=== PATIENT | female | born 1930 | race Caucasian/White ===

== ENCOUNTER 2017-09-01 08:37 | Inpatient (IN) | payer MEDICARE, MEDICAID ==
[2017-09-01] MEDS ORDERED: Ondansetron 4 MG/2 ML SDV IVPUSH ONE (09:18)
[2017-09-01] MEDS ORDERED: levETIRAcetam 1,000 MG in Sodium Chloride 0.9% 100 ML IV STA (09:23)
[2017-09-01] MEDS ORDERED: Sodium Chloride 0.9% 1,000 ML IV SCH ×2 (09:30→17:15)
--- NOTE | 2017-09-01 10:50 | CR ---
Chest: Portable view of the chest was obtained. Comparison: Prior chest x-ray of 06/03/16. Heart is enlarged. Tortuous thoracic aorta is seen. Lungs are clear. Scoliosis is noted within the spine. Bony structures are osteopenic. Impression: 1. Cardiomegaly and other incidental findings. 2. Nothing acute is appreciated on portable chest x-ray. Diagnostic code #2
--- NOTE | 2017-09-01 11:31 | EDM.PDOC ---
ED HPI GENERAL MEDICAL PROBLEM - General Chief Complaint: Gastrointestinal Problem Stated Complaint: [facility] Time Seen by Provider: 09/01/17 09:03 Source of Information: Reports: EMS Notes Reviewed, RN Notes Reviewed History Limitations: Reports: Altered Mental Status - History of Present Illness INITIAL COMMENTS - FREE TEXT/NARRATIVE: The patient was brought to the ED from her assisted living by EMS. Unfortunately , the only paperwork that accompanied the patient is a medication list, but not a list of her chronic medical problems, or what issues prompted her transfer to the ED. The EMS report indicates that they were told that the patient has "flu" , by which I believe a mean gastroenteritis, not influenza. The patient agrees that she has had nausea, vomiting, and diarrhea, but is unable to provide any additional information. Here in the ED, the patient's vital signs are noted to be stable, however, she has a temperature of 101.5. - Related Data Allergies Allergy/AdvReac Type Severity Reaction Status Date / Time Cephalosporins Allergy Cannot Verified 02/15/16 05:54 Remember codeine Allergy Cannot Verified 02/15/16 05:54 Remember diazepam [From Valium] Allergy Other Verified 02/15/16 06:41 morphine Allergy Cannot Verified 02/15/16 05:54 Remember Penicillins Allergy Cannot Verified 02/15/16 05:54 Remember phenobarbital Allergy Other Verified 02/15/16 06:42 sulfanilamide [Sulfanilamide] Allergy Cannot Verified 02/15/16 05:54 Remember clindamycin AdvReac Stomach Verified 02/15/16 05:54 Ache Home Meds: Home Meds Acetaminophen [Tylenol Arthritis Pain] 650 mg PO Q4HR PRN 02/01/15 [History] Aspirin [Halfprin] 81 mg PO DAILY 02/01/15 [History] Azelastine [Astelin Nasal Soln] 1 inhalation CHAVA BID 02/01/15 [History] ClonazePAM [KlonoPIN] 0.5 mg PO BEDTIME 02/01/15 [History] Denosumab [Prolia] 60 mg INJECT ASDIRECTED 02/01/15 [History] Desmopressin (NonRefrigerated) [Ddavp 0.01% Nasal [place]] 1 spray NS TID [History] Dexlansoprazole [Dexilant] 60 mg PO DAILY 02/01/15 [History] Diazepam [Diastat] 5 mg TOP DAILY PRN 02/01/15 [History] Escitalopram [Lexapro] 20 mg PO DAILY 02/01/15 [History] Folic Acid 1 mg PO DAILY 02/01/15 [History] Furosemide [Lasix] 20 mg PO DAILY 02/01/15 [History] Gabapentin [Neurontin] 600 mg PO QID 02/01/15 [History] LORazepam 1 mg PO Q12H PRN 02/01/15 [History] Levothyroxine 175 mcg PO ACBRK 02/01/15 [History] Losartan Potassium [Cozaar] 100 mg PO QAM 02/01/15 [History] Multivit-Min/FA/Lutein/Zeaxant [Macular Vitamin Tablet] 1 each PO DAILY [History] Multivitamin [Daily Vitamin] 1 each PO QAM 02/01/15 [History] Addison-3 Fatty Acids [Addison-3] 1,000 mg PO QAM 02/01/15 [History] Propranolol HCl [Inderal Xl] 80 mg PO 0900 02/01/15 [History] Propranolol [Inderal] 20 mg PO TID 02/01/15 [History] Simvastatin [Zocor] 20 mg PO QPM 02/01/15 [History] levETIRAcetam [Keppra] 1,000 mg PO ACBREAKFAST 02/01/15 [History] levETIRAcetam [Keppra] 1,500 mg PO BEDTIME 02/01/15 [History] predniSONE [Prednisone] 5 mg PO DAILY 02/01/15 [History] Meloxicam 15 mg PO DAILY 02/14/16 [History] Docusate Sodium 100 mg PO BID PRN 09/01/17 [History] traMADol [Ultram] 50 mg PO Q4HR PRN 09/01/17 [History] Past Medical History Other HEENT History: Glasses and upper partials. Cardiovascular History: Reports: High Cholesterol, Hypertension Gastrointestinal History: Reports: Hepatitis, Pancreatitis, Other (See Below) Other Gastrointestinal History: Kidney stones and stomach ulcers. Genitourinary History: Reports: Other (See Below) Other Genitourinary History: kidney stones [employer] WORK[employer] History: Reports: Musculoskeletal History: Reports: Back Pain, Chronic Neurological History: Reports: Seizure Endocrine/Metabolic History: Reports: Hypothyroidism Oncologic (Cancer) History: Reports: Uterine Other Oncologic History: Hysterectomy. - Infectious Disease History Infectious Disease History: Reports: Chicken Pox, Measles, Mumps, Rubella Other Infectious Disease History: Pt states she had hepatitis a long time ago and does not remember what kind. - Past Surgical History HEENT Surgical History: Reports: Cataract Surgery, Tonsillectomy Neurological Surgical History: Reports: Other (See Below) Oncologic Surgical History: Reports: None Social & Family History - Family History HEENT: Reports: Hearing Impairment Other HEENT Family History: Brother Ed has hearing aids. Cardiac: Reports: High Cholesterol, Hypertension Respiratory: Reports: Asthma, COPD, Other (See Below) Other Respiratory Family Hisory: Sister has asthma. Brother has COPD. Mother had lung problems. Musculoskeletal: Reports: Fibromyalgia Other Musculoskeletal Family History: Sister has fibromyalgia. Neurological: Reports: CVA Other Neurological Family History: Father had strokes. Endocrine/Metabolic: Reports: Diabetes, type II Other Endocrine/Metabolic Family History: Brother has DM II. Hematologic: Reports: Other (See Below) Other Hematologic Family History: Brother has some type of bleeding complication. Oncologic: Reports: Lung Other Oncologic Family History: Daughter has lung CA from smoking. - Tobacco Use Smoking Status *Q: Never Smoker Second Hand Smoke Exposure: No - Caffeine Use Caffeine Use: Reports: Coffee - Alcohol Use Days Per Week of Alcohol Use: 0 - Recreational Drug Use Recreational Drug Use: No - Living Situation & Occupation Living situation: Reports: Assisted Living Occupation: Retired ED ROS GENERAL - Review of Systems Review Of Systems: ROS reveals no pertinent complaints other than HPI. GI/Abdominal: Reports: Diarrhea, Nausea, Vomiting ED EXAM, GENERAL - Physical Exam Exam: See Below Exam Limited By: No Limitations General Appearance: Alert, WD/WN, No Apparent Distress, Lethargic Eye Exam: Bilateral Eye: Normal Inspection Ears: Normal External Exam, Hearing Grossly Normal Nose: Normal Inspection, No Blood Throat/Mouth: Normal Inspection, Normal Lips, Normal Voice, No Airway Compromise Head: Atraumatic, Normocephalic Neck: Normal Inspection, Full Range of Motion Respiratory/Chest: No Respiratory Distress, Lungs Clear, Normal Breath Sounds, No Accessory Muscle Use Cardiovascular: Normal Peripheral Pulses, Regular Rate, Rhythm, No Gallop, No JVD, No Murmur, No Rub Peripheral Pulses: 4+: Radial (L), Radial (R) GI/Abdominal: Normal Bowel Sounds, Soft, Non-Tender, No Organomegaly, No Distention, No Abnormal Bruit, No Mass, Other (Obese) (Female) Exam: Deferred Rectal (Female) Exam: Deferred Back Exam: Other (Buttocks erythematous, but no skin breakdown) Extremities: Normal Inspection, Normal Range of Motion, No Pedal Edema, Normal Capillary Refill Neurological: Other (Somnolent but arousable) Psychiatric: Other (Unable to assess) Skin Exam: Warm, Dry, Intact, Normal Color, No Rash EKG INTERPRETATION EKG Date: 09/01/17 Time: : Rhythm: NSR Rate (Beats/Min): 78 [place]: LAD-Left [place] Deviation P-Wave: Present (1st degree AVB) QRS: LBBB ST-T: Normal QT: Normal Comparison: No Change (02/01/2015) Course - Vital Signs Last Recorded V/S: Last Vital Signs Temp 38.6 C H 09/01/17 08:48 Pulse 74 09/01/17 08:48 Resp 18 09/01/17 08:48 BP 140/69 09/01/17 08:48 Pulse Ox 86 L 09/01/17 08:48 - Orders/Labs/Meds Orders: Active Orders 24 hr Category Date Time Status EKG Documentation Completion [RC] STAT Care 09/01/17 09:10 Active CKMB [CHEM] Routine Lab 09/01/17 14:20 Ordered CRP [C-REACTIVE PROTEIN] [CHEM] Routine Lab 09/01/17 14:20 Ordered CULTURE BLOOD [BC] Stat Lab 09/01/17 10:34 Received CULTURE BLOOD [BC] Stat Lab 09/01/17 10:34 Received CULTURE STOOL + SHIGATOX [RM] Stat Lab 09/01/17 10:30 Received NOROVIRUS GROUP 1 & 2 RT-PCR Stat Lab 09/01/17 10:30 Received TROPONIN I [CHEM] Routine Lab 09/01/17 14:20 Ordered Sodium Chloride 0.9% [Normal Saline] 1,000 ml Med 09/01/17 09:30 Active IV ASDIRECTED Blood Culture x2 Reflex Set [OM.PC] Stat Oth 09/01/17 09:12 Ordered Medication Orders Sodium Chloride (Normal Saline) 1,000 mls @ 100 mls/hr IV ASDIRECTED LINDEN Last Admin: 09/01/17 10:10 Dose: 100 mls/hr Labs: Laboratory Tests 09/01/17 09/01/17 09/01/17 Range/Units 09:35 10:05 10:05 WBC 6.91 (3.98-10.04) K/mm3 RBC 4.95 (3.98-5.22) M/mm3 Hgb 15.2 (11.2-15.7) gm/L Hct 47.8 H (34.1-44.9) % MCV 96.6 H (79.4-94.8) fl MCH 30.7 (25.6-32.2) pg MCHC 31.8 L (32.2-35.5) g/dl RDW Std Deviation 51.9 H (36.4-46.3) fL Plt Count 166 L (182-369) K/mm3 MPV 10.4 (9.4-12.3) fl Neutrophils % (Manual) 64 H (40-60) % Band Neutrophils % 0 (0-10) % Lymphocytes % (Manual) 26 (20-40) % Atypical Lymphs % 0 % Monocytes % (Manual) 9 (2-10) % Eosinophils % (Manual) 1 (0.7-5.8) % Basophils % (Manual) 0 L (0.1-1.2) Platelet Estimate Adequate RBC Morph Comment Normal PT (8.0-13.0) SECONDS INR APTT (22-36) SECONDS Puncture Site ABG pH (7.35-7.45) ABG pCO2 (35.0-45.0) mmHg ABG pO2 (80.0-100.0) mmHg ABG HCO3 (22.0-26.0) meq/L ABG O2 Saturation (96.0-97.0) % ABG Base Excess (-2-2.0) Bishop Test A-a Gradient mmHg O2 Delivery Device Oxygen Flow Rate FiO2 (21.00-100.00) % Sodium 146 H (136-145) mEq/L Potassium 3.7 (3.5-5.1) mEq/L Chloride 111 H (98-107) mEq/L Carbon Dioxide 28 (21-32) mEq/L Anion Gap 10.7 (5-15) BUN 26 H (7-18) mg/dL Creatinine 1.1 H (0.55-1.02) mg/dL Est Cr Clr Drug Dosing 26.86 mL/min Estimated GFR (MDRD) 47 (>60) mL/min BUN/Creatinine Ratio 23.6 H (14-18) Glucose 98 (83-115) mg/dL Lactic Acid (0.4-2.0) mmol/L Calcium 8.4 L (8.5-10.1) mg/dL Magnesium 2.1 (1.8-2.4) mg/dl Total Bilirubin 0.6 (0.2-1.0) mg/dL AST 20 (15-37) U/L ALT 20 (14-59) U/L Alkaline Phosphatase 46 (46-116) U/L Troponin I 0.166 H* (0.00-0.056) ng/mL Total Protein 6.6 (6.4-8.2) g/dl Albumin 3.3 L (3.4-5.0) g/dl Globulin 3.3 gm/dL Albumin/Globulin Ratio 1.0 (1-2) Lipase 234 (73-393) U/L Urine Color Yellow (Yellow) Urine Appearance Clear (Clear) Urine pH 5.5 (5.0-8.0) Ur Specific [place] 1.015 (1.005-1.030) Urine Protein Negative (Negative) Urine Glucose (UA) Negative (Negative) Urine Ketones Negative (Negative) Urine Occult Blood 2+ H (Negative) Urine Nitrite Negative (Negative) Urine Bilirubin Negative (Negative) Urine Urobilinogen 0.2 (0.2-1.0) Ur Leukocyte Esterase Negative (Negative) Urine RBC 10-20 H (0-5) /hpf Urine WBC 0-5 (0-5) /hpf Ur Epithelial Cells Not seen (0-5) /hpf Urine Bacteria Few (FEW) /hpf Urine Mucus Few (FEW) /hpf C.difficile [id number]-[id number] C. difficile Tox (PCR) 09/01/17 09/01/17 09/01/17 Range/Units 10:05 10:05 10:30 WBC (3.98-10.04) K/mm3 RBC (3.98-5.22) M/mm3 Hgb (11.2-15.7) gm/L Hct (34.1-44.9) % MCV (79.4-94.8) fl MCH (25.6-32.2) pg MCHC (32.2-35.5) g/dl RDW Std Deviation (36.4-46.3) fL Plt Count (182-369) K/mm3 MPV (9.4-12.3) fl Neutrophils % (Manual) (40-60) % Band Neutrophils % (0-10) % Lymphocytes % (Manual) (20-40) % Atypical Lymphs % % Monocytes % (Manual) (2-10) % Eosinophils % (Manual) (0.7-5.8) % Basophils % (Manual) (0.1-1.2) Platelet Estimate RBC Morph Comment PT 11.4 (8.0-13.0) SECONDS INR 1.04 APTT 27 (22-36) SECONDS Puncture Site Rt radial ABG pH 7.34 L (7.35-7.45) ABG pCO2 44.3 (35.0-45.0) mmHg ABG pO2 88.0 (80.0-100.0) mmHg ABG HCO3 23.2 (22.0-26.0) meq/L ABG O2 Saturation 96.7 (96.0-97.0) % ABG Base Excess -2.2 L (-2-2.0) Bishop Test Positive A-a Gradient 35 mmHg O2 Delivery Device Nasal cannula Oxygen Flow Rate 2.0 FiO2 28.00 (21.00-100.00) % Sodium (136-145) mEq/L Potassium (3.5-5.1) mEq/L Chloride (98-107) mEq/L Carbon Dioxide (21-32) mEq/L Anion Gap (5-15) BUN (7-18) mg/dL Creatinine (0.55-1.02) mg/dL Est Cr Clr Drug Dosing mL/min Estimated GFR (MDRD) (>60) mL/min BUN/Creatinine Ratio (14-18) Glucose (83-115) mg/dL Lactic Acid 1.1 (0.4-2.0) mmol/L Calcium (8.5-10.1) mg/dL Magnesium (1.8-2.4) mg/dl Total Bilirubin (0.2-1.0) mg/dL AST (15-37) U/L ALT (14-59) U/L Alkaline Phosphatase (46-116) U/L Troponin I (0.00-0.056) ng/mL Total Protein (6.4-8.2) g/dl Albumin (3.4-5.0) g/dl Globulin gm/dL Albumin/Globulin Ratio (1-2) Lipase (73-393) U/L Urine Color (Yellow) Urine Appearance (Clear) Urine pH (5.0-8.0) Ur Specific [place] (1.005-1.030) Urine Protein (Negative) Urine Glucose (UA) (Negative) Urine Ketones (Negative) Urine Occult Blood (Negative) Urine Nitrite (Negative) Urine Bilirubin (Negative) Urine Urobilinogen (0.2-1.0) Ur Leukocyte Esterase (Negative) Urine RBC (0-5) /hpf Urine WBC (0-5) /hpf Ur Epithelial Cells (0-5) /hpf Urine Bacteria (FEW) /hpf Urine Mucus (FEW) /hpf C.difficile [id number]-NAP1-B1 C. difficile Tox (PCR) 09/01/17 Range/Units 10:30 WBC (3.98-10.04) K/mm3 RBC (3.98-5.22) M/mm3 Hgb (11.2-15.7) gm/L Hct (34.1-44.9) % MCV (79.4-94.8) fl MCH (25.6-32.2) pg MCHC (32.2-35.5) g/dl RDW Std Deviation (36.4-46.3) fL Plt Count (182-369) K/mm3 MPV (9.4-12.3) fl Neutrophils % (Manual) (40-60) % Band Neutrophils % (0-10) % Lymphocytes % (Manual) (20-40) % Atypical Lymphs % % Monocytes % (Manual) (2-10) % Eosinophils % (Manual) (0.7-5.8) % Basophils % (Manual) (0.1-1.2) Platelet Estimate RBC Morph Comment PT (8.0-13.0) SECONDS INR APTT (22-36) SECONDS Puncture Site ABG pH (7.35-7.45) ABG pCO2 (35.0-45.0) mmHg ABG pO2 (80.0-100.0) mmHg ABG HCO3 (22.0-26.0) meq/L ABG O2 Saturation (96.0-97.0) % ABG Base Excess (-2-2.0) Bishop Test A-a Gradient mmHg O2 Delivery Device Oxygen Flow Rate FiO2 (21.00-100.00) % Sodium (136-145) mEq/L Potassium (3.5-5.1) mEq/L Chloride (98-107) mEq/L Carbon Dioxide (21-32) mEq/L Anion Gap (5-15) BUN (7-18) mg/dL Creatinine (0.55-1.02) mg/dL Est Cr Clr Drug Dosing mL/min Estimated GFR (MDRD) (>60) mL/min BUN/Creatinine Ratio (14-18) Glucose (83-115) mg/dL Lactic Acid (0.4-2.0) mmol/L Calcium (8.5-10.1) mg/dL Magnesium (1.8-2.4) mg/dl Total Bilirubin (0.2-1.0) mg/dL AST (15-37) U/L ALT (14-59) U/L Alkaline Phosphatase (46-116) U/L Troponin I (0.00-0.056) ng/mL Total Protein (6.4-8.2) g/dl Albumin (3.4-5.0) g/dl Globulin gm/dL Albumin/Globulin Ratio (1-2) Lipase (73-393) U/L Urine Color (Yellow) Urine Appearance (Clear) Urine pH (5.0-8.0) Ur Specific [place] (1.005-1.030) Urine Protein (Negative) Urine Glucose (UA) (Negative) Urine Ketones (Negative) Urine Occult Blood (Negative) Urine Nitrite (Negative) Urine Bilirubin (Negative) Urine Urobilinogen (0.2-1.0) Ur Leukocyte Esterase (Negative) Urine RBC (0-5) /hpf Urine WBC (0-5) /hpf Ur Epithelial Cells (0-5) /hpf Urine Bacteria (FEW) /hpf Urine Mucus (FEW) /hpf C.difficile [id number]-NAP1-B1 Presumptive negative C. difficile Tox (PCR) Negative Meds: Medications Generic Name Dose Route Start Last Admin Trade Name Freq PRN Reason Stop Dose Admin Sodium Chloride 1,000 mls @ 100 mls/hr 09/01/17 09:30 09/01/17 10:10 Normal Saline IV 100 mls/hr ASDIRECTED LINDEN Administration Discontinued Medications Generic Name Dose Route Start Last Admin Trade Name Freq PRN Reason Stop Dose Admin Levetiracetam 1,000 mg/ Sodium 110 mls @ 400 mls/hr 09/01/17 09:23 09/01/17 10:07 Chloride IV 09/01/17 09:39 400 mls/hr ONETIME STA Administration Ondansetron HCl 4 mg 09/01/17 09:18 09/01/17 10:43 Zofran IVPUSH 09/01/17 09:19 4 mg ONETIME ONE Administration - Re-Assessments/Exams Free Text/Narrative Re-Assessment/Exam: 09/01/17 09:32 Portable chest radiograph reviewed. There is likely cardiomegaly, but no pulmonary vascular congestion to suggest decompensated CHF. No pleural effusions seen on this AP view. No focal infiltrate. No pneumothorax. Formal read per the Radiologist pending. 09/01/17 13:[address] Connolly at 13:30. He accepts the patient for admission to medical floor. Departure - Departure Time of Disposition: 13:33 Disposition: Admitted As Inpatient 68 Condition: Fair Clinical Impression: Gastroenteritis, Acute kidney injury, Elevated troponin - Discharge Information - My Orders Last 24 Hours: My Active Orders 09/01/17 09:10 EKG Documentation Completion [RC] STAT 09/01/17 09:12 Blood Culture x2 Reflex Set [OM.PC] Stat 09/01/17 09:30 Sodium Chloride 0.9% [Normal Saline] 1,000 ml IV ASDIRECTED 09/01/17 10:30 CULTURE STOOL + SHIGATOX [RM] Stat NOROVIRUS GROUP 1 & 2 RT-PCR Stat 09/01/17 10:34 CULTURE BLOOD [BC] Stat CULTURE BLOOD [BC] Stat - Assessment/Plan Last 24 Hours: My Active Orders 09/01/17 09:10 EKG Documentation Completion [RC] STAT 09/01/17 09:12 Blood Culture x2 Reflex Set [OM.PC] Stat 09/01/17 09:30 Sodium Chloride 0.9% [Normal Saline] 1,000 ml IV ASDIRECTED 09/01/17 10:30 CULTURE STOOL + SHIGATOX [RM] Stat NOROVIRUS GROUP 1 & 2 RT-PCR Stat 09/01/17 10:34 CULTURE BLOOD [BC] Stat CULTURE BLOOD [BC] Stat
[2017-09-01] MEDS ORDERED: Ondansetron 4 MG/2 ML SDV IV PRN (15:35)
[2017-09-01] MEDS ORDERED: Albuterol/Ipratropium 3.0-0.5 MG/3 ML Neb Soln NEB PRN (15:35)
[2017-09-01] MEDS ORDERED: Ondansetron 4 MG Tab.DIS PO PRN (15:35)
[2017-09-01] MEDS ORDERED: Acetaminophen 325 MG Tab PO PRN (15:35)
[2017-09-01] MEDS ORDERED: Docusate Sodium 100 MG Cap PO PRN (15:35)
[2017-09-01] MEDS ORDERED: Temazepam 15 MG Cap PO PRN (15:35)
[2017-09-01] MEDS ORDERED: Polyethylene Glycol 3350 Powder 17 GM Packet PO PRN (15:35)
[2017-09-01] MEDS ORDERED: Bisacodyl 5 MG Tab PO PRN (15:35)
--- NOTE | 2017-09-01 15:54 | PCM.HP ---
H&P History of Present Illness - General Date of Service: 09/01/17 Admit Problem/Dx: Admission Diagnosis/Problem Admission Diagnosis/Problem Gastroenteritis Source of Information: Patient, Old Records, Provider, RN History Limitations: Reports: No Limitations - History of Present Illness Initial Comments - Free Text/Narative: Alie Blevins is an 87 yo pt. who presented to our ED via EMS from [place]. She lives there at the assisted-living manner. On arrival she had a medication list but did not have a list of her chronic medical problems or why she was being transferred to the ED. EMS reports the patient has had the flu. The ED provider interpreted this to mean gastroenteritis and not influenza. She reports nausea, vomiting, diarrhea. Vital signs in the ED had been stable however she had a temperature of 101.5. In the ED labs were obtained: WBC normal at 6.91. Hemoglobin normal at 15.2 hematocrit 47.8. She is macrocytic. Fluids are low at 166,000. Neutrophils elevated at 64%. There is no bandemia. PT is 11.4. INR 1.04. APTT 27. ABG was obtained in the right radial. PH is just slightly acidotic at 7.34. PCO2 44.3. PO2 88.0. Bicarbonate 23.2. O2 saturation 96.7. Base excess -2.2.A-a gradient is 35. He is on 2 L by nasal cannula. FiO2 is 28%. Lactic acid is 1.1. Sodium was 146. Potassium 3.7. Chloride 111. Carbon dioxide 28. Anion gap 10.7. BUN is high at 26. Creatinine elevated at 1.1. EGFR is 47. Glucose is 98. Calcium slightly low at 8.4. Magnesium 2.1. Bilirubin 0.6. AST good at 20, ALT good at 20, alkaline phosphatase 46. UA had 2+ occult blood, however was otherwise negative. C. difficile toxin by PCR as well as C. difficile 027-NAP1- B1 were both negative. As noted she was placed on 2 L of oxygen. She was given a Keppra drip although reasoning for this is not documented. Patient is on Keppra twice daily. She was also given Zofran and normal saline. Chest x- ray was obtained showing cardiomegaly with other incidental findings. Nothing acute is appreciated. This is read by Dr. Patel, radiologist. Twelve-lead was obtained. This shows a first-degree AV block as well as a left bundle branch block. Sinus rhythm is noted at a rate of 78. This was compared to a 12 -lead from showing no change. She carries a history of HLD, HTN, hepatitis, pancreatitis, seizures, chronic back pain, hypothyroidism. She was never a smoker. She reports "small heart attack" after her prior back surgery several years ago. She is a full code. Her PCP is Dr. Ortiz at [facility] in [place]. - Related Data Allergies/Adverse Reactions: Allergies Allergy/AdvReac Type Severity Reaction Status Date / Time Cephalosporins Allergy Cannot Verified 02/15/16 05:54 Remember codeine Allergy Cannot Verified 02/15/16 05:54 Remember diazepam [From Valium] Allergy Other Verified 02/15/16 06:41 morphine Allergy Cannot Verified 02/15/16 05:54 Remember Penicillins Allergy Cannot Verified 02/15/16 05:54 Remember phenobarbital Allergy Other Verified 02/15/16 06:42 sulfanilamide [Sulfanilamide] Allergy Cannot Verified 02/15/16 05:54 Remember clindamycin AdvReac Stomach Verified 02/15/16 05:54 Ache Home Medications: Home Meds Acetaminophen [Tylenol Arthritis Pain] 1,300 mg PO Q8HR PRN 02/01/15 [History] Aspirin [Halfprin] 81 mg PO DAILY 02/01/15 [History] Azelastine [Astelin Nasal Soln] 2 sprays CHAVA BID 02/01/15 [History] ClonazePAM [KlonoPIN] 0.5 mg PO BEDTIME 02/01/15 [History] Denosumab [Prolia] 60 mg INJECT ASDIRECTED 02/01/15 [History] Desmopressin (NonRefrigerated) [Ddavp 0.01% Nasal [place]] 1 spray NS TID [History] Dexlansoprazole [Dexilant] 60 mg PO 0745 02/01/15 [History] Diazepam [Diastat] 5 mg TOP DAILY PRN 02/01/15 [History] Escitalopram [Lexapro] 20 mg PO DAILY 02/01/15 [History] Folic Acid 1 mg PO DAILY 02/01/15 [History] Furosemide [Lasix] 20 mg PO DAILY 02/01/15 [History] Gabapentin [Neurontin] 600 mg PO QID 02/01/15 [History] LORazepam 1 mg PO Q12H PRN MDD 3mg in 12 hrs 02/01/15 [History] Levothyroxine 137 mcg PO ACBRK 02/01/15 [History] Losartan Potassium [Cozaar] 100 mg PO QAM 02/01/15 [History] Multivit-Min/FA/Lutein/Zeaxant [Macular Vitamin Tablet] 1 each PO 1200 02/01/15 [History] Multivitamin [Daily Vitamin] 1 each PO QAM 02/01/15 [History] [place]-3 Fatty Acids [[place]-3] 1,000 mg PO QAM 02/01/15 [History] Propranolol HCl [Inderal Xl] 80 mg PO 0900 02/01/15 [History] Propranolol [Inderal] 20 mg PO 0745,1130,1630 02/01/15 [History] Simvastatin [Zocor] 20 mg PO QPM 02/01/15 [History] levETIRAcetam [Keppra] 1,000 mg PO DAILY 02/01/15 [History] levETIRAcetam [Keppra] 1,500 mg PO BEDTIME 02/01/15 [History] predniSONE [Prednisone] 5 mg PO DAILY 02/01/15 [History] Meloxicam 15 mg PO 1200 02/14/16 [History] Docusate Sodium 100 mg PO BID PRN 09/01/17 [History] traMADol [Ultram] 50 mg PO Q4HR PRN 09/01/17 [History] Past Medical History Other HEENT History: Glasses and upper partials. Cardiovascular History: Reports: High Cholesterol, Hypertension Gastrointestinal History: Reports: Hepatitis, Pancreatitis, Other (See Below) Other Gastrointestinal History: Kidney stones and stomach ulcers. Genitourinary History: Reports: Other (See Below) Other Genitourinary History: kidney stones SLOT HOST History: Reports: Other OB/BYN History: Had 3 children. Musculoskeletal History: Reports: Back Pain, Chronic Neurological History: Reports: Seizure Other Neuro History: Patient stated, "Seizures all my life." Endocrine/Metabolic History: Reports: Hypothyroidism Oncologic (Cancer) History: Reports: Uterine Other Oncologic History: Hysterectomy. Dermatologic History: Reports: Benign Melanoma, Other (See Below) Other Dermatologic History: Moles - Infectious Disease History Infectious Disease History: Reports: Chicken Pox, Measles, Mumps, Rubella Other Infectious Disease History: Pt states she had hepatitis a long time ago and does not remember what kind. - Past Surgical History HEENT Surgical History: Reports: Cataract Surgery, Tonsillectomy Neurological Surgical History: Reports: Other (See Below) Oncologic Surgical History: Reports: None Social & Family History - Family History Family Medical History: Noncontributory HEENT: Reports: Hearing Impairment Other HEENT Family History: Brother Ed has hearing aids. Cardiac: Reports: High Cholesterol, Hypertension Respiratory: Reports: Asthma, COPD, Other (See Below) Other Respiratory Family Hisory: Sister has asthma. Brother has COPD. Mother had lung problems. Musculoskeletal: Reports: Fibromyalgia Other Musculoskeletal Family History: Sister has fibromyalgia. Neurological: Reports: CVA Other Neurological Family History: Father had strokes. Endocrine/Metabolic: Reports: Diabetes, type II Other Endocrine/Metabolic Family History: Brother has DM II. Hematologic: Reports: Other (See Below) Other Hematologic Family History: Brother has some type of bleeding complication. Oncologic: Reports: Lung Other Oncologic Family History: Daughter has lung CA from smoking. - Tobacco Use Smoking Status *Q: Never Smoker Used Tobacco, but Quit: No Tobacco Use Comment: never used. Second Hand Smoke Exposure: No - Caffeine Use Caffeine Use: Reports: Coffee - Alcohol Use Days Per Week of Alcohol Use: 0 - Recreational Drug Use Recreational Drug Use: No - Living Situation & Occupation Living situation: Reports: Assisted Living Occupation: Retired H&P Review of Systems - Review of Systems: Review Of Systems: See Below General: Reports: Fever, Chills, Malaise, Weakness HEENT: Reports: No Symptoms. Denies: Ear Pain, Eye Pain, Hearing Changes, Sore Throat, Vertigo, Visual Changes Pulmonary: Reports: No Symptoms. Denies: Shortness of Breath, Wheezing, Pleuritic Chest Pain, Cough, Sputum Cardiovascular: Reports: No Symptoms. Denies: Chest Pain, Palpitations, Edema, Lightheadedness Gastrointestinal: Reports: Diarrhea, Nausea, Stool Incontinence, Vomiting. Denies: Abdominal Pain, Constipation, Decreased Appetite, Distension Genitourinary: Reports: No Symptoms. Denies: Dysuria, Frequency, Burning, Pain , Urgency Musculoskeletal: Reports: Back Pain (chronic ). Denies: Neck Pain, Hand Pain, Leg Pain, Foot Pain, Joint Pain Skin: Reports: No Symptoms Psychiatric: Reports: No Symptoms Neurological: Reports: Seizure (Hx/o ). Denies: Confusion, Dizziness, Headache , Numbness, Syncope, Tingling, Tremors, Difficulty Walking (walks with a walker ) Hematologic/Lymphatic: Reports: No Symptoms Immunologic: Reports: No Symptoms Exam - Exam Exam: See Below - Vital Signs Vital Signs: Last Vital Signs Temp 100.8 F H 09/01/17 14:54 Pulse 84 09/01/17 14:54 Resp 20 09/01/17 14:54 BP 139/94 H 09/01/17 14:54 Pulse Ox 89 L 09/01/17 14:54 Weight: 174 lb 3.2 oz - Exam Quality Assessment: Supplemental Oxygen (2L ), DVT Prophylaxis. No: Skin Breakdown General: Alert, Oriented, Cooperative HEENT: Conjunctiva Clear, EACs Clear, EOMI, Hearing Intact, Mucosa Moist & Blue , Nares Patent, Normal Nasal Septum, Posterior Pharynx Clear, TMs Clear, PERRLA Neck: Supple, Trachea Midline. No: Lymphadenopathy, JVD, Thyromegaly Lungs: Clear to Auscultation, Normal Respiratory Effort Cardiovascular: Regular Rate, Regular Rhythm GI/Abdominal Exam: Normal Bowel Sounds, Soft, Non-Tender, No Organomegaly, No Distention, No Abnormal Bruit, No Mass, Pelvis Stable (Female) Exam: Deferred Rectal (Female) Exam: Deferred Back Exam: Normal Inspection, Decreased Range of Motion Extremities: Normal Inspection, Normal Range of Motion, Non-Tender, No Pedal Edema, Normal Capillary Refill Peripheral Pulses: 2+: Radial (L), Radial (R), Posterior Tibial (L), Posterior Tibial (R), Dorsalis Pedis (L), Dorsalis Pedis (R) Skin: Warm, Dry, Intact, Other (Botox erythematous but no skin breakdown) Neurological: Cranial Nerves Intact Neuro Extensive - Mental Status: Alert, Oriented x3, Normal Mood/Affect, Normal Cognition Neuro Extensive - Motor, Sensory, Reflexes: CN II-XII Intact (Grossly), Normal Gait (Walks with a walker) Psychiatric: Alert, Normal Affect, Normal Mood, Other (Patient reports she did not sleep much last night it is quite sleepy today) - Patient Data Lab Results Last 24 hrs: Laboratory Results - last 24 hr 09/01/17 Range/Units 14:50 CK-MB (CK-2) < 0.5 (0-3.6) ng/ml Troponin I 0.203 H* (0.00-0.056) ng/mL C-Reactive Protein 10.0 H* (<1.0) mg/dL Result Diagrams: 09/01/17 10:05 09/01/17 10:05 *Q Meaningful Use (ADM) - VTE *Q VTE Criteria *Q: - Stroke *Q Stroke Criteria *Q: - AMI *Q AMI Criteria *Q: - Problem List (1) Gastroenteritis SNOMED Code(s): 29699677 ICD Code: K52.9 - NONINFECTIVE GASTROENTERITIS AND COLITIS, UNSPECIFIED Status: Acute Priority: High Current Visit: Yes (2) Non-STEMI (non-ST elevated myocardial infarction) SNOMED Code(s): 967791171 ICD Code: I21.4 - NON-ST ELEVATION (NSTEMI) MYOCARDIAL INFARCTION Status: Acute Current Visit: Yes Problem List Initiated/Reviewed/Updated: Yes Orders Last 24hrs: Active Orders 24 hr Category Date Time Status Ambulate [RC] PER UNIT ROUTINE Care 09/01/17 15:36 Ordered Antiembolic Devices [RC] PER UNIT ROUTINE Care 09/01/17 15:37 Ordered Cardiac Monitoring [RC] CONTINUOUS Care 09/01/17 15:35 Ordered Height and Weight [RC] DAILY Care 09/01/17 15:35 Ordered Intake and Output [RC] QSHIFT Care 09/01/17 15:35 Ordered Oxygen Therapy [RC] PRN Care 09/01/17 15:35 Ordered RT Aerosol Therapy [RC] ASDIRECTED Care 09/01/17 15:37 Ordered Up With Assistance [RC] ASDIRECTED Care 09/01/17 15:35 Ordered VTE/DVT Education [RC] PER UNIT ROUTINE Care 09/01/17 15:35 Ordered Vital Signs [RC] Q4H Care 09/01/17 15:35 Ordered Consult to Case Management [CONS] Routine Cons 09/01/17 15:35 Ordered Consult to Sustainability Manager [CONS] Routine Cons 09/01/17 15:35 Ordered Nothing per Oral Now Diet [DIET] Diet 09/01/17 Dinner Ordered PRO B-TYPE NATRIUR PEPT,BNPPRO [CHEM] Stat Lab 09/01/17 15:30 Ordered Acetaminophen [Tylenol] Med 09/01/17 15:35 Ordered 650 mg PO Q4H PRN Albuterol/Ipratropium [DuoNeb 3.0-0.5 MG/3 ML] Med 09/01/17 15:35 Ordered 3 ml NEB Q4H PRN Bisacodyl [Dulcolax] Med 09/01/17 15:35 Ordered 5 mg PO DAILY PRN Docusate Sodium [Colace] Med 09/01/17 15:35 Ordered 100 mg PO BID PRN Ondansetron [Zofran ODT] Med 09/01/17 15:35 Ordered 4 mg PO Q6H PRN Ondansetron [Zofran] Med 09/01/17 15:35 Ordered 4 mg IV Q6H PRN Polyethylene Glycol 3350 [MiraLAX] Med 09/01/17 15:35 Ordered 17 gm PO DAILY PRN Temazepam [Restoril] Med 09/01/17 15:35 Ordered 15 mg PO BEDTIME PRN Antiembolic Hose [OM.PC] Per Unit Routine Oth 09/01/17 15:36 Ordered Resuscitation Status Routine Resus Stat 09/01/17 15:35 Ordered Medication Orders Acetaminophen (Tylenol) 650 mg PO Q4H PRN PRN Reason: Pain (Mild 1-3)/fever Albuterol/Ipratropium (Duoneb 3.0-0.5 Mg/3 Ml) 3 ml NEB Q4H PRN PRN Reason: Shortness Of Breath/wheezing Bisacodyl (Dulcolax) 5 mg PO DAILY PRN PRN Reason: Constipation Docusate Sodium (Colace) 100 mg PO BID PRN PRN Reason: Constipation Sodium Chloride (Normal Saline) 1,000 mls @ 100 mls/hr IV ASDIRECTED [facility] Last Admin: 09/01/17 10:10 Dose: 100 mls/hr Ondansetron HCl (Zofran Odt) 4 mg PO Q6H PRN PRN Reason: nausea, able to take PO Ondansetron HCl (Zofran) 4 mg IV Q6H PRN PRN Reason: Nausea/Vomiting Polyethylene Glycol (Miralax) 17 gm PO DAILY PRN PRN Reason: Constipation Temazepam (Restoril) 15 mg PO BEDTIME PRN PRN Reason: Sleep Assessment/Plan Comment:: I/P: Non-STEMI -Troponin elevated from 0.166 to 0.203 since admission -12-lead showed LBBB and 1st degree HB in ED. Significant EKG changes once on floor -Call placed to [facility] in [place] Dr. Nickerson, Dray Truck Driver agrees to see pt. -Dr. Arzate, hospitalist also agrees to transfer -80mg lovenox given -325mg ASA -25mg Metoprolol Gastroenteritis, Viral -Doubting due to elevated troponing and EKG changes, symptoms may be due to evolving LA -WBC WNL Chronic Seizures HLD HTN Chronic back pain Hypothyroidism Plan Admitted to medical floor - will transfer to [place] as above. She is a full code. Her PCP is Dr. Ortiz
[2017-09-01] MEDS ORDERED: Enoxaparin 80 MG/0.8 ML Syringe SUBCUT ONE (16:54)
[2017-09-01] MEDS ORDERED: Aspirin 81 MG Tab.Chew PO ONE (16:56)
[2017-09-01] MEDS ORDERED: Metoprolol Tartrate 25 MG Tab PO ONE (16:57)
--- NOTE | 2017-09-01 17:25 | PCM.DCSUM1 ---
Discharge Summary - Hospital Course Free Text/Narrative:: Alie Blevins is an 87 yo pt. who presented to our ED via EMS from [place]. She lives there at the assisted-living manner. On arrival she had a medication list but did not have a list of her chronic medical problems or why she was being transferred to the ED. EMS reports the patient has had the flu. The ED provider interpreted this to mean gastroenteritis and not influenza. She reports nausea, vomiting, diarrhea. Vital signs in the ED had been stable however she had a temperature of 101.5. In the ED labs were obtained: WBC normal at 6.91. Hemoglobin normal at 15.2 hematocrit 47.8. She is macrocytic. Fluids are low at 166,000. Neutrophils elevated at 64%. There is no bandemia. PT is 11.4. INR 1.04. APTT 27. ABG was obtained in the right radial. PH is just slightly acidotic at 7.34. PCO2 44.3. PO2 88.0. Bicarbonate 23.2. O2 saturation 96.7. Base excess -2.2.A-a gradient is 35. He is on 2 L by nasal cannula. FiO2 is 28%. Lactic acid is 1.1. Sodium was 146. Potassium 3.7. Chloride 111. Carbon dioxide 28. Anion gap 10.7. BUN is high at 26. Creatinine elevated at 1.1. EGFR is 47. Glucose is 98. Calcium slightly low at 8.4. Magnesium 2.1. Bilirubin 0.6. AST good at 20, ALT good at 20, alkaline phosphatase 46. UA had 2+ occult blood, however was otherwise negative. C. difficile toxin by PCR as well as C. difficile 027-NAP1- B1 were both negative. As noted she was placed on 2 L of oxygen. She was given a Keppra drip although reasoning for this is not documented. Patient is on Keppra twice daily. She was also given Zofran and normal saline. Chest x- ray was obtained showing cardiomegaly with other incidental findings. Nothing acute is appreciated. This is read by Dr. Patel, radiologist. Twelve-lead was obtained. This shows a first-degree AV block as well as a left bundle branch block. Sinus rhythm is noted at a rate of 78. This was compared to a 12 -lead from showing no change. She carries a history of HLD, HTN, hepatitis, pancreatitis, seizures, chronic back pain, hypothyroidism. She was never a smoker. She reports "small heart attack" after her prior back surgery several years ago. She is a full code. Her PCP is Dr. Ortiz at [facility] here in [place]. She was subsequently admitted to the hospital floor. Once on the floor her troponin was noted to be elevated. Repeat troponin and 12-lead were ordered. Troponin was 0.203 compared to 0.166 in the ED. Twelve-lead showed marked changes from ED admission. Discussed these findings with the patient and she reported she would like to be sent to [place] for cardiology as she has been there in the past. Dr. Nickerson, Lathe Operator and Dr. Arzate, Hospitalist contacted and agreed to this transfer. She was be sent via [facility] ambulance. 80 mg Lovenox, 325 ASA, and 25 mg metoprolol given prior to transport. - Discharge Data Discharge Date: 09/01/17 (Admit date: 09/01/17) Discharge Disposition: DC/Tfer to Acute Hospital 02 Condition: Fair - Discharge Diagnosis/Problem(s) (1) Gastroenteritis SNOMED Code(s): 08252235 ICD Code: K52.9 - NONINFECTIVE GASTROENTERITIS AND COLITIS, UNSPECIFIED Status: Acute Priority: High Current Visit: Yes (2) Non-STEMI (non-ST elevated myocardial infarction) SNOMED Code(s): 014264777 ICD Code: I21.4 - NON-ST ELEVATION (NSTEMI) MYOCARDIAL INFARCTION Status: Acute Current Visit: Yes - Patient Summary/Data Consults: Consultations 09/01/17 15:35 Consult to Case Management [CONS] Routine Consult to Director Of Public Safety [CONS] Routine - Discharge Plan Home Medications: Home Meds Acetaminophen [Tylenol Arthritis Pain] 1,300 mg PO Q8HR PRN 02/01/15 [History] Aspirin [Halfprin] 81 mg PO DAILY 02/01/15 [History] Azelastine [Astelin Nasal Soln] 2 sprays CHAVA BID 02/01/15 [History] ClonazePAM [KlonoPIN] 0.5 mg PO BEDTIME 02/01/15 [History] Denosumab [Prolia] 60 mg INJECT ASDIRECTED 02/01/15 [History] Desmopressin (NonRefrigerated) [Ddavp 0.01% Nasal [place]] 1 spray NS TID [History] Dexlansoprazole [Dexilant] 60 mg PO 0745 02/01/15 [History] Diazepam [Diastat] 5 mg TOP DAILY PRN 02/01/15 [History] Escitalopram [Lexapro] 20 mg PO DAILY 02/01/15 [History] Folic Acid 1 mg PO DAILY 02/01/15 [History] Furosemide [Lasix] 20 mg PO DAILY 02/01/15 [History] Gabapentin [Neurontin] 600 mg PO QID 02/01/15 [History] LORazepam 1 mg PO Q12H PRN MDD 3mg in 12 hrs 02/01/15 [History] Levothyroxine 137 mcg PO ACBRK 02/01/15 [History] Losartan Potassium [Cozaar] 100 mg PO QAM 02/01/15 [History] Multivit-Min/FA/Lutein/Zeaxant [Macular Vitamin Tablet] 1 each PO 1200 02/01/15 [History] Multivitamin [Daily Vitamin] 1 each PO QAM 02/01/15 [History] [place]-3 Fatty Acids [[place]-3] 1,000 mg PO QAM 02/01/15 [History] Propranolol HCl [Inderal Xl] 80 mg PO 0900 02/01/15 [History] Propranolol [Inderal] 20 mg PO 0745,1130,1630 02/01/15 [History] Simvastatin [Zocor] 20 mg PO QPM 02/01/15 [History] levETIRAcetam [Keppra] 1,000 mg PO DAILY 02/01/15 [History] levETIRAcetam [Keppra] 1,500 mg PO BEDTIME 02/01/15 [History] predniSONE [Prednisone] 5 mg PO DAILY 02/01/15 [History] Meloxicam 15 mg PO 1200 02/14/16 [History] Docusate Sodium 100 mg PO BID PRN 09/01/17 [History] traMADol [Ultram] 50 mg PO Q4HR PRN 09/01/17 [History] - Discharge Summary/Plan Comment DC Time >30 min.: Yes (45 mins ) - General Info Date of Service: 09/01/17 Admission Dx/Problem (Free Text: Admission Diagnosis/Problem Admission Diagnosis/Problem Gastroenteritis Functional Status: Reports: Pain Controlled, Tolerating Diet, Urinating. Denies : New Symptoms - Review of Systems General: Reports: Fever, Weakness, Fatigue, Malaise, Chills HEENT: Reports: No Symptoms Pulmonary: Reports: No Symptoms Cardiovascular: Reports: No Symptoms Gastrointestinal: Reports: Abdominal Pain, Diarrhea, Nausea, Vomiting Genitourinary: Reports: No Symptoms Musculoskeletal: Reports: No Symptoms Skin: Reports: No Symptoms Neurological: Reports: No Symptoms Psychiatric: Reports: No Symptoms - Patient Data Vitals - Most Recent: Last Vital Signs Temp 100.8 F H 09/01/17 14:54 Pulse 84 09/01/17 14:54 Resp 20 09/01/17 14:54 BP 139/94 H 09/01/17 14:54 Pulse Ox 89 L 09/01/17 14:54 Weight - Most Recent: 174 lb 3.2 oz Lab Results - Last 24 hrs: Laboratory Results - last 24 hr 09/01/17 09/01/17 Range/Units 14:50 14:50 CK-MB (CK-2) < 0.5 (0-3.6) ng/ml Troponin I 0.203 H* (0.00-0.056) ng/mL C-Reactive Protein 10.0 H* (<1.0) mg/dL NT-Pro-B Natriuret Pep 3703 H (0-450) pg/mL Med Orders - Current: Current Medications Acetaminophen (Tylenol) 650 mg PO Q4H PRN PRN Reason: Pain (Mild 1-3)/fever Albuterol/Ipratropium (Duoneb 3.0-0.5 Mg/3 Ml) 3 ml NEB Q4H PRN PRN Reason: Shortness Of Breath/wheezing Bisacodyl (Dulcolax) 5 mg PO DAILY PRN PRN Reason: Constipation Docusate Sodium (Colace) 100 mg PO BID PRN PRN Reason: Constipation Sodium Chloride (Normal Saline) 1,000 mls @ 50 mls/hr IV ASDIRECTED [facility] Ondansetron HCl (Zofran Odt) 4 mg PO Q6H PRN PRN Reason: nausea, able to take PO Ondansetron HCl (Zofran) 4 mg IV Q6H PRN PRN Reason: Nausea/Vomiting Polyethylene Glycol (Miralax) 17 gm PO DAILY PRN PRN Reason: Constipation Temazepam (Restoril) 15 mg PO BEDTIME PRN PRN Reason: Sleep Discontinued Medications Aspirin (Aspirin) 324 mg PO ONETIME ONE Stop: 09/01/17 16:57 Enoxaparin Sodium (Lovenox) 80 mg SUBCUT ONETIME ONE Stop: 09/01/17 16:55 Sodium Chloride (Normal Saline) 1,000 mls @ 100 mls/hr IV ASDIRECTED [facility] Last Admin: 09/01/17 10:10 Dose: 100 mls/hr Levetiracetam 1,000 mg/ Sodium (Chloride) 110 mls @ 400 mls/hr IV ONETIME STA Stop: 09/01/17 09:39 Last Admin: 09/01/17 10:07 Dose: 400 mls/hr Metoprolol Tartrate (Lopressor) 25 mg PO ONETIME ONE Stop: 09/01/17 16:58 Ondansetron HCl (Zofran) 4 mg IVPUSH ONETIME ONE Stop: 09/01/17 09:19 Last Admin: 09/01/17 10:43 Dose: 4 mg - Exam Quality Assessment: Reports: Supplemental Oxygen, DVT Prophylaxis General: Reports: Alert, Oriented, Cooperative HEENT: Reports: Pupils Equal, Pupils Reactive, EOMI, Mucous Membr. Moist/[place] Neck: Reports: Supple, Trachea Midline. Denies: No JVD, No Thyromegaly Lungs: Reports: Clear to Auscultation, Normal Respiratory Effort Cardiovascular: Reports: Regular Rate, Regular Rhythm GI/Abdominal Exam: Normal Bowel Sounds, Soft, Non-Tender, No Organomegaly, No Distention, No Abnormal Bruit, No Mass, Pelvis Stable (Female) Exam: Deferred Rectal (Female) Exam: Deferred Back Exam: Reports: Normal Inspection, Decreased Range of Motion Extremities: Normal Inspection, Normal Range of Motion, Non-Tender, No Pedal Edema, Normal Capillary Refill Skin: Reports: Warm, Dry, Intact, Other (Buttocks erythematous but no skin breakdown.) Psy/Mental Status: Reports: Alert, Normal Affect, Normal Mood *Q Meaningful Use (DIS) - VTE *Q VTE Criteria *Q: - Stroke *Q Stroke Criteria *Q: - AMI *Q AMI Criteria *Q:
[2017-09-01 17:46] VITALS: BP 139/64
== END 2017-09-01 18:02 | DRG 392 ==
LOC: JD.ED 08:37 → SUPCPDRO 08:37 → UNDOADMIN 13:49 → JD.MS 13:49
PROVIDERS: ADMIT Internal Medicine; ATTEND Internal Medicine
DX: K52.9 Noninfective gastroenteritis and colitis, unspecified (principal); N17.9 Acute kidney failure, unspecified; R79.89 Other specified abnormal findings of blood chemistry; I44.7 Left bundle-branch block, unspecified; E78.5 Hyperlipidemia, unspecified; I10 Essential (primary) hypertension; E03.9 Hypothyroidism, unspecified; M54.9 Dorsalgia, unspecified; G89.29 Other chronic pain; R56.9 Unspecified convulsions; I44.0 Atrioventricular block, first degree; I25.2 Old myocardial infarction
CPT/HCPCS: 36415; 36600; 71010; 80053; 81001; 82803; 83605; 83690; 83735; 84484; 85025; 85610; 85730; 87040 ×2; 87046; 87425; 87493 ×2; 87798 ×2; 87804 ×2; 89055; 93005; J1953; J2405; J7030; J7040; 82553; 83880; 86140; 87427; 96361; 96365; 96375; 99285; 99285-25; A9270-GY; J1650; P9612

== ENCOUNTER 2017-09-17 07:26 | Emergency (ER) | payer MEDICARE, MEDICAID ==
[2017-09-17 07:33] VITALS: BP 173/80
[2017-09-17] MEDS ORDERED: Sodium Chloride 0.9% 10 ML Syringe FLUSH PRN (07:40)
[2017-09-17] MEDS ORDERED: Ondansetron 4 MG/2 ML SDV IVPUSH ONE (07:40)
[2017-09-17] MEDS ORDERED: Acetaminophen 325 MG Tab PO ONE (07:41)
[2017-09-17] MEDS ORDERED: Sodium Chloride 0.9% 1,000 ML IV SCH (07:45)
--- NOTE | 2017-09-17 08:21 | CT ---
Head CT Technique: Multiple axial sections through the brain were obtained. Intravenous contrast was not utilized. Comparison: Prior head CT study of 02/14/16. Findings: Ventricles along with basal cisterns and sulci over convexities appear within normal limits for the patient's age. Minimal areas of decreased density are noted within the periventricular white matter compatible with small vessel ischemic demyelination change. Basal ganglia calcification is seen. No other abnormal parenchymal densities are seen. No evidence of intracranial hemorrhage. No midline shift or mass effect is seen. Mild mucosal thickening is seen within the sphenoid sinus with fluid. So-called empty sella is present as a normal variant. Atherosclerotic calcification is seen within the vertebral vessels and within the carotid siphon. Bone window settings were reviewed which shows no acute calvarial abnormality. Impression: 1. Mucosal thickening within the sphenoid sinus with what appears to be fluid. Findings suggest the possibility of acute sinusitis. 2. Senescent change as noted above. No acute intracranial abnormality is seen. Diagnostic code #3
--- NOTE | 2017-09-17 11:05 | EDM.PDOC ---
ED HPI GENERAL MEDICAL PROBLEM - General Chief Complaint: Cardiovascular Problem Stated Complaint: SENT FROM STRESS LAB Time Seen by Provider: 09/17/17 07:33 Source of Information: Reports: Patient History Limitations: Reports: No Limitations - History of Present Illness INITIAL COMMENTS - FREE TEXT/NARRATIVE: The patient presents with a headache and nausea. She was here getting a stress test and after Dr Oconnor was done she was complaining of a headache and nausea. He called and sent her over here. She denies fever or chills. She does have some congestion and runny nose. She has no cough. She has no chest pain or shortness of breath. She has no abdominal pain or vomiting. She was recently admitted here for UTI and elevated troponin. Her troponin went up any higher and she was sent to [facility]. She was found to not have an SC. She was scheduled for a stress test today. She has no numbness but she has generalized weakness. Onset: Gradual Duration: Hour(s): Location: Reports: Head Quality: Reports: Ache Severity: Mild Improves with: Reports: None Worsens with: Reports: None Context: Reports: Activity (She was getting her stress test) Associated Symptoms: Reports: Headaches, Nausea/Vomiting. Denies: Chest Pain, Fever/Chills, Shortness of Breath Headache Pain Score (Numeric/FACES): 8 - Related Data Allergies Allergy/AdvReac Type Severity Reaction Status Date / Time Cephalosporins Allergy Cannot Verified 09/17/17 07:33 Remember codeine Allergy Cannot Verified 09/17/17 07:33 Remember diazepam [From Valium] Allergy Other Verified 09/17/17 07:33 morphine Allergy Cannot Verified 09/17/17 07:33 Remember Penicillins Allergy Cannot Verified 09/17/17 07:33 Remember phenobarbital Allergy Other Verified 09/17/17 07:33 sulfanilamide [Sulfanilamide] Allergy Cannot Verified 09/17/17 07:33 Remember clindamycin AdvReac Stomach Verified 09/17/17 07:33 Ache Home Meds: Home Meds Acetaminophen [Tylenol Arthritis Pain] 1,300 mg PO Q8HR PRN 02/01/15 [History] Aspirin [Halfprin] 81 mg PO DAILY 02/01/15 [History] Azelastine [Astelin Nasal Soln] 2 sprays CHAVA BID 02/01/15 [History] ClonazePAM [KlonoPIN] 0.5 mg PO BEDTIME 02/01/15 [History] Denosumab [Prolia] 60 mg INJECT ASDIRECTED 02/01/15 [History] Desmopressin (NonRefrigerated) [Ddavp 0.01% Nasal [place]] 1 spray NS TID [History] Dexlansoprazole [Dexilant] 60 mg PO 0745 02/01/15 [History] Diazepam [Diastat] 5 mg TOP DAILY PRN 02/01/15 [History] Escitalopram [Lexapro] 20 mg PO DAILY 02/01/15 [History] Folic Acid 1 mg PO DAILY 02/01/15 [History] Furosemide [Lasix] 20 mg PO DAILY 02/01/15 [History] Gabapentin [Neurontin] 600 mg PO QID 02/01/15 [History] LORazepam 1 mg PO Q12H PRN MDD 3mg in 12 hrs 02/01/15 [History] Levothyroxine 137 mcg PO ACBRK 02/01/15 [History] Losartan Potassium [Cozaar] 100 mg PO QAM 02/01/15 [History] Multivit-Min/FA/Lutein/Zeaxant [Macular Vitamin Tablet] 1 each PO 1200 02/01/15 [History] Multivitamin [Daily Vitamin] 1 each PO QAM 02/01/15 [History] [place]-3 Fatty Acids [[place]-3] 1,000 mg PO QAM 02/01/15 [History] Propranolol HCl [Inderal Xl] 80 mg PO DAILY 02/01/15 [History] Propranolol [Inderal] 20 mg PO 0745,1130,1630 02/01/15 [History] levETIRAcetam [Keppra] 1,000 mg PO DAILY 02/01/15 [History] levETIRAcetam [Keppra] 1,500 mg PO BEDTIME 02/01/15 [History] predniSONE [Prednisone] 5 mg PO DAILY 02/01/15 [History] Meloxicam 15 mg PO 1200 02/14/16 [History] Docusate Sodium 100 mg PO BID PRN 09/01/17 [History] traMADol [Ultram] 50 mg PO Q4HR PRN 09/01/17 [History] Doxycycline [Vibramycin] 100 mg PO Q12HR #20 cap 09/17/17 [Rx] Past Medical History Other HEENT History: Glasses and upper partials. Cardiovascular History: Reports: High Cholesterol, Hypertension Gastrointestinal History: Reports: Hepatitis, Pancreatitis, Other (See Below) Other Gastrointestinal History: Kidney stones and stomach ulcers. 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 Musculoskeletal History: Reports: Back Pain, Chronic Neurological History: Reports: Seizure Other Neuro History: Patient stated, "Seizures all my life." Endocrine/Metabolic History: Reports: Hypothyroidism Oncologic (Cancer) History: Reports: Uterine Other Oncologic History: Hysterectomy. Dermatologic History: Reports: Benign Melanoma, Other (See Below) Other Dermatologic History: Moles - Infectious Disease History Infectious Disease History: Reports: Chicken Pox, Measles, Mumps, Rubella Other Infectious Disease History: Pt states she had hepatitis a long time ago and does not remember what kind. - Past Surgical History HEENT Surgical History: Reports: Cataract Surgery, Tonsillectomy Neurological Surgical History: Reports: Other (See Below) Oncologic Surgical History: Reports: None Social & Family History - Family History Family Medical History: Noncontributory HEENT: Reports: Hearing Impairment Other HEENT Family History: Brother Ed has hearing aids. Cardiac: Reports: High Cholesterol, Hypertension Respiratory: Reports: Asthma, COPD, Other (See Below) Other Respiratory Family Hisory: Sister has asthma. Brother has COPD. Mother had lung problems. Musculoskeletal: Reports: Fibromyalgia Other Musculoskeletal Family History: Sister has fibromyalgia. Neurological: Reports: CVA Other Neurological Family History: Father had strokes. Endocrine/Metabolic: Reports: Diabetes, type II Other Endocrine/Metabolic Family History: Brother has DM II. Hematologic: Reports: Other (See Below) Other Hematologic Family History: Brother has some type of bleeding complication. Oncologic: Reports: Lung Other Oncologic Family History: Daughter has lung CA from smoking. - Tobacco Use Smoking Status *Q: Never Smoker Used Tobacco, but Quit: No Second Hand Smoke Exposure: No - Caffeine Use Caffeine Use: Reports: None - Alcohol Use Days Per Week of Alcohol Use: 0 - Recreational Drug Use Recreational Drug Use: No - Living Situation & Occupation Living situation: Reports: Assisted Living Occupation: Retired ED ROS GENERAL - Review of Systems Review Of Systems: See Below Constitutional: Reports: No Symptoms HEENT: Reports: Other (Congestion and runny nose) Respiratory: Reports: No Symptoms Cardiovascular: Reports: No Symptoms Endocrine: Reports: No Symptoms GI/Abdominal: Reports: Nausea. Denies: Abdominal Pain, Vomiting : Reports: No Symptoms Musculoskeletal: Reports: No Symptoms Skin: Reports: No Symptoms ED EXAM, GENERAL - Physical Exam Exam: See Below Exam Limited By: No Limitations General Appearance: Alert, No Apparent Distress Ears: Normal External Exam Nose: Normal Inspection Throat/Mouth: Normal Inspection Head: Atraumatic, Normocephalic Neck: Normal Inspection Respiratory/Chest: No Respiratory Distress, Lungs Clear, Normal Breath Sounds Cardiovascular: Regular Rate, Rhythm, No Edema, No Murmur GI/Abdominal: Soft, Non-Tender, No Organomegaly, No Mass Back Exam: Normal Inspection Extremities: Normal Inspection Course - Vital Signs Last Recorded V/S: Last Vital Signs Temp 97.2 F 09/17/17 07:29 Pulse 77 09/17/17 07:29 Resp 16 09/17/17 07:29 BP 173/80 H 09/17/17 07:29 Pulse Ox 92 L 09/17/17 07:29 - Orders/Labs/Meds Orders: Active Orders 24 hr Category Date Time Status Peripheral IV Care [RC] . DIRECTED Care 09/17/17 07:41 Active Sodium Chloride 0.9% [Normal Saline] 1,000 ml Med 09/17/17 07:45 Active IV ASDIRECTED Sodium Chloride 0.9% [Saline Flush] Med 09/17/17 07:40 Active 10 ml FLUSH ASDIRECTED PRN ED Antiemetic Medication Reflex [OM.PC] Stat Oth 09/17/17 07:41 Ordered Peripheral IV Insertion Adult [OM.PC] Stat Oth 09/17/17 07:40 Ordered Medication Orders Sodium Chloride (Normal Saline) 1,000 mls @ 125 mls/hr IV ASDIRECTED LINDEN Last Admin: 09/17/17 07:51 Dose: 125 mls/hr Sodium Chloride (Saline Flush) 10 ml FLUSH ASDIRECTED PRN PRN Reason: Keep Vein Open Last Admin: 09/17/17 07:52 Dose: 10 ml Labs: Laboratory Tests 09/17/17 09/17/17 Range/Units 07:55 07:55 WBC 9.29 (3.98-10.04) K/mm3 RBC 4.19 (3.98-5.22) M/mm3 Hgb 12.7 (11.2-15.7) gm/L Hct 40.0 (34.1-44.9) % MCV 95.5 H (79.4-94.8) fl MCH 30.3 (25.6-32.2) pg MCHC 31.8 L (32.2-35.5) g/dl RDW Std Deviation 49.4 H (36.4-46.3) fL Plt Count 206 (182-369) K/mm3 MPV 10.0 (9.4-12.3) fl Neut % (Auto) 51.8 (34.0-71.1) % Lymph % (Auto) 32.8 (19.3-51.7) % [place] % (Auto) 11.3 (4.7-12.5) % Eos % (Auto) 3.1 (0.7-5.8) Baso % (Auto) 0.8 (0.1-1.2) % Neut # (Auto) 4.81 (1.56-6.13) K/mm3 Lymph # (Auto) 3.05 (1.18-3.74) K/mm3 [place] # (Auto) 1.05 H (0.24-0.36) K/mm3 Eos # (Auto) 0.29 (0.04-0.36) K/mm3 Baso # (Auto) 0.07 (0.01-0.08) K/mm3 Sodium 142 (136-145) mEq/L Potassium 3.6 (3.5-5.1) mEq/L Chloride 104 (98-107) mEq/L Carbon Dioxide 33 H (21-32) mEq/L Anion Gap 8.6 (5-15) BUN 19 H (7-18) mg/dL Creatinine 0.8 (0.55-1.02) mg/dL Est Cr Clr Drug Dosing 36.93 mL/min Estimated GFR (MDRD) > 60 (>60) mL/min BUN/Creatinine Ratio 23.8 H (14-18) Glucose 93 (83-115) mg/dL Calcium 8.1 L (8.5-10.1) mg/dL Total Bilirubin 0.7 (0.2-1.0) mg/dL AST 22 (15-37) U/L ALT 24 (14-59) U/L Alkaline Phosphatase 37 L (46-116) U/L Total Protein 5.9 L (6.4-8.2) g/dl Albumin 3.2 L (3.4-5.0) g/dl Globulin 2.7 gm/dL Albumin/Globulin Ratio 1.2 (1-2) Meds: Medications Generic Name Dose Route Start Last Admin Trade Name Freq PRN Reason Stop Dose Admin Sodium Chloride 1,000 mls @ 125 mls/hr 09/17/17 07:45 09/17/17 07:51 Normal Saline IV 125 mls/hr ASDIRECTED LINDEN Administration Sodium Chloride 10 ml 09/17/17 07:40 09/17/17 07:52 Saline Flush FLUSH 10 ml ASDIRECTED PRN Administration Keep Vein Open Discontinued Medications Generic Name Dose Route Start Last Admin Trade Name Freq PRN Reason Stop Dose Admin Acetaminophen 975 mg 09/17/17 07:41 09/17/17 07:51 Tylenol PO 09/17/17 07:42 975 mg NOW ONE Administration Ondansetron HCl 4 mg 09/17/17 07:40 09/17/17 07:51 Zofran IVPUSH 09/17/17 07:41 4 mg ONETIME ONE Administration - Re-Assessments/Exams Free Text/Narrative Re-Assessment/Exam: 09/17/17 11:08 Her CBC and CMP look good. I gave her some tylenol. Her CT shows mucosal thickening within the sphenoid sinus with what appears to be fluid. Findings suggest the possibility of acute sinusitis. I will get her on some doxycycline 100mg BID for 10 days. Her headache is gone after the tylenol. She is hanging out for the rest of her stress test. Departure - Departure Time of Disposition: 11:10 Disposition: Home, Self-Care 01 Condition: Good Clinical Impression: Headache Qualifiers: Headache type: unspecified Headache chronicity pattern: acute headache Intractability: not intractable Qualified Code(s): R51 - Headache Sinusitis Qualifiers: Sinusitis location: sphenoidal Chronicity: acute Recurrence: non-recurrent Qualified Code(s): J01.30 - Acute sphenoidal sinusitis, unspecified Prescriptions: Doxycycline [Vibramycin] 100 mg PO Q12HR #20 cap Referrals: Savage Ortiz MD [Primary Care Provider] - 1 Week Forms: ED Department Discharge Additional Instructions: Take your medication as prescribed. Take doxycycline for the sinus infection. Follow up with Dr Ortiz for the stress test results. Please return if you are worse. - My Orders Last 24 Hours: My Active Orders 09/17/17 07:40 Sodium Chloride 0.9% [Saline Flush] 10 ml FLUSH ASDIRECTED PRN Peripheral IV Insertion Adult [OM.PC] Stat 09/17/17 07:41 Peripheral IV Care [RC] . DIRECTED ED Antiemetic Medication Reflex [OM.PC] Stat 09/17/17 07:45 Sodium Chloride 0.9% [Normal Saline] 1,000 ml IV ASDIRECTED - Assessment/Plan Last 24 Hours: My Active Orders 09/17/17 07:40 Sodium Chloride 0.9% [Saline Flush] 10 ml FLUSH ASDIRECTED PRN Peripheral IV Insertion Adult [OM.PC] Stat 09/17/17 07:41 Peripheral IV Care [RC] . DIRECTED ED Antiemetic Medication Reflex [OM.PC] Stat 09/17/17 07:45 Sodium Chloride 0.9% [Normal Saline] 1,000 ml IV ASDIRECTED
--- NOTE | 2017-09-17 18:29 | STRESS ---
REQUESTING PHYSICIAN: DATE: 09/17/2017 PROCEDURE PERFORMED: Lexiscan stress test. The Lexiscan protocol was reviewed with the patient including risks and benefits, and consent was signed. TECHNIQUE: Baseline resting EKG demonstrated sinus bradycardia at 58 beats per minute with a left bundle-branch block configuration. Resting blood pressure was 156/81. The Lexiscan was infused as per protocol, with the patient achieving a maximum heart rate of 96 beats per minute. Maximum recorded was 156 beats per minute, yielding a double product of 14,155. The patient complained of not feeling well following the Lexiscan infusion with no specific complaints of chest pain or discomfort. Maximum ST-segment depression reached 0.6 mm. IMPRESSION: 1. Indeterminate Lexiscan stress test. 2. Left bundle-branch block. 3. Resting bradycardia. MMODAL /[id number]
== END 2017-09-17 11:47 | disposition home or self-care (01) ==
LOC: JD.ED 07:26
DX: J01.30 Acute sphenoidal sinusitis, unspecified (principal); I10 Essential (primary) hypertension; Z88.5 Allergy status to narcotic agent; Z88.8 Allergy status to other drugs, medicaments and biological substances; Z88.0 Allergy status to penicillin; Z88.2 Allergy status to sulfonamides; Z79.82 Long term (current) use of aspirin; Z79.899 Other long term (current) drug therapy; I25.10 Atherosclerotic heart disease of native coronary artery without angina pectoris; I51.89 Other ill-defined heart diseases; R07.9 Chest pain, unspecified
CPT/HCPCS: 36415; 70450; 78452; 80053; 85025; 93017; 96361; 96374; 99285; A9270; A9500; J2405; J2785; J7040; J7050; 99283

== ENCOUNTER 2018-06-06 16:06 | Observation (INO) | payer MEDICARE, MEDICAID ==
[2018-06-06] MEDS ORDERED: Propranolol 20 MG Tab PO ONE (17:13)
[2018-06-06] MEDS ORDERED: Gabapentin 600 MG Tab PO SCH (17:40)
[2018-06-06] MEDS ORDERED: Gabapentin 600 MG Tab PO ONE (17:40)
--- NOTE | 2018-06-06 19:16 | EDM.PDOC ---
ED HPI GENERAL MEDICAL PROBLEM - General Chief Complaint: Syncope Stated Complaint: [facility] Time Seen by Provider: 06/06/18 18:39 Source of Information: Reports: Patient History Limitations: Reports: No Limitations - History of Present Illness INITIAL COMMENTS - FREE TEXT/NARRATIVE: The patient states that she lives at an assisted living facility in [place]. She states that she started eating lunch around noon, and became hot and sweaty. ( In contrast to the triage nurse's note, the patient states that she did not get dizzy). The patient was given an Ativan around 14:00, which did not help, therefore staff called EMS, when her symptoms had not resolved after 2 hours. When EMS arrived, they placed her on a monitor, and found her to be in atrial fibrillation. Atrial fibrillation, as well as the patient's symptoms of feeling hot and sweaty, resolved en route to the ED, and she has remained asymptomatic since. Total duration today was about 3 hours. Here in the ED, an ECG confirms that she is in normal sinus rhythm. The patient states that she had similar symptoms last week while shopping at [employer], however, those symptoms lasted less than 15 minutes, and she did not seek medical attention. At no time during either of these events that the patient experience any chest pain, palpitations, dyspnea, nausea, vomiting, headache, or dizziness. The patient's PCP is Dr. Ortiz. - Related Data Allergies Allergy/AdvReac Type Severity Reaction Status Date / Time Cephalosporins Allergy Cannot Verified 06/06/18 16:20 Remember codeine Allergy Cannot Verified 06/06/18 16:20 Remember diazepam [From Valium] Allergy Other Verified 06/06/18 16:20 morphine Allergy Cannot Verified 06/06/18 16:20 Remember Penicillins Allergy Cannot Verified 06/06/18 16:20 Remember phenobarbital Allergy Other Verified 06/06/18 16:20 sulfanilamide [Sulfanilamide] Allergy Cannot Verified 06/06/18 16:20 Remember clindamycin AdvReac Stomach Verified 06/06/18 16:20 Ache Home Meds: Home Meds Acetaminophen [Tylenol Arthritis Pain] 1,300 mg PO Q8HR PRN 02/01/15 [History] Aspirin [Halfprin] 325 mg PO DAILY 02/01/15 [History] Azelastine [Astelin Nasal Soln] 2 sprays CHAVA BID 02/01/15 [History] ClonazePAM [KlonoPIN] 0.5 mg PO BEDTIME 02/01/15 [History] Denosumab [Prolia] 60 mg INJECT ASDIRECTED 02/01/15 [History] Desmopressin (NonRefrigerated) [Ddavp 0.01% Nasal [place]] 1 spray NS TID [History] Dexlansoprazole [Dexilant] 60 mg PO 0745 02/01/15 [History] Escitalopram [Lexapro] 20 mg PO DAILY 02/01/15 [History] Folic Acid 1 mg PO DAILY 02/01/15 [History] Furosemide [Lasix] 20 mg PO DAILY 02/01/15 [History] Gabapentin [Neurontin] 600 mg PO QID 02/01/15 [History] LORazepam 1 mg PO Q12H PRN MDD 3mg in 12 hrs 02/01/15 [History] Levothyroxine 137 mcg PO ACBRK 02/01/15 [History] Losartan Potassium [Cozaar] 100 mg PO QAM 02/01/15 [History] Multivit-Min/FA/Lutein/Zeaxant [Macular Vitamin Tablet] 1 each PO 1200 02/01/15 [History] Multivitamin [Daily Vitamin] 1 each PO QAM 02/01/15 [History] [place]-3 Fatty Acids [[place]-3] 1,000 mg PO QAM 02/01/15 [History] Propranolol HCl [Inderal Xl] 80 mg PO DAILY 02/01/15 [History] Propranolol [Inderal] 20 mg PO 0745,1130,1630 02/01/15 [History] diazePAM [Diastat] 5 mg TOP DAILY PRN 02/01/15 [History] levETIRAcetam [Keppra] 1,000 mg PO DAILY 02/01/15 [History] levETIRAcetam [Keppra] 1,500 mg PO BEDTIME 02/01/15 [History] predniSONE [Prednisone] 5 mg PO DAILY 02/01/15 [History] Meloxicam 15 mg PO 1200 02/14/16 [History] Docusate Sodium 100 mg PO BID PRN 09/01/17 [History] traMADol [Ultram] 50 mg PO Q4HR PRN 09/01/17 [History] Doxycycline [Vibramycin] 100 mg PO Q12HR #20 cap 09/17/17 [Rx] Past Medical History Other HEENT History: Glasses and upper partials. 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: Musculoskeletal History: Reports: Back Pain, Chronic, Osteoarthritis, Osteoporosis Neurological History: Reports: Seizure, Other (See Below) (Essential tremor) Psychiatric History: Reports: Anxiety, Depression Endocrine/Metabolic History: Reports: Hypothyroidism, Obesity/BMI 30+ Oncologic (Cancer) History: Reports: Uterine Dermatologic History: Reports: Benign Melanoma - Infectious Disease History Infectious Disease History: Reports: Chicken Pox, Measles, Mumps, Rubella - Past Surgical History Head Surgeries/Procedures: Reports: Other (See Below) (Pituitary adenoma excised ) HEENT Surgical History: Reports: Cataract Surgery, Oral Surgery (wisdom teeth extracted), Tonsillectomy GI Surgical History: Reports: Appendectomy, Cholecystectomy Female Surgical History: Reports: Hysterectomy, Salpingo-Oophorectomy Neurological Surgical History: Reports: Laminectomy (lumbar, x 3) Social & Family History - Family History Family Medical History: Noncontributory HEENT: Reports: Hearing Impairment Other HEENT Family History: Brother Ed has hearing aids. Cardiac: Reports: High Cholesterol, Hypertension Respiratory: Reports: Asthma, COPD, Other (See Below) Other Respiratory Family Hisory: Sister has asthma. Brother has COPD. Mother had lung problems. Musculoskeletal: Reports: Fibromyalgia Other Musculoskeletal Family History: Sister has fibromyalgia. Neurological: Reports: CVA Other Neurological Family History: Father had strokes. Endocrine/Metabolic: Reports: Diabetes, type II Other Endocrine/Metabolic Family History: Brother has DM II. Hematologic: Reports: Other (See Below) Other Hematologic Family History: Brother has some type of bleeding complication. Oncologic: Reports: Lung Other Oncologic Family History: Daughter has lung CA from smoking. - Tobacco Use Smoking Status *Q: Never Smoker Second Hand Smoke Exposure: No - Caffeine Use Caffeine Use: Reports: Tea - Alcohol Use Alcohol Use History: Yes Alcohol Use Frequency: Rarely - Recreational Drug Use Recreational Drug Use: No - Living Situation & Occupation Living situation: Reports: , Alone, Assisted Living Occupation: Retired ED ROS GENERAL - Review of Systems Review Of Systems: ROS reveals no pertinent complaints other than HPI. ED EXAM, GENERAL - Physical Exam Exam: See Below Exam Limited By: No Limitations General Appearance: Alert, WD/WN, No Apparent Distress Eye Exam: Bilateral Eye: EOMI, Normal Inspection Ears: Normal External Exam, Hearing Grossly Normal Nose: Normal Inspection, No Blood Throat/Mouth: Normal Inspection, Normal Lips, Normal Voice, No Airway Compromise Head: Atraumatic, Normocephalic Neck: Normal Inspection, Full Range of Motion Respiratory/Chest: No Respiratory Distress, Lungs Clear, Normal Breath Sounds, No Accessory Muscle Use Cardiovascular: Normal Peripheral Pulses, Regular Rate, Rhythm, No Gallop, No JVD, No Murmur, No Rub Peripheral Pulses: 4+: Radial (L), Radial (R) GI/Abdominal: Normal Bowel Sounds, Soft, Non-Tender, No Organomegaly, No Distention, No Abnormal Bruit, No Mass, Other (Obese) (Female) Exam: Deferred Rectal (Female) Exam: Deferred Back Exam: Normal Inspection, Full Range of Motion, NT Extremities: Normal Inspection, Normal Range of Motion, No Pedal Edema, Normal Capillary Refill Neurological: Alert, Oriented, Normal Cognition, No Motor/Sensory Deficits, Other (Essential tremor of head and hands) Psychiatric: Normal Affect Skin Exam: Warm, Dry, Intact, Normal Color, No Rash EKG INTERPRETATION EKG Date: 06/06/18 Time: 16:17 Rhythm: NSR Rate (Beats/Min): 65 [place]: LAD-Left [place] Deviation P-Wave: Present QRS: LBBB ST-T: Normal QT: Normal Comparison: No Change (09/01/2018) Course - Vital Signs Last Recorded V/S: Last Vital Signs Temp 36.8 C 06/06/18 16:14 Pulse 65 06/06/18 16:14 Resp 16 06/06/18 16:14 BP 143/48 H 06/06/18 16:14 Pulse Ox 92 L 06/06/18 16:14 - Orders/Labs/Meds Orders: Active Orders 24 hr Category Date Time Status EKG 12 Lead [EKG Documentation Completion] [RC] STAT Care 06/06/18 16:24 Active Labs: Laboratory Tests 06/06/18 06/06/18 06/06/18 Range/Units 16:20 16:20 16:20 WBC 11.27 H (3.98-10.04) K/mm3 RBC 4.45 (3.98-5.22) M/mm3 Hgb 13.4 (11.2-15.7) gm/L Hct 41.9 (34.1-44.9) % MCV 94.2 (79.4-94.8) fl MCH 30.1 (25.6-32.2) pg MCHC 32.0 L (32.2-35.5) g/dl RDW Std Deviation 47.5 H (36.4-46.3) fL Plt Count 96 L (182-369) K/mm3 MPV TNP Neut % (Auto) 73.5 H (34.0-71.1) % Lymph % (Auto) 14.2 L (19.3-51.7) % [place] % (Auto) 9.6 (4.7-12.5) % Eos % (Auto) 2.0 (0.7-5.8) Baso % (Auto) 0.4 (0.1-1.2) % Neut # (Auto) 8.30 H (1.56-6.13) K/mm3 Lymph # (Auto) 1.60 (1.18-3.74) K/mm3 [place] # (Auto) 1.08 H (0.24-0.36) K/mm3 Eos # (Auto) 0.22 (0.04-0.36) K/mm3 Baso # (Auto) 0.04 (0.01-0.08) K/mm3 Manual Slide Review Abnormal smear Sodium 140 (136-145) mEq/L Potassium 4.6 (3.5-5.1) mEq/L Chloride 103 (98-107) mEq/L Carbon Dioxide 31 (21-32) mEq/L Anion Gap 10.6 (5-15) BUN 17 (7-18) mg/dL Creatinine 0.9 (0.55-1.02) mg/dL Est Cr Clr Drug Dosing 32.83 mL/min Estimated GFR (MDRD) 60 (>60) mL/min BUN/Creatinine Ratio 18.9 H (14-18) Glucose 121 H (83-115) mg/dL Calcium 8.6 (8.5-10.1) mg/dL Total Bilirubin 0.3 (0.2-1.0) mg/dL AST 21 (15-37) U/L ALT 22 (14-59) U/L Alkaline Phosphatase 57 (46-116) U/L Troponin I < 0.017 (0.00-0.056) ng/mL Total Protein 6.5 (6.4-8.2) g/dl Albumin 3.3 L (3.4-5.0) g/dl Globulin 3.2 gm/dL Albumin/Globulin Ratio 1.0 (1-2) Meds: Medications Discontinued Medications Generic Name Dose Route Start Last Admin Trade Name Wes PRN Reason Stop Dose Admin Gabapentin 600 mg 06/06/18 17:40 Neurontin PO BEDTIME LINDEN Gabapentin 600 mg 06/06/18 17:40 06/06/18 17:50 Neurontin PO 06/06/18 17:41 600 mg ONETIME ONE Administration Propranolol HCl 20 mg 06/06/18 17:13 06/06/18 17:24 Inderal PO 06/06/18 17:14 20 mg ONETIME ONE Administration - Re-Assessments/Exams Free Text/Narrative Re-Assessment/Exam: 06/06/18 19:[address] Davis at 19:00. Because the patient is on both long and short acting propranolol and takes a full aspirin, Dr. Davis feels that the patient likely has a history of atrial fibrillation, that she simply does not know about. Dr. Davis is recommending that the patient be placed in observation for monitoring, and will probably be discharged home with a Holter monitor, then follow-up with a [facility] in [place]. This was discussed with the patient, who is agreeable. Departure - Departure Time of Disposition: 19:10 Disposition: Refer to Observation Condition: Good Clinical Impression: Atrial fibrillation Forms: ED Department Discharge - My Orders Last 24 Hours: My Active Orders 06/06/18 16:24 EKG 12 Lead [EKG Documentation Completion] [RC] STAT - Assessment/Plan Last 24 Hours: My Active Orders 06/06/18 16:24 EKG 12 Lead [EKG Documentation Completion] [RC] STAT
[2018-06-06] MEDS ORDERED: traMADol 50 MG Tab PO PRN (20:41)
[2018-06-06] MEDS ORDERED: Docusate Sodium 100 MG Cap PO PRN (20:41)
[2018-06-06] MEDS ORDERED: LORazepam 1 MG Tab PO PRN (20:41)
[2018-06-06] MEDS ORDERED: ACETAMINOPHEN 1300 MG PO PRN (20:41)
--- NOTE | 2018-06-06 20:41 | PCM.HP ---
H&P History of Present Illness - General Date of Service: 06/06/18 Admit Problem/Dx: Admission Diagnosis/Problem Admission Diagnosis/Problem Atrial fibrillation Source of Information: Patient, Provider - History of Present Illness Initial Comments - Free Text/Narative: 87 year old female who is unaware whether she has a diagnosis of A Fib, however she is on short acting and long acting Inderal. She had one episode of dizziness associated with shortness of breath and diaphoresis. The patient also has a seizure disorder, there was no seizure activity observed. The patient was in A Fib on the EMS monitor. This resolved before arrival to the ED. She will be admitted to obs with telemetry. The patient is a full code. Onset of Symptoms: Reports: Sudden Symptom Onset Date: 06/06/18 Duration of Symptoms: Reports: Hour(s):, Getting Worse Location: Reports: Generalized Severity: Moderate Improves with: Reports: None Worsens with: Reports: None Associated Symptoms: Reports: Diaphoresis, Weakness - Related Data Allergies/Adverse Reactions: Allergies Allergy/AdvReac Type Severity Reaction Status Date / Time Cephalosporins Allergy Cannot Verified 06/06/18 21:18 Remember codeine Allergy Cannot Verified 06/06/18 21:18 Remember diazepam [From Valium] Allergy Other Verified 06/06/18 21:18 morphine Allergy Cannot Verified 06/06/18 21:18 Remember Penicillins Allergy Cannot Verified 06/06/18 21:18 Remember phenobarbital Allergy Other Verified 06/06/18 21:18 sulfanilamide [Sulfanilamide] Allergy Cannot Verified 06/06/18 21:18 Remember clindamycin AdvReac Stomach Verified 06/06/18 21:18 Ache Home Medications: Home Meds Acetaminophen [Tylenol Arthritis Pain] 1,300 mg PO Q8HR PRN 02/01/15 [History] Aspirin [Halfprin] 325 mg PO DAILY 02/01/15 [History] ClonazePAM [KlonoPIN] 0.5 mg PO BEDTIME 02/01/15 [History] Denosumab [Prolia] 60 mg INJECT ASDIRECTED 02/01/15 [History] Desmopressin (NonRefrigerated) [Ddavp 0.01% Nasal [place]] 1 spray NS TID [History] Dexlansoprazole [Dexilant] 60 mg PO 0745 02/01/15 [History] Escitalopram [Lexapro] 10 mg PO DAILY 02/01/15 [History] Folic Acid 1 mg PO DAILY 02/01/15 [History] Furosemide [Lasix] 20 mg PO DAILY 02/01/15 [History] Gabapentin [Neurontin] 600 mg PO QID 02/01/15 [History] LORazepam 1 mg PO Q12H PRN MDD 3mg in 12 hrs 02/01/15 [History] Levothyroxine 137 mcg PO ACBRK 02/01/15 [History] Losartan Potassium [Cozaar] 100 mg PO QAM 02/01/15 [History] Multivit-Min/FA/Lutein/Zeaxant [Macular Vitamin Tablet] 1 each PO 1200 02/01/15 [History] Multivitamin [Daily Vitamin] 1 each PO QAM 02/01/15 [History] [place]-3 Fatty Acids [[place]-3] 1,000 mg PO QAM 02/01/15 [History] Propranolol HCl [Inderal Xl] 80 mg PO DAILY 02/01/15 [History] Propranolol [Inderal] 20 mg PO 0745,1130,1630 02/01/15 [History] diazePAM [Diastat] 5 mg TOP DAILY PRN 02/01/15 [History] levETIRAcetam [Keppra] 1,000 mg PO DAILY 02/01/15 [History] levETIRAcetam [Keppra] 1,500 mg PO BEDTIME 02/01/15 [History] predniSONE [Prednisone] 5 mg PO DAILY 02/01/15 [History] Meloxicam 15 mg PO 1200 02/14/16 [History] Docusate Sodium 100 mg PO BID PRN 09/01/17 [History] traMADol [Ultram] 50 mg PO Q4HR PRN 09/01/17 [History] Albuterol [Proventil HFA] 2 inh INH Q6HR PRN 06/07/18 [History] Fluticasone/Vilanterol [Breo Ellipta 100-25 MCG Inhalation Kit] 1 puff INH DAILY 06/07/18 [History] Non-Formulary Medication [NF Drug] 137 mcg INH BID 06/07/18 [History] Simvastatin 20 mg PO DAILY 06/07/18 [History] cycloSPORINE [Restasis] 0.05 drop EYEBOTH BID 06/07/18 [History] Past Medical History Other HEENT History: Glasses and upper partials. Cardiovascular History: Reports: Afib (06/06/2018), High Cholesterol, Hypertension Gastrointestinal History: Reports: PUD Other Gastrointestinal History: Kidney stones and stomach ulcers. Genitourinary History: Reports: Renal Calculus Other Genitourinary History: kidney stones STUNT DOUBLE History: Reports: Other OB/BYN History: Had 3 children. Musculoskeletal History: Reports: Back Pain, Chronic, Osteoarthritis, Osteoporosis Neurological History: Reports: Seizure, Other (See Below) (Essential tremor) Other Neuro History: Patient stated, "Seizures all my life." Psychiatric History: Reports: Anxiety, Depression Endocrine/Metabolic History: Reports: Hypothyroidism, Obesity/BMI 30+ Oncologic (Cancer) History: Reports: Uterine Other Oncologic History: Hysterectomy. Dermatologic History: Reports: Benign Melanoma Other Dermatologic History: Moles - Infectious Disease History Infectious Disease History: Reports: Chicken Pox, Measles, Mumps, Rubella Other Infectious Disease History: Pt states she had hepatitis a long time ago and does not remember what kind. - Past Surgical History Head Surgeries/Procedures: Reports: Other (See Below) (Pituitary adenoma excised ) HEENT Surgical History: Reports: Cataract Surgery, Oral Surgery (wisdom teeth extracted), Tonsillectomy GI Surgical History: Reports: Appendectomy, Cholecystectomy Female Surgical History: Reports: Hysterectomy, Salpingo-Oophorectomy Neurological Surgical History: Reports: Laminectomy (lumbar, x 3) Social & Family History - Family History Family Medical History: Noncontributory HEENT: Reports: Hearing Impairment Other HEENT Family History: Brother Ed has hearing aids. Cardiac: Reports: High Cholesterol, Hypertension Respiratory: Reports: Asthma, COPD, Other (See Below) Other Respiratory Family Hisory: Sister has asthma. Brother has COPD. Mother had lung problems. Musculoskeletal: Reports: Fibromyalgia Other Musculoskeletal Family History: Sister has fibromyalgia. Neurological: Reports: CVA Other Neurological Family History: Father had strokes. Endocrine/Metabolic: Reports: Diabetes, type II Other Endocrine/Metabolic Family History: Brother has DM II. Hematologic: Reports: Other (See Below) Other Hematologic Family History: Brother has some type of bleeding complication. Oncologic: Reports: Lung Other Oncologic Family History: Daughter has lung CA from smoking. - Tobacco Use Smoking Status *Q: Never Smoker Second Hand Smoke Exposure: No - Caffeine Use Caffeine Use: Reports: Tea - Recreational Drug Use Recreational Drug Use: No - Living Situation & Occupation Living situation: Reports: , Alone, Assisted Living Occupation: Retired H&P Review of Systems - Review of Systems: Review Of Systems: See Below General: Reports: Weakness, Diaphoresis HEENT: Reports: No Symptoms Pulmonary: Reports: No Symptoms Cardiovascular: Reports: No Symptoms Gastrointestinal: Reports: No Symptoms Genitourinary: Reports: No Symptoms Musculoskeletal: Reports: No Symptoms Skin: Reports: No Symptoms Psychiatric: Reports: No Symptoms Neurological: Reports: No Symptoms Hematologic/Lymphatic: Reports: No Symptoms Immunologic: Reports: No Symptoms Exam - Exam Exam: See Below - Vital Signs Vital Signs: Last Vital Signs Temp 36.8 C 06/06/18 16:14 Pulse 65 06/06/18 16:14 Resp 16 06/06/18 16:14 BP 143/48 H 06/06/18 16:14 Pulse Ox 92 L 06/06/18 16:14 Weight: 173 kg - Exam Quality Assessment: Supplemental Oxygen, DVT Prophylaxis General: Alert, Oriented, Cooperative HEENT: Conjunctiva Clear, Nares Patent, Normal Nasal Septum, Pupils Equal, Pupils Reactive, PERRLA Neck: Trachea Midline Lungs: Normal Respiratory Effort Cardiovascular: Regular Rate, Bradycardia GI/Abdominal Exam: Normal Bowel Sounds, Soft, Non-Tender, No Organomegaly, No Distention (Female) Exam: Deferred Rectal (Female) Exam: Deferred Back Exam: Normal Inspection Extremities: Normal Inspection, Non-Tender, Normal Capillary Refill Skin: Warm Neurological: Cranial Nerves Intact Neuro Extensive - Mental Status: Alert, Oriented x3, Normal Mood/Affect, Normal Cognition, Memory Intact Neuro Extensive - Motor, Sensory, Reflexes: CN II-XII Intact Psychiatric: Alert, Normal Affect, Normal Mood - Patient Data Lab Results Last 24 hrs: Laboratory Results - last 24 hr 06/06/18 06/06/18 06/06/18 Range/Units 16:20 16:20 16:20 WBC 11.27 H (3.98-10.04) K/mm3 RBC 4.45 (3.98-5.22) M/mm3 Hgb 13.4 (11.2-15.7) gm/L Hct 41.9 (34.1-44.9) % MCV 94.2 (79.4-94.8) fl MCH 30.1 (25.6-32.2) pg MCHC 32.0 L (32.2-35.5) g/dl RDW Std Deviation 47.5 H (36.4-46.3) fL Plt Count 96 L (182-369) K/mm3 MPV TNP Neut % (Auto) 73.5 H (34.0-71.1) % Lymph % (Auto) 14.2 L (19.3-51.7) % [place] % (Auto) 9.6 (4.7-12.5) % Eos % (Auto) 2.0 (0.7-5.8) Baso % (Auto) 0.4 (0.1-1.2) % Neut # (Auto) 8.30 H (1.56-6.13) K/mm3 Lymph # (Auto) 1.60 (1.18-3.74) K/mm3 [place] # (Auto) 1.08 H (0.24-0.36) K/mm3 Eos # (Auto) 0.22 (0.04-0.36) K/mm3 Baso # (Auto) 0.04 (0.01-0.08) K/mm3 Manual Slide Review Abnormal smear Sodium 140 (136-145) mEq/L Potassium 4.6 (3.5-5.1) mEq/L Chloride 103 (98-107) mEq/L Carbon Dioxide 31 (21-32) mEq/L Anion Gap 10.6 (5-15) BUN 17 (7-18) mg/dL Creatinine 0.9 (0.55-1.02) mg/dL Est Cr Clr Drug Dosing 32.83 mL/min Estimated GFR (MDRD) 60 (>60) mL/min BUN/Creatinine Ratio 18.9 H (14-18) Glucose 121 H (83-115) mg/dL Calcium 8.6 (8.5-10.1) mg/dL Total Bilirubin 0.3 (0.2-1.0) mg/dL AST 21 (15-37) U/L ALT 22 (14-59) U/L Alkaline Phosphatase 57 (46-116) U/L Troponin I < 0.017 (0.00-0.056) ng/mL Total Protein 6.5 (6.4-8.2) g/dl Albumin 3.3 L (3.4-5.0) g/dl Globulin 3.2 gm/dL Albumin/Globulin Ratio 1.0 (1-2) Result Diagrams: 06/07/18 05:30 06/07/18 05:30 - Problem List (1) Hypertension SNOMED Code(s): 20742067 ICD Code: I10 - ESSENTIAL (PRIMARY) HYPERTENSION Status: Acute (2) Hyperlipidemia SNOMED Code(s): 11802610 ICD Code: E78.5 - HYPERLIPIDEMIA, UNSPECIFIED Status: Acute (3) Seizure disorder SNOMED Code(s): 133878536 ICD Code: G40.909 - EPILEPSY, UNSP, NOT INTRACTABLE, WITHOUT STATUS EPILEPTICUS Status: Acute (4) Hypothyroid SNOMED Code(s): 94542779 ICD Code: E03.9 - HYPOTHYROIDISM, UNSPECIFIED Status: Acute (5) Anxiety SNOMED Code(s): 74509771 ICD Code: F41.9 - ANXIETY DISORDER, UNSPECIFIED Status: Acute (6) Depression SNOMED Code(s): 68061825 ICD Code: F32.9 - MAJOR DEPRESSIVE DISORDER, SINGLE EPISODE, UNSPECIFIED Status: Acute (7) Lightheadedness SNOMED Code(s): 196828369 ICD Code: R42 - DIZZINESS AND GIDDINESS Status: Acute (8) Atrial fibrillation SNOMED Code(s): 55405583 ICD Code: I48.91 - UNSPECIFIED ATRIAL FIBRILLATION Status: Acute Problem List Initiated/Reviewed/Updated: Yes Orders Last 24hrs: Active Orders 24 hr Category Date Time Status Patient Status [ADT] Routine ADT 06/06/18 20:17 Active EKG 12 Lead [EKG Documentation Completion] [RC] STAT Care 06/06/18 16:24 Active Code Status [Resuscitation Status] Routine Resus Stat 06/06/18 20:28 Ordered Assessment/Plan Comment:: Impression: Lightheadedness with a history of A Fib, can not exclude sinus node dysfunction; query PAF SZ disorder on anticonvulsants--doubt SZ activity Hypertension Chronic Hypothyroid Hyperlipidemia Anxiety/Depression Plan: Obs with telemetry re: arrhythmia Home meds Daily labs Holter monitor at DC for 24 hours re: sinus node dysfunction
[2018-06-06] MEDS ORDERED: Acetaminophen 325 MG Tab PO PRN (20:45)
[2018-06-06] MEDS ORDERED: levETIRAcetam 500 MG Tab PO SCH (21:00)
[2018-06-06] MEDS ORDERED: ClonazePAM 0.5 MG Tab PO SCH (21:00)
[2018-06-06] MEDS: Doxycycline 100 MG Cap PO SCH (21:59)
[2018-06-07] MEDS ORDERED: Aspirin 325 MG Tab.EC PO SCH (09:00)
[2018-06-07] MEDS ORDERED: levETIRAcetam 500 MG Tab PO SCH (09:00)
[2018-06-07] MEDS ORDERED: Folic Acid 1 MG Tab PO SCH (09:00)
[2018-06-07] MEDS ORDERED: Furosemide 20 MG Tab PO SCH (09:00)
[2018-06-07] MEDS ORDERED: Enoxaparin 40 MG/0.4 ML Syringe SUBCUT SCH (09:00)
[2018-06-07] MEDS ORDERED: Losartan 100 MG Tab PO SCH (09:00)
[2018-06-07] MEDS ORDERED: Propranolol 80 MG Cap.ER PO SCH (09:00)
[2018-06-07] MEDS ORDERED: predniSONE 5 MG Tab PO SCH (09:00)
[2018-06-07] MEDS ORDERED: Pantoprazole 40 MG Tab.CR PO SCH (09:45)
[2018-06-07 10:31] VITALS: BP 123/66
--- NOTE | 2018-06-07 11:20 | PCM.DCSUM1 ---
Discharge Summary - Hospital Course Free Text/Narrative:: 87 year old female with a PMH of PAF, presumably had A fib with possibly RVR. Stayed overnight for close monitoring, the overnight stay was unremarkable. There was no change in her home meds, she will have a Holter monitor for 24 hours re: arrhythmia. HPI Initial Comments: 87 year old female who is unaware whether she has a diagnosis of A Fib, however she is on short acting and long acting Inderal. She had one episode of dizziness associated with shortness of breath and diaphoresis. The patient also has a seizure disorder, there was no seizure activity observed. The patient was in A Fib on the EMS monitor. This resolved before arrival to the ED. She will be admitted to obs with telemetry. The patient is a full code. Diagnosis: Stroke: No - Discharge Data Discharge Date: 06/07/18 Discharge Disposition: Home, Self-Care 01 Condition: Good - Patient Instructions Diet: Usual Diet as Tolerated Activity: As Tolerated Driving: Do Not Drive Showering/Bathing: May Shower Notify Provider of: Fever, Increased Pain, Nausea and/or Vomiting - Discharge Plan *PRESCRIPTION DRUG MONITORING PROGRAM REVIEWED*: Not Applicable *COPY OF PRESCRIPTION DRUG MONITORING REPORT IN PATIENT JEANNIE: Not Applicable Home Medications: Home Meds Acetaminophen [Tylenol Arthritis Pain] 1,300 mg PO Q8HR PRN 02/01/15 [History] Aspirin [Halfprin] 325 mg PO DAILY 02/01/15 [History] ClonazePAM [KlonoPIN] 0.5 mg PO BEDTIME 02/01/15 [History] Denosumab [Prolia] 60 mg INJECT ASDIRECTED 02/01/15 [History] Desmopressin (NonRefrigerated) [Ddavp 0.01% Nasal [place]] 1 spray NS TID [History] Dexlansoprazole [Dexilant] 60 mg PO 0745 02/01/15 [History] Escitalopram [Lexapro] 10 mg PO DAILY 02/01/15 [History] Folic Acid 1 mg PO DAILY 02/01/15 [History] Furosemide [Lasix] 20 mg PO DAILY 02/01/15 [History] Gabapentin [Neurontin] 600 mg PO QID 02/01/15 [History] LORazepam 1 mg PO Q12H PRN MDD 3mg in 12 hrs 02/01/15 [History] Levothyroxine 137 mcg PO ACBRK 02/01/15 [History] Losartan Potassium [Cozaar] 100 mg PO QAM 02/01/15 [History] Multivit-Min/FA/Lutein/Zeaxant [Macular Vitamin Tablet] 1 each PO 1200 02/01/15 [History] Multivitamin [Daily Vitamin] 1 each PO QAM 02/01/15 [History] [place]-3 Fatty Acids [[place]-3] 1,000 mg PO QAM 02/01/15 [History] Propranolol HCl [Inderal Xl] 80 mg PO DAILY 02/01/15 [History] Propranolol [Inderal] 20 mg PO 0745,1130,1630 02/01/15 [History] diazePAM [Diastat] 5 mg TOP DAILY PRN 02/01/15 [History] levETIRAcetam [Keppra] 1,000 mg PO DAILY 02/01/15 [History] levETIRAcetam [Keppra] 1,500 mg PO BEDTIME 02/01/15 [History] predniSONE [Prednisone] 5 mg PO DAILY 02/01/15 [History] Meloxicam 15 mg PO 1200 02/14/16 [History] Docusate Sodium 100 mg PO BID PRN 09/01/17 [History] traMADol [Ultram] 50 mg PO Q4HR PRN 09/01/17 [History] Albuterol [Proventil HFA] 2 inh INH Q6HR PRN 06/07/18 [History] Fluticasone/Vilanterol [Breo Ellipta 100-25 MCG Inhalation Kit] 1 puff INH DAILY 06/07/18 [History] Non-Formulary Medication [NF Drug] 137 mcg INH BID 06/07/18 [History] Simvastatin 20 mg PO DAILY 06/07/18 [History] cycloSPORINE [Restasis] 0.05 drop EYEBOTH BID 06/07/18 [History] Patient Handouts: Atrial Fibrillation, [id number] Forms: ED Department Discharge Referrals: Savage Ortiz MD [Primary Care Provider] - (Please follow up with your primary care provider in 7-10 days.) - Discharge Summary/Plan Comment DC Time >30 min.: No Discharge Summary/Plan Comment: Impression: Lightheadedness with a history of A Fib, can not exclude sinus node dysfunction; query PAF SZ disorder on anticonvulsants--doubt SZ activity Hypertension Chronic Hypothyroid Hyperlipidemia Anxiety/Depression Plan: Obs with telemetry re: arrhythmia-->none Home meds were continued at DC Holter monitor at DC for 24 hours re: sinus node dysfunction PCP 1-2 weeks. - General Info Date of Service: 06/06/18 Functional Status: Reports: Pain Controlled, Tolerating Diet, Ambulating, Urinating - Review of Systems General: Reports: No Symptoms HEENT: Reports: No Symptoms Pulmonary: Reports: No Symptoms Cardiovascular: Reports: No Symptoms Gastrointestinal: Reports: No Symptoms Genitourinary: Reports: No Symptoms Musculoskeletal: Reports: No Symptoms Skin: Reports: No Symptoms Neurological: Reports: No Symptoms Psychiatric: Reports: No Symptoms - Patient Data Vitals - Most Recent: Last Vital Signs Temp 36.6 C 06/07/18 10:27 Pulse 71 06/07/18 10:27 Resp 16 06/07/18 10:27 BP 123/66 06/07/18 10:35 Pulse Ox 94 L 06/07/18 10:27 Weight - Most Recent: 80.331 kg I&O - Last 24 hours: Intake & Output 06/06/18 06/07/18 06/07/18 22:59 06:59 14:59 Intake Total 240 120 Output Total 200 Balance 40 120 Lab Results - Last 24 hrs: Laboratory Results - last 24 hr 06/06/18 06/06/18 06/06/18 Range/Units 16:20 16:20 16:20 WBC 11.27 H (3.98-10.04) K/mm3 RBC 4.45 (3.98-5.22) M/mm3 Hgb 13.4 (11.2-15.7) gm/L Hct 41.9 (34.1-44.9) % MCV 94.2 (79.4-94.8) fl MCH 30.1 (25.6-32.2) pg MCHC 32.0 L (32.2-35.5) g/dl RDW Std Deviation 47.5 H (36.4-46.3) fL Plt Count 96 L (182-369) K/mm3 MPV TNP Neut % (Auto) 73.5 H (34.0-71.1) % Lymph % (Auto) 14.2 L (19.3-51.7) % [place] % (Auto) 9.6 (4.7-12.5) % Eos % (Auto) 2.0 (0.7-5.8) Baso % (Auto) 0.4 (0.1-1.2) % Neut # (Auto) 8.30 H (1.56-6.13) K/mm3 Lymph # (Auto) 1.60 (1.18-3.74) K/mm3 [place] # (Auto) 1.08 H (0.24-0.36) K/mm3 Eos # (Auto) 0.22 (0.04-0.36) K/mm3 Baso # (Auto) 0.04 (0.01-0.08) K/mm3 Manual Slide Review Abnormal smear Sodium 140 (136-145) mEq/L Potassium 4.6 (3.5-5.1) mEq/L Chloride 103 (98-107) mEq/L Carbon Dioxide 31 (21-32) mEq/L Anion Gap 10.6 (5-15) BUN 17 (7-18) mg/dL Creatinine 0.9 (0.55-1.02) mg/dL Est Cr Clr Drug Dosing 32.83 mL/min Estimated GFR (MDRD) 60 (>60) mL/min BUN/Creatinine Ratio 18.9 H (14-18) Glucose 121 H (83-115) mg/dL Hemoglobin A1c (4.50-6.20) % Calcium 8.6 (8.5-10.1) mg/dL Magnesium (1.8-2.4) mg/dl Total Bilirubin 0.3 (0.2-1.0) mg/dL AST 21 (15-37) U/L ALT 22 (14-59) U/L Alkaline Phosphatase 57 (46-116) U/L Troponin I < 0.017 (0.00-0.056) ng/mL Total Protein 6.5 (6.4-8.2) g/dl Albumin 3.3 L (3.4-5.0) g/dl Globulin 3.2 gm/dL Albumin/Globulin Ratio 1.0 (1-2) TSH 3rd Generation (0.358-3.74) uIU/mL MRSA (PCR) 06/06/18 06/07/18 06/07/18 Range/Units 21:20 05:30 05:30 WBC 9.48 (3.98-10.04) K/mm3 RBC 3.96 L (3.98-5.22) M/mm3 Hgb 12.0 (11.2-15.7) gm/L Hct 37.6 (34.1-44.9) % MCV 94.9 H (79.4-94.8) fl MCH 30.3 (25.6-32.2) pg MCHC 31.9 L (32.2-35.5) g/dl RDW Std Deviation 47.6 H (36.4-46.3) fL Plt Count 105 L (182-369) K/mm3 MPV 11.7 Neut % (Auto) 52.3 (34.0-71.1) % Lymph % (Auto) 29.6 (19.3-51.7) % [place] % (Auto) 12.1 (4.7-12.5) % Eos % (Auto) 5.5 (0.7-5.8) Baso % (Auto) 0.4 (0.1-1.2) % Neut # (Auto) 4.95 (1.56-6.13) K/mm3 Lymph # (Auto) 2.81 (1.18-3.74) K/mm3 [place] # (Auto) 1.15 H (0.24-0.36) K/mm3 Eos # (Auto) 0.52 H (0.04-0.36) K/mm3 Baso # (Auto) 0.04 (0.01-0.08) K/mm3 Manual Slide Review Sodium 142 (136-145) mEq/L Potassium 4.0 (3.5-5.1) mEq/L Chloride 105 (98-107) mEq/L Carbon Dioxide 30 (21-32) mEq/L Anion Gap 11.0 (5-15) BUN 22 H (7-18) mg/dL Creatinine 0.8 (0.55-1.02) mg/dL Est Cr Clr Drug Dosing 36.93 mL/min Estimated GFR (MDRD) > 60 (>60) mL/min BUN/Creatinine Ratio 27.5 H (14-18) Glucose 89 (83-115) mg/dL Hemoglobin A1c (4.50-6.20) % Calcium 8.1 L (8.5-10.1) mg/dL Magnesium 1.9 (1.8-2.4) mg/dl Total Bilirubin (0.2-1.0) mg/dL AST (15-37) U/L ALT (14-59) U/L Alkaline Phosphatase (46-116) U/L Troponin I < 0.017 (0.00-0.056) ng/mL Total Protein (6.4-8.2) g/dl Albumin (3.4-5.0) g/dl Globulin gm/dL Albumin/Globulin Ratio (1-2) TSH 3rd Generation 0.012 L (0.358-3.74) uIU/mL MRSA (PCR) Negative 06/07/18 Range/Units 05:30 WBC (3.98-10.04) K/mm3 RBC (3.98-5.22) M/mm3 Hgb (11.2-15.7) gm/L Hct (34.1-44.9) % MCV (79.4-94.8) fl MCH (25.6-32.2) pg MCHC (32.2-35.5) g/dl RDW Std Deviation (36.4-46.3) fL Plt Count (182-369) K/mm3 MPV Neut % (Auto) (34.0-71.1) % Lymph % (Auto) (19.3-51.7) % [place] % (Auto) (4.7-12.5) % Eos % (Auto) (0.7-5.8) Baso % (Auto) (0.1-1.2) % Neut # (Auto) (1.56-6.13) K/mm3 Lymph # (Auto) (1.18-3.74) K/mm3 [place] # (Auto) (0.24-0.36) K/mm3 Eos # (Auto) (0.04-0.36) K/mm3 Baso # (Auto) (0.01-0.08) K/mm3 Manual Slide Review Sodium (136-145) mEq/L Potassium (3.5-5.1) mEq/L Chloride (98-107) mEq/L Carbon Dioxide (21-32) mEq/L Anion Gap (5-15) BUN (7-18) mg/dL Creatinine (0.55-1.02) mg/dL Est Cr Clr Drug Dosing mL/min Estimated GFR (MDRD) (>60) mL/min BUN/Creatinine Ratio (14-18) Glucose (83-115) mg/dL Hemoglobin A1c 6.10 (4.50-6.20) % Calcium (8.5-10.1) mg/dL Magnesium (1.8-2.4) mg/dl Total Bilirubin (0.2-1.0) mg/dL AST (15-37) U/L ALT (14-59) U/L Alkaline Phosphatase (46-116) U/L Troponin I (0.00-0.056) ng/mL Total Protein (6.4-8.2) g/dl Albumin (3.4-5.0) g/dl Globulin gm/dL Albumin/Globulin Ratio (1-2) TSH 3rd Generation (0.358-3.74) uIU/mL MRSA (PCR) Med Orders - Current: Current Medications Acetaminophen (Tylenol) 650 mg PO Q6H PRN PRN Reason: Pain Aspirin (Ecotrin) 325 mg PO DAILY [facility] Last Admin: 06/07/18 10:36 Dose: 325 mg Citalopram Hydrobromide (Celexa) 20 mg PO DAILY [facility] Clonazepam (Klonopin) 0.5 mg PO BEDTIME [facility] Last Admin: 06/06/18 22:00 Dose: 0.5 mg Desmopressin Acetate (Desmopressin 0.1% Nasal [place]) 0 mcg CHAVA TID [facility] Docusate Sodium (Colace) 100 mg PO BID PRN PRN Reason: Constipation Enoxaparin Sodium (Lovenox) 40 mg SUBCUT Q24H [facility] Last Admin: 06/07/18 10:37 Dose: 40 mg Folic Acid (Folic Acid) 1 mg PO DAILY [facility] Last Admin: 06/07/18 10:36 Dose: 1 mg Furosemide (Lasix) 20 mg PO DAILY [facility] Last Admin: 06/07/18 10:36 Dose: 20 mg Gabapentin (Neurontin) 600 mg PO QID [facility] Last Admin: 06/07/18 10:36 Dose: 600 mg Levetiracetam (Keppra) 1,000 mg PO DAILY [facility] Last Admin: 06/07/18 10:36 Dose: 1,000 mg Levetiracetam (Keppra) 1,500 mg PO BEDTIME [facility] Last Admin: 06/06/18 21:58 Dose: 1,500 mg Levothyroxine Sodium (Levothyroxine) 137 mcg PO ACBRK [facility] Last Admin: 06/07/18 10:35 Dose: 137 mcg Lorazepam (Ativan) 1 mg PO Q12H PRN PRN Reason: Seizures Losartan Potassium (Cozaar) 100 mg PO DAILY [facility] Last Admin: 06/07/18 10:35 Dose: 100 mg Pantoprazole Sodium (Protonix) 40 mg PO DAILY@0745 [facility] Last Admin: 06/07/18 10:34 Dose: 40 mg Prednisone (Prednisone) 5 mg PO DAILY [facility] Last Admin: 06/07/18 10:35 Dose: 5 mg Propranolol HCl (Inderal) 20 mg PO TID@0745,1130,1630 [facility] Last Admin: 06/07/18 10:35 Dose: 20 mg Propranolol HCl (Inderal [place]) 80 mg PO DAILY [facility] Last Admin: 06/07/18 10:36 Dose: 80 mg Tramadol HCl (Ultram) 50 mg PO Q4H PRN PRN Reason: Pain Discontinued Medications Doxycycline Hyclate (Vibramycin) 100 mg PO Q12HR [facility] Last Admin: 06/06/18 21:59 Dose: 100 mg Gabapentin (Neurontin) 600 mg PO BEDTIME [facility] Gabapentin (Neurontin) 600 mg PO ONETIME ONE Stop: 06/06/18 17:41 Last Admin: 06/06/18 17:50 Dose: 600 mg Non-Formulary Medication (Acetaminophen) 1,300 mg PO Q8HR PRN PRN Reason: Pain Non-Formulary Medication (Azelastine [Astelin Nasal [place]]) 2 sprays [place] BID [facility] Propranolol HCl (Inderal) 20 mg PO ONETIME ONE Stop: 06/06/18 17:14 Last Admin: 06/06/18 17:24 Dose: 20 mg - Exam Quality Assessment: Reports: DVT Prophylaxis General: Reports: Alert, Oriented, Cooperative HEENT: Reports: Pupils Equal, Pupils Reactive, EOMI Neck: Reports: Trachea Midline, No JVD Lungs: Reports: Clear to Auscultation, Normal Respiratory Effort Cardiovascular: Reports: Regular Rate, Bradycardia GI/Abdominal Exam: Normal Bowel Sounds, Soft, Non-Tender, No Organomegaly, No Distention (Female) Exam: Deferred Rectal (Female) Exam: Deferred Back Exam: Reports: Normal Inspection Extremities: Normal Inspection, Normal Range of Motion, Non-Tender, No Pedal Edema Skin: Reports: Warm Neurological: Reports: No New Focal Deficit Psy/Mental Status: Reports: Alert, Normal Affect, Normal Mood
[2018-06-07] MEDS ORDERED: Citalopram 20 MG Tab PO SCH (11:30)
[2018-06-07] MEDS ORDERED: Propranolol 20 MG Tab PO SCH (11:30)
[2018-06-07] MEDS: Doxycycline 100 MG Cap PO SCH (13:52)
[2018-06-07] MEDS: AZELASTINE NAS SCH ×2 (13:53→13:54)
[2018-06-07] MEDS ORDERED: LEXAPRO 20 MG PO SCH (14:01)
[2018-06-07] MEDS: DESMOPRESSIN 0.01% NAS SCH ×2 (14:05→15:49)
== END 2018-06-07 15:15 | disposition home or self-care (01) ==
LOC: JD.ED 16:06 → JD.MS 20:17
PROVIDERS: ADMIT Internal Medicine Cardiovascular Disease; ATTEND Internal Medicine Cardiovascular Disease
DX: I48.91 Unspecified atrial fibrillation (principal); R42 Dizziness and giddiness; G40.909 Epilepsy, unspecified, not intractable, without status epilepticus; E03.9 Hypothyroidism, unspecified; E78.5 Hyperlipidemia, unspecified; F41.8 Other specified anxiety disorders; E78.00 Pure hypercholesterolemia, unspecified; I10 Essential (primary) hypertension; M19.90 Unspecified osteoarthritis, unspecified site; M81.0 Age-related osteoporosis without current pathological fracture; G89.29 Other chronic pain; M54.9 Dorsalgia, unspecified; E66.9 Obesity, unspecified; Z68.38 Body mass index [BMI] 38.0-38.9, adult; Z79.82 Long term (current) use of aspirin; Z79.899 Other long term (current) drug therapy; Z88.1 Allergy status to other antibiotic agents; Z88.5 Allergy status to narcotic agent; Z88.8 Allergy status to other drugs, medicaments and biological substances; Z88.2 Allergy status to sulfonamides
CPT/HCPCS: 36415; 80048; 80053; 83036; 83735; 84443; 84484; 85025; 87641; 93005; 96372; 99285; A9270; G0378; J1650; 93010

== ENCOUNTER 2018-11-11 01:31 | Emergency (ER) | payer MEDICARE, MEDICAID ==
[2018-11-11] MEDS ORDERED: Sodium Chloride 0.9% 500 ML IV ONE ×2 (01:53→05:40)
[2018-11-11] MEDS: Sodium Chloride 0.9% 10 ML Syringe FLUSH PRN ×2 (02:03→03:07)
--- NOTE | 2018-11-11 02:55 | EDM.PDOC ---
ED HPI GENERAL MEDICAL PROBLEM - General Chief Complaint: Gastrointestinal Problem Stated Complaint: [facility] Time Seen by Provider: 11/11/18 01:37 Source of Information: Reports: Patient, RN Notes Reviewed - History of Present Illness INITIAL COMMENTS - FREE TEXT/NARRATIVE: 88-year-old female comes in with abdominal pain, severe frequent watery diarrhea. This started about 6 PM last evening which would be about 5 hours ago. She states she did feel okay earlier yesterday. Does live at the [facility] [place] [address] from here which is an assisted living facility. there have been some other people ill with abdominal pain and diarrhea as well. She does deny chest pain cough or difficulty breathing. She does have history of chronic atrial fib, on Coumadin in addition to her multiple other multiple medications. She also does have history of hypertension, congestive heart failure, seizure disorder. Abdominal Pain Score (Numeric/FACES): 5 - Related Data Allergies Allergy/AdvReac Type Severity Reaction Status Date / Time Cephalosporins Allergy Cannot Verified 11/11/18 01:39 Remember codeine Allergy Cannot Verified 11/11/18 01:39 Remember diazepam [From Valium] Allergy Other Verified 11/11/18 01:39 morphine Allergy Cannot Verified 11/11/18 01:39 Remember Penicillins Allergy Cannot Verified 11/11/18 01:39 Remember phenobarbital Allergy Other Verified 11/11/18 01:39 sulfanilamide [Sulfanilamide] Allergy Cannot Verified 11/11/18 01:39 Remember clindamycin AdvReac Stomach Verified 11/11/18 01:39 Ache Home Meds: Home Meds Acetaminophen [Tylenol Arthritis Pain] 1,300 mg PO Q8HR PRN 02/01/15 [History] ClonazePAM [KlonoPIN] 0.5 mg PO BEDTIME 02/01/15 [History] Denosumab [Prolia] 60 mg INJECT ASDIRECTED 02/01/15 [History] Desmopressin (NonRefrigerated) [Ddavp 0.01% Nasal [place]] 1 spray NS TID [History] Dexlansoprazole [Dexilant] 60 mg PO 0745 02/01/15 [History] Escitalopram [Lexapro] 10 mg PO DAILY 02/01/15 [History] Folic Acid 1 mg PO DAILY 02/01/15 [History] Furosemide [Lasix] 20 mg PO DAILY 02/01/15 [History] Gabapentin [Neurontin] 600 mg PO QID 02/01/15 [History] LORazepam 1 mg PO Q12H PRN MDD 3mg in 12 hrs 02/01/15 [History] Levothyroxine 137 mcg PO ACBRK 02/01/15 [History] Losartan Potassium [Cozaar] 100 mg PO QAM 02/01/15 [History] Multivit-Min/FA/Lutein/Zeaxant [Macular Vitamin Tablet] 1 each PO 1200 02/01/15 [History] Multivitamin [Daily Vitamin] 1 each PO QAM 02/01/15 [History] diazePAM [Diastat] 5 mg RECTAL ASDIRECTED PRN 02/01/15 [History] levETIRAcetam [Keppra] 1,000 mg PO DAILY 02/01/15 [History] levETIRAcetam [Keppra] 1,500 mg PO BEDTIME 02/01/15 [History] predniSONE [Prednisone] 5 mg PO DAILY 02/01/15 [History] Docusate Sodium 100 mg PO BEDTIME 09/01/17 [History] traMADol [Ultram] 50 mg PO TID 09/01/17 [History] Albuterol [Proventil HFA] 2 puff INH Q6HR PRN 06/07/18 [History] Fluticasone/Vilanterol [Breo Ellipta 100-25 MCG Inhalation Kit] 1 puff INH DAILY 06/07/18 [History] Simvastatin 20 mg PO DAILY 06/07/18 [History] cycloSPORINE [Restasis] 0.05 drop EYEBOTH BID 06/07/18 [History] Astelin 137 mcg NASBOTH BID 11/11/18 [History] Docusate Sodium 100 mg PO BID PRN 11/11/18 [History] Propranolol HCl [Propranolol HCl ER] 120 mg PO DAILY 11/11/18 [History] Warfarin [Coumadin] 1.25 mg PO MO 11/11/18 [History] Warfarin [Coumadin] 2.5 mg PO SUTUWETHFRSA 11/11/18 [History] Past Medical History HEENT History: Reports: Impaired Vision Other HEENT History: Glasses and upper partials. Cardiovascular History: Reports: Afib, High Cholesterol, Hypertension Gastrointestinal History: Reports: PUD Other Gastrointestinal History: Kidney stones and stomach ulcers. Genitourinary History: Reports: Renal Calculus Other Genitourinary History: kidney stones SADDLE CUTTER History: Reports: Other SADDLE CUTTER History: Had 3 children. Musculoskeletal History: Reports: Back Pain, Chronic, Osteoarthritis, Osteoporosis Neurological History: Reports: Seizure, Other (See Below) Other Neuro History: Patient stated, "Seizures all my life." Psychiatric History: Reports: Anxiety, Depression Endocrine/Metabolic History: Reports: Hypothyroidism, Obesity/BMI 30+ Oncologic (Cancer) History: Reports: Uterine Other Oncologic History: Hysterectomy. Dermatologic History: Reports: Benign Melanoma Other Dermatologic History: Moles - Infectious Disease History Infectious Disease History: Reports: Chicken Pox, Measles, Mumps, Rubella Other Infectious Disease History: Pt states she had hepatitis a long time ago and does not remember what kind. - Past Surgical History HEENT Surgical History: Reports: Cataract Surgery, Oral Surgery, Tonsillectomy GI Surgical History: Reports: Appendectomy, Cholecystectomy Female Surgical History: Reports: Hysterectomy, Salpingo-Oophorectomy Neurological Surgical History: Reports: Laminectomy Social & Family History - Family History Family Medical History: Noncontributory HEENT: Reports: Hearing Impairment Other HEENT Family History: Brother Ed has hearing aids. Cardiac: Reports: High Cholesterol, Hypertension Respiratory: Reports: Asthma, COPD, Other (See Below) Other Respiratory Family Hisory: Sister has asthma. Brother has COPD. Mother had lung problems. Musculoskeletal: Reports: Fibromyalgia Other Musculoskeletal Family History: Sister has fibromyalgia. Neurological: Reports: CVA Other Neurological Family History: Father had strokes. Endocrine/Metabolic: Reports: Diabetes, type II Other Endocrine/Metabolic Family History: Brother has DM II. Hematologic: Reports: Other (See Below) Other Hematologic Family History: Brother has some type of bleeding complication. Oncologic: Reports: Lung Other Oncologic Family History: Daughter has lung CA from smoking. - Tobacco Use Smoking Status *Q: Never Smoker - Caffeine Use Caffeine Use: Reports: Soda - Recreational Drug Use Recreational Drug Use: No - Living Situation & Occupation Living situation: Reports: , Alone, Assisted Living Occupation: Retired ED ROS GENERAL - Review of Systems Review Of Systems: See Below Constitutional: Reports: Chills. Denies: Fever HEENT: Denies: Throat Pain Respiratory: Denies: Shortness of Breath Cardiovascular: Denies: Chest Pain GI/Abdominal: Reports: Abdominal Pain (Upper and midabdominal), Diarrhea ( Frequent watery she believes about 8-10 times in the past 5 hours), Nausea. Denies: Hematochezia, Melena, Vomiting Skin: Denies: Rash Neurological: Reports: Dizziness ED EXAM, GI/ABD - Physical Exam Exam: See Below General Appearance: Alert, Mild Distress Eyes: Bilateral: Normal Appearance Throat/Mouth: Other Head: Atraumatic (Oral mucosa is dry). No: Facial Swelling Neck: Supple, Full Range of Motion Respiratory/Chest: No Respiratory Distress, Lungs Clear, Normal Breath Sounds. No: Rhonchi, Wheezing Cardiovascular: Tachycardia, Irregularly Irregular GI/Abdominal Exam: Soft, Tender (Mild diffuse tenderness upper and mid abdomen, lower abdomen nontender) Back Exam: No: CVA Tenderness (L), CVA Tenderness (R) Extremities: Normal Inspection. No: Pedal Edema Neurological: Alert, Oriented, No Motor/Sensory Deficits Skin Exam: Warm, Dry, Normal Color EKG INTERPRETATION EKG Date: 11/11/18 Rhythm: A-Fib Rate (Beats/Min): 112 P-Wave: Absent QRS: LBBB ST-T: Elevated Course - Vital Signs Last Recorded V/S: Last Vital Signs Temp 98.8 F 11/11/18 01:39 Pulse 134 H 11/11/18 01:39 Resp 16 11/11/18 08:10 BP 124/51 L 11/11/18 08:10 Pulse Ox 95 11/11/18 08:10 - Orders/Labs/Meds Labs: Laboratory Tests 11/11/18 11/11/18 11/11/18 Range/Units 01:36 01:36 01:36 WBC 10.16 H (3.98-10.04) K/mm3 RBC 5.18 (3.98-5.22) M/mm3 Hgb 15.3 (11.2-15.7) gm/L Hct 48.6 H (34.1-44.9) % MCV 93.8 (79.4-94.8) fl MCH 29.5 (25.6-32.2) pg MCHC 31.5 L (32.2-35.5) g/dl RDW Std Deviation 54.9 H (36.4-46.3) fL Plt Count 119 L (182-369) K/mm3 MPV 12.8 H (9.4-12.3) fl Neutrophils % (Manual) 80 H (40-60) % Band Neutrophils % 0 (0-10) % Lymphocytes % (Manual) 16 L (20-40) % Atypical Lymphs % 0 % Monocytes % (Manual) 1 L (2-10) % Eosinophils % (Manual) 3 (0.7-5.8) % Basophils % (Manual) 0 L (0.1-1.2) Toxic Granulation See note Platelet Estimate Adequate Plt Morphology Comment See note RBC Morph Comment Normal PT (9.5-12.1) SECONDS INR Sodium 147 H (136-145) mEq/L Potassium 3.6 (3.5-5.1) mEq/L Chloride 109 H (98-107) mEq/L Carbon Dioxide 28 (21-32) mEq/L Anion Gap 13.6 (5-15) BUN 22 H (7-18) mg/dL Creatinine 0.9 (0.55-1.02) mg/dL Est Cr Clr Drug Dosing 32.23 mL/min Estimated GFR (MDRD) 59 (>60) mL/min BUN/Creatinine Ratio 24.4 H (14-18) Glucose 102 (83-115) mg/dL Lactic Acid (0.4-2.0) mmol/L Calcium 8.1 L (8.5-10.1) mg/dL Total Bilirubin 0.4 (0.2-1.0) mg/dL AST 21 (15-37) U/L ALT 26 (14-59) U/L Alkaline Phosphatase 51 (46-116) U/L C-Reactive Protein 1.9 H* (<1.0) mg/dL NT-Pro-B Natriuret Pep (0-450) pg/mL Total Protein 6.6 (6.4-8.2) g/dl Albumin 3.3 L (3.4-5.0) g/dl Globulin 3.3 gm/dL Albumin/Globulin Ratio 1.0 (1-2) 11/11/18 11/11/18 11/11/18 Range/Units 01:36 01:36 02:10 WBC (3.98-10.04) K/mm3 RBC (3.98-5.22) M/mm3 Hgb (11.2-15.7) gm/L Hct (34.1-44.9) % MCV (79.4-94.8) fl MCH (25.6-32.2) pg MCHC (32.2-35.5) g/dl RDW Std Deviation (36.4-46.3) fL Plt Count (182-369) K/mm3 MPV (9.4-12.3) fl Neutrophils % (Manual) (40-60) % Band Neutrophils % (0-10) % Lymphocytes % (Manual) (20-40) % Atypical Lymphs % % Monocytes % (Manual) (2-10) % Eosinophils % (Manual) (0.7-5.8) % Basophils % (Manual) (0.1-1.2) Toxic Granulation Platelet Estimate Plt Morphology Comment RBC Morph Comment PT 21.3 H (9.5-12.1) SECONDS INR 1.98 Sodium (136-145) mEq/L Potassium (3.5-5.1) mEq/L Chloride (98-107) mEq/L Carbon Dioxide (21-32) mEq/L Anion Gap (5-15) BUN (7-18) mg/dL Creatinine (0.55-1.02) mg/dL Est Cr Clr Drug Dosing mL/min Estimated GFR (MDRD) (>60) mL/min BUN/Creatinine Ratio (14-18) Glucose (83-115) mg/dL Lactic Acid 1.4 (0.4-2.0) mmol/L Calcium (8.5-10.1) mg/dL Total Bilirubin (0.2-1.0) mg/dL AST (15-37) U/L ALT (14-59) U/L Alkaline Phosphatase (46-116) U/L C-Reactive Protein (<1.0) mg/dL NT-Pro-B Natriuret Pep 925 H (0-450) pg/mL Total Protein (6.4-8.2) g/dl Albumin (3.4-5.0) g/dl Globulin gm/dL Albumin/Globulin Ratio (1-2) Meds: Medications Discontinued Medications Generic Name Dose Route Start Last Admin Trade Name Freq PRN Reason Stop Dose Admin Diltiazem HCl 10 mg 11/11/18 02:59 11/11/18 03:04 Cardizem IVPUSH 11/11/18 03:00 5 mg ONETIME ONE Administration Sodium Chloride 500 mls @ 999 mls/hr 11/11/18 01:53 11/11/18 02:00 Normal Saline IV 11/11/18 02:23 999 mls/hr .BOLUS ONE Administration Sodium Chloride 1,000 mls @ 150 mls/hr 11/11/18 03:15 Normal Saline IV ASDIRECTED LINDEN Sodium Chloride 500 mls @ 999 mls/hr 11/11/18 05:40 11/11/18 05:52 Normal Saline IV 11/11/18 06:10 999 mls/hr .BOLUS ONE Administration Loperamide HCl 2 mg 11/11/18 06:04 11/11/18 06:09 Imodium PO 11/11/18 06:05 2 mg ONETIME ONE Administration Sodium Chloride 10 ml 11/11/18 01:49 11/11/18 03:07 Saline Flush FLUSH 10 ml ASDIRECTED PRN Administration Keep Vein Open - Re-Assessments/Exams Free Text/Narrative Re-Assessment/Exam: 11/11/18 02:30. I was informed patient met septic criteria based on abd pain, tachycardia, tachypnea, hypoxia. She has diarrhea, chronic atrial fib. She is afebrile. There are other people ill at the [place] where she lives (assisted living). She is extremely unlikely to be septic. Blood culture times 1 was obtained. Lactic acid is normal. She was given NS 500 ml bolus which is appropriate for her age and current medical condition. There is risk of fluid overload if given too much too fast. 1 liter bolus in the first hour will not be given for those reasons. 03:12. Labs have come back relatively normal. anion gap is not elevated. Lactic acid is normal. Will continue NS at 150 per hr. Will plan to not repeat a 4 hr lactic acid. 11/11/18 5:25. Mouth still feels very dry after first liter of fluid given, will give another 500 ml fluid bolus. A sister of hers has called from [place] is willing to come get her after 7:00 this morning. Patient is feeling better, she has had a couple of loose diarrhea stools but not totally watery since arrival to the ED. Labs show that she was not seriously dehydrated. We'll infuse the remainder of the second liter of fluid while awaiting her sister to come get her from [place] in a couple of hours. It is reasonable to let her go back on clear liquids and probiotic. Discharge instructions as documented. Departure - Departure Time of Disposition: 07:15 Disposition: Home, Self-Care 01 Condition: Fair Clinical Impression: Diarrhea, Abdominal pain - Discharge Information Instructions: Diarrhea, Adult, [id number] Referrals: PCP,Not In Area [Primary Care Provider] - Forms: ED Department Discharge Additional Instructions: Clear liquids until this evening, then very careful bland diet as tolerated, avoid milk and dairy products for at least a couple of days. Continue current medications as prescribed. So probiotic twice daily for the next week and thereafter as needed will be helpful. Follow-up clinic in 1-2 days for recheck. Return to ED as needed if symptoms worsening in any way.
[2018-11-11] MEDS ORDERED: Diltiazem 50 MG/10 ML SDV IVPUSH ONE (02:59)
[2018-11-11] MEDS ORDERED: Sodium Chloride 0.9% 1,000 ML IV SCH (03:15)
[2018-11-11] MEDS ORDERED: Loperamide 2 MG Cap PO ONE (06:04)
--- NOTE | 2018-11-11 06:40 | CR ---
Chest: Portable view of the chest was obtained. Comparison: Prior chest x-ray of 08/14/18. Heart is enlarged. Tortuous thoracic aorta is seen. Lungs are clear. Bony structures are osteopenic. Mild scoliosis is noted within the spine. Impression: 1. Nothing acute is seen. Stable findings as noted above. Diagnostic code #2
[2018-11-11 08:58] VITALS: BP 124/51
== END 2018-11-11 08:10 | disposition home or self-care (01) ==
LOC: JD.ED 01:31
DX: R19.7 Diarrhea, unspecified (principal); R10.10 Upper abdominal pain, unspecified; I11.0 Hypertensive heart disease with heart failure; I50.9 Heart failure, unspecified; E03.9 Hypothyroidism, unspecified; I48.91 Unspecified atrial fibrillation; Z88.5 Allergy status to narcotic agent; Z88.8 Allergy status to other drugs, medicaments and biological substances; Z88.2 Allergy status to sulfonamides; Z88.0 Allergy status to penicillin; Z79.01 Long term (current) use of anticoagulants; Z88.1 Allergy status to other antibiotic agents; Z79.899 Other long term (current) drug therapy
CPT/HCPCS: 36415; 71045; 80053; 83605; 83880; 85007; 85027; 85610; 86140; 87040; 93005; 96361; 96374; 99285; A9270; J3490; J7040

== ENCOUNTER 2018-12-16 15:55 | Emergency (ER) | payer MEDICARE, MEDICAID ==
[2018-12-16 16:22] VITALS: BP 174/72
--- NOTE | 2018-12-16 17:48 | CT ---
Head CT Technique: Multiple axial sections through the brain were obtained. Intravenous contrast was not utilized. Comparison: Prior head CT study of 03/02/11 and 09/17/17 as well as MRI brain of 06/02/14. Findings: Ventricles along with basal cisterns and sulci over the convexities appear within normal limits for the patient's age. Very minimal diminished density is noted within the periventricular white matter compatible with small vessel ischemic demyelination change. Similar findings are seen within the milena. Minimal basal ganglia calcification is noted. No evidence of intracranial hemorrhage. No midline shift or mass effect is seen. Atherosclerotic calcification is seen within the vertebral vessels and carotid siphon. Slight mucosal thickening is noted within the sphenoid sinus which is chronic. Other visualized sinuses are clear. No acute calvarial abnormality is identified. Enlarged sella turcica is seen which is a stable finding from previous exam. This is an incidental finding. Impression: 1. Incidental findings. Nothing acute is seen on noncontrast head CT exam. Diagnostic code #2
--- NOTE | 2018-12-16 18:16 | EDM.PDOC ---
ED HPI GENERAL MEDICAL PROBLEM - General Chief Complaint: Cardiovascular Problem Stated Complaint: AFIB Time Seen by Provider: 12/16/18 16:28 Source of Information: Reports: Patient, RN Notes Reviewed History Limitations: Reports: No Limitations - History of Present Illness INITIAL COMMENTS - FREE TEXT/NARRATIVE: Patient is an 88-year-old female who presents to the ED for the evaluation of a syncopal episode with a fall today. The patient states that she felt just fine yesterday, however she awoke this morning with dizziness. She said she was going about her day and got dressed when she was heading to the bathroom, she fell and "kissed the floor." She is unsure if she hit her head at this time. Although she does not feel as if she did. She denies pain anywhere however she has a bruise on her left wrist. The patient denies headache, blurred vision/ double vision, chest pain, shortness of breath, nausea/vomiting/diarrhea, abdominal pain or any hip pain. She states that she did go to [facility] for evaluation and they referred her to the ED today. The provider the [facility] was worried about her Coumadin levels and possibility of a bleed in her head. The patient states that she took all of her a.m. medications and her medications today. Patient states that she was just standing and then fell down. She does not feel as if her legs gave out, or had any weakness in her legs that would've precipitated this. She again states that she was feeling just fine yesterday. She did not start any new medications or otherwise it would have attributive to this. - Related Data Allergies Allergy/AdvReac Type Severity Reaction Status Date / Time Cephalosporins Allergy Cannot Verified 12/16/18 16:50 Remember codeine Allergy Cannot Verified 12/16/18 16:50 Remember diazepam [From Valium] Allergy Other Verified 12/16/18 16:50 morphine Allergy Cannot Verified 12/16/18 16:50 Remember Penicillins Allergy Cannot Verified 12/16/18 16:50 Remember phenobarbital Allergy Other Verified 12/16/18 16:50 sulfanilamide [Sulfanilamide] Allergy Cannot Verified 12/16/18 16:50 Remember clindamycin AdvReac Stomach Verified 12/16/18 16:50 Ache Home Meds: Home Meds Acetaminophen [Tylenol Arthritis Pain] 1,300 mg PO Q8HR PRN 02/01/15 [History] ClonazePAM [KlonoPIN] 0.5 mg PO BEDTIME 02/01/15 [History] Denosumab [Prolia] 60 mg INJECT ASDIRECTED 02/01/15 [History] Desmopressin (NonRefrigerated) [Ddavp 0.01% Nasal [place]] 1 spray NS TID [History] Dexlansoprazole [Dexilant] 60 mg PO 0745 02/01/15 [History] Escitalopram [Lexapro] 10 mg PO DAILY 02/01/15 [History] Folic Acid 1 mg PO DAILY 02/01/15 [History] Furosemide [Lasix] 20 mg PO DAILY 02/01/15 [History] Gabapentin [Neurontin] 600 mg PO QID 02/01/15 [History] LORazepam 1 mg PO TID PRN MDD 3mg in 12 hrs 02/01/15 [History] Levothyroxine 137 mcg PO ACBRK 02/01/15 [History] Losartan Potassium [Cozaar] 100 mg PO QAM 02/01/15 [History] Multivit-Min/FA/Lutein/Zeaxant [Macular Vitamin Tablet] 1 each PO 1200 02/01/15 [History] Multivitamin [Daily Vitamin] 1 each PO QAM 02/01/15 [History] diazePAM [Diastat] 5 mg RECTAL ASDIRECTED PRN 02/01/15 [History] levETIRAcetam [Keppra] 1,000 mg PO DAILY 02/01/15 [History] levETIRAcetam [Keppra] 1,500 mg PO BEDTIME 02/01/15 [History] predniSONE [Prednisone] 5 mg PO DAILY 02/01/15 [History] Docusate Sodium 100 mg PO BEDTIME 09/01/17 [History] traMADol [Ultram] 50 mg PO TID 09/01/17 [History] Albuterol [Proventil HFA] 2 puff INH Q6HR PRN 06/07/18 [History] Fluticasone/Vilanterol [Breo Ellipta 100-25 MCG Inhalation Kit] 1 puff INH DAILY 06/07/18 [History] Simvastatin 20 mg PO PCDINNER 06/07/18 [History] cycloSPORINE [Restasis] 0.05 drop EYEBOTH BID 06/07/18 [History] Astelin 137 mcg NASBOTH BID 11/11/18 [History] Docusate Sodium 100 mg PO BID PRN 11/11/18 [History] Propranolol HCl [Propranolol HCl ER] 120 mg PO DAILY 11/11/18 [History] Warfarin [Coumadin] 1.25 mg PO MO 11/11/18 [History] Warfarin [Coumadin] 2.5 mg PO SUTUWETHFRSA 11/11/18 [History] Past Medical History HEENT History: Reports: Impaired Vision Other HEENT History: Glasses and upper partials. Cardiovascular History: Reports: Afib, High Cholesterol, Hypertension Respiratory History: Reports: Bronchitis, Recurrent, Pneumonia, Recurrent Gastrointestinal History: Reports: PUD Other Gastrointestinal History: Kidney stones and stomach ulcers. Genitourinary History: Reports: Renal Calculus Other Genitourinary History: kidney stones PATIENT SUPPORT PARTNER History: Reports: Other PATIENT SUPPORT PARTNER History: Had 3 children. Musculoskeletal History: Reports: Back Pain, Chronic, Osteoarthritis, Osteoporosis Neurological History: Reports: Seizure, Other (See Below) Other Neuro History: Patient stated, "Seizures all my life." Psychiatric History: Reports: Anxiety, Depression Endocrine/Metabolic History: Reports: Hypothyroidism, Obesity/BMI 30+ Oncologic (Cancer) History: Reports: Uterine Other Oncologic History: Hysterectomy. Dermatologic History: Reports: Benign Melanoma Other Dermatologic History: Moles - Infectious Disease History Infectious Disease History: Reports: Chicken Pox, Measles, Mumps, Rubella Other Infectious Disease History: Pt states she had hepatitis a long time ago and does not remember what kind. - Past Surgical History Head Surgeries/Procedures: Reports: Other (See Below) HEENT Surgical History: Reports: Cataract Surgery, Oral Surgery, Tonsillectomy GI Surgical History: Reports: Appendectomy, Cholecystectomy Female Surgical History: Reports: Hysterectomy, Salpingo-Oophorectomy Neurological Surgical History: Reports: Laminectomy Social & Family History - Family History Family Medical History: Noncontributory HEENT: Reports: Hearing Impairment Other HEENT Family History: Brother Ed has hearing aids. Cardiac: Reports: High Cholesterol, Hypertension Respiratory: Reports: Asthma, COPD, Other (See Below) Other Respiratory Family Hisory: Sister has asthma. Brother has COPD. Mother had lung problems. Musculoskeletal: Reports: Fibromyalgia Other Musculoskeletal Family History: Sister has fibromyalgia. Neurological: Reports: CVA Other Neurological Family History: Father had strokes. Endocrine/Metabolic: Reports: Diabetes, type II Other Endocrine/Metabolic Family History: Brother has DM II. Hematologic: Reports: Other (See Below) Other Hematologic Family History: Brother has some type of bleeding complication. Oncologic: Reports: Lung Other Oncologic Family History: Daughter has lung CA from smoking. - Tobacco Use Smoking Status *Q: Never Smoker Second Hand Smoke Exposure: No - Caffeine Use Caffeine Use: Reports: None - Recreational Drug Use Recreational Drug Use: No - Living Situation & Occupation Living situation: Reports: , Alone, Assisted Living Occupation: Retired ED ROS GENERAL - Review of Systems Review Of Systems: See Below Constitutional: Reports: No Symptoms HEENT: Denies: Vertigo, Vision Change Respiratory: Reports: No Symptoms Cardiovascular: Denies: Chest Pain, Blood Pressure Problem, Lightheadedness Endocrine: Reports: No Symptoms GI/Abdominal: Reports: No Symptoms : Reports: No Symptoms Musculoskeletal: Reports: No Symptoms Skin: Reports: No Symptoms Neurological: Reports: Dizziness, Syncope. Denies: Confusion, Headache, Seizure , Trouble Speaking, Difficulty Walking Psychiatric: Reports: No Symptoms Hematologic/Lymphatic: Reports: No Symptoms Immunologic: Reports: No Symptoms ED EXAM, GENERAL - Physical Exam Exam: See Below Exam Limited By: No Limitations General Appearance: Alert, WD/WN, No Apparent Distress Eye Exam: Bilateral Eye: EOMI, Normal Inspection, PERRL Ears: Normal External Exam, Normal Canal, Hearing Grossly Normal, Normal TMs Nose: Normal Inspection Throat/Mouth: Normal Inspection, Normal Teeth, Normal Oropharynx, No Airway Compromise Head: Atraumatic, Normocephalic Neck: Normal Inspection, Supple, Non-Tender, Full Range of Motion Respiratory/Chest: No Respiratory Distress, Lungs Clear, Normal Breath Sounds, No Accessory Muscle Use, Chest Non-Tender Cardiovascular: Normal Peripheral Pulses, Regular Rate, Rhythm, No Edema, No JVD , No Murmur GI/Abdominal: Normal Bowel Sounds, Soft, Non-Tender, No Distention Extremities: Normal Inspection, Normal Capillary Refill Neurological: Alert, Oriented, CN II-XII Intact, Normal Cognition, Normal Gait, Normal Reflexes, No Motor/Sensory Deficits Psychiatric: Normal Affect, Normal Mood Skin Exam: Warm, Dry, Intact, Normal Color, No Rash EKG INTERPRETATION EKG Date: 12/16/18 Time: 16:19 Rhythm: Other (sinus bradycardia) Rate (Beats/Min): 54 Hubbard: LAD-Left Hubbard Deviation (-40) P-Wave: Present (1st degree AV block) QRS: LBBB ST-T: Normal QT: Normal Comparison: NA - No Prior EKG EKG Interpretation Comments: Q waves in V1 through V4, lead III, and QTc moderately prolonged at 489, reviewed with Dr. Campos. Course - Vital Signs Last Recorded V/S: Last Vital Signs Temp 97.2 F 12/16/18 15:55 Pulse 68 12/16/18 15:55 Resp 30 H 12/16/18 15:55 BP 174/72 H 12/16/18 15:55 Pulse Ox 91 L 12/16/18 15:55 - Orders/Labs/Meds Orders: Active Orders 24 hr Category Date Time Status EKG 12 Lead [EKG Documentation Completion] [RC] STAT Care 12/16/18 16:05 Active Labs: Laboratory Tests 12/16/18 12/16/18 12/16/18 Range/Units 16:40 16:40 16:40 WBC 10.09 H (3.98-10.04) K/mm3 RBC 4.32 (3.98-5.22) M/mm3 Hgb 12.8 (11.2-15.7) gm/L Hct 41.3 (34.1-44.9) % MCV 95.6 H (79.4-94.8) fl MCH 29.6 (25.6-32.2) pg MCHC 31.0 L (32.2-35.5) g/dl RDW Std Deviation 51.1 H (36.4-46.3) fL Plt Count 247 (182-369) K/mm3 MPV 10.1 (9.4-12.3) fl Neutrophils % (Manual) 65 H (40-60) % Band Neutrophils % 0 (0-10) % Lymphocytes % (Manual) 23 (20-40) % Atypical Lymphs % 0 % Monocytes % (Manual) 11 H (2-10) % Eosinophils % (Manual) 0 L (0.7-5.8) % Basophils % (Manual) 1 (0.1-1.2) Platelet Estimate Adequate RBC Morph Comment Normal PT 20.4 H (9.5-12.1) SECONDS INR 1.90 APTT 36 H (24-31) SECONDS Sodium 141 (136-145) mEq/L Potassium 4.1 (3.5-5.1) mEq/L Chloride 104 (98-107) mEq/L Carbon Dioxide 33 H (21-32) mEq/L Anion Gap 8.1 (5-15) BUN 18 (7-18) mg/dL Creatinine 0.9 (0.55-1.02) mg/dL Est Cr Clr Drug Dosing 32.23 mL/min Estimated GFR (MDRD) 59 (>60) mL/min BUN/Creatinine Ratio 20.0 H (14-18) Glucose 112 (83-115) mg/dL Calcium 8.2 L (8.5-10.1) mg/dL Total Bilirubin 0.5 (0.2-1.0) mg/dL AST 19 (15-37) U/L ALT 25 (14-59) U/L Alkaline Phosphatase 46 (46-116) U/L NT-Pro-B Natriuret Pep (0-450) pg/mL Total Protein 6.5 (6.4-8.2) g/dl Albumin 3.2 L (3.4-5.0) g/dl Globulin 3.3 gm/dL Albumin/Globulin Ratio 1.0 (1-2) 12/16/18 Range/Units 16:40 WBC (3.98-10.04) K/mm3 RBC (3.98-5.22) M/mm3 Hgb (11.2-15.7) gm/L Hct (34.1-44.9) % MCV (79.4-94.8) fl MCH (25.6-32.2) pg MCHC (32.2-35.5) g/dl RDW Std Deviation (36.4-46.3) fL Plt Count (182-369) K/mm3 MPV (9.4-12.3) fl Neutrophils % (Manual) (40-60) % Band Neutrophils % (0-10) % Lymphocytes % (Manual) (20-40) % Atypical Lymphs % % Monocytes % (Manual) (2-10) % Eosinophils % (Manual) (0.7-5.8) % Basophils % (Manual) (0.1-1.2) Platelet Estimate RBC Morph Comment PT (9.5-12.1) SECONDS INR APTT (24-31) SECONDS Sodium (136-145) mEq/L Potassium (3.5-5.1) mEq/L Chloride (98-107) mEq/L Carbon Dioxide (21-32) mEq/L Anion Gap (5-15) BUN (7-18) mg/dL Creatinine (0.55-1.02) mg/dL Est Cr Clr Drug Dosing mL/min Estimated GFR (MDRD) (>60) mL/min BUN/Creatinine Ratio (14-18) Glucose (83-115) mg/dL Calcium (8.5-10.1) mg/dL Total Bilirubin (0.2-1.0) mg/dL AST (15-37) U/L ALT (14-59) U/L Alkaline Phosphatase (46-116) U/L NT-Pro-B Natriuret Pep 729 H (0-450) pg/mL Total Protein (6.4-8.2) g/dl Albumin (3.4-5.0) g/dl Globulin gm/dL Albumin/Globulin Ratio (1-2) Meds: Medications Discontinued Medications Generic Name Dose Route Start Last Admin Trade Name Freq PRN Reason Stop Dose Admin Gabapentin 600 mg 12/16/18 18:54 12/16/18 19:07 Neurontin PO 12/16/18 18:55 600 mg ONETIME ONE Administration - Re-Assessments/Exams Free Text/Narrative Re-Assessment/Exam: 12/16/18 16:40 Patient presents to ED for evaluation of a syncopal episode. Due to her being on Coumadin and being unsure if she hit her head head CT was obtained today, CBC , CMP, and PT/PTT/INR have been ordered and further evaluation. 12/16/18 18:[address] is done and is read as follows by the radiologist: Incidental findings which included an large sella turcica which is felt to be stable from previous exam, no acute changes on the noncontrast head CT. Some of her labs are back and are essentially within normal limits although we do not have her PT /PTT/INR back at this time. 12/16/18 19:14 PT is 20.4, INR is 1.9, PTT is 36. As for now as the patient does not have any type of bleed in her head, and she is feeling well at this time I will discharge her home. Return precautions were discussed with the patient and her friend. Departure - Departure Time of Disposition: 19:15 Disposition: Home, Self-Care 01 Condition: Fair Clinical Impression: Episode of syncope Qualifiers: Syncope type: unspecified Qualified Code(s): R55 - Syncope and collapse Instructions: Syncope, [id number] Referrals: Abeba Monae PA-C [Primary Care Provider] - Forms: ED Department Discharge Additional Instructions: You have been evaluated in the ED tonight for your syncopal episode. Her head CT did not demonstrate any sign of acute bleed. Your Coumadin levels were within normal limits for therapy and do not need changing at this time. Please return to the ED if her symptoms change or worsen. - My Orders Last 24 Hours: My Active Orders 12/16/18 16:05 EKG 12 Lead [EKG Documentation Completion] [RC] STAT - Assessment/Plan Last 24 Hours: My Active Orders 12/16/18 16:05 EKG 12 Lead [EKG Documentation Completion] [RC] STAT
[2018-12-16] MEDS: Gabapentin 600 MG Tab PO ONE (19:07)
== END 2018-12-16 19:28 | disposition home or self-care (01) ==
LOC: JD.ED 15:55
DX: R55 Syncope and collapse (principal); I10 Essential (primary) hypertension; I48.91 Unspecified atrial fibrillation; E78.00 Pure hypercholesterolemia, unspecified; F41.9 Anxiety disorder, unspecified; F32.9 Major depressive disorder, single episode, unspecified; E03.9 Hypothyroidism, unspecified; Z79.899 Other long term (current) drug therapy; Z79.01 Long term (current) use of anticoagulants; Z88.0 Allergy status to penicillin; Z88.1 Allergy status to other antibiotic agents; Z88.2 Allergy status to sulfonamides
CPT/HCPCS: 36415; 70450; 80053; 83880; 85007; 85027; 85610; 85730; 93005; 99285; A9270

== ENCOUNTER 2020-01-03 18:01 | Emergency (ER) | payer MEDICARE, MEDICAID ==
[2020-01-03 18:14] VITALS: BP 159/67; PULSE 61
--- NOTE | 2020-01-03 19:12 | EDM.PDOC ---
ED HPI GENERAL MEDICAL PROBLEM - General Chief Complaint: Trauma Stated Complaint: [facility] Time Seen by Provider: 01/03/20 18:06 Source of Information: Reports: Patient, EMS History Limitations: Reports: No Limitations - History of Present Illness INITIAL COMMENTS - FREE TEXT/NARRATIVE: The patient presents by [facility] for a fall. She was reaching for something and she fell and did a face plant. She has an abrasion to her right forehead. She also has some neck pain. She had no LOC. She is on blood thinners. She has no chest pain, abdominal pain, nausea or vomiting. She has no numbness or weakness. She has no wrist or leg pain. Onset: Sudden Duration: Minutes: Location: Reports: Head, Neck Quality: Reports: Ache Severity: Mild Improves with: Reports: None Worsens with: Reports: None Associated Symptoms: Reports: No Other Symptoms Head Pain Score (Numeric/FACES): 4 - Related Data Allergies Allergy/AdvReac Type Severity Reaction Status Date / Time Cephalosporins Allergy Cannot Verified 01/03/20 18:15 Remember codeine Allergy Cannot Verified 01/03/20 18:15 Remember diazepam [From Valium] Allergy Other Verified 01/03/20 18:15 morphine Allergy Cannot Verified 01/03/20 18:15 Remember Penicillins Allergy Cannot Verified 01/03/20 18:15 Remember phenobarbital Allergy Other Verified 01/03/20 18:15 sulfanilamide [Sulfanilamide] Allergy Cannot Verified 01/03/20 18:15 Remember clindamycin AdvReac Stomach Verified 01/03/20 18:15 Ache Home Meds: Home Meds Acetaminophen [Tylenol Arthritis Pain] 1,300 mg PO Q8HR PRN 02/01/15 [History] Denosumab [Prolia] 60 mg INJECT ASDIRECTED 02/01/15 [History] Desmopressin (NonRefrigerated) [Ddavp 0.01% Nasal [place]] 1 spray NS TID [History] Dexlansoprazole [Dexilant] 60 mg PO DAILY 02/01/15 [History] Escitalopram [Lexapro] 10 mg PO DAILY 02/01/15 [History] Folic Acid 1 mg PO DAILY 02/01/15 [History] Furosemide [Lasix] 20 mg PO DAILY 02/01/15 [History] LORazepam 1 mg PO TID PRN MDD 3mg in 12 hrs 02/01/15 [History] Levothyroxine 137 mcg PO ACBRK 02/01/15 [History] Losartan Potassium [Cozaar] 100 mg PO QAM 02/01/15 [History] Multivit-Min/FA/Lutein/Zeaxant [Macular Vitamin Tablet] 1 each PO 1200 02/01/15 [History] Multivitamin [Daily Vitamin] 1 each PO QAM 02/01/15 [History] diazePAM [Diastat] 5 mg RECTAL ASDIRECTED PRN 02/01/15 [History] levETIRAcetam [Keppra] 1,000 mg PO BEDTIME 02/01/15 [History] levETIRAcetam [Keppra] 750 mg PO DAILY 02/01/15 [History] predniSONE [Prednisone] 5 mg PO DAILY 02/01/15 [History] Simvastatin 20 mg PO PCDINNER 06/07/18 [History] Docusate Sodium 100 mg PO BID PRN 11/11/18 [History] Warfarin [Coumadin] 2.5 mg PO SUMOTUWETHSA 11/11/18 [History] Fluticasone/Vilanterol [Breo Ellipta 100-25 MCG Inhalation Kit] 1 puff INH DAILY 05/06/19 [History] Potassium Chloride 20 meq PO BID 05/06/19 [History] cycloSPORINE [Restasis Multidose] 1 drop EYEBOTH BID 05/06/19 [History] Albuterol Sulfate [Proair Hfa] 2 puff INH Q6H PRN 05/31/19 [History] Warfarin [Coumadin] 1.25 mg PO FR 06/01/19 [History] Acetaminophen/HYDROcodone [[place] 325-5 MG] 1 tab PO Q6H PRN #18 tablet 06/07/19 [Rx] Ascorbic Acid [Vitamin C 250 mg Tablet Chew] 250 mg PO BID #60 tab.chew [Rx] ClonazePAM [KlonoPIN] 0.5 mg PO BEDTIME #0 06/07/19 [Rx] Gabapentin [Neurontin] 200 mg PO QID #240 cap 06/07/19 [Rx] Iron Polysaccharides Complex [Ferrex 150] 150 mg PO BID #60 cap 06/07/19 [Rx] Lidocaine 4% [Aspercreme 4%] 1 each TOP DAILY #30 patch 06/07/19 [Rx] Propranolol HCl [Propranolol HCl ER] 120 mg PO DAILY 06/07/19 [History] Past Medical History HEENT History: Reports: Impaired Vision Other HEENT History: Glasses and upper partials. Cardiovascular History: Reports: Afib, High Cholesterol, Hypertension Respiratory History: Reports: Bronchitis, Recurrent, Pneumonia, Recurrent Other Respiratory History: Patient wears oxygen at home 2 L. Gastrointestinal History: Reports: PUD Other Gastrointestinal History: Kidney stones and stomach ulcers. Genitourinary History: Reports: Renal Calculus Other Genitourinary History: kidney stones GREENBELT History: Reports: Other GREENBELT History: Had 3 children. 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 - Past Surgical History Head Surgeries/Procedures: Reports: Other (See Below) HEENT Surgical History: Reports: Cataract Surgery, Oral Surgery, Tonsillectomy GI Surgical History: Reports: Appendectomy, Cholecystectomy Female Surgical History: Reports: Hysterectomy, Salpingo-Oophorectomy Other Endocrine Surgeries/Procedures: Pititary glad removal Neurological Surgical History: Reports: Laminectomy Social & Family History - Family History Family Medical History: Noncontributory HEENT: Reports: Hearing Impairment Other HEENT Family History: Brother Ed has hearing aids. Cardiac: Reports: High Cholesterol, Hypertension Respiratory: Reports: Asthma, COPD, Other (See Below) Other Respiratory Family Hisory: Sister has asthma. Brother has COPD. Mother had lung problems. OBGYN: Reports: Ectopic Musculoskeletal: Reports: Fibromyalgia Other Musculoskeletal Family History: Sister has fibromyalgia. Neurological: Reports: CVA Other Neurological Family History: Father had strokes. Endocrine/Metabolic: Reports: Diabetes, type II Other Endocrine/Metabolic Family History: Brother has DM II. Hematologic: Reports: Other (See Below) Other Hematologic Family History: Brother has some type of bleeding complication. Oncologic: Reports: Lung Other Oncologic Family History: Daughter has lung CA from smoking. - Tobacco Use Smoking Status *Q: Never Smoker - Caffeine Use Caffeine Use: Reports: None - Recreational Drug Use Recreational Drug Use: No - Living Situation & Occupation Living situation: Reports: , Alone, Assisted Living Occupation: Retired Review of Systems - Review of Systems Review Of Systems: See Below Constitutional: Reports: No Symptoms Eyes: Reports: No Symptoms Ears: Reports: No Symptoms Nose: Reports: No Symptoms Mouth/Throat: Reports: No Symptoms Respiratory: Reports: No Symptoms Cardiovascular: Reports: No Symptoms GI/Abdominal: Reports: No Symptoms Genitourinary: Reports: No Symptoms Musculoskeletal: Reports: Neck Pain ED EXAM, GENERAL - Physical Exam Exam: See Below Exam Limited By: No Limitations General Appearance: Alert, No Apparent Distress Eye Exam: Bilateral Eye: EOMI, PERRL Ears: Normal External Exam Nose: Normal Inspection Head: Other (Abrasions to the right foreahead) Neck: Tender Midline (upper cervical spine) Respiratory/Chest: No Respiratory Distress, Lungs Clear, Normal Breath Sounds Cardiovascular: Regular Rate, Rhythm, No Edema, No Murmur GI/Abdominal: Soft, Non-Tender, No Organomegaly, No Mass Back Exam: Normal Inspection Extremities: Normal Inspection Course - Vital Signs Last Recorded V/S: Last Vital Signs Temp 97.7 F 01/03/20 18:07 Pulse 61 01/03/20 18:07 Resp 16 01/03/20 18:07 BP 159/67 H 01/03/20 18:07 Pulse Ox 92 L 01/03/20 18:07 - Re-Assessments/Exams Free Text/Narrative Re-Assessment/Exam: 01/03/20 19:[address] of her head and cervical spine. 01/03/20 19:[address] of her head shows chronic appearing mucosal thickening within the sphenoid sinus. Soft tissue swelling suspected within the frontal scalp. Please correlate. Other findings as noted above believed to be chronic. No acute intracranial abnormality is appreciated. The CT of her cervical spine shows degenerative change. Mild anterior wedging of T1 as well as endplate concavities of T2 and T3. These are most likely old although MRI would be needed to confirm that there is no bone marrow edema within these areas. No acute fracture or abnormal subluxations is appreciated. Departure - Departure Time of Disposition: 20:00 Disposition: Home, Self-Care 01 Condition: Good Clinical Impression: Compression fracture of body of thoracic vertebra Fall Qualifiers: Encounter type: initial encounter Qualified Code(s): W19.XXXA - Unspecified fall, initial encounter Abrasion of forehead Qualifiers: Encounter type: initial encounter Qualified Code(s): S00.81XA - Abrasion of other part of head, initial encounter - Discharge Information *PRESCRIPTION DRUG MONITORING PROGRAM REVIEWED*: Not Applicable *COPY OF PRESCRIPTION DRUG MONITORING REPORT IN PATIENT JEANNIE: Not Applicable Referrals: Savage Ortiz MD [Primary Care Provider] - 1 Week Forms: ED Department Discharge Additional Instructions: Take tylenol or motrin for any pain. Wash the abrasion with warm soapy water 2 times per day and apply antibiotic ointment for about 5 days. You have older looking compression deformities in your upper back. Follow up with your doctor for further management. Please return if you are worse. Sepsis Event Note - Evaluation Sepsis Screening Result: No Definite Risk - Focused Exam Vital Signs: Vital Signs Temp Pulse Resp BP Pulse Ox 01/03/20 18:07 97.7 F 61 16 159/67 H 92 L Date Exam was Performed: 01/03/20 Time Exam was Performed: 19:54
--- NOTE | 2020-01-03 19:46 | CT ---
Head CT Technique: Multiple axial sections through the brain were obtained. Intravenous contrast was not utilized. Comparison: Prior head CT study of 12/16/18. Findings: Mild soft tissue swelling appears to be present within the frontal scalp. Vascular calcification is noted within the vertebral vessels and carotid siphon. Ventricles along with basal cisterns and sulci over the convexities are within normal limits for the patient's age. Mild diminished density is noted within the periventricular white matter compatible with small vessel ischemic demyelination change. No other abnormal parenchymal densities are seen. No evidence of intracranial hemorrhage. Basal ganglia calcification is noted. Mucosal thickening is seen within the sphenoid sinus. This appears fairly similar to previous exam. Visualized mastoid sinuses show nothing acute. Sella turcica is enlarged which is a stable finding. No acute calvarial abnormality is appreciated. Impression: 1. Chronic appearing mucosal thickening within the sphenoid sinus. 2. Soft tissue swelling suspected within the frontal scalp. Please correlate. 3. Other findings as noted above believed to be chronic. 4. No acute intracranial abnormality is appreciated. Diagnostic code #2 Study was dictated in MDT
--- NOTE | 2020-01-03 19:46 | CT ---
CT cervical spine Technique: Multiple axial sections through the cervical spine were obtained from above C1 inferiorly to the bottom of T3. Reconstructed sagittal and coronal images were reviewed. Findings: Severe disc space narrowing is noted at C3-C4. Posterior disc space narrowing noted C4-C5. Moderate to severe disc space narrowing is noted C5-C6 and C6-C7 as well as C7-T1. Mild anterior wedge deformity is noted of T1. Minimal endplate concavity is noted of T2 and T3. Degenerative change is noted between the dens and anterior arch of C1. Diffuse degenerative apophyseal change is seen throughout the cervical spine. Multiple levels of neural foraminal stenosis is seen. Bone density is noted off the tip of the spinous process of T1 compatible with old fracture. Old fracture is noted within the right fourth rib. No definite acute fracture line is seen within the cervical spine. No abnormal subluxation is seen. Bony structures are osteopenic. Impression: 1. Degenerative change. 2. Mild anterior wedging of T1 as well as endplate concavities of T2 and T3. These are most likely old although MRI would be needed to confirm that there is no bone marrow edema within these areas. 3. No acute fracture or abnormal subluxation is appreciated. Diagnostic code #3 Study was dictated in MDT
== END 2020-01-03 21:00 | disposition home or self-care (01) ==
LOC: JD.ED 18:01
DX: S22.009A Unspecified fracture of unspecified thoracic vertebra, initial encounter for closed fracture (principal); S00.81XA Abrasion of other part of head, initial encounter; I10 Essential (primary) hypertension; E78.00 Pure hypercholesterolemia, unspecified; I48.91 Unspecified atrial fibrillation; M19.90 Unspecified osteoarthritis, unspecified site; F41.9 Anxiety disorder, unspecified; F32.9 Major depressive disorder, single episode, unspecified; E03.9 Hypothyroidism, unspecified; E66.9 Obesity, unspecified; Z68.36 Body mass index [BMI] 36.0-36.9, adult; Z88.1 Allergy status to other antibiotic agents; Z88.5 Allergy status to narcotic agent; Z88.0 Allergy status to penicillin; Z88.2 Allergy status to sulfonamides; Z88.8 Allergy status to other drugs, medicaments and biological substances; Z79.899 Other long term (current) drug therapy; W01.0XXA Fall on same level from slipping, tripping and stumbling without subsequent striking against object, initial encounter
CPT/HCPCS: 70450; 70450-26; 72125; 72125-26; 99283; 99284-25

== ENCOUNTER 2020-09-12 11:38 | Emergency (ER) | payer MEDICARE, MEDICAID ==
[2020-09-12] MEDS ORDERED: Sodium Chloride 0.9% 10 ML Syringe FLUSH PRN (11:51)
--- NOTE | 2020-09-12 12:27 | EDM.PDOC ---
ED HPI GENERAL MEDICAL PROBLEM - General Chief Complaint: Respiratory Problem Stated Complaint: [facility] Time Seen by Provider: 09/12/20 11:44 Source of Information: Reports: Patient, [facility] Records, RN Notes Reviewed History Limitations: Reports: No Limitations - History of Present Illness INITIAL COMMENTS - FREE TEXT/NARRATIVE: Patient is an 89-year-old female resenting to the emergency department by EMS from [facility] assisted living with complaints of cough and shortness of breath. Patient states her symptoms began as a moist, productive cough on Friday. States she has been coughing up yellow sputum today. Today she became short of breath. Oxygen saturations ranged from 85 to 87% on room air per EMS. She has had no documented fever. States they have been checking her temperature 3 times per day at the [facility] and she has been afebrile each time. She denies any nausea, vomiting, or diarrhea. States her only complaint is the cough and shortness of breath. Denies any history of congestive heart failure. One of the workers at the [facility] tested positive for Covid, so there is concerned that she could possibly have Covid as well. - Related Data Allergies Allergy/AdvReac Type Severity Reaction Status Date / Time Cephalosporins Allergy Cannot Verified 09/12/20 11:56 Remember codeine Allergy Cannot Verified 09/12/20 11:56 Remember diazepam [From Valium] Allergy Other Verified 09/12/20 11:56 morphine Allergy Cannot Verified 09/12/20 11:56 Remember Penicillins Allergy Cannot Verified 09/12/20 11:56 Remember phenobarbital Allergy Other Verified 09/12/20 11:56 sulfanilamide [Sulfanilamide] Allergy Cannot Verified 09/12/20 11:56 Remember clindamycin AdvReac Stomach Verified 09/12/20 11:56 Ache Home Meds: Home Meds Acetaminophen [Tylenol Arthritis Pain] 650 mg PO TID 02/01/15 [History] Denosumab [Prolia] 60 mg INJECT ASDIRECTED 02/01/15 [History] Desmopressin (NonRefrigerated) [Ddavp 0.01% Nasal [place]] 1 spray NS TID 02/01/15 [History] Dexlansoprazole [Dexilant] 60 mg PO DAILY 02/01/15 [History] Escitalopram [Lexapro] 10 mg PO DAILY 02/01/15 [History] Folic Acid 1 mg PO DAILY 02/01/15 [History] Furosemide [Lasix] 20 mg PO BID 02/01/15 [History] LORazepam 1 mg PO TID PRN MDD 3mg in 12 hrs 02/01/15 [History] Losartan Potassium [Cozaar] 100 mg PO QAM 02/01/15 [History] Multivit-Min/FA/Lutein/Zeaxant [Macular Vitamin Tablet] 1 each PO 1200 02/01/15 [History] Multivitamin [Daily Vitamin] 1 each PO QAM 02/01/15 [History] levETIRAcetam [Keppra] 1,000 mg PO BEDTIME 02/01/15 [History] levETIRAcetam [Keppra] 750 mg PO DAILY 02/01/15 [History] predniSONE [Prednisone] 5 mg PO DAILY 02/01/15 [History] Simvastatin 20 mg PO PCDINNER 06/07/18 [History] Docusate Sodium 100 mg PO DAILY 11/11/18 [History] Warfarin [Coumadin] 2.5 mg PO MOWEFR 11/11/18 [History] Fluticasone/Vilanterol [Breo Ellipta 100-25 MCG Inhalation Kit] 1 puff INH DAILY 05/06/19 [History] Potassium Chloride 20 meq PO BID 05/06/19 [History] cycloSPORINE [Restasis Multidose] 1 drop EYEBOTH BID 05/06/19 [History] Albuterol Sulfate [Proair Hfa] 2 puff INH Q6H PRN 05/31/19 [History] Warfarin [Coumadin] 1.25 mg PO ASDIRECTED 06/01/19 [History] Ascorbic Acid [Vitamin C 250 mg Tablet Chew] 250 mg PO BID #60 tab.chew 06/07/19 [Rx] ClonazePAM [KlonoPIN] 0.5 mg PO BEDTIME #0 06/07/19 [Rx] Propranolol HCl [Propranolol HCl ER] 120 mg PO DAILY 06/07/19 [History] Acetaminophen [Tylenol Arthritis] 650 mg PO BEDTIME PRN 09/12/20 [History] Acetaminophen/HYDROcodone [Elrosa 325-5 MG] 1 tab PO TID 09/12/20 [History] Azelastine [Astelin Nasal Soln] 2 spray CHAVA BID 09/12/20 [History] Calcium Carb, Citrate/Vit D3 [Calcium + D3 ER Tablet] 1 tab PO 1200 09/12/20 [History] Calcium Carbonate [Tums] 500 mg PO QID PRN 09/12/20 [History] Gabapentin [Neurontin] 300 mg PO TID 09/12/20 [History] Levothyroxine [Synthroid] 100 mcg PO DAILY 09/12/20 [History] Lidocaine 4% [Aspercreme 4%] 1 each TOP BID 09/12/20 [History] Menthol [Biofreeze] 1 dose TOP Q6H PRN 09/12/20 [History] Tens Unit [Tens 502] 1 dose TOP DAILY 09/12/20 [History] Past Medical History HEENT History: Reports: Impaired Vision Other HEENT History: Glasses and upper partials. Cardiovascular History: Reports: Afib, High Cholesterol, Hypertension Respiratory History: Reports: Bronchitis, Recurrent, Pneumonia, Recurrent Other Respiratory History: Patient wears oxygen at home 2 L. Gastrointestinal History: Reports: PUD, Other (See Below) Other Gastrointestinal History: stomach ulcers. Genitourinary History: Reports: Renal Calculus Other Genitourinary History: kidney stones [employer] History: Reports: Other [employer] History: Had 3 children. 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 - Past Surgical History Head Surgeries/Procedures: Reports: Other (See Below) HEENT Surgical History: Reports: Cataract Surgery, Oral Surgery, Tonsillectomy Other HEENT Surgeries/Procedures: wisdom teeth removed. GI Surgical History: Reports: Appendectomy, Cholecystectomy Female Surgical History: Reports: Hysterectomy, Salpingo-Oophorectomy Endocrine Surgical History: Reports: Other (See Below) Other Endocrine Surgeries/Procedures: Pititary glad removal Neurological Surgical History: Reports: Laminectomy Other Neurological Surgeries/Procedures: Back Surgery. Musculoskeletal Surgical History: Reports: None Other Musculoskeletal Surgeries/Procedures:: Cortisone injection to left shoulder. Oncologic Surgical History: Reports: None Dermatological Surgical History: Reports: Skin Biopsy Social & Family History - Family History Family Medical History: No Pertinent Family History HEENT: Reports: Hearing Impairment Other HEENT Family History: Brother Ed has hearing aids. Cardiac: Reports: High Cholesterol, Hypertension Respiratory: Reports: Asthma, COPD, Other (See Below) Other Respiratory Family Hisory: Sister has asthma. Brother has COPD. Mother had lung problems. OBGYN: Reports: Ectopic Musculoskeletal: Reports: Fibromyalgia Other Musculoskeletal Family History: Sister has fibromyalgia. Neurological: Reports: CVA Other Neurological Family History: Father had strokes. Endocrine/Metabolic: Reports: Diabetes, type II Other Endocrine/Metabolic Family History: Brother has DM II. Hematologic: Reports: Other (See Below) Other Hematologic Family History: Brother has some type of bleeding complication. Oncologic: Reports: Lung Other Oncologic Family History: Daughter has lung CA from smoking. - Tobacco Use Tobacco Use Status *Q: Never Tobacco User Second Hand Smoke Exposure: No - Caffeine Use Caffeine Use: Reports: None - Recreational Drug Use Recreational Drug Use: No - Living Situation & Occupation Living situation: Reports: , Alone, Assisted Living Occupation: Retired ED ROS GENERAL - Review of Systems Review Of Systems: See Below Constitutional: Denies: Fever, Chills, Weakness, Fatigue HEENT: Reports: No Symptoms Respiratory: Reports: Shortness of Breath, Cough, Sputum Cardiovascular: Reports: No Symptoms Endocrine: Reports: No Symptoms GI/Abdominal: Reports: No Symptoms : Reports: No Symptoms Musculoskeletal: Reports: No Symptoms Skin: Reports: No Symptoms Neurological: Reports: No Symptoms Psychiatric: Reports: No Symptoms Hematologic/Lymphatic: Reports: No Symptoms Immunologic: Reports: No Symptoms ED EXAM, GENERAL - Physical Exam Exam: See Below Exam Limited By: No Limitations General Appearance: Alert, WD/WN, No Apparent Distress Eye Exam: Bilateral Eye: PERRL Respiratory/Chest: No Respiratory Distress, No Accessory Muscle Use, Chest Non- Tender, Crackles (bilateral bases) Cardiovascular: Normal Peripheral Pulses, Regular Rate, Rhythm, No Edema, No Gallop, No JVD, No Murmur, No Rub GI/Abdominal: Normal Bowel Sounds, Soft, Non-Tender, No Organomegaly, No Distention, No Abnormal Bruit, No Mass Neurological: Alert, Oriented, CN II-XII Intact, Normal Cognition, Normal Gait, Normal Reflexes, No Motor/Sensory Deficits Psychiatric: Normal Affect, Normal Mood Skin Exam: Warm, Dry, Intact, Normal Color, No Rash Course - Vital Signs Last Recorded V/S: Last Vital Signs Temp 97.5 F 09/12/20 14:21 Pulse 63 09/12/20 14:21 Resp 19 09/12/20 11:44 BP 132/47 L 09/12/20 14:21 Pulse Ox 98 09/12/20 14:21 - Orders/Labs/Meds Orders: Active Orders 24 hr Category Date Time Status EKG Documentation Completion [RC] STAT Care 09/12/20 11:51 Active Peripheral IV Care [RC] . DIRECTED Care 09/12/20 11:51 Active Sodium Chloride 0.9% [Saline Flush] Med 09/12/20 11:51 Active 10 ml FLUSH ASDIRECTED PRN Peripheral IV Insertion Adult [OM.PC] Stat Oth 09/12/20 11:51 Ordered Medication Orders Sodium Chloride (Saline Flush) 10 ml FLUSH ASDIRECTED PRN PRN Reason: Keep Vein Open Last Admin: 09/12/20 11:55 Dose: 10 ml Documented by: HERMMIC Labs: Laboratory Tests 09/12/20 09/12/20 09/12/20 Range/Units 11:46 12:07 12:07 WBC 9.20 (3.98-10.04) K/mm3 RBC 3.80 L (3.98-5.22) M/mm3 Hgb 11.8 (11.2-15.7) gm/dl Hct 38.5 (34.1-44.9) % MCV 101.3 H (79.4-94.8) fl MCH 31.1 (25.6-32.2) pg MCHC 30.6 L (32.2-35.5) g/dl RDW Std Deviation 58.0 H (36.4-46.3) fL Plt Count 168 L D (182-369) K/mm3 MPV 10.8 (9.4-12.3) fl Neut % (Auto) 71.5 H (34.0-71.1) % Lymph % (Auto) 13.0 L (19.3-51.7) % [place] % (Auto) 13.3 H (4.7-12.5) % Eos % (Auto) 2.0 (0.7-5.8) Baso % (Auto) 0.2 (0.1-1.2) % Neut # (Auto) 6.58 H (1.56-6.13) K/mm3 Lymph # (Auto) 1.20 (1.18-3.74) K/mm3 [place] # (Auto) 1.22 H (0.24-0.36) K/mm3 Eos # (Auto) 0.18 (0.04-0.36) K/mm3 Baso # (Auto) 0.02 (0.01-0.08) K/mm3 Manual Slide Review Abnormal smear PT (9.7-12.0) SECONDS INR D-Dimer, Quantitative 0.71 H (0.19-0.50) mg/L Puncture Site ABG pH (7.35-7.45) ABG pCO2 (35.0-45.0) mmHg ABG pO2 (80.0-100.0) mmHg ABG HCO3 (22.0-26.0) meq/L ABG O2 Saturation (96.0-97.0) % ABG Base Excess (-2-2.0) Bishop Test A-a Gradient mmHg O2 Delivery Device Oxygen Flow Rate FiO2 (21.00-100.00) % Sodium (136-145) mEq/L Potassium (3.5-5.1) mEq/L Chloride (98-107) mEq/L Carbon Dioxide (21-32) mEq/L Anion Gap (5-15) BUN (7-18) mg/dL Creatinine (0.55-1.02) mg/dL Est Cr Clr Drug Dosing mL/min Estimated GFR (MDRD) (>60) mL/min BUN/Creatinine Ratio (14-18) Glucose (83-115) mg/dL Calcium (8.5-10.1) mg/dL Ferritin (8-252) ng/ml Total Bilirubin (0.2-1.0) mg/dL AST (15-37) U/L ALT (14-59) U/L Alkaline Phosphatase (46-116) U/L Lactate Dehydrogenase (81-234) U/L Troponin I (0.00-0.056) ng/mL C-Reactive Protein (<1.0) mg/dL NT-Pro-B Natriuret Pep (0-450) pg/mL Total Protein (6.4-8.2) g/dl Albumin (3.4-5.0) g/dl Globulin gm/dL Albumin/Globulin Ratio (1-2) SARS-CoV-2 RNA (ART) Positive H (NEGATIVE) 09/12/20 09/12/20 09/12/20 Range/Units 12:07 12:07 12:07 WBC (3.98-10.04) K/mm3 RBC (3.98-5.22) M/mm3 Hgb (11.2-15.7) gm/dl Hct (34.1-44.9) % MCV (79.4-94.8) fl MCH (25.6-32.2) pg MCHC (32.2-35.5) g/dl RDW Std Deviation (36.4-46.3) fL Plt Count (182-369) K/mm3 MPV (9.4-12.3) fl Neut % (Auto) (34.0-71.1) % Lymph % (Auto) (19.3-51.7) % [place] % (Auto) (4.7-12.5) % Eos % (Auto) (0.7-5.8) Baso % (Auto) (0.1-1.2) % Neut # (Auto) (1.56-6.13) K/mm3 Lymph # (Auto) (1.18-3.74) K/mm3 [place] # (Auto) (0.24-0.36) K/mm3 Eos # (Auto) (0.04-0.36) K/mm3 Baso # (Auto) (0.01-0.08) K/mm3 Manual Slide Review PT 23.4 H (9.7-12.0) SECONDS INR 2.22 D-Dimer, Quantitative (0.19-0.50) mg/L Puncture Site ABG pH (7.35-7.45) ABG pCO2 (35.0-45.0) mmHg ABG pO2 (80.0-100.0) mmHg ABG HCO3 (22.0-26.0) meq/L ABG O2 Saturation (96.0-97.0) % ABG Base Excess (-2-2.0) Bishop Test A-a Gradient mmHg O2 Delivery Device Oxygen Flow Rate FiO2 (21.00-100.00) % Sodium 144 (136-145) mEq/L Potassium 4.4 (3.5-5.1) mEq/L Chloride 105 (98-107) mEq/L Carbon Dioxide 36 H (21-32) mEq/L Anion Gap 7.4 (5-15) BUN 19 H (7-18) mg/dL Creatinine 1.0 (0.55-1.02) mg/dL Est Cr Clr Drug Dosing 27.93 mL/min Estimated GFR (MDRD) 52 (>60) mL/min BUN/Creatinine Ratio 19.0 H (14-18) Glucose 108 (83-115) mg/dL Calcium 8.9 (8.5-10.1) mg/dL Ferritin (8-252) ng/ml Total Bilirubin 0.5 (0.2-1.0) mg/dL AST 27 (15-37) U/L ALT 30 (14-59) U/L Alkaline Phosphatase 38 L (46-116) U/L Lactate Dehydrogenase (81-234) U/L Troponin I 0.033 (0.00-0.056) ng/mL C-Reactive Protein 2.8 H* (<1.0) mg/dL NT-Pro-B Natriuret Pep 786 H (0-450) pg/mL Total Protein 6.0 L (6.4-8.2) g/dl Albumin 3.1 L (3.4-5.0) g/dl Globulin 2.9 gm/dL Albumin/Globulin Ratio 1.1 (1-2) SARS-CoV-2 RNA (ART) (NEGATIVE) 09/12/20 09/12/20 09/12/20 Range/Units 12:08 12:59 12:59 WBC (3.98-10.04) K/mm3 RBC (3.98-5.22) M/mm3 Hgb (11.2-15.7) gm/dl Hct (34.1-44.9) % MCV (79.4-94.8) fl MCH (25.6-32.2) pg MCHC (32.2-35.5) g/dl RDW Std Deviation (36.4-46.3) fL Plt Count (182-369) K/mm3 MPV (9.4-12.3) fl Neut % (Auto) (34.0-71.1) % Lymph % (Auto) (19.3-51.7) % [place] % (Auto) (4.7-12.5) % Eos % (Auto) (0.7-5.8) Baso % (Auto) (0.1-1.2) % Neut # (Auto) (1.56-6.13) K/mm3 Lymph # (Auto) (1.18-3.74) K/mm3 [place] # (Auto) (0.24-0.36) K/mm3 Eos # (Auto) (0.04-0.36) K/mm3 Baso # (Auto) (0.01-0.08) K/mm3 Manual Slide Review PT (9.7-12.0) SECONDS INR D-Dimer, Quantitative (0.19-0.50) mg/L Puncture Site Rt radial ABG pH 7.42 (7.35-7.45) ABG pCO2 51.3 H (35.0-45.0) mmHg ABG pO2 60.0 L (80.0-100.0) mmHg ABG HCO3 32.4 H (22.0-26.0) meq/L ABG O2 Saturation 89.0 L (96.0-97.0) % ABG Base Excess 7.1 H (-2-2.0) Bishop Test Positive A-a Gradient 25 mmHg O2 Delivery Device Room air Oxygen Flow Rate 0.0 FiO2 21.00 (21.00-100.00) % Sodium (136-145) mEq/L Potassium (3.5-5.1) mEq/L Chloride (98-107) mEq/L Carbon Dioxide (21-32) mEq/L Anion Gap (5-15) BUN (7-18) mg/dL Creatinine (0.55-1.02) mg/dL Est Cr Clr Drug Dosing mL/min Estimated GFR (MDRD) (>60) mL/min BUN/Creatinine Ratio (14-18) Glucose (83-115) mg/dL Calcium (8.5-10.1) mg/dL Ferritin 187 (8-252) ng/ml Total Bilirubin (0.2-1.0) mg/dL AST (15-37) U/L ALT (14-59) U/L Alkaline Phosphatase (46-116) U/L Lactate Dehydrogenase 250 H (81-234) U/L Troponin I (0.00-0.056) ng/mL C-Reactive Protein (<1.0) mg/dL NT-Pro-B Natriuret Pep (0-450) pg/mL Total Protein (6.4-8.2) g/dl Albumin (3.4-5.0) g/dl Globulin gm/dL Albumin/Globulin Ratio (1-2) SARS-CoV-2 RNA (ART) (NEGATIVE) Meds: Medications Generic Name Dose Route Start Last Admin Trade Name Freq PRN Reason Stop Dose Admin Sodium Chloride 10 ml 09/12/20 11:51 09/12/20 11:55 Saline Flush FLUSH 10 ml ASDIRECTED PRN Administration Keep Vein Open Discontinued Medications Generic Name Dose Route Start Last Admin Trade Name Freq PRN Reason Stop Dose Admin Acetaminophen 650 mg 09/12/20 17:58 09/12/20 18:10 Tylenol PO 09/12/20 17:59 650 mg NOW ONE Administration Potassium Chloride 20 meq 09/12/20 17:20 09/12/20 17:46 Klor-Con M20 PO 09/12/20 17:21 20 meq ONETIME ONE Administration Warfarin Sodium 1.25 mg 09/12/20 17:18 09/12/20 17:46 Coumadin PO 09/12/20 17:19 1.25 mg ONETIME ONE Administration - Re-Assessments/Exams Free Text/Narrative Re-Assessment/Exam: 09/12/20 14:17 Hematology was significant for D-dimer of 0.71, however when adjusted for age, this is normal. CO2 36, LDH 250 CRP 2.8, proBNP 786. ABGs on room air showing oxygen saturation of 89%, CO2 51.3, PO2 60.0, bicarb 32.4, pH 7.42, indicating that the patient is in a fully compensated respiratory acidosis. Chest x-ray impression as follows 1. Atelectatic and/or early infiltrative changes noted within both lung bases. 2. Multiple healing rib fractures are present with callus formation noted. 3. Heart demonstrates moderate diffuse enlargement. 4. Left pleural effusion is present. Patient's Covid test did return positive. She is currently saturating in the mid 90s on 2 L by nasal cannula. Room air saturations were 85 to 88%. We will begin looking for a hospital bed for her as unfortunately do not have any beds available here in [place]. 09/12/20 17:34 We have tried numerous hospitals throughout [facility]. We are waiting for callback from [place], however he has been quite a while with no response. Contacted [facility] and spoke with Alden Hoover NP. She has accepted the patient for transfer. We will dispatch [facility] ambulance. Departure - Departure Time of Disposition: 17:30 Disposition: DC/Tfer to Acute Hospital 02 Condition: Good Clinical Impression: COVID-19, Hypoxia - Discharge Information Referrals: Abeba Monae PA-C [Primary Care Provider] - Forms: ED Department Discharge Sepsis Event Note (ED) - Evaluation Sepsis Screening Result: No Definite Risk - Focused Exam Vital Signs: Vital Signs Temp Pulse Resp BP Pulse Ox 09/12/20 14:21 97.5 F 63 132/47 L 98 09/12/20 11:44 97.2 F 66 19 113/50 L 87 L - My Orders Last 24 Hours: My Active Orders 09/12/20 11:51 EKG Documentation Completion [RC] STAT Peripheral IV Care [RC] . DIRECTED Sodium Chloride 0.9% [Saline Flush] 10 ml FLUSH ASDIRECTED PRN Peripheral IV Insertion Adult [OM.PC] Stat - Assessment/Plan Last 24 Hours: My Active Orders 09/12/20 11:51 EKG Documentation Completion [RC] STAT Peripheral IV Care [RC] . DIRECTED Sodium Chloride 0.9% [Saline Flush] 10 ml FLUSH ASDIRECTED PRN Peripheral IV Insertion Adult [OM.PC] Stat
--- NOTE | 2020-09-12 13:08 | CR ---
PROCEDURE INFORMATION: Exam: XR Chest, 1 View Exam date and time: 09/12/2020 12:00 PM Age: 89 years old Clinical indication: Cough and shortness of breath TECHNIQUE: Imaging protocol: XR of the chest Views: 1 view. COMPARISON: CT Chest Abdomen Pelvis w Cont 05/31/2019 12:05 PM FINDINGS: Lungs: Atelectatic and/or early infiltrative changes noted within both lung bases. Pleural space: Left pleural effusion is present. Heart/Mediastinum: The heart demonstrates moderate diffuse enlargement. Bones/joints: The thoracic spine demonstrates mild degenerative changes at multiple levels. Multiple healing right rib fractures are present with callus formation noted. IMPRESSION: 1. Atelectatic and/or early infiltrative changes noted within both lung bases. 2. Multiple healing right rib fractures are present with callus formation noted. 3. The heart demonstrates moderate diffuse enlargement. 4. Left pleural effusion is present. Thank you for allowing us to participate in the care of your patient. Dictated and Authenticated by: Gokul Murillo DO 09/12/2020 2:04 PM Central Time ([place] & [place]) [facility]
[2020-09-12 14:22] VITALS: BP 132/47; PULSE 63
[2020-09-12] MEDS ORDERED: Warfarin 2.5 MG Tab PO ONE (17:18)
[2020-09-12] MEDS ORDERED: Potassium Chloride 20 MEQ Tab.ER PO ONE (17:20)
[2020-09-12] MEDS ORDERED: Acetaminophen 325 MG Tab PO ONE (17:58)
== END 2020-09-12 18:25 ==
LOC: JD.ED 11:38
DX: U07.1 COVID-19 (principal); R09.02 Hypoxemia; I48.91 Unspecified atrial fibrillation; E78.00 Pure hypercholesterolemia, unspecified; I10 Essential (primary) hypertension; R56.9 Unspecified convulsions; F41.9 Anxiety disorder, unspecified; F32.9 Major depressive disorder, single episode, unspecified; E03.9 Hypothyroidism, unspecified; E66.9 Obesity, unspecified; Z68.35 Body mass index [BMI] 35.0-35.9, adult; Z88.1 Allergy status to other antibiotic agents; Z88.5 Allergy status to narcotic agent; Z88.0 Allergy status to penicillin; Z88.8 Allergy status to other drugs, medicaments and biological substances; Z88.2 Allergy status to sulfonamides; Z79.01 Long term (current) use of anticoagulants; Z79.899 Other long term (current) drug therapy
CPT/HCPCS: 36415; 36600; 71045; 80053; 82728; 82803; 83615; 83880; 84484; 85025; 85379; 85610; 86140; 93005; 99285; A9270; U0002; 93010; 99284

== ENCOUNTER 2020-09-25 09:07 | Inpatient (IN) | payer MEDICARE, MEDICAID ==
[2020-09-25] MEDS ORDERED: Sodium Chloride 0.9% 10 ML Syringe FLUSH PRN (09:40)
--- NOTE | 2020-09-25 12:07 | EDM.PDOC ---
ED HPI GENERAL MEDICAL PROBLEM - General Chief Complaint: Respiratory Problem Stated Complaint: [facility] Time Seen by Provider: 09/25/20 09:32 Source of Information: Reports: Patient, EMS, RN Notes Reviewed - History of Present Illness INITIAL COMMENTS - FREE TEXT/NARRATIVE: 89 yr old female comes by ambulance from the [facility]. Pt was diagnosed with covid about 13 days ago, mild hypoxia at that time, transferred to [facility] with no other nearby beds available at that time. At some point released back to the [facility]. Comes here today due to generalized weakness, difficulty standing or walking. Has not been eating or drinking well. - Related Data Allergies Allergy/AdvReac Type Severity Reaction Status Date / Time Cephalosporins Allergy Cannot Verified 09/25/20 13:43 Remember codeine Allergy Cannot Verified 09/25/20 13:43 Remember diazepam [From Valium] Allergy Other Verified 09/25/20 13:43 morphine Allergy Cannot Verified 09/25/20 13:43 Remember Penicillins Allergy Cannot Verified 09/25/20 13:43 Remember phenobarbital Allergy Other Verified 09/25/20 13:43 sulfanilamide [Sulfanilamide] Allergy Cannot Verified 09/25/20 13:43 Remember clindamycin AdvReac Stomach Verified 09/25/20 13:43 Ache Home Meds: Home Meds Acetaminophen [Tylenol Arthritis Pain] 650 mg PO TID 02/01/15 [History] Denosumab [Prolia] 60 mg INJECT ASDIRECTED 02/01/15 [History] Desmopressin (NonRefrigerated) [Ddavp 0.01% Nasal [place]] 1 spray NS TID 02/01/15 [History] Dexlansoprazole [Dexilant] 60 mg PO DAILY 02/01/15 [History] Escitalopram [Lexapro] 10 mg PO DAILY 02/01/15 [History] Folic Acid 1 mg PO DAILY 02/01/15 [History] Furosemide [Lasix] 20 mg PO BID 02/01/15 [History] LORazepam 1 mg PO TID PRN MDD 3mg in 12 hrs 02/01/15 [History] Losartan Potassium [Cozaar] 100 mg PO QAM 02/01/15 [History] Multivit-Min/FA/Lutein/Zeaxant [Macular Vitamin Tablet] 1 each PO 1200 02/01/15 [History] Multivitamin [Daily Vitamin] 1 each PO QAM 02/01/15 [History] levETIRAcetam [Keppra] 1,000 mg PO BEDTIME 02/01/15 [History] levETIRAcetam [Keppra] 750 mg PO DAILY 02/01/15 [History] predniSONE [Prednisone] 5 mg PO DAILY 02/01/15 [History] Simvastatin 20 mg PO PCDINNER 06/07/18 [History] Docusate Sodium 100 mg PO DAILY 11/11/18 [History] Warfarin [Coumadin] 2.5 mg PO MOWEFR 11/11/18 [History] Fluticasone/Vilanterol [Breo Ellipta 100-25 MCG Inhalation Kit] 1 puff INH DAILY 05/06/19 [History] Potassium Chloride 20 meq PO BID 05/06/19 [History] cycloSPORINE [Restasis Multidose] 1 drop EYEBOTH BID 05/06/19 [History] Albuterol Sulfate [Proair Hfa] 2 puff INH Q6H PRN 05/31/19 [History] Warfarin [Coumadin] 1.25 mg PO ASDIRECTED 06/01/19 [History] Ascorbic Acid [Vitamin C 250 mg Tablet Chew] 250 mg PO BID #60 tab.chew 06/07/19 [Rx] ClonazePAM [KlonoPIN] 0.5 mg PO BEDTIME #0 06/07/19 [Rx] Propranolol HCl [Propranolol HCl ER] 120 mg PO DAILY 06/07/19 [History] Acetaminophen [Tylenol Arthritis] 650 mg PO BEDTIME PRN 09/12/20 [History] Acetaminophen/HYDROcodone [[place] 325-5 MG] 1 tab PO TID 09/12/20 [History] Azelastine [Astelin Nasal Soln] 2 spray CHAVA BID 09/12/20 [History] Calcium Carb, Citrate/Vit D3 [Calcium + D3 ER Tablet] 1 tab PO 1200 09/12/20 [History] Calcium Carbonate [Tums] 500 mg PO QID PRN 09/12/20 [History] Gabapentin [Neurontin] 300 mg PO TID 09/12/20 [History] Levothyroxine [Synthroid] 100 mcg PO DAILY 09/12/20 [History] Lidocaine 4% [Aspercreme 4%] 1 each TOP BID 09/12/20 [History] Menthol [Biofreeze] 1 dose TOP Q6H PRN 09/12/20 [History] Tens Unit [Tens 502] 1 dose TOP DAILY 09/12/20 [History] Past Medical History HEENT History: Reports: Impaired Vision Other HEENT History: Glasses and upper partials. Cardiovascular History: Reports: Afib, High Cholesterol, Hypertension Respiratory History: Reports: Bronchitis, Recurrent, Pneumonia, Recurrent Other Respiratory History: Patient wears oxygen at home 2 L. Gastrointestinal History: Reports: PUD, Other (See Below) Other Gastrointestinal History: stomach ulcers. 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 - Past Surgical History Head Surgeries/Procedures: Reports: Other (See Below) HEENT Surgical History: Reports: Cataract Surgery, Oral Surgery, Tonsillectomy Other HEENT Surgeries/Procedures: wisdom teeth removed. Cardiovascular Surgical History: Reports: None Respiratory Surgical History: Reports: None GI Surgical History: Reports: Appendectomy, Cholecystectomy Female Surgical History: Reports: Hysterectomy, Salpingo-Oophorectomy Endocrine Surgical History: Reports: Other (See Below) Other Endocrine Surgeries/Procedures: Pititary glad removal Neurological Surgical History: Reports: Laminectomy Other Neurological Surgeries/Procedures: Back Surgery. Musculoskeletal Surgical History: Reports: None Other Musculoskeletal Surgeries/Procedures:: Cortisone injection to left shoulder. Oncologic Surgical History: Reports: None Dermatological Surgical History: Reports: Skin Biopsy Social & Family History - Family History Family Medical History: No Pertinent Family History HEENT: Reports: Hearing Impairment Other HEENT Family History: Brother Ed has hearing aids. Cardiac: Reports: High Cholesterol, Hypertension Respiratory: Reports: Asthma, COPD, Other (See Below) Other Respiratory Family Hisory: Sister has asthma. Brother has COPD. Mother had lung problems. OBGYN: Reports: Ectopic Musculoskeletal: Reports: Fibromyalgia Other Musculoskeletal Family History: Sister has fibromyalgia. Neurological: Reports: CVA Other Neurological Family History: Father had strokes. Endocrine/Metabolic: Reports: Diabetes, type II Other Endocrine/Metabolic Family History: Brother has DM II. Hematologic: Reports: Other (See Below) Other Hematologic Family History: Brother has some type of bleeding complication. Oncologic: Reports: Lung Other Oncologic Family History: Daughter has lung CA from smoking. - Tobacco Use Tobacco Use Status *Q: Never Tobacco User Second Hand Smoke Exposure: No - Caffeine Use Caffeine Use: Reports: None - Recreational Drug Use Recreational Drug Use: No - Living Situation & Occupation Living situation: Reports: , Alone, Assisted Living Occupation: Retired ED ROS GENERAL - Review of Systems Review Of Systems: See Below Constitutional: Denies: Fever, Chills HEENT: Reports: No Symptoms Respiratory: Reports: Shortness of Breath, Cough Cardiovascular: Denies: Chest Pain Endocrine: Reports: Fatigue GI/Abdominal: Reports: Decreased Appetite. Denies: Abdominal Pain, Diarrhea, Vomiting : Reports: No Symptoms Musculoskeletal: Reports: No Symptoms Skin: Reports: No Symptoms Neurological: Reports: Dizziness, Weakness (generalized) ED EXAM, GENERAL - Physical Exam Exam: See Below General Appearance: Alert, Other (moderately ill appearing) Eye Exam: Bilateral Eye: PERRL Throat/Mouth: Normal Inspection Head: Atraumatic Neck: Normal Inspection Respiratory/Chest: No Respiratory Distress, No Accessory Muscle Use Cardiovascular: Regular Rate, Rhythm GI/Abdominal: Soft, Non-Tender Back Exam: Normal Inspection Extremities: Normal Inspection, Normal Range of Motion Neurological: Alert, Oriented, No Motor/Sensory Deficits Skin Exam: Warm, Dry, Normal Color, No Rash #1 Interpretation EKG Date: 09/25/20 Rhythm: Other (sinus or ectopic atrial rythm) [place]: Normal P-Wave: Variable QRS: LBBB ST-T: Elevated (ant. leads) Course - Vital Signs Last Recorded V/S: Last Vital Signs Temp 100.5 F 09/25/20 09:15 Pulse 86 09/25/20 09:15 Resp 28 H 09/25/20 09:15 BP 125/60 09/25/20 09:15 Pulse Ox 98 09/25/20 09:15 - Orders/Labs/Meds Orders: Active Orders 24 hr Category Date Time Status EKG 12 Lead [EKG Documentation Completion] [RC] STAT Care 09/25/20 09:40 Active Peripheral IV Care [RC] . DIRECTED Care 09/25/20 09:41 Active Chest 1V Frontal [CR] Stat Exams 09/25/20 11:57 Taken Sodium Chloride 0.9% [Saline Flush] Med 09/25/20 09:40 Active 10 ml FLUSH ASDIRECTED PRN Peripheral IV Insertion Adult [OM.PC] Stat Oth 09/25/20 09:41 Ordered Medication Orders Sodium Chloride (Saline Flush) 10 ml FLUSH ASDIRECTED PRN PRN Reason: Keep Vein Open Last Admin: 09/25/20 09:55 Dose: 10 ml Documented by: LAMBERT Labs: Laboratory Tests 09/25/20 09/25/20 09/25/20 Range/Units 09:55 09:55 09:55 WBC 12.24 H (3.98-10.04) K/mm3 RBC 3.89 L (3.98-5.22) M/mm3 Hgb 12.0 (11.2-15.7) gm/dl Hct 38.8 (34.1-44.9) % MCV 99.7 H (79.4-94.8) fl MCH 30.8 (25.6-32.2) pg MCHC 30.9 L (32.2-35.5) g/dl RDW Std Deviation 58.0 H (36.4-46.3) fL Plt Count 165 L (182-369) K/mm3 MPV 11.1 (9.4-12.3) fl Neut % (Auto) 70.3 (34.0-71.1) % Lymph % (Auto) 15.1 L (19.3-51.7) % [place] % (Auto) 12.4 (4.7-12.5) % Eos % (Auto) 1.5 (0.7-5.8) Baso % (Auto) 0.2 (0.1-1.2) % Neut # (Auto) 8.60 H (1.56-6.13) K/mm3 Lymph # (Auto) 1.85 (1.18-3.74) K/mm3 [place] # (Auto) 1.52 H (0.24-0.36) K/mm3 Eos # (Auto) 0.18 (0.04-0.36) K/mm3 Baso # (Auto) 0.03 (0.01-0.08) K/mm3 Manual Slide Review Abnormal smear D-Dimer, Quantitative 0.59 H (0.19-0.50) mg/L Puncture Site ABG pH (7.35-7.45) ABG pCO2 (35.0-45.0) mmHg ABG pO2 (80.0-100.0) mmHg ABG HCO3 (22.0-26.0) meq/L ABG O2 Saturation (96.0-97.0) % ABG Base Excess (-2-2.0) Bishop Test A-a Gradient mmHg O2 Delivery Device Oxygen Flow Rate FiO2 (21.00-100.00) % Sodium (136-145) mEq/L Potassium (3.5-5.1) mEq/L Chloride (98-107) mEq/L Carbon Dioxide (21-32) mEq/L Anion Gap (5-15) BUN (7-18) mg/dL Creatinine (0.55-1.02) mg/dL Est Cr Clr Drug Dosing mL/min Estimated GFR (MDRD) (>60) mL/min BUN/Creatinine Ratio (14-18) Glucose (83-115) mg/dL Calcium (8.5-10.1) mg/dL Ferritin (8-252) ng/ml Total Bilirubin (0.2-1.0) mg/dL AST (15-37) U/L ALT (14-59) U/L Alkaline Phosphatase (46-116) U/L Lactate Dehydrogenase (81-234) U/L C-Reactive Protein 17.6 H* (<1.0) mg/dL Total Protein (6.4-8.2) g/dl Albumin (3.4-5.0) g/dl Globulin gm/dL Albumin/Globulin Ratio (1-2) 09/25/20 09/25/20 09/25/20 Range/Units 09:55 09:55 10:22 WBC (3.98-10.04) K/mm3 RBC (3.98-5.22) M/mm3 Hgb (11.2-15.7) gm/dl Hct (34.1-44.9) % MCV (79.4-94.8) fl MCH (25.6-32.2) pg MCHC (32.2-35.5) g/dl RDW Std Deviation (36.4-46.3) fL Plt Count (182-369) K/mm3 MPV (9.4-12.3) fl Neut % (Auto) (34.0-71.1) % Lymph % (Auto) (19.3-51.7) % [place] % (Auto) (4.7-12.5) % Eos % (Auto) (0.7-5.8) Baso % (Auto) (0.1-1.2) % Neut # (Auto) (1.56-6.13) K/mm3 Lymph # (Auto) (1.18-3.74) K/mm3 [place] # (Auto) (0.24-0.36) K/mm3 Eos # (Auto) (0.04-0.36) K/mm3 Baso # (Auto) (0.01-0.08) K/mm3 Manual Slide Review D-Dimer, Quantitative (0.19-0.50) mg/L Puncture Site Lt radial ABG pH 7.46 H (7.35-7.45) ABG pCO2 45.6 H (35.0-45.0) mmHg ABG pO2 52.0 L (80.0-100.0) mmHg ABG HCO3 31.9 H (22.0-26.0) meq/L ABG O2 Saturation 83.8 L (96.0-97.0) % ABG Base Excess 7.5 H (-2-2.0) Bishop Test Positive A-a Gradient 40 mmHg O2 Delivery Device Room air Oxygen Flow Rate 0.0 FiO2 21.00 (21.00-100.00) % Sodium 136 (136-145) mEq/L Potassium 4.4 (3.5-5.1) mEq/L Chloride 100 (98-107) mEq/L Carbon Dioxide 33 H (21-32) mEq/L Anion Gap 7.4 (5-15) BUN 16 (7-18) mg/dL Creatinine 1.0 (0.55-1.02) mg/dL Est Cr Clr Drug Dosing 33.58 mL/min Estimated GFR (MDRD) 52 (>60) mL/min BUN/Creatinine Ratio 16.0 (14-18) Glucose 89 (83-115) mg/dL Calcium 8.4 L (8.5-10.1) mg/dL Ferritin 359 H (8-252) ng/ml Total Bilirubin 0.6 (0.2-1.0) mg/dL AST 34 (15-37) U/L ALT 39 (14-59) U/L Alkaline Phosphatase 46 (46-116) U/L Lactate Dehydrogenase 284 H (81-234) U/L C-Reactive Protein (<1.0) mg/dL Total Protein 5.8 L (6.4-8.2) g/dl Albumin 2.3 L (3.4-5.0) g/dl Globulin 3.5 gm/dL Albumin/Globulin Ratio 0.7 L (1-2) Meds: Medications Generic Name Dose Route Start Last Admin Trade Name Freq PRN Reason Stop Dose Admin Sodium Chloride 10 ml 09/25/20 09:40 09/25/20 09:55 Saline Flush FLUSH 10 ml ASDIRECTED PRN Administration Keep Vein Open Discontinued Medications Generic Name Dose Route Start Last Admin Trade Name Freq PRN Reason Stop Dose Admin Acetaminophen 975 mg 09/25/20 12:49 09/25/20 12:56 Tylenol PO 09/25/20 12:50 975 mg NOW ONE Administration - Re-Assessments/Exams Free Text/Narrative Re-Assessment/Exam: 09/25/20 13:27 I did check ABG's room air, she failed, pO2 about 52, 7.46 45. CXR shows atelectesis or small infiltrate RLL, small L chronic pleural effusion. CXR quite similar to CXR of 2 wks ago. She is hypoxic, too ill, too weak to go back to [facility], will admit for stabilization. Suspect she will need NH placement. Departure - Departure Time of Disposition: 13:24 Disposition: Admitted As Inpatient 68 Condition: Fair Clinical Impression: Pneumonia due to COVID-19 virus, Hypoxia, Failure to thrive, Generalized weakness - Discharge Information Sepsis Event Note (ED) - Evaluation Sepsis Screening Result: No Definite Risk - Focused Exam Vital Signs: Vital Signs Temp Pulse Resp BP Pulse Ox 09/25/20 09:15 100.5 F 86 28 H 125/60 98 ED Communication - Discussed Case With (1) Discussed Case With (1): Admitting Provider (Dr Ramos, decision to admit at about 13:20) - My Orders Last 24 Hours: My Active Orders 09/25/20 09:40 EKG 12 Lead [EKG Documentation Completion] [RC] STAT Sodium Chloride 0.9% [Saline Flush] 10 ml FLUSH ASDIRECTED PRN 09/25/20 09:41 Peripheral IV Care [RC] . DIRECTED Peripheral IV Insertion Adult [OM.PC] Stat 09/25/20 11:57 Chest 1V Frontal [CR] Stat - Assessment/Plan Last 24 Hours: My Active Orders 09/25/20 09:40 EKG 12 Lead [EKG Documentation Completion] [RC] STAT Sodium Chloride 0.9% [Saline Flush] 10 ml FLUSH ASDIRECTED PRN 09/25/20 09:41 Peripheral IV Care [RC] . DIRECTED Peripheral IV Insertion Adult [OM.PC] Stat 09/25/20 11:57 Chest 1V Frontal [CR] Stat
[2020-09-25] MEDS ORDERED: Acetaminophen 325 MG Tab PO ONE (12:49)
--- NOTE | 2020-09-25 15:42 | PCM.HP.2 ---
H&P History of Present Illness - General Date of Service: 09/25/20 Admit Problem/Dx: Admission Diagnosis/Problem Admission Diagnosis/Problem Failure to thrive in adult - History of Present Illness Initial Comments - Free Text/Narative: 89-year-old female from [facility] by ambulance secondary to gen eralized weakness, difficulty standing, and walking. Patient is a poor historian and when asked questions directly she stated she could not remember most of the time, therefore initial history was mostly obtained through the emergency department notes. Apparently patient was diagnosed with Covid about 13 days prior to admission secondary to mild hypoxia. Patient was transferred to [facility] and it is unknown when she was released. Patient appears to have multiple medical problems including A. fib, hypertension, recurrent bronchitis, on 2 L nasal cannula at home, peptic ulcer disease, chronic back pain, seizure disorder, hypothyroidism, obesity, anxiety, and depression. She has had malignant melanoma in the past and uterine cancer. She is on warfarin presumably for atrial fibrillation. In the emergency department her white count was 12.24, C-reactive protein was elevated at 17.6, ferritin elevated at 359, and LDH elevated at 284. On room air her pH was 7.46, PCO2 45.6, PO2 52, bicarb 32. D-dimer was 0.59 and INR 1.56. Kidney function: Estimated GFR 52, creatinine clearance 33, creatinine 1.0, BUN 16. Albumin was low at 2.3. Chest x-ray showed right lower lobe atelectasis versus infiltrate and a small left chronic pleural effusion. Similar compared to x-ray on 12 September. - Related Data Allergies/Adverse Reactions: Allergies Allergy/AdvReac Type Severity Reaction Status Date / Time Cephalosporins Allergy Cannot Verified 09/25/20 15:17 Remember codeine Allergy Cannot Verified 09/25/20 15:17 Remember diazepam [From Valium] Allergy Other Verified 09/25/20 15:17 morphine Allergy Cannot Verified 09/25/20 15:17 Remember Penicillins Allergy Cannot Verified 09/25/20 15:17 Remember phenobarbital Allergy Other Verified 09/25/20 15:17 sulfanilamide [Sulfanilamide] Allergy Cannot Verified 09/25/20 15:17 Remember clindamycin AdvReac Stomach Verified 09/25/20 15:17 Ache Home Medications: Home Meds Acetaminophen [Tylenol Arthritis Pain] 650 mg PO TID 02/01/15 [History] Denosumab [Prolia] 60 mg INJECT ASDIRECTED 02/01/15 [History] Desmopressin (NonRefrigerated) [Ddavp 0.01% Nasal Hematite] 1 spray NS TID 02/01/15 [History] Dexlansoprazole [Dexilant] 60 mg PO DAILY 02/01/15 [History] Escitalopram [Lexapro] 10 mg PO DAILY 02/01/15 [History] Folic Acid 1 mg PO DAILY 02/01/15 [History] Furosemide [Lasix] 20 mg PO DAILY 02/01/15 [History] LORazepam 1 mg PO TID PRN MDD 3mg in 12 hrs 02/01/15 [History] Losartan Potassium [Cozaar] 100 mg PO QAM 02/01/15 [History] Multivit-Min/FA/Lutein/Zeaxant [Macular Vitamin Tablet] 1 each PO 1200 02/01/15 [History] Multivitamin [Daily Vitamin] 1 each PO QAM 02/01/15 [History] levETIRAcetam [Keppra] 1,000 mg PO BEDTIME 02/01/15 [History] levETIRAcetam [Keppra] 750 mg PO DAILY 02/01/15 [History] predniSONE [Prednisone] 5 mg PO DAILY 02/01/15 [History] Simvastatin 40 mg PO PCDINNER 06/07/18 [History] Docusate Sodium 100 mg PO DAILY 11/11/18 [History] Warfarin [Coumadin] 2.5 mg PO MOWEFR 11/11/18 [History] Fluticasone/Vilanterol [Breo Ellipta 100-25 MCG Inhalation Kit] 1 puff INH DAILY 05/06/19 [History] Potassium Chloride 20 meq PO BID 05/06/19 [History] cycloSPORINE [Restasis Multidose] 1 drop EYEBOTH BID 05/06/19 [History] Albuterol Sulfate [Proair Hfa] 2 puff INH Q6H PRN 05/31/19 [History] Warfarin [Coumadin] 1.25 mg PO ASDIRECTED 06/01/19 [History] Ascorbic Acid [Vitamin C 250 mg Tablet Chew] 250 mg PO BID #60 tab.chew 06/07/19 [Rx] ClonazePAM [KlonoPIN] 0.5 mg PO BEDTIME #0 06/07/19 [Rx] Propranolol HCl [Propranolol HCl ER] 120 mg PO DAILY 06/07/19 [History] Acetaminophen [Tylenol Arthritis] 650 mg PO BEDTIME PRN 09/12/20 [History] Acetaminophen/HYDROcodone [[place] 325-5 MG] 1 tab PO TID 09/12/20 [History] Azelastine [Astelin Nasal Soln] 2 spray CHAVA BID 09/12/20 [History] Calcium Carb, Citrate/Vit D3 [Calcium + D3 ER Tablet] 1 tab PO 1200 09/12/20 [History] Calcium Carbonate [Tums] 500 mg PO QID PRN 09/12/20 [History] Gabapentin [Neurontin] 300 mg PO TID 09/12/20 [History] Levothyroxine [Synthroid] 100 mcg PO DAILY 09/12/20 [History] Lidocaine 4% [Aspercreme 4%] 1 each TOP BID 09/12/20 [History] Menthol [Biofreeze] 1 dose TOP Q6H PRN 09/12/20 [History] Tens Unit [Tens 502] 1 dose TOP DAILY 09/12/20 [History] Past Medical History HEENT History: Reports: Cataract, Impaired Vision Other HEENT History: Glasses and upper dentures Cardiovascular History: Reports: Afib, High Cholesterol, Hypertension Respiratory History: Reports: Bronchitis, Recurrent, Pneumonia, Recurrent Other Respiratory History: no O2 at home. Gastrointestinal History: Reports: PUD, Other (See Below) Other Gastrointestinal History: stomach ulcers. Genitourinary History: Reports: Renal Calculus Other Genitourinary History: kidney stones [employer] History: Reports: Other OB/BYN History: Had 3 children. 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 - Past Surgical History Head Surgeries/Procedures: Reports: Other (See Below) HEENT Surgical History: Reports: Cataract Surgery, Oral Surgery, Tonsillectomy Other HEENT Surgeries/Procedures: wisdom teeth removed. 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 Musculoskeletal Surgical History: Reports: None Other Musculoskeletal Surgeries/Procedures:: Cortisone injection to left shoulder. Oncologic Surgical History: Reports: None Dermatological Surgical History: Reports: Skin Biopsy Social & Family History - Family History Family Medical History: No Pertinent Family History HEENT: Reports: Hearing Impairment Other HEENT Family History: Brother Ed has hearing aids. Cardiac: Reports: High Cholesterol, Hypertension Respiratory: Reports: Asthma, COPD, Other (See Below) Other Respiratory Family Hisory: Sister has asthma. Brother has COPD. Mother had lung problems. OBGYN: Reports: Ectopic Musculoskeletal: Reports: Fibromyalgia Other Musculoskeletal Family History: Sister has fibromyalgia. Neurological: Reports: CVA Other Neurological Family History: Father had strokes. Endocrine/Metabolic: Reports: Diabetes, type II Other Endocrine/Metabolic Family History: Brother has DM II. Hematologic: Reports: Other (See Below) Other Hematologic Family History: Brother has some type of bleeding complication. Oncologic: Reports: Lung Other Oncologic Family History: Daughter has lung CA from smoking. - Tobacco Use Tobacco Use Status *Q: Never Tobacco User Second Hand Smoke Exposure: No - Caffeine Use Caffeine Use: Reports: None - Recreational Drug Use Recreational Drug Use: No - Living Situation & Occupation Living situation: Reports: , Alone, Assisted Living Occupation: Retired H&P Review of Systems - Review of Systems: Review Of Systems: Comprehensive ROS is negative, except as noted in HPI. Exam - Exam Exam: See Below - Vital Signs Vital Signs: Last Vital Signs Temp 100.5 F 09/25/20 09:15 Pulse 86 09/25/20 09:15 Resp 28 H 09/25/20 09:15 BP 125/60 09/25/20 09:15 Pulse Ox 98 09/25/20 09:15 Weight: 174 lb 11.2 oz - Exam Quality Assessment: Supplemental Oxygen General: Alert. No: Oriented HEENT: Conjunctiva Clear, Mucosa Moist & [place], Normal Nasal Septum. No: Hearing Intact Neck: Supple, Trachea Midline, 2 Lungs: Normal Respiratory Effort, Rales (Bibasilar) Cardiovascular: Regular Rate, Regular Rhythm GI/Abdominal Exam: Normal Bowel Sounds, Soft, Non-Tender, No Distention, No Ab normal Bruit Extremities: Normal Inspection, Non-Tender, Normal Capillary Refill, Pedal Edema (2+) Peripheral Pulses: 2+: Posterior Tibial (L), Posterior Tibial (R), Dorsalis Pedis (L), Dorsalis Pedis (R) Skin: Warm, Dry, Intact Neuro Extensive - Mental Status: Alert, Normal Mood/Affect Psychiatric: Alert, Normal Affect, Normal Mood - Patient Data Lab Results Last 24 hrs: Laboratory Results - last 24 hr 09/25/20 09/25/20 09/25/20 Range/Units 09:55 09:55 09:55 WBC 12.24 H (3.98-10.04) K/mm3 RBC 3.89 L (3.98-5.22) M/mm3 Hgb 12.0 (11.2-15.7) gm/dl Hct 38.8 (34.1-44.9) % MCV 99.7 H (79.4-94.8) fl MCH 30.8 (25.6-32.2) pg MCHC 30.9 L (32.2-35.5) g/dl RDW Std Deviation 58.0 H (36.4-46.3) fL Plt Count 165 L (182-369) K/mm3 MPV 11.1 (9.4-12.3) fl Neut % (Auto) 70.3 (34.0-71.1) % Lymph % (Auto) 15.1 L (19.3-51.7) % Sunflower % (Auto) 12.4 (4.7-12.5) % Eos % (Auto) 1.5 (0.7-5.8) Baso % (Auto) 0.2 (0.1-1.2) % Neut # (Auto) 8.60 H (1.56-6.13) K/mm3 Lymph # (Auto) 1.85 (1.18-3.74) K/mm3 Sunflower # (Auto) 1.52 H (0.24-0.36) K/mm3 Eos # (Auto) 0.18 (0.04-0.36) K/mm3 Baso # (Auto) 0.03 (0.01-0.08) K/mm3 Manual Slide Review Abnormal smear D-Dimer, Quantitative 0.59 H (0.19-0.50) mg/L Puncture Site ABG pH (7.35-7.45) ABG pCO2 (35.0-45.0) mmHg ABG pO2 (80.0-100.0) mmHg ABG HCO3 (22.0-26.0) meq/L ABG O2 Saturation (96.0-97.0) % ABG Base Excess (-2-2.0) Bishop Test A-a Gradient mmHg O2 Delivery Device Oxygen Flow Rate FiO2 (21.00-100.00) % Sodium (136-145) mEq/L Potassium (3.5-5.1) mEq/L Chloride (98-107) mEq/L Carbon Dioxide (21-32) mEq/L Anion Gap (5-15) BUN (7-18) mg/dL Creatinine (0.55-1.02) mg/dL Est Cr Clr Drug Dosing mL/min Estimated GFR (MDRD) (>60) mL/min BUN/Creatinine Ratio (14-18) Glucose (83-115) mg/dL Calcium (8.5-10.1) mg/dL Ferritin (8-252) ng/ml Total Bilirubin (0.2-1.0) mg/dL AST (15-37) U/L ALT (14-59) U/L Alkaline Phosphatase (46-116) U/L Lactate Dehydrogenase (81-234) U/L C-Reactive Protein 17.6 H* (<1.0) mg/dL Total Protein (6.4-8.2) g/dl Albumin (3.4-5.0) g/dl Globulin gm/dL Albumin/Globulin Ratio (1-2) 09/25/20 09/25/20 09/25/20 Range/Units 09:55 09:55 10:22 WBC (3.98-10.04) K/mm3 RBC (3.98-5.22) M/mm3 Hgb (11.2-15.7) gm/dl Hct (34.1-44.9) % MCV (79.4-94.8) fl MCH (25.6-32.2) pg MCHC (32.2-35.5) g/dl RDW Std Deviation (36.4-46.3) fL Plt Count (182-369) K/mm3 MPV (9.4-12.3) fl Neut % (Auto) (34.0-71.1) % Lymph % (Auto) (19.3-51.7) % Sunflower % (Auto) (4.7-12.5) % Eos % (Auto) (0.7-5.8) Baso % (Auto) (0.1-1.2) % Neut # (Auto) (1.56-6.13) K/mm3 Lymph # (Auto) (1.18-3.74) K/mm3 Sunflower # (Auto) (0.24-0.36) K/mm3 Eos # (Auto) (0.04-0.36) K/mm3 Baso # (Auto) (0.01-0.08) K/mm3 Manual Slide Review D-Dimer, Quantitative (0.19-0.50) mg/L Puncture Site Lt radial ABG pH 7.46 H (7.35-7.45) ABG pCO2 45.6 H (35.0-45.0) mmHg ABG pO2 52.0 L (80.0-100.0) mmHg ABG HCO3 31.9 H (22.0-26.0) meq/L ABG O2 Saturation 83.8 L (96.0-97.0) % ABG Base Excess 7.5 H (-2-2.0) Bishop Test Positive A-a Gradient 40 mmHg O2 Delivery Device Room air Oxygen Flow Rate 0.0 FiO2 21.00 (21.00-100.00) % Sodium 136 (136-145) mEq/L Potassium 4.4 (3.5-5.1) mEq/L Chloride 100 (98-107) mEq/L Carbon Dioxide 33 H (21-32) mEq/L Anion Gap 7.4 (5-15) BUN 16 (7-18) mg/dL Creatinine 1.0 (0.55-1.02) mg/dL Est Cr Clr Drug Dosing 33.58 mL/min Estimated GFR (MDRD) 52 (>60) mL/min BUN/Creatinine Ratio 16.0 (14-18) Glucose 89 (83-115) mg/dL Calcium 8.4 L (8.5-10.1) mg/dL Ferritin 359 H (8-252) ng/ml Total Bilirubin 0.6 (0.2-1.0) mg/dL AST 34 (15-37) U/L ALT 39 (14-59) U/L Alkaline Phosphatase 46 (46-116) U/L Lactate Dehydrogenase 284 H (81-234) U/L C-Reactive Protein (<1.0) mg/dL Total Protein 5.8 L (6.4-8.2) g/dl Albumin 2.3 L (3.4-5.0) g/dl Globulin 3.5 gm/dL Albumin/Globulin Ratio 0.7 L (1-2) Result Diagrams: 09/25/20 09:55 09/25/20 09:55 #1 Interpretation EKG Date: 09/25/20 Time: 10:16 Rhythm: NSR Rate (Beats/Min): 93 [place]: LAD-Left [place] Deviation P-Wave: Present QRS: LBBB QT: Normal [place]/PQ Interval: First-degree AV block Sepsis Event Note - Evaluation Sepsis Screening Result: No Definite Risk - Focused Exam Vital Signs: Vital Signs Temp Pulse Resp BP Pulse Ox 09/25/20 09:15 100.5 F 86 28 H 125/60 98 - Problem List (1) Failure to thrive SNOMED Code(s): 81865940 ICD Code: [id number] - Status: Acute Current Visit: Yes (2) Generalized weakness SNOMED Code(s): 61247824 ICD Code: R53.1 - WEAKNESS Status: Acute Current Visit: Yes (3) Hypoxia SNOMED Code(s): 881068756 ICD Code: R09.02 - HYPOXEMIA Status: Acute Current Visit: Yes (4) Pneumonia due to COVID-19 virus SNOMED Code(s): 680605428741054962 ICD Code: U07.1 - COVID-19; J12.89 - OTHER VIRAL PNEUMONIA Status: Acute Current Visit: Yes Problem List Initiated/Reviewed/Updated: Yes Orders Last 24hrs: Active Orders 24 hr Category Date Time Status Admission Status [Patient Status] [ADT] Routine ADT 09/25/20 13:26 Active Regular Diet [DIET] Diet 09/25/20 Dinner Ordered Chest 1V Frontal [CR] Stat Exams 09/25/20 11:57 Taken INR,PT,PROTHROMBIN TIME [COAG] Routine Lab 09/25/20 15:39 Ordered Sodium Chloride 0.9% [Saline Flush] Med 09/25/20 09:40 Active 10 ml FLUSH ASDIRECTED PRN Peripheral IV Insertion Adult [OM.PC] Stat Oth 09/25/20 09:41 Ordered Medication Orders Sodium Chloride (Saline Flush) 10 ml FLUSH ASDIRECTED PRN PRN Reason: Keep Vein Open Last Admin: 09/25/20 09:55 Dose: 10 ml Documented by: LAMBERT Assessment/Plan Comment:: Assessment Failure to thrive Weakness, generalized Unable to ambulate COVID-19 Chronic oxygen 2 L/min via nasal cannula * Patient was hospitalized approximately 2 weeks ago for COVID-19. * Unknown treatment or when she was sent back to [facility]. * Patient failed return to [facility], which is an assisted living facility, and will need advancement to skilled care. * Labs are consistent with COVID-19 infection: D-dimer 0.59, CRP 17.6, ferritin 359, LDH 284, albumin 2.3 * Patient is on multiple medications and prior history here shows multiple medical problems. No records are available from [facility] or from her hospital stay in [place]. Leukocytosis * White count is 12.24, PMNs 8.6. * Patient does not have any obvious infections. * No UA performed. * Low-grade fever with initial temperature of 100.5. This could still be secondary to Covid, but it does raise the possibility of a secondary bacterial infection. * Blood cultures were not performed in the emergency department. Hypoalbuminemia * Albumin is 2.3. This is a common occurrence in elderly with Covid. History of atrial fibrillation, but currently in sinus rhythm * She is on warfarin, but INR is subtherapeutic at 1.5 Polypharmacy * Patient is on approximately 30 medications and supplements. * Many of these medications can cause sedation including hydrocodone on, clonazepam, lorazepam, gabapentin, Keppra Chronic medical conditions: Impaired vision, hypertension, hyperlipidemia, recurrent bronchitis and pneumonia, macular degeneration, peptic ulcer disease, chronic pain, back pain, seizures, anxiety and depression, hypothyroidism Plan * Admit to medical floor for failure to thrive * PT/OT consult * Review medication list and try to decrease amount of medications as tolerated over her hospitalization. * Continue appropriate medications. * Get UA with microscopic and C&S if indicated. * Blood cultures x2 * Get procalcitonin * CBC, CMP, CRP, mag, TSH, phosphorus in the morning * If patient develops a fever of 101 or more will consider antibiotics. Also consider antibiotics based on tomorrow's lab work * rehab services aide and discharge planning * VTE prophylaxis with Lovenox 40 mg subcu daily until INR is 2.0 or greater * CODE STATUS: DNR/DNI - Mortality Measure Prognosis:: Good
[2020-09-25] MEDS ORDERED: Acetaminophen/HYDROcodone 325-5 MG Tab PO PRN (16:20)
[2020-09-25] MEDS ORDERED: Ondansetron 4 MG/2 ML SDV IV PRN (16:20)
[2020-09-25] MEDS ORDERED: Acetaminophen 325 MG Tab PO PRN (16:20)
[2020-09-25] MEDS ORDERED: LORazepam 1 MG Tab PO PRN (16:25)
[2020-09-25] MEDS ORDERED: Warfarin 4 MG Tab PO SCH (18:00)
[2020-09-25] MEDS: Simvastatin 20 MG Tab PO SCH (19:58)
[2020-09-25] MEDS ORDERED: KEPPRA 1000 MG PO SCH (21:00)
[2020-09-25] MEDS ORDERED: levETIRAcetam 500 MG Tab ONE (21:40)
[2020-09-25] MEDS: Gabapentin 300 MG Cap PO SCH (21:50)
[2020-09-25] MEDS: ClonazePAM 0.5 MG Tab PO SCH (21:50)
[2020-09-26] MEDS: Levothyroxine 100 MCG Tab PO SCH (06:16)
[2020-09-26] MEDS: Calcium Carbonate 500 MG Tab.Chew PO PRN (06:16)
[2020-09-26] MEDS: Pantoprazole 40 MG Tab.CR PO SCH (06:16)
--- NOTE | 2020-09-26 07:36 | CR ---
Chest: Portable view of the chest was obtained. Comparison: Prior chest x-ray of 04/06/19. Findings: Lungs: Mild increased density seen within the right lung base is an interval change from prior exam. Slightly lobulated left hemidiaphragm is seen which is chronic. Heart and mediastinum: Heart is enlarged. Upper mediastinal is within normal limits. Bony structures show nothing acute. Scoliosis is noted within the spine. Old right-sided rib fractures are noted with callus. Impression: 1. Density within the right lung base either due to scarring, atelectasis or small area of pneumonia. 2. Other findings as noted above which are believed to be incidental. Diagnostic code #3
--- NOTE | 2020-09-26 08:30 | PCM.PN ---
- General Info Date of Service: 09/26/20 Admission Dx/Problem (Free Text): Admission Diagnosis/Problem Admission Diagnosis/Problem Failure to thrive in adult - Patient Data Vitals - Most Recent: Last Vital Signs Temp 37.2 C 09/26/20 05:06 Pulse 110 H 09/26/20 05:40 Resp 20 09/26/20 05:06 BP 139/54 L 09/26/20 05:06 Pulse Ox 90 L 09/26/20 06:13 Weight - Most Recent: 79.878 kg I&O - Last 24 Hours: Intake & Output 09/25/20 09/26/20 09/26/20 22:59 06:59 14:59 Intake Total 180 200 Balance 180 200 Lab Results Last 24 Hours: Laboratory Results - last 24 hr 09/25/20 09/25/20 09/25/20 Range/Units 09:55 09:55 09:55 WBC 12.24 H (3.98-10.04) K/mm3 RBC 3.89 L (3.98-5.22) M/mm3 Hgb 12.0 (11.2-15.7) gm/dl Hct 38.8 (34.1-44.9) % MCV 99.7 H (79.4-94.8) fl MCH 30.8 (25.6-32.2) pg MCHC 30.9 L (32.2-35.5) g/dl RDW Std Deviation 58.0 H (36.4-46.3) fL Plt Count 165 L (182-369) K/mm3 MPV 11.1 (9.4-12.3) fl Neut % (Auto) 70.3 (34.0-71.1) % Lymph % (Auto) 15.1 L (19.3-51.7) % Nolan % (Auto) 12.4 (4.7-12.5) % Eos % (Auto) 1.5 (0.7-5.8) Baso % (Auto) 0.2 (0.1-1.2) % Neut # (Auto) 8.60 H (1.56-6.13) K/mm3 Lymph # (Auto) 1.85 (1.18-3.74) K/mm3 Nolan # (Auto) 1.52 H (0.24-0.36) K/mm3 Eos # (Auto) 0.18 (0.04-0.36) K/mm3 Baso # (Auto) 0.03 (0.01-0.08) K/mm3 Manual Slide Review Abnormal smear PT (9.7-12.0) SECONDS INR D-Dimer, Quantitative 0.59 H (0.19-0.50) mg/L Puncture Site ABG pH (7.35-7.45) ABG pCO2 (35.0-45.0) mmHg ABG pO2 (80.0-100.0) mmHg ABG HCO3 (22.0-26.0) meq/L ABG O2 Saturation (96.0-97.0) % ABG Base Excess (-2-2.0) Bishop Test A-a Gradient mmHg O2 Delivery Device Oxygen Flow Rate FiO2 (21.00-100.00) % Sodium (136-145) mEq/L Potassium (3.5-5.1) mEq/L Chloride (98-107) mEq/L Carbon Dioxide (21-32) mEq/L Anion Gap (5-15) BUN (7-18) mg/dL Creatinine (0.55-1.02) mg/dL Est Cr Clr Drug Dosing mL/min Estimated GFR (MDRD) (>60) mL/min BUN/Creatinine Ratio (14-18) Glucose (83-115) mg/dL Calcium (8.5-10.1) mg/dL Phosphorus (2.6-4.7) mg/dL Magnesium (1.8-2.4) mg/dl Ferritin (8-252) ng/ml Total Bilirubin (0.2-1.0) mg/dL AST (15-37) U/L ALT (14-59) U/L Alkaline Phosphatase (46-116) U/L Lactate Dehydrogenase (81-234) U/L C-Reactive Protein 17.6 H* (<1.0) mg/dL Total Protein (6.4-8.2) g/dl Albumin (3.4-5.0) g/dl Globulin gm/dL Albumin/Globulin Ratio (1-2) TSH 3rd Generation (0.358-3.74) uIU/mL MRSA (PCR) 09/25/20 09/25/20 09/25/20 Range/Units 09:55 09:55 10:22 WBC (3.98-10.04) K/mm3 RBC (3.98-5.22) M/mm3 Hgb (11.2-15.7) gm/dl Hct (34.1-44.9) % MCV (79.4-94.8) fl MCH (25.6-32.2) pg MCHC (32.2-35.5) g/dl RDW Std Deviation (36.4-46.3) fL Plt Count (182-369) K/mm3 MPV (9.4-12.3) fl Neut % (Auto) (34.0-71.1) % Lymph % (Auto) (19.3-51.7) % Nolan % (Auto) (4.7-12.5) % Eos % (Auto) (0.7-5.8) Baso % (Auto) (0.1-1.2) % Neut # (Auto) (1.56-6.13) K/mm3 Lymph # (Auto) (1.18-3.74) K/mm3 Nolan # (Auto) (0.24-0.36) K/mm3 Eos # (Auto) (0.04-0.36) K/mm3 Baso # (Auto) (0.01-0.08) K/mm3 Manual Slide Review PT (9.7-12.0) SECONDS INR D-Dimer, Quantitative (0.19-0.50) mg/L Puncture Site Lt radial ABG pH 7.46 H (7.35-7.45) ABG pCO2 45.6 H (35.0-45.0) mmHg ABG pO2 52.0 L (80.0-100.0) mmHg ABG HCO3 31.9 H (22.0-26.0) meq/L ABG O2 Saturation 83.8 L (96.0-97.0) % ABG Base Excess 7.5 H (-2-2.0) Bishop Test Positive A-a Gradient 40 mmHg O2 Delivery Device Room air Oxygen Flow Rate 0.0 FiO2 21.00 (21.00-100.00) % Sodium 136 (136-145) mEq/L Potassium 4.4 (3.5-5.1) mEq/L Chloride 100 (98-107) mEq/L Carbon Dioxide 33 H (21-32) mEq/L Anion Gap 7.4 (5-15) BUN 16 (7-18) mg/dL Creatinine 1.0 (0.55-1.02) mg/dL Est Cr Clr Drug Dosing 33.58 mL/min Estimated GFR (MDRD) 52 (>60) mL/min BUN/Creatinine Ratio 16.0 (14-18) Glucose 89 (83-115) mg/dL Calcium 8.4 L (8.5-10.1) mg/dL Phosphorus (2.6-4.7) mg/dL Magnesium (1.8-2.4) mg/dl Ferritin 359 H (8-252) ng/ml Total Bilirubin 0.6 (0.2-1.0) mg/dL AST 34 (15-37) U/L ALT 39 (14-59) U/L Alkaline Phosphatase 46 (46-116) U/L Lactate Dehydrogenase 284 H (81-234) U/L C-Reactive Protein (<1.0) mg/dL Total Protein 5.8 L (6.4-8.2) g/dl Albumin 2.3 L (3.4-5.0) g/dl Globulin 3.5 gm/dL Albumin/Globulin Ratio 0.7 L (1-2) TSH 3rd Generation (0.358-3.74) uIU/mL MRSA (PCR) 09/25/20 09/25/20 09/26/20 Range/Units 16:08 22:10 06:05 WBC 11.02 H (3.98-10.04) K/mm3 RBC 3.70 L (3.98-5.22) M/mm3 Hgb 11.3 (11.2-15.7) gm/dl Hct 37.1 (34.1-44.9) % MCV 100.3 H (79.4-94.8) fl MCH 30.5 (25.6-32.2) pg MCHC 30.5 L (32.2-35.5) g/dl RDW Std Deviation 58.1 H (36.4-46.3) fL Plt Count 177 L (182-369) K/mm3 MPV 9.9 (9.4-12.3) fl Neut % (Auto) 75.1 H (34.0-71.1) % Lymph % (Auto) 12.2 L (19.3-51.7) % Nolan % (Auto) 10.0 (4.7-12.5) % Eos % (Auto) 2.1 (0.7-5.8) Baso % (Auto) 0.3 (0.1-1.2) % Neut # (Auto) 8.29 H (1.56-6.13) K/mm3 Lymph # (Auto) 1.34 (1.18-3.74) K/mm3 Nolan # (Auto) 1.10 H (0.24-0.36) K/mm3 Eos # (Auto) 0.23 (0.04-0.36) K/mm3 Baso # (Auto) 0.03 (0.01-0.08) K/mm3 Manual Slide Review PT 16.1 H D (9.7-12.0) SECONDS INR 1.52 D-Dimer, Quantitative (0.19-0.50) mg/L Puncture Site ABG pH (7.35-7.45) ABG pCO2 (35.0-45.0) mmHg ABG pO2 (80.0-100.0) mmHg ABG HCO3 (22.0-26.0) meq/L ABG O2 Saturation (96.0-97.0) % ABG Base Excess (-2-2.0) Bishop Test A-a Gradient mmHg O2 Delivery Device Oxygen Flow Rate FiO2 (21.00-100.00) % Sodium (136-145) mEq/L Potassium (3.5-5.1) mEq/L Chloride (98-107) mEq/L Carbon Dioxide (21-32) mEq/L Anion Gap (5-15) BUN (7-18) mg/dL Creatinine (0.55-1.02) mg/dL Est Cr Clr Drug Dosing mL/min Estimated GFR (MDRD) (>60) mL/min BUN/Creatinine Ratio (14-18) Glucose (83-115) mg/dL Calcium (8.5-10.1) mg/dL Phosphorus (2.6-4.7) mg/dL Magnesium (1.8-2.4) mg/dl Ferritin (8-252) ng/ml Total Bilirubin (0.2-1.0) mg/dL AST (15-37) U/L ALT (14-59) U/L Alkaline Phosphatase (46-116) U/L Lactate Dehydrogenase (81-234) U/L C-Reactive Protein (<1.0) mg/dL Total Protein (6.4-8.2) g/dl Albumin (3.4-5.0) g/dl Globulin gm/dL Albumin/Globulin Ratio (1-2) TSH 3rd Generation (0.358-3.74) uIU/mL MRSA (PCR) Negative 09/26/20 09/26/20 Range/Units 06:05 06:05 WBC (3.98-10.04) K/mm3 RBC (3.98-5.22) M/mm3 Hgb (11.2-15.7) gm/dl Hct (34.1-44.9) % MCV (79.4-94.8) fl MCH (25.6-32.2) pg MCHC (32.2-35.5) g/dl RDW Std Deviation (36.4-46.3) fL Plt Count (182-369) K/mm3 MPV (9.4-12.3) fl Neut % (Auto) (34.0-71.1) % Lymph % (Auto) (19.3-51.7) % Nolan % (Auto) (4.7-12.5) % Eos % (Auto) (0.7-5.8) Baso % (Auto) (0.1-1.2) % Neut # (Auto) (1.56-6.13) K/mm3 Lymph # (Auto) (1.18-3.74) K/mm3 Nolan # (Auto) (0.24-0.36) K/mm3 Eos # (Auto) (0.04-0.36) K/mm3 Baso # (Auto) (0.01-0.08) K/mm3 Manual Slide Review PT 17.6 H (9.7-12.0) SECONDS INR 1.66 D-Dimer, Quantitative (0.19-0.50) mg/L Puncture Site ABG pH (7.35-7.45) ABG pCO2 (35.0-45.0) mmHg ABG pO2 (80.0-100.0) mmHg ABG HCO3 (22.0-26.0) meq/L ABG O2 Saturation (96.0-97.0) % ABG Base Excess (-2-2.0) Bishop Test A-a Gradient mmHg O2 Delivery Device Oxygen Flow Rate FiO2 (21.00-100.00) % Sodium 133 L (136-145) mEq/L Potassium 4.0 (3.5-5.1) mEq/L Chloride 96 L (98-107) mEq/L Carbon Dioxide 31 (21-32) mEq/L Anion Gap 10.0 (5-15) BUN 12 (7-18) mg/dL Creatinine 1.0 (0.55-1.02) mg/dL Est Cr Clr Drug Dosing 27.93 mL/min Estimated GFR (MDRD) 52 (>60) mL/min BUN/Creatinine Ratio 12.0 L (14-18) Glucose 85 (83-115) mg/dL Calcium 8.0 L (8.5-10.1) mg/dL Phosphorus 3.4 (2.6-4.7) mg/dL Magnesium 2.1 (1.8-2.4) mg/dl Ferritin (8-252) ng/ml Total Bilirubin 0.8 (0.2-1.0) mg/dL AST 33 (15-37) U/L ALT 38 (14-59) U/L Alkaline Phosphatase 45 L (46-116) U/L Lactate Dehydrogenase (81-234) U/L C-Reactive Protein 30.7 H* (<1.0) mg/dL Total Protein 5.7 L (6.4-8.2) g/dl Albumin 2.1 L (3.4-5.0) g/dl Globulin 3.6 gm/dL Albumin/Globulin Ratio 0.6 L (1-2) TSH 3rd Generation 0.029 L (0.358-3.74) uIU/mL MRSA (PCR) Adarsh Results Last 24 Hours: Microbiology 09/25/20 20:50 Anaerobic Blood Culture - Final Blood - Venous Med Orders - Current: Current Medications Acetaminophen (Tylenol) 650 mg PO BEDTIME PRN PRN Reason: Pain Acetaminophen (Tylenol) 650 mg PO TID@0900,1300,1700 LINDEN Hydrocodone Bitart/Acetaminophen ([place] 325-5 Mg) 1 tab PO Q4H PRN PRN Reason: Pain (moderate 4-6) Albuterol (Proventil Hfa) 0 gm INH Q6H PRN PRN Reason: Shortness of Breath Calcium Carbonate/Glycine (Tums) 500 mg PO QID PRN PRN Reason: Heartburn Last Admin: 09/26/20 06:16 Dose: 500 mg Documented by: Citalopram Hydrobromide (Celexa) 20 mg PO DAILY [facility] Clonazepam (Klonopin) 0.5 mg PO BEDTIME [facility] Last Admin: 09/25/20 21:50 Dose: 0.5 mg Documented by: Docusate Sodium (Colace) 100 mg PO DAILY [facility] Enoxaparin Sodium (Lovenox) 40 mg SUBCUT DAILY [facility] Folic Acid (Folic Acid) 1 mg PO DAILY [facility] Gabapentin (Neurontin) 300 mg PO TID [facility] Last Admin: 09/25/20 21:50 Dose: 300 mg Documented by: Levothyroxine Sodium (Synthroid) 100 mcg PO ACBREAKFAST [facility] Last Admin: 09/26/20 06:16 Dose: 100 mcg Documented by: Lidocaine (Aspercreme 4%) 1 each TOP DAILY [facility] Lorazepam (Ativan) 1 mg PO TID PRN PRN Reason: Seizures Losartan Potassium (Cozaar) 100 mg PO DAILY [facility] Methyl Salicylate (Icy Hot Cream) 0 gm TOP Q6H PRN PRN Reason: Pain Miscellaneous Information (Remove Patch) 0 ea TRDERM BEDTIME [facility] Last Admin: 09/25/20 21:52 Dose: Not Given Documented by: Mometasone Furoate/Formoterol Fumar (Dulera 100-5 Mcg) 2 puff IH BID [facility] Ondansetron HCl (Zofran) 4 mg IV Q4H PRN PRN Reason: Nausea/Vomiting Pantoprazole Sodium (Protonix) 40 mg PO DAILY@0700 [facility] Last Admin: 09/26/20 06:16 Dose: 40 mg Documented by: Keppra 1000 Mg 0 each PO BEDTIME [facility] Last Admin: 09/25/20 21:53 Dose: Not Given Documented by: Keppra 750 Mg 0 each PO DAILY [facility] Tens Unit [Tens 502] (1 Dose) 0 each TOP DAILY [facility] Prednisone (Prednisone) 5 mg PO DAILY [facility] Propranolol HCl (Inderal La) 120 mg PO DAILY [facility] Simvastatin (Zocor) 20 mg PO PCDINNER [facility] Last Admin: 09/25/20 19:58 Dose: 20 mg Documented by: Sodium Chloride (Saline Flush) 10 ml FLUSH ASDIRECTED PRN PRN Reason: Keep Vein Open Last Admin: 09/25/20 09:55 Dose: 10 ml Documented by: Warfarin Sodium (Pharmacy To Dose - Warfarin) 0 dose .XX ASDIRECTED PRN PRN Reason: RX TO DOSE WARFARIN Discontinued Medications Acetaminophen (Tylenol) 975 mg PO NOW ONE Stop: 09/25/20 12:50 Last Admin: 09/25/20 12:56 Dose: 975 mg Documented by: Acetaminophen (Tylenol) 650 mg PO Q4H PRN PRN Reason: Pain (Mild 1-3)/fever Last Admin: 09/25/20 21:50 Dose: 650 mg Documented by: Levetiracetam (Keppra) Confirm Administered Dose 1,000 mg .ROUTE .STK-MED ONE Stop: 09/25/20 21:41 Last Admin: 09/25/20 21:50 Dose: 1,000 mg Documented by: Warfarin Sodium (Coumadin) 4 mg PO QPM LINDEN Stop: 09/25/20 21:00 Last Admin: 09/25/20 19:58 Dose: 4 mg Documented by: Sepsis Event Note - Evaluation Sepsis Screening Result: No Definite Risk - Focused Exam Vital Signs: Vital Signs Temp Pulse Resp BP Pulse Ox Pulse Ox 09/26/20 06:13 90 L 09/26/20 05:40 110 H 92 L 09/26/20 05:06 37.2 C 108 H 20 139/54 L 88 L 09/26/20 00:43 36.9 C 94 18 130/61 92 L 09/25/20 21:11 36.7 C 62 18 141/74 H 92 L - Plan Plan:: Assessment Failure to thrive Weakness, generalized Unable to ambulate COVID-19 Chronic oxygen 2 L/min via nasal cannula * Patient was hospitalized approximately 2 weeks ago for COVID-19. * Unknown treatment or when she was sent back to [facility]. * Patient failed return to [facility], which is an assisted living facility, and will need advancement to skilled care. * Labs are consistent with COVID-19 infection: D-dimer 0.59, CRP 17.6, ferritin 359, LDH 284, albumin 2.3 * Patient is on multiple medications and prior history here shows multiple medical problems. No records are available from [facility] or from her hospital stay in [place]. Leukocytosis * White count is 12.24, PMNs 8.6. * Patient does not have any obvious infections. * No UA performed. * Low-grade fever with initial temperature of 100.5. This could still be secondary to Covid, but it does raise the possibility of a secondary bacterial infection. * Blood cultures were not performed in the emergency department. Hypoalbuminemia * Albumin is 2.3. This is a common occurrence in elderly with Covid. History of atrial fibrillation, but currently in sinus rhythm * She is on warfarin, but INR is subtherapeutic at 1.5 Polypharmacy * Patient is on approximately 30 medications and supplements. * Many of these medications can cause sedation including hydrocodone on, clonazepam, lorazepam, gabapentin, Keppra Chronic medical conditions: Impaired vision, hypertension, hyperlipidemia, recurrent bronchitis and pneumonia, macular degeneration, peptic ulcer disease, chronic pain, back pain, seizures, anxiety and depression, hypothyroidism Plan * Admit to medical floor for failure to thrive * PT/OT consult * Review medication list and try to decrease amount of medications as tolerated over her hospitalization. * Continue appropriate medications. * Get UA with microscopic and C&S if indicated. * Blood cultures x2 * Get procalcitonin * CBC, CMP, CRP, mag, TSH, phosphorus in the morning * If patient develops a fever of 101 or more will consider antibiotics. Also consider antibiotics based on tomorrow's lab work * equipment services associate and discharge planning * VTE prophylaxis with Lovenox 40 mg subcu daily until INR is 2.0 or greater * CODE STATUS: DNR/DNI
[2020-09-26] MEDS: Formoterol/Mometasone 100-5 MCG 8.8 GM Inhaler IH SCH ×2 (08:45→20:04)
[2020-09-26] MEDS: Menthol/Methyl Salicylate 85 GM Tube TOP PRN (08:51)
[2020-09-26] MEDS: Lidocaine 4% 1 each Patch TOP SCH (08:52)
[2020-09-26] MEDS: Gabapentin 300 MG Cap PO SCH ×2 (08:53→15:00)
[2020-09-26] MEDS: Acetaminophen 325 MG Tab PO SCH ×3 (08:53→17:06)
[2020-09-26] MEDS: Propranolol 60 MG Cap.ER PO SCH (08:53)
[2020-09-26] MEDS: Docusate Sodium 100 MG Cap PO SCH (08:53)
[2020-09-26] MEDS: Citalopram 20 MG Tab PO SCH (08:53)
[2020-09-26] MEDS: Losartan 100 MG Tab PO SCH (08:54)
[2020-09-26] MEDS: Folic Acid 1 MG Tab PO SCH (08:54)
[2020-09-26] MEDS: predniSONE 5 MG Tab PO SCH (08:54)
[2020-09-26] MEDS ORDERED: KEPPRA 750 MG PO SCH (09:00)
[2020-09-26] MEDS ORDERED: Enoxaparin 40 MG/0.4 ML Syringe SUBCUT SCH (09:00)
[2020-09-26] MEDS: [UNRECOGNIZED DRUG - OTHER] TOP SCH (09:06)
--- NOTE | 2020-09-26 09:43 | PCM.PN ---
- General Info Date of Service: 09/26/20 Subjective Update: No significant overnight or acute issues. She had a GALVAN last night but not this AM. She feels weak, tired, and no appetites. She looks drowsy this AM. No issues with chewing, swallowing, nausea, vomiting and change in bowel movement. She was tachycardic with HR as high as at 120 early this morning but now back in the 60s-70s. She is now on 2L NC at baseline. - Review of Systems General: Denies: Fever, Chills Pulmonary: Denies: Shortness of Breath, Cough, Sputum Cardiovascular: Denies: No Symptoms, Chest Pain Gastrointestinal: Denies: Difficulty Swallowing, Nausea, Vomiting Genitourinary: Denies: Retention Musculoskeletal: Denies: Joint Pain Skin: Denies: Rash Neurological: Denies: Confusion, Dizziness Psychiatric: Denies: Depression, Anxiety - Patient Data Vitals - Most Recent: Last Vital Signs Temp 38.1 C 09/26/20 08:08 Pulse 113 H 09/26/20 08:08 Resp 16 09/26/20 08:08 BP 149/61 H 09/26/20 08:54 Pulse Ox 93 L 09/26/20 08:46 Weight - Most Recent: 79.878 kg I&O - Last 24 Hours: Intake & Output 09/25/20 09/26/20 09/26/20 22:59 06:59 14:59 Intake Total 180 200 Balance 180 200 Lab Results Last 24 Hours: Laboratory Results - last 24 hr 09/25/20 09/25/20 09/25/20 Range/Units 09:55 09:55 09:55 WBC 12.24 H (3.98-10.04) K/mm3 RBC 3.89 L (3.98-5.22) M/mm3 Hgb 12.0 (11.2-15.7) gm/dl Hct 38.8 (34.1-44.9) % MCV 99.7 H (79.4-94.8) fl MCH 30.8 (25.6-32.2) pg MCHC 30.9 L (32.2-35.5) g/dl RDW Std Deviation 58.0 H (36.4-46.3) fL Plt Count 165 L (182-369) K/mm3 MPV 11.1 (9.4-12.3) fl Neut % (Auto) 70.3 (34.0-71.1) % Lymph % (Auto) 15.1 L (19.3-51.7) % [place] % (Auto) 12.4 (4.7-12.5) % Eos % (Auto) 1.5 (0.7-5.8) Baso % (Auto) 0.2 (0.1-1.2) % Neut # (Auto) 8.60 H (1.56-6.13) K/mm3 Lymph # (Auto) 1.85 (1.18-3.74) K/mm3 [place] # (Auto) 1.52 H (0.24-0.36) K/mm3 Eos # (Auto) 0.18 (0.04-0.36) K/mm3 Baso # (Auto) 0.03 (0.01-0.08) K/mm3 Manual Slide Review Abnormal smear PT (9.7-12.0) SECONDS INR D-Dimer, Quantitative 0.59 H (0.19-0.50) mg/L Puncture Site ABG pH (7.35-7.45) ABG pCO2 (35.0-45.0) mmHg ABG pO2 (80.0-100.0) mmHg ABG HCO3 (22.0-26.0) meq/L ABG O2 Saturation (96.0-97.0) % ABG Base Excess (-2-2.0) Bishop Test A-a Gradient mmHg O2 Delivery Device Oxygen Flow Rate FiO2 (21.00-100.00) % Sodium (136-145) mEq/L Potassium (3.5-5.1) mEq/L Chloride (98-107) mEq/L Carbon Dioxide (21-32) mEq/L Anion Gap (5-15) BUN (7-18) mg/dL Creatinine (0.55-1.02) mg/dL Est Cr Clr Drug Dosing mL/min Estimated GFR (MDRD) (>60) mL/min BUN/Creatinine Ratio (14-18) Glucose (83-115) mg/dL Calcium (8.5-10.1) mg/dL Phosphorus (2.6-4.7) mg/dL Magnesium (1.8-2.4) mg/dl Ferritin (8-252) ng/ml Total Bilirubin (0.2-1.0) mg/dL AST (15-37) U/L ALT (14-59) U/L Alkaline Phosphatase (46-116) U/L Lactate Dehydrogenase (81-234) U/L C-Reactive Protein 17.6 H* (<1.0) mg/dL Total Protein (6.4-8.2) g/dl Albumin (3.4-5.0) g/dl Globulin gm/dL Albumin/Globulin Ratio (1-2) TSH 3rd Generation (0.358-3.74) uIU/mL MRSA (PCR) 09/25/20 09/25/20 09/25/20 Range/Units 09:55 09:55 10:22 WBC (3.98-10.04) K/mm3 RBC (3.98-5.22) M/mm3 Hgb (11.2-15.7) gm/dl Hct (34.1-44.9) % MCV (79.4-94.8) fl MCH (25.6-32.2) pg MCHC (32.2-35.5) g/dl RDW Std Deviation (36.4-46.3) fL Plt Count (182-369) K/mm3 MPV (9.4-12.3) fl Neut % (Auto) (34.0-71.1) % Lymph % (Auto) (19.3-51.7) % [place]iken % (Auto) (4.7-12.5) % Eos % (Auto) (0.7-5.8) Baso % (Auto) (0.1-1.2) % Neut # (Auto) (1.56-6.13) K/mm3 Lymph # (Auto) (1.18-3.74) K/mm3 [place] # (Auto) (0.24-0.36) K/mm3 Eos # (Auto) (0.04-0.36) K/mm3 Baso # (Auto) (0.01-0.08) K/mm3 Manual Slide Review PT (9.7-12.0) SECONDS INR D-Dimer, Quantitative (0.19-0.50) mg/L Puncture Site Lt radial ABG pH 7.46 H (7.35-7.45) ABG pCO2 45.6 H (35.0-45.0) mmHg ABG pO2 52.0 L (80.0-100.0) mmHg ABG HCO3 31.9 H (22.0-26.0) meq/L ABG O2 Saturation 83.8 L (96.0-97.0) % ABG Base Excess 7.5 H (-2-2.0) Bishop Test Positive A-a Gradient 40 mmHg O2 Delivery Device Room air Oxygen Flow Rate 0.0 FiO2 21.00 (21.00-100.00) % Sodium 136 (136-145) mEq/L Potassium 4.4 (3.5-5.1) mEq/L Chloride 100 (98-107) mEq/L Carbon Dioxide 33 H (21-32) mEq/L Anion Gap 7.4 (5-15) BUN 16 (7-18) mg/dL Creatinine 1.0 (0.55-1.02) mg/dL Est Cr Clr Drug Dosing 33.58 mL/min Estimated GFR (MDRD) 52 (>60) mL/min BUN/Creatinine Ratio 16.0 (14-18) Glucose 89 (83-115) mg/dL Calcium 8.4 L (8.5-10.1) mg/dL Phosphorus (2.6-4.7) mg/dL Magnesium (1.8-2.4) mg/dl Ferritin 359 H (8-252) ng/ml Total Bilirubin 0.6 (0.2-1.0) mg/dL AST 34 (15-37) U/L ALT 39 (14-59) U/L Alkaline Phosphatase 46 (46-116) U/L Lactate Dehydrogenase 284 H (81-234) U/L C-Reactive Protein (<1.0) mg/dL Total Protein 5.8 L (6.4-8.2) g/dl Albumin 2.3 L (3.4-5.0) g/dl Globulin 3.5 gm/dL Albumin/Globulin Ratio 0.7 L (1-2) TSH 3rd Generation (0.358-3.74) uIU/mL MRSA (PCR) 09/25/20 09/25/20 09/26/20 Range/Units 16:08 22:10 06:05 WBC 11.02 H (3.98-10.04) K/mm3 RBC 3.70 L (3.98-5.22) M/mm3 Hgb 11.3 (11.2-15.7) gm/dl Hct 37.1 (34.1-44.9) % MCV 100.3 H (79.4-94.8) fl MCH 30.5 (25.6-32.2) pg MCHC 30.5 L (32.2-35.5) g/dl RDW Std Deviation 58.1 H (36.4-46.3) fL Plt Count 177 L (182-369) K/mm3 MPV 9.9 (9.4-12.3) fl Neut % (Auto) 75.1 H (34.0-71.1) % Lymph % (Auto) 12.2 L (19.3-51.7) % [place] % (Auto) 10.0 (4.7-12.5) % Eos % (Auto) 2.1 (0.7-5.8) Baso % (Auto) 0.3 (0.1-1.2) % Neut # (Auto) 8.29 H (1.56-6.13) K/mm3 Lymph # (Auto) 1.34 (1.18-3.74) K/mm3 [place] # (Auto) 1.10 H (0.24-0.36) K/mm3 Eos # (Auto) 0.23 (0.04-0.36) K/mm3 Baso # (Auto) 0.03 (0.01-0.08) K/mm3 Manual Slide Review PT 16.1 H D (9.7-12.0) SECONDS INR 1.52 D-Dimer, Quantitative (0.19-0.50) mg/L Puncture Site ABG pH (7.35-7.45) ABG pCO2 (35.0-45.0) mmHg ABG pO2 (80.0-100.0) mmHg ABG HCO3 (22.0-26.0) meq/L ABG O2 Saturation (96.0-97.0) % ABG Base Excess (-2-2.0) Bishop Test A-a Gradient mmHg O2 Delivery Device Oxygen Flow Rate FiO2 (21.00-100.00) % Sodium (136-145) mEq/L Potassium (3.5-5.1) mEq/L Chloride (98-107) mEq/L Carbon Dioxide (21-32) mEq/L Anion Gap (5-15) BUN (7-18) mg/dL Creatinine (0.55-1.02) mg/dL Est Cr Clr Drug Dosing mL/min Estimated GFR (MDRD) (>60) mL/min BUN/Creatinine Ratio (14-18) Glucose (83-115) mg/dL Calcium (8.5-10.1) mg/dL Phosphorus (2.6-4.7) mg/dL Magnesium (1.8-2.4) mg/dl Ferritin (8-252) ng/ml Total Bilirubin (0.2-1.0) mg/dL AST (15-37) U/L ALT (14-59) U/L Alkaline Phosphatase (46-116) U/L Lactate Dehydrogenase (81-234) U/L C-Reactive Protein (<1.0) mg/dL Total Protein (6.4-8.2) g/dl Albumin (3.4-5.0) g/dl Globulin gm/dL Albumin/Globulin Ratio (1-2) TSH 3rd Generation (0.358-3.74) uIU/mL MRSA (PCR) Negative 09/26/20 09/26/20 Range/Units 06:05 06:05 WBC (3.98-10.04) K/mm3 RBC (3.98-5.22) M/mm3 Hgb (11.2-15.7) gm/dl Hct (34.1-44.9) % MCV (79.4-94.8) fl MCH (25.6-32.2) pg MCHC (32.2-35.5) g/dl RDW Std Deviation (36.4-46.3) fL Plt Count (182-369) K/mm3 MPV (9.4-12.3) fl Neut % (Auto) (34.0-71.1) % Lymph % (Auto) (19.3-51.7) % [place] % (Auto) (4.7-12.5) % Eos % (Auto) (0.7-5.8) Baso % (Auto) (0.1-1.2) % Neut # (Auto) (1.56-6.13) K/mm3 Lymph # (Auto) (1.18-3.74) K/mm3 [place] # (Auto) (0.24-0.36) K/mm3 Eos # (Auto) (0.04-0.36) K/mm3 Baso # (Auto) (0.01-0.08) K/mm3 Manual Slide Review PT 17.6 H (9.7-12.0) SECONDS INR 1.66 D-Dimer, Quantitative (0.19-0.50) mg/L Puncture Site ABG pH (7.35-7.45) ABG pCO2 (35.0-45.0) mmHg ABG pO2 (80.0-100.0) mmHg ABG HCO3 (22.0-26.0) meq/L ABG O2 Saturation (96.0-97.0) % ABG Base Excess (-2-2.0) Bishop Test A-a Gradient mmHg O2 Delivery Device Oxygen Flow Rate FiO2 (21.00-100.00) % Sodium 133 L (136-145) mEq/L Potassium 4.0 (3.5-5.1) mEq/L Chloride 96 L (98-107) mEq/L Carbon Dioxide 31 (21-32) mEq/L Anion Gap 10.0 (5-15) BUN 12 (7-18) mg/dL Creatinine 1.0 (0.55-1.02) mg/dL Est Cr Clr Drug Dosing 27.93 mL/min Estimated GFR (MDRD) 52 (>60) mL/min BUN/Creatinine Ratio 12.0 L (14-18) Glucose 85 (83-115) mg/dL Calcium 8.0 L (8.5-10.1) mg/dL Phosphorus 3.4 (2.6-4.7) mg/dL Magnesium 2.1 (1.8-2.4) mg/dl Ferritin (8-252) ng/ml Total Bilirubin 0.8 (0.2-1.0) mg/dL AST 33 (15-37) U/L ALT 38 (14-59) U/L Alkaline Phosphatase 45 L (46-116) U/L Lactate Dehydrogenase (81-234) U/L C-Reactive Protein 30.7 H* (<1.0) mg/dL Total Protein 5.7 L (6.4-8.2) g/dl Albumin 2.1 L (3.4-5.0) g/dl Globulin 3.6 gm/dL Albumin/Globulin Ratio 0.6 L (1-2) TSH 3rd Generation 0.029 L (0.358-3.74) uIU/mL MRSA (PCR) Adarsh Results Last 24 Hours: Microbiology 09/25/20 20:50 Anaerobic Blood Culture - Final Blood - Venous Med Orders - Current: Current Medications Acetaminophen (Tylenol) 650 mg PO BEDTIME PRN PRN Reason: Pain Acetaminophen (Tylenol) 650 mg PO TID@0900,1300,1700 [facility] Last Admin: 09/26/20 08:53 Dose: 650 mg Documented by: Hydrocodone Bitart/Acetaminophen ([place] 325-5 Mg) 1 tab PO Q4H PRN PRN Reason: Pain (moderate 4-6) Albuterol (Proventil Hfa) 0 gm INH Q6H PRN PRN Reason: Shortness of Breath Calcium Carbonate/Glycine (Tums) 500 mg PO QID PRN PRN Reason: Heartburn Last Admin: 09/26/20 06:16 Dose: 500 mg Documented by: Citalopram Hydrobromide (Celexa) 20 mg PO DAILY [facility] Last Admin: 09/26/20 08:53 Dose: 20 mg Documented by: Clonazepam (Klonopin) 0.5 mg PO BEDTIME [facility] Last Admin: 09/25/20 21:50 Dose: 0.5 mg Documented by: Docusate Sodium (Colace) 100 mg PO DAILY [facility] Last Admin: 09/26/20 08:53 Dose: 100 mg Documented by: Enoxaparin Sodium (Lovenox) 40 mg SUBCUT DAILY [facility] Last Admin: 09/26/20 08:52 Dose: 40 mg Documented by: Folic Acid (Folic Acid) 1 mg PO DAILY [facility] Last Admin: 09/26/20 08:54 Dose: 1 mg Documented by: Gabapentin (Neurontin) 300 mg PO TID [facility] Last Admin: 09/26/20 08:53 Dose: 300 mg Documented by: Levetiracetam (Keppra) 750 mg PO DAILY [facility] Levothyroxine Sodium (Synthroid) 100 mcg PO ACBREAKFAST [facility] Last Admin: 09/26/20 06:16 Dose: 100 mcg Documented by: Lidocaine (Aspercreme 4%) 1 each TOP DAILY [facility] Last Admin: 09/26/20 08:52 Dose: 1 each Documented by: Lorazepam (Ativan) 1 mg PO TID PRN PRN Reason: Seizures Losartan Potassium (Cozaar) 100 mg PO DAILY [facility] Last Admin: 09/26/20 08:54 Dose: 100 mg Documented by: Methyl Salicylate (Icy Hot Cream) 0 gm TOP Q6H PRN PRN Reason: Pain Last Admin: 09/26/20 08:51 Dose: 1 applic Documented by: Miscellaneous Information (Remove Patch) 0 ea TRDERM BEDTIME [facility] Last Admin: 09/25/20 21:52 Dose: Not Given Documented by: Mometasone Furoate/Formoterol Fumar (Dulera 100-5 Mcg) 2 puff IH BID [facility] Last Admin: 09/26/20 08:45 Dose: 2 dose Documented by: Ondansetron HCl (Zofran) 4 mg IV Q4H PRN PRN Reason: Nausea/Vomiting Pantoprazole Sodium (Protonix) 40 mg PO DAILY@0700 [facility] Last Admin: 09/26/20 06:16 Dose: 40 mg Documented by: Keppra 1000 Mg 0 each PO BEDTIME [facility] Last Admin: 09/25/20 21:53 Dose: Not Given Documented by: Tens Unit [Tens 502] (1 Dose) 0 each TOP DAILY [facility] Last Admin: 09/26/20 09:06 Dose: Not Given Documented by: Prednisone (Prednisone) 5 mg PO DAILY [facility] Last Admin: 09/26/20 08:54 Dose: 5 mg Documented by: Propranolol HCl (Inderal La) 120 mg PO DAILY [facility] Last Admin: 09/26/20 08:53 Dose: 120 mg Documented by: Simvastatin (Zocor) 20 mg PO PCDINNER [facility] Last Admin: 09/25/20 19:58 Dose: 20 mg Documented by: Sodium Chloride (Saline Flush) 10 ml FLUSH ASDIRECTED PRN PRN Reason: Keep Vein Open Last Admin: 09/25/20 09:55 Dose: 10 ml Documented by: Warfarin Sodium (Pharmacy To Dose - Warfarin) 0 dose .XX ASDIRECTED PRN PRN Reason: RX TO DOSE WARFARIN Discontinued Medications Acetaminophen (Tylenol) 975 mg PO NOW ONE Stop: 09/25/20 12:50 Last Admin: 09/25/20 12:56 Dose: 975 mg Documented by: Acetaminophen (Tylenol) 650 mg PO Q4H PRN PRN Reason: Pain (Mild 1-3)/fever Last Admin: 09/25/20 21:50 Dose: 650 mg Documented by: Levetiracetam (Keppra) Confirm Administered Dose 1,000 mg .ROUTE .STK-MED ONE Stop: 09/25/20 21:41 Last Admin: 09/25/20 21:50 Dose: 1,000 mg Documented by: Keppra 750 Mg 0 each PO DAILY [facility] Warfarin Sodium (Coumadin) 4 mg PO QPM LINDEN Stop: 09/25/20 21:00 Last Admin: 09/25/20 19:58 Dose: 4 mg Documented by: - Exam Quality Assessment: Supplemental Oxygen General: Alert, Cooperative, No Acute Distress HEENT: Pupils Equal, Pupils Reactive, EOMI, Mucous Membr. Moist/Tensed Neck: Supple Lungs: Clear to Auscultation, Normal Respiratory Effort Cardiovascular: Regular Rate, Regular Rhythm, Other GI/Abdominal Exam: Normal Bowel Sounds, Non-Tender, No Distention (Female) Exam: Deferred Back Exam: Normal Inspection, Decreased Range of Motion Extremities: Normal Inspection, Normal Range of Motion, Non-Tender, No Pedal Edema, Normal Capillary Refill Peripheral Pulses: 2+: Dorsalis Pedis (L), Dorsalis Pedis (R) Skin: Warm, Dry, Intact, Ecchymosis (on both lower extremities and left buttock) Neurological: No New Focal Deficit Psy/Mental Status: Alert, Normal Affect, Normal Mood Sepsis Event Note - Evaluation Sepsis Screening Result: No Definite Risk - Focused Exam Vital Signs: Vital Signs Temp Pulse Resp BP Pulse Ox Pulse Ox 09/26/20 08:54 149/61 H 09/26/20 08:46 93 L 09/26/20 08:08 38.1 C 113 H 16 149/61 H 92 L 09/26/20 06:13 90 L 09/26/20 05:40 110 H 92 L 09/26/20 05:06 37.2 C 108 H 20 139/54 L 88 L 09/26/20 00:43 36.9 C 94 18 130/61 92 L - Problem List Review Problem List Initiated/Reviewed/Updated: Yes - Assessment Assessment:: Assessment: Acute: Failure to thrive Generalized Weakness Hypoxia on, 2L NC Recent Covid-19 Infection Leukocytosis, POA, improved Macrocytosis, POA Mild Thrombocytopenia, POA, improved Subtherapeutic INR on Warfarin, pharmacy dosing Metabolic Alkalosis with full respiratory compensation, POA Hypoalbuminemia, POA Polypharmacy, POA Chronic: Impaired vision HTN HLD Chronic afib, on warfarin PUD Hx/o renal stones OA Osteoporosis Back and left shoulder pain Seizure Hypothyroidism Obesity Hx/o Malignant melanoma - Plan Plan:: Plan: Continue current treatment Will adjust home regimen due to polypharmacy Continue PT/OT consult Routine AM Labs if patient develops a fever of 101 or more will consider antibiotics. Also consider antibiotics based on tomorrow's lab work nutrition services manager and discharge planning VTE prophylaxis with Lovenox 40 mg subcu daily until INR is 2.0 or greater Encourage to use IS as directed Vit D and FT4 level in AM Change gabapentin to 100 mg from 300 mg po TID Resume Warfarin per pharmacy to dose LOS> 96 hrs pending placement CODE STATUS: DNR/DNI
[2020-09-26] MEDS ORDERED: Warfarin 2.5 MG Tab PO SCH (18:00)
[2020-09-26] MEDS: Simvastatin 20 MG Tab PO SCH (18:31)
[2020-09-26] MEDS: Gabapentin 100 MG Cap PO SCH (21:03)
[2020-09-26] MEDS: levETIRAcetam 500 MG Tab PO SCH (21:03)
[2020-09-26] MEDS: ClonazePAM 0.5 MG Tab PO SCH (23:03)
[2020-09-27] MEDS: Pantoprazole 40 MG Tab.CR PO SCH (06:34)
[2020-09-27] MEDS: Levothyroxine 100 MCG Tab PO SCH (06:34)
[2020-09-27] MEDS ORDERED: Sodium Chloride 0.9% 500 ML IV ONE (07:30)
[2020-09-27] MEDS: Formoterol/Mometasone 100-5 MCG 8.8 GM Inhaler IH SCH ×3 (07:55→20:24)
[2020-09-27] MEDS: Lidocaine 4% 1 each Patch TOP SCH (08:28)
[2020-09-27] MEDS: levETIRAcetam 500 MG Tab PO SCH ×2 (08:29→20:23)
[2020-09-27] MEDS: Acetaminophen 325 MG Tab PO SCH ×3 (08:30→17:47)
[2020-09-27] MEDS: Citalopram 20 MG Tab PO SCH (08:30)
[2020-09-27] MEDS: Propranolol 60 MG Cap.ER PO SCH (08:30)
[2020-09-27] MEDS: Gabapentin 100 MG Cap PO SCH ×3 (08:30→20:23)
[2020-09-27] MEDS: Docusate Sodium 100 MG Cap PO SCH ×2 (08:30→08:35)
[2020-09-27] MEDS: Folic Acid 1 MG Tab PO SCH (08:31)
[2020-09-27] MEDS: predniSONE 5 MG Tab PO SCH (08:31)
[2020-09-27] MEDS: [UNRECOGNIZED DRUG - OTHER] TOP SCH (08:32)
--- NOTE | 2020-09-27 10:23 | PCM.PN ---
- General Info Date of Service: 09/27/20 Subjective Update: No significant overnight or acute issues. She feels better this AM. She is eating adequately and no issues. However she reports having right eye ache but w/o vision changes, dryness or murray-orbital signs of injury or trauma. No stroke like symptoms. She is afebrile and her leukocytosis resolved. Her FT4 is considerably elevated and Vit D level is low. Functional Status: Reports: Pain Controlled - Review of Systems General: Denies: Fever, Chills HEENT: Reports: Eye Pain. Denies: Ear Pain, Headaches, Sinus Congestion, Sore Throat, Visual Changes Pulmonary: Denies: Shortness of Breath, Cough Cardiovascular: Denies: Chest Pain Gastrointestinal: Denies: Abdominal Pain, Nausea, Vomiting Genitourinary: Denies: Incontinence Musculoskeletal: Denies: Joint Pain Skin: Denies: Rash Neurological: Denies: Confusion Psychiatric: Denies: Depression, Agitation - Patient Data Vitals - Most Recent: Last Vital Signs Temp 36.6 C 09/27/20 08:11 Pulse 75 09/27/20 08:20 Resp 16 09/27/20 08:11 BP 117/67 09/27/20 08:11 Pulse Ox 88 L 09/27/20 08:20 Weight - Most Recent: 80.649 kg I&O - Last 24 Hours: Intake & Output 09/26/20 09/27/20 09/27/20 22:59 06:59 14:59 Intake Total 300 800 Output Total 750 Balance 300 50 Lab Results Last 24 Hours: Laboratory Results - last 24 hr 09/26/20 09/27/20 09/27/20 Range/Units 06:05 03:00 05:39 WBC (3.98-10.04) K/mm3 RBC (3.98-5.22) M/mm3 Hgb (11.2-15.7) gm/dl Hct (34.1-44.9) % MCV (79.4-94.8) fl MCH (25.6-32.2) pg MCHC (32.2-35.5) g/dl RDW Std Deviation (36.4-46.3) fL Plt Count (182-369) K/mm3 MPV (9.4-12.3) fl Neut % (Auto) (34.0-71.1) % Lymph % (Auto) (19.3-51.7) % [place] % (Auto) (4.7-12.5) % Eos % (Auto) (0.7-5.8) Baso % (Auto) (0.1-1.2) % Neut # (Auto) (1.56-6.13) K/mm3 Lymph # (Auto) (1.18-3.74) K/mm3 [place] # (Auto) (0.24-0.36) K/mm3 Eos # (Auto) (0.04-0.36) K/mm3 Baso # (Auto) (0.01-0.08) K/mm3 PT 26.3 H D (9.7-12.0) SECONDS INR 2.50 Sodium (136-145) mEq/L Potassium (3.5-5.1) mEq/L Chloride (98-107) mEq/L Carbon Dioxide (21-32) mEq/L Anion Gap (5-15) BUN (7-18) mg/dL Creatinine (0.55-1.02) mg/dL Est Cr Clr Drug Dosing mL/min Estimated GFR (MDRD) (>60) mL/min BUN/Creatinine Ratio (14-18) Glucose (83-115) mg/dL Calcium (8.5-10.1) mg/dL Magnesium (1.8-2.4) mg/dl Procalcitonin 1.28 H (<0.10) ng/mL Free T4 (0.76-1.46) ng/dL Urine Color Yellow (Yellow) Urine Appearance Cloudy H (Clear) Urine pH 6.5 (5.0-8.0) Ur Specific [place] 1.015 (1.005-1.030) Urine Protein Trace H (Negative) Urine Glucose (UA) Negative (Negative) Urine Ketones Negative (Negative) Urine Occult Blood 2+ H (Negative) Urine Nitrite Negative (Negative) Urine Bilirubin Negative (Negative) Urine Urobilinogen 2.0 H (0.2-1.0) Ur Leukocyte Esterase 1+ H (Negative) Urine RBC 5-10 H (0-5) /hpf Urine WBC 5-10 H (0-5) /hpf Ur Epithelial Cells 5-10 H (0-5) /hpf Urine Bacteria Many H (FEW) /hpf Urine Mucus Not seen (FEW) /hpf 09/27/20 09/27/20 Range/Units 05:39 05:39 WBC 8.96 (3.98-10.04) K/mm3 RBC 3.38 L (3.98-5.22) M/mm3 Hgb 10.3 L (11.2-15.7) gm/dl Hct 34.0 L (34.1-44.9) % MCV 100.6 H (79.4-94.8) fl MCH 30.5 (25.6-32.2) pg MCHC 30.3 L (32.2-35.5) g/dl RDW Std Deviation 57.7 H (36.4-46.3) fL Plt Count 166 L (182-369) K/mm3 MPV 10.6 (9.4-12.3) fl Neut % (Auto) 77.9 H (34.0-71.1) % Lymph % (Auto) 10.5 L (19.3-51.7) % [place] % (Auto) 9.6 (4.7-12.5) % Eos % (Auto) 1.7 (0.7-5.8) Baso % (Auto) 0.2 (0.1-1.2) % Neut # (Auto) 6.98 H (1.56-6.13) K/mm3 Lymph # (Auto) 0.94 L (1.18-3.74) K/mm3 [place] # (Auto) 0.86 H (0.24-0.36) K/mm3 Eos # (Auto) 0.15 (0.04-0.36) K/mm3 Baso # (Auto) 0.02 (0.01-0.08) K/mm3 PT (9.7-12.0) SECONDS INR Sodium 136 (136-145) mEq/L Potassium 4.4 (3.5-5.1) mEq/L Chloride 98 (98-107) mEq/L Carbon Dioxide 33 H (21-32) mEq/L Anion Gap 9.4 (5-15) BUN 21 H (7-18) mg/dL Creatinine 1.2 H (0.55-1.02) mg/dL Est Cr Clr Drug Dosing 23.28 mL/min Estimated GFR (MDRD) 42 (>60) mL/min BUN/Creatinine Ratio 17.5 (14-18) Glucose 101 (83-115) mg/dL Calcium 8.3 L (8.5-10.1) mg/dL Magnesium 2.3 (1.8-2.4) mg/dl Procalcitonin (<0.10) ng/mL Free T4 1.49 H (0.76-1.46) ng/dL Urine Color (Yellow) Urine Appearance (Clear) Urine pH (5.0-8.0) Ur Specific [place] (1.005-1.030) Urine Protein (Negative) Urine Glucose (UA) (Negative) Urine Ketones (Negative) Urine Occult Blood (Negative) Urine Nitrite (Negative) Urine Bilirubin (Negative) Urine Urobilinogen (0.2-1.0) Ur Leukocyte Esterase (Negative) Urine RBC (0-5) /hpf Urine WBC (0-5) /hpf Ur Epithelial Cells (0-5) /hpf Urine Bacteria (FEW) /hpf Urine Mucus (FEW) /hpf Adarsh Results Last 24 Hours: Microbiology 09/25/20 20:50 Aerobic Blood Culture - Preliminary Blood - Venous NO GROWTH AFTER 1 DAY Anaerobic Blood Culture - Final 09/25/20 19:55 Aerobic Blood Culture - Preliminary Blood - Venous - Lab Draw NO GROWTH AFTER 1 DAY Anaerobic Blood Culture - Preliminary NO GROWTH AFTER 1 DAY Med Orders - Current: Current Medications Acetaminophen (Tylenol) 650 mg PO BEDTIME PRN PRN Reason: Pain Acetaminophen (Tylenol) 650 mg PO TID@0900,1300,1700 [facility] Last Admin: 09/27/20 08:30 Dose: 650 mg Documented by: Hydrocodone Bitart/Acetaminophen ([place] 325-5 Mg) 1 tab PO Q4H PRN PRN Reason: Pain (moderate 4-6) Albuterol (Proventil Hfa) 0 gm INH Q6H PRN PRN Reason: Shortness of Breath Calcium Carbonate/Glycine (Tums) 500 mg PO QID PRN PRN Reason: Heartburn Last Admin: 09/26/20 06:16 Dose: 500 mg Documented by: Citalopram Hydrobromide (Celexa) 20 mg PO DAILY [facility] Last Admin: 09/27/20 08:30 Dose: 20 mg Documented by: Clonazepam (Klonopin) 0.5 mg PO BEDTIME [facility] Last Admin: 09/26/20 23:03 Dose: 0.5 mg Documented by: Docusate Sodium (Colace) 100 mg PO DAILY [facility] Last Admin: 09/27/20 08:35 Dose: Not Given Documented by: Folic Acid (Folic Acid) 1 mg PO DAILY [facility] Last Admin: 09/27/20 08:31 Dose: 1 mg Documented by: Gabapentin (Neurontin) 100 mg PO TID [facility] Last Admin: 09/27/20 08:30 Dose: 100 mg Documented by: Sodium Chloride (Normal Saline) 500 mls @ 50 mls/hr IV ONETIME ONE Stop: 09/27/20 17:29 Last Admin: 09/27/20 08:28 Dose: 50 mls/hr Documented by: Levetiracetam (Keppra) 750 mg PO DAILY [facility] Last Admin: 09/27/20 08:29 Dose: 750 mg Documented by: Levetiracetam (Keppra) 1,000 mg PO BEDTIME [facility] Last Admin: 09/26/20 21:03 Dose: 1,000 mg Documented by: Levothyroxine Sodium (Synthroid) 100 mcg PO ACBREAKFAST [facility] Last Admin: 09/27/20 06:34 Dose: 100 mcg Documented by: Lidocaine (Aspercreme 4%) 1 each TOP DAILY [facility] Last Admin: 09/27/20 08:28 Dose: 1 each Documented by: Lorazepam (Ativan) 1 mg PO TID PRN PRN Reason: Seizures Losartan Potassium (Cozaar) 100 mg PO DAILY [facility] Last Admin: 09/26/20 08:54 Dose: 100 mg Documented by: Methyl Salicylate (Icy Hot Cream) 0 gm TOP Q6H PRN PRN Reason: Pain Last Admin: 09/26/20 08:51 Dose: 1 applic Documented by: Miscellaneous Information (Remove Patch) 0 ea TRDERM BEDTIME [facility] Last Admin: 09/26/20 21:00 Dose: 1 ea Documented by: Mometasone Furoate/Formoterol Fumar (Dulera 100-5 Mcg) 2 puff IH BID [facility] Last Admin: 09/27/20 08:02 Dose: Not Given Documented by: Ondansetron HCl (Zofran) 4 mg IV Q4H PRN PRN Reason: Nausea/Vomiting Pantoprazole Sodium (Protonix) 40 mg PO DAILY@0700 [facility] Last Admin: 09/27/20 06:34 Dose: 40 mg Documented by: Tens Unit [Tens 502] (1 Dose) 0 each TOP DAILY [facility] Last Admin: 09/27/20 08:32 Dose: Not Given Documented by: Prednisone (Prednisone) 5 mg PO DAILY [facility] Last Admin: 09/27/20 08:31 Dose: 5 mg Documented by: Propranolol HCl (Inderal La) 120 mg PO DAILY [facility] Last Admin: 09/27/20 08:30 Dose: 120 mg Documented by: Simvastatin (Zocor) 20 mg PO PCDINNER [facility] Last Admin: 09/26/20 18:31 Dose: 20 mg Documented by: Sodium Chloride (Saline Flush) 10 ml FLUSH ASDIRECTED PRN PRN Reason: Keep Vein Open Last Admin: 09/25/20 09:55 Dose: 10 ml Documented by: Warfarin Sodium (Pharmacy To Dose - Warfarin) 0 dose .XX ASDIRECTED PRN PRN Reason: RX TO DOSE WARFARIN Warfarin Sodium (Coumadin) 1 mg PO QPM [facility] Stop: 09/27/20 18:01 Discontinued Medications Acetaminophen (Tylenol) 975 mg PO NOW ONE Stop: 09/25/20 12:50 Last Admin: 09/25/20 12:56 Dose: 975 mg Documented by: Acetaminophen (Tylenol) 650 mg PO Q4H PRN PRN Reason: Pain (Mild 1-3)/fever Last Admin: 09/25/20 21:50 Dose: 650 mg Documented by: Enoxaparin Sodium (Lovenox) 40 mg SUBCUT DAILY [facility] Last Admin: 09/26/20 08:52 Dose: 40 mg Documented by: Gabapentin (Neurontin) 300 mg PO TID [facility] Last Admin: 09/26/20 15:00 Dose: 300 mg Documented by: Levetiracetam (Keppra) Confirm Administered Dose 1,000 mg .ROUTE .STK-MED ONE Stop: 09/25/20 21:41 Last Admin: 09/25/20 21:50 Dose: 1,000 mg Documented by: Keppra 1000 Mg 0 each PO BEDTIME [facility] Last Admin: 09/25/20 21:53 Dose: Not Given Documented by: Keppra 750 Mg 0 each PO DAILY [facility] Last Admin: 09/26/20 10:18 Dose: Not Given Documented by: Warfarin Sodium (Coumadin) 4 mg PO QPM [facility] Stop: 09/25/20 21:00 Last Admin: 09/25/20 19:58 Dose: 4 mg Documented by: Warfarin Sodium (Coumadin) 2.5 mg PO 1800 [facility] Stop: 09/26/20 18:01 Last Admin: 09/26/20 17:07 Dose: 2.5 mg Documented by: - Exam Quality Assessment: Supplemental Oxygen General: Alert, Oriented, Cooperative, No Acute Distress HEENT: Pupils Equal, Pupils Reactive, EOMI, Mucous Membr. Moist/[place]. No: Scleral Icterus Neck: Supple Lungs: Normal Respiratory Effort, Decreased Breath Sounds Cardiovascular: Regular Rate, Regular Rhythm GI/Abdominal Exam: Normal Bowel Sounds, Soft, No Organomegaly, No Distention, No Abnormal Bruit, No Mass, Other (Obese) (Female) Exam: Deferred Back Exam: Normal Inspection, Decreased Range of Motion Extremities: Normal Inspection, Normal Range of Motion, Non-Tender, No Pedal Edema, Normal Capillary Refill Peripheral Pulses: 2+: Dorsalis Pedis (L), Dorsalis Pedis (R) Skin: Warm, Dry, Intact, Ecchymosis (on all extremities) Neurological: No New Focal Deficit Psy/Mental Status: Alert, Normal Affect, Normal Mood Sepsis Event Note - Evaluation Sepsis Screening Result: No Definite Risk - Focused Exam Vital Signs: Vital Signs Temp Pulse Resp BP Pulse Ox Pulse Ox 09/27/20 08:20 75 88 L 09/27/20 08:11 36.6 C 126 H 16 117/67 90 L 09/27/20 07:56 94 L 09/27/20 04:09 70 129/52 L 98 09/27/20 04:08 36.5 C 68 20 140/53 L 97 09/27/20 00:50 36.4 C 60 18 130/46 L 90 L - Problem List Review Problem List Initiated/Reviewed/Updated: Yes - My Orders Last 24 Hours: My Active Orders 09/26/20 21:00 Gabapentin [Neurontin] 100 mg PO TID 09/27/20 05:39 BMP [BASIC METABOLIC PANEL,BMP] [CHEM] AM MG [MAGNESIUM] [CHEM] AM T4 FREE [CHEM] AM VITAMIN D,25-HYDROXY [CHEM] AM 09/27/20 07:30 Sodium Chloride 0.9% [Normal Saline] 500 ml IV ONETIME 09/27/20 18:00 Warfarin [Coumadin] 1 mg PO QPM 09/28/20 05:11 BMP [BASIC METABOLIC PANEL,BMP] [CHEM] AM CBC WITH AUTO DIFF [HEME] AM MG [MAGNESIUM] [CHEM] AM 09/29/20 05:11 BMP [BASIC METABOLIC PANEL,BMP] [CHEM] AM CBC WITH AUTO DIFF [HEME] AM MG [MAGNESIUM] [CHEM] AM 09/30/20 05:11 BMP [BASIC METABOLIC PANEL,BMP] [CHEM] AM CBC WITH AUTO DIFF [HEME] AM MG [MAGNESIUM] [CHEM] AM 10/01/20 05:11 BMP [BASIC METABOLIC PANEL,BMP] [CHEM] AM CBC WITH AUTO DIFF [HEME] AM MG [MAGNESIUM] [CHEM] AM 10/02/20 05:11 BMP [BASIC METABOLIC PANEL,BMP] [CHEM] AM CBC WITH AUTO DIFF [HEME] AM MG [MAGNESIUM] [CHEM] AM 10/03/20 05:11 BMP [BASIC METABOLIC PANEL,BMP] [CHEM] AM CBC WITH AUTO DIFF [HEME] AM MG [MAGNESIUM] [CHEM] AM - Assessment Assessment:: Assessment: Acute: Failure to thrive Generalized Weakness, improved Hypoxia on, remains on 2L NC Recent Covid-19 Infection Leukocytosis, POA, resolved Macrocytic Hypochromic Anemia with Hgb of 10.3, POA Mild Thrombocytopenia, POA, improved S/p Subtherapeutic INR on Warfarin Therapeutic INR Metabolic Alkalosis with full respiratory compensation, POA Hypoalbuminemia, POA Polypharmacy, POA Vitamin D Deficiency Thyroid Medicine Toxicity Chronic: Impaired vision HTN HLD Chronic afib, on warfarin PUD Hx/o renal stones OA Osteoporosis Back and left shoulder pain Seizure Hypothyroidism Obesity Hx/o Malignant melanoma - Plan Plan:: Plan: Continue current treatment Consider discontinuing Klonopin at QHS and keep Ativan po TID Continue PT/OT consult Routine AM Labs manager social services and discharge planning VTE prophylaxis with Lovenox 40 mg subcu daily until INR is 2.0 or greater Encourage to use IS as directed INR level in AM Vit D supplement Hold Levothyroxine dose Change gabapentin to 100 mg from 300 mg po TID Resume Warfarin per pharmacy to dose LOS> 96 hrs pending placement to SNF with PT/OT due to generalized weakness CODE STATUS: DNR/DNI
[2020-09-27] MEDS: Calcium Carbonate 500 MG Tab.Chew PO PRN (14:11)
[2020-09-27] MEDS: Simvastatin 20 MG Tab PO SCH (19:17)
[2020-09-27] MEDS: Acetaminophen 325 MG Tab PO PRN (21:20)
--- NOTE | 2020-09-28 06:47 | PCM.PN ---
- General Info Date of Service: 09/28/20 Subjective Update: No significant overnight or acute issues. She feels better this AM. She is eating adequately and no issues. However she reports having right eye ache but w/o vision changes, dryness or murray-orbital signs of injury or trauma. No stroke like symptoms. She is afebrile and her leukocytosis resolved. Her FT4 is considerably elevated and Vit D level is low. Functional Status: Reports: Pain Controlled - Review of Systems General: Reports: Fever, Weakness, Chills HEENT: Denies: Contact Lenses Pulmonary: Reports: Shortness of Breath Cardiovascular: Reports: Chest Pain Gastrointestinal: Denies: Abdominal Pain, Nausea, Vomiting Genitourinary: Denies: Retention Musculoskeletal: Reports: Joint Pain Skin: Reports: Rash Neurological: Reports: Confusion, Gait Disturbance Psychiatric: Reports: Depression, Anxiety - Patient Data Vitals - Most Recent: Last Vital Signs Temp 36.4 C 09/28/20 03:51 Pulse 70 09/28/20 03:51 Resp 18 09/28/20 03:51 BP 144/73 H 09/28/20 03:51 Pulse Ox 98 09/28/20 06:30 Weight - Most Recent: 77.564 kg I&O - Last 24 Hours: Intake & Output 09/27/20 09/27/20 09/28/20 14:59 22:59 06:59 Intake Total 120 2097 950 Output Total 600 1050 Balance 120 1497 -100 Lab Results Last 24 Hours: Laboratory Results - last 24 hr 09/27/20 09/27/20 09/27/20 Range/Units 03:00 05:39 05:39 WBC (3.98-10.04) K/mm3 RBC (3.98-5.22) M/mm3 Hgb (11.2-15.7) gm/dl Hct (34.1-44.9) % MCV (79.4-94.8) fl MCH (25.6-32.2) pg MCHC (32.2-35.5) g/dl RDW Std Deviation (36.4-46.3) fL Plt Count (182-369) K/mm3 MPV (9.4-12.3) fl Neut % (Auto) (34.0-71.1) % Lymph % (Auto) (19.3-51.7) % [place] % (Auto) (4.7-12.5) % Eos % (Auto) (0.7-5.8) Baso % (Auto) (0.1-1.2) % Neut # (Auto) (1.56-6.13) K/mm3 Lymph # (Auto) (1.18-3.74) K/mm3 [place] # (Auto) (0.24-0.36) K/mm3 Eos # (Auto) (0.04-0.36) K/mm3 Baso # (Auto) (0.01-0.08) K/mm3 PT 26.3 H D (9.7-12.0) SECONDS INR 2.50 Sodium (136-145) mEq/L Potassium (3.5-5.1) mEq/L Chloride (98-107) mEq/L Carbon Dioxide (21-32) mEq/L Anion Gap (5-15) BUN (7-18) mg/dL Creatinine (0.55-1.02) mg/dL Est Cr Clr Drug Dosing mL/min Estimated GFR (MDRD) (>60) mL/min BUN/Creatinine Ratio (14-18) Glucose (83-115) mg/dL Calcium (8.5-10.1) mg/dL Magnesium (1.8-2.4) mg/dl C-Reactive Protein (<1.0) mg/dL Vitamin D 25-Hydroxy 27.0 L (30.0-100.0) ng/ml Urine Color Yellow (Yellow) Urine Appearance Cloudy H (Clear) Urine pH 6.5 (5.0-8.0) Ur Specific [place] 1.015 (1.005-1.030) Urine Protein Trace H (Negative) Urine Glucose (UA) Negative (Negative) Urine Ketones Negative (Negative) Urine Occult Blood 2+ H (Negative) Urine Nitrite Negative (Negative) Urine Bilirubin Negative (Negative) Urine Urobilinogen 2.0 H (0.2-1.0) Ur Leukocyte Esterase 1+ H (Negative) Urine RBC 5-10 H (0-5) /hpf Urine WBC 5-10 H (0-5) /hpf Ur Epithelial Cells 5-10 H (0-5) /hpf Urine Bacteria Many H (FEW) /hpf Urine Mucus Not seen (FEW) /hpf 1209/28/20 09/28/20 Range/Units 04:44 04:44 04:44 WBC 6.41 (3.98-10.04) K/mm3 RBC 3.36 L (3.98-5.22) M/mm3 Hgb 10.1 L (11.2-15.7) gm/dl Hct 33.5 L (34.1-44.9) % MCV 99.7 H (79.4-94.8) fl MCH 30.1 (25.6-32.2) pg MCHC 30.1 L (32.2-35.5) g/dl RDW Std Deviation 56.6 H (36.4-46.3) fL Plt Count 78 L D (182-369) K/mm3 MPV 11.5 (9.4-12.3) fl Neut % (Auto) 67.8 (34.0-71.1) % Lymph % (Auto) 17.8 L (19.3-51.7) % [place] % (Auto) 10.8 (4.7-12.5) % Eos % (Auto) 3.0 (0.7-5.8) Baso % (Auto) 0.3 (0.1-1.2) % Neut # (Auto) 4.35 (1.56-6.13) K/mm3 Lymph # (Auto) 1.14 L (1.18-3.74) K/mm3 [place] # (Auto) 0.69 H (0.24-0.36) K/mm3 Eos # (Auto) 0.19 (0.04-0.36) K/mm3 Baso # (Auto) 0.02 (0.01-0.08) K/mm3 PT (9.7-12.0) SECONDS INR Sodium 145 (136-145) mEq/L Potassium 3.9 (3.5-5.1) mEq/L Chloride 106 (98-107) mEq/L Carbon Dioxide 32 (21-32) mEq/L Anion Gap 10.9 (5-15) BUN 20 H (7-18) mg/dL Creatinine 0.9 (0.55-1.02) mg/dL Est Cr Clr Drug Dosing 31.04 mL/min Estimated GFR (MDRD) 59 (>60) mL/min BUN/Creatinine Ratio 22.2 H (14-18) Glucose 107 (83-115) mg/dL Calcium 8.7 (8.5-10.1) mg/dL Magnesium 2.3 (1.8-2.4) mg/dl C-Reactive Protein 19.5 H* (<1.0) mg/dL Vitamin D 25-Hydroxy (30.0-100.0) ng/ml Urine Color (Yellow) Urine Appearance (Clear) Urine pH (5.0-8.0) Ur Specific [place] (1.005-1.030) Urine Protein (Negative) Urine Glucose (UA) (Negative) Urine Ketones (Negative) Urine Occult Blood (Negative) Urine Nitrite (Negative) Urine Bilirubin (Negative) Urine Urobilinogen (0.2-1.0) Ur Leukocyte Esterase (Negative) Urine RBC (0-5) /hpf Urine WBC (0-5) /hpf Ur Epithelial Cells (0-5) /hpf Urine Bacteria (FEW) /hpf Urine Mucus (FEW) /hpf [facility] Results Last 24 Hours: Microbiology 09/25/20 20:50 Aerobic Blood Culture - Preliminary Blood - Venous NO GROWTH AFTER 2 DAYS Anaerobic Blood Culture - Final 09/25/20 19:55 Aerobic Blood Culture - Preliminary Blood - Venous - Lab Draw NO GROWTH AFTER 2 DAYS Anaerobic Blood Culture - Preliminary NO GROWTH AFTER 2 DAYS Med Orders - Current: Current Medications Acetaminophen (Tylenol) 650 mg PO BEDTIME PRN PRN Reason: Pain Last Admin: 09/27/20 21:20 Dose: 650 mg Documented by: Acetaminophen (Tylenol) 650 mg PO TID@0900,1300,1700 [facility] Last Admin: 09/27/20 17:47 Dose: 650 mg Documented by: Hydrocodone Bitart/Acetaminophen ([place] 325-5 Mg) 1 tab PO Q4H PRN PRN Reason: Pain (moderate 4-6) Albuterol (Proventil Hfa) 0 gm INH Q6H PRN PRN Reason: Shortness of Breath Calcium Carbonate/Glycine (Tums) 500 mg PO QID PRN PRN Reason: Heartburn Last Admin: 09/27/20 14:11 Dose: 500 mg Documented by: Cholecalciferol (Vitamin D3) 5,000 unit PO DAILY [facility] Citalopram Hydrobromide (Celexa) 20 mg PO DAILY [facility] Last Admin: 09/27/20 08:30 Dose: 20 mg Documented by: Docusate Sodium (Colace) 100 mg PO DAILY [facility] Last Admin: 09/27/20 08:35 Dose: Not Given Documented by: Folic Acid (Folic Acid) 1 mg PO DAILY [facility] Last Admin: 09/27/20 08:31 Dose: 1 mg Documented by: Gabapentin (Neurontin) 100 mg PO TID [facility] Last Admin: 09/27/20 20:23 Dose: 100 mg Documented by: Levetiracetam (Keppra) 750 mg PO DAILY [facility] Last Admin: 09/27/20 08:29 Dose: 750 mg Documented by: Levetiracetam (Keppra) 1,000 mg PO BEDTIME [facility] Last Admin: 09/27/20 20:23 Dose: 1,000 mg Documented by: Levothyroxine Sodium (Synthroid) 100 mcg PO ACBREAKFAST [facility] Last Admin: 09/27/20 06:34 Dose: 100 mcg Documented by: Lidocaine (Aspercreme 4%) 1 each TOP DAILY [facility] Last Admin: 09/27/20 08:28 Dose: 1 each Documented by: Lorazepam (Ativan) 1 mg PO TID PRN PRN Reason: Seizures Losartan Potassium (Cozaar) 100 mg PO DAILY [facility] Last Admin: 09/26/20 08:54 Dose: 100 mg Documented by: Methyl Salicylate (Icy Hot Cream) 0 gm TOP Q6H PRN PRN Reason: Pain Last Admin: 09/26/20 08:51 Dose: 1 applic Documented by: Miscellaneous Information (Remove Patch) 0 ea TRDERM BEDTIME [facility] Last Admin: 09/27/20 20:25 Dose: 1 ea Documented by: Mometasone Furoate/Formoterol Fumar (Dulera 100-5 Mcg) 2 puff IH BID [facility] Last Admin: 09/27/20 20:24 Dose: 2 puff Documented by: Ondansetron HCl (Zofran) 4 mg IV Q4H PRN PRN Reason: Nausea/Vomiting Pantoprazole Sodium (Protonix) 40 mg PO DAILY@0700 [facility] Last Admin: 09/27/20 06:34 Dose: 40 mg Documented by: Tens Unit [Tens 502] (1 Dose) 0 each TOP DAILY [facility] Last Admin: 09/27/20 08:32 Dose: Not Given Documented by: Prednisone (Prednisone) 5 mg PO DAILY [facility] Last Admin: 09/27/20 08:31 Dose: 5 mg Documented by: Propranolol HCl (Inderal La) 120 mg PO DAILY [facility] Last Admin: 09/27/20 08:30 Dose: 120 mg Documented by: Simvastatin (Zocor) 20 mg PO PCDINNER [facility] Last Admin: 09/27/20 19:17 Dose: 20 mg Documented by: Sodium Chloride (Saline Flush) 10 ml FLUSH ASDIRECTED PRN PRN Reason: Keep Vein Open Last Admin: 09/25/20 09:55 Dose: 10 ml Documented by: Warfarin Sodium (Pharmacy To Dose - Warfarin) 0 dose .XX ASDIRECTED PRN PRN Reason: RX TO DOSE WARFARIN Discontinued Medications Acetaminophen (Tylenol) 975 mg PO NOW ONE Stop: 09/25/20 12:50 Last Admin: 09/25/20 12:56 Dose: 975 mg Documented by: Acetaminophen (Tylenol) 650 mg PO Q4H PRN PRN Reason: Pain (Mild 1-3)/fever Last Admin: 09/25/20 21:50 Dose: 650 mg Documented by: Clonazepam (Klonopin) 0.5 mg PO BEDTIME [facility] Last Admin: 09/26/20 23:03 Dose: 0.5 mg Documented by: Enoxaparin Sodium (Lovenox) 40 mg SUBCUT DAILY [facility] Last Admin: 09/26/20 08:52 Dose: 40 mg Documented by: Gabapentin (Neurontin) 300 mg PO TID [facility] Last Admin: 09/26/20 15:00 Dose: 300 mg Documented by: Sodium Chloride (Normal Saline) 500 mls @ 50 mls/hr IV ONETIME ONE Stop: 09/27/20 17:29 Last Admin: 09/27/20 08:28 Dose: 50 mls/hr Documented by: Levetiracetam (Keppra) Confirm Administered Dose 1,000 mg .ROUTE .STK-MED ONE Stop: 09/25/20 21:41 Last Admin: 09/25/20 21:50 Dose: 1,000 mg Documented by: Keppra 1000 Mg 0 each PO BEDTIME [facility] Last Admin: 09/25/20 21:53 Dose: Not Given Documented by: Keppra 750 Mg 0 each PO DAILY [facility] Last Admin: 09/26/20 10:18 Dose: Not Given Documented by: Warfarin Sodium (Coumadin) 4 mg PO QPM [facility] Stop: 09/25/20 21:00 Last Admin: 09/25/20 19:58 Dose: 4 mg Documented by: Warfarin Sodium (Coumadin) 2.5 mg PO 1800 [facility] Stop: 09/26/20 18:01 Last Admin: 09/26/20 17:07 Dose: 2.5 mg Documented by: Warfarin Sodium (Coumadin) 1 mg PO QPM [facility] Stop: 09/27/20 18:01 Last Admin: 09/27/20 17:47 Dose: 1 mg Documented by: - Exam Quality Assessment: Supplemental Oxygen General: Alert, Cooperative, No Acute Distress, Other (Obese) HEENT: Pupils Equal, Pupils Reactive, Mucous Membr. Moist/[place] Neck: Supple Lungs: Normal Respiratory Effort, Decreased Breath Sounds Cardiovascular: Regular Rate, Regular Rhythm GI/Abdominal Exam: Normal Bowel Sounds, Soft, Non-Tender, No Organomegaly, No Distention, No Abnormal Bruit, No Mass, Pelvis Stable (Female) Exam: Deferred Back Exam: Normal Inspection, Decreased Range of Motion Extremities: Normal Inspection, Normal Range of Motion, Non-Tender, No Pedal Edema, Normal Capillary Refill Peripheral Pulses: 1+: Dorsalis Pedis (L), Dorsalis Pedis (R) Skin: Warm, Dry, Intact Neurological: No New Focal Deficit Psy/Mental Status: Alert, Normal Affect, Normal Mood Sepsis Event Note - Evaluation Sepsis Screening Result: No Definite Risk - Focused Exam Vital Signs: Vital Signs Temp Pulse Resp BP Pulse Ox Pulse Ox 09/28/20 06:30 98 09/28/20 03:51 36.4 C 70 18 144/73 H 95 09/28/20 00:01 36.5 C 63 20 140/96 H 94 L 09/27/20 20:24 96 09/27/20 20:22 36.6 C 69 16 123/57 L 96 - Problem List Review Problem List Initiated/Reviewed/Updated: Yes - My Orders Last 24 Hours: My Active Orders 09/28/20 04:44 CBC WITH AUTO DIFF [HEME] AM 09/28/20 09:00 Cholecalciferol (Vitamin D3) [Vitamin D3] 5,000 unit PO DAILY 09/29/20 05:11 BMP [BASIC METABOLIC PANEL,BMP] [CHEM] AM CBC WITH AUTO DIFF [HEME] AM MG [MAGNESIUM] [CHEM] AM 09/30/20 05:11 BMP [BASIC METABOLIC PANEL,BMP] [CHEM] AM CBC WITH AUTO DIFF [HEME] AM MG [MAGNESIUM] [CHEM] AM 10/01/20 05:11 BMP [BASIC METABOLIC PANEL,BMP] [CHEM] AM CBC WITH AUTO DIFF [HEME] AM MG [MAGNESIUM] [CHEM] AM 10/02/20 05:11 BMP [BASIC METABOLIC PANEL,BMP] [CHEM] AM CBC WITH AUTO DIFF [HEME] AM MG [MAGNESIUM] [CHEM] AM 10/03/20 05:11 BMP [BASIC METABOLIC PANEL,BMP] [CHEM] AM CBC WITH AUTO DIFF [HEME] AM MG [MAGNESIUM] [CHEM] AM - Assessment Assessment:: Assessment: Acute: Failure to thrive Generalized Weakness, improved Hypoxia on, remains on 2L NC Recent Covid-19 Infection Leukocytosis, POA, resolved Macrocytic Hypochromic Anemia with Hgb of 10.3, POA Mild Thrombocytopenia, POA, improved S/p Subtherapeutic INR on Warfarin Therapeutic INR Metabolic Alkalosis with full respiratory compensation, POA Hypoalbuminemia, POA Polypharmacy, POA Vitamin D Deficiency Thyroid Medicine Toxicity Chronic: Impaired vision HTN HLD Chronic afib, on warfarin PUD Hx/o renal stones OA Osteoporosis Back and left shoulder pain Seizure Hypothyroidism Obesity Hx/o Malignant melanoma - Plan Plan:: Plan: Continue current treatment Consider discontinuing Klonopin at QHS and keep Ativan po TID Continue PT/OT consult Routine AM Labs medical services assistant and discharge planning VTE prophylaxis with Lovenox 40 mg subcu daily until INR is 2.0 or greater Encourage to use IS as directed INR level in AM Vit D supplement Hold Levothyroxine dose Change gabapentin to 100 mg from 300 mg po TID Resume Warfarin per pharmacy to dose LOS> 96 hrs pending placement to SNF with PT/OT due to generalized weakness CODE STATUS: DNR/DNI 2200: Patient heart rate has been dipping down in the 30s. She is asymptomatic. She takes Inderal 120 mg LA BID. We will order EKG and cut dose to 60 mg po BID.
[2020-09-28] MEDS: Pantoprazole 40 MG Tab.CR PO SCH (06:50)
[2020-09-28] MEDS: Formoterol/Mometasone 100-5 MCG 8.8 GM Inhaler IH SCH ×2 (08:00→20:31)
[2020-09-28] MEDS: Propranolol 60 MG Cap.ER PO SCH (08:12)
[2020-09-28] MEDS: levETIRAcetam 500 MG Tab PO SCH ×2 (08:14→21:18)
[2020-09-28] MEDS: Gabapentin 100 MG Cap PO SCH ×3 (08:15→21:17)
[2020-09-28] MEDS: Folic Acid 1 MG Tab PO SCH (08:15)
[2020-09-28] MEDS: Acetaminophen 325 MG Tab PO SCH ×3 (08:15→16:22)
[2020-09-28] MEDS: Citalopram 20 MG Tab PO SCH (08:15)
[2020-09-28] MEDS: Docusate Sodium 100 MG Cap PO SCH (08:15)
[2020-09-28] MEDS: Cholecalciferol (Vitamin D3) 5,000 UNIT Cap PO SCH (08:15)
[2020-09-28] MEDS: Lidocaine 4% 1 each Patch TOP SCH (08:16)
[2020-09-28] MEDS: predniSONE 5 MG Tab PO SCH (08:16)
[2020-09-28] MEDS: Menthol/Methyl Salicylate 85 GM Tube TOP PRN (08:16)
[2020-09-28] MEDS: [UNRECOGNIZED DRUG - OTHER] TOP SCH (08:22)
[2020-09-28] MEDS: Losartan 100 MG Tab PO SCH (08:26)
[2020-09-28] MEDS ORDERED: Warfarin Sliding Scale PO SCH (18:00)
[2020-09-28] MEDS: Simvastatin 20 MG Tab PO SCH (18:46)
[2020-09-28] MEDS: Acetaminophen 325 MG Tab PO PRN (23:22)
[2020-09-29] MEDS: Pantoprazole 40 MG Tab.CR PO SCH (06:02)
[2020-09-29] MEDS: Formoterol/Mometasone 100-5 MCG 8.8 GM Inhaler IH SCH ×2 (08:10→20:17)
[2020-09-29] MEDS: Gabapentin 100 MG Cap PO SCH ×3 (08:51→20:33)
[2020-09-29] MEDS: Folic Acid 1 MG Tab PO SCH (08:51)
[2020-09-29] MEDS: Cholecalciferol (Vitamin D3) 5,000 UNIT Cap PO SCH (08:51)
[2020-09-29] MEDS: Citalopram 20 MG Tab PO SCH (08:52)
[2020-09-29] MEDS: levETIRAcetam 500 MG Tab PO SCH ×2 (08:52→20:33)
[2020-09-29] MEDS: Docusate Sodium 100 MG Cap PO SCH (08:52)
[2020-09-29] MEDS: predniSONE 5 MG Tab PO SCH (08:52)
[2020-09-29] MEDS: Acetaminophen 325 MG Tab PO SCH ×3 (08:53→19:40)
[2020-09-29] MEDS: Losartan 100 MG Tab PO SCH (08:54)
[2020-09-29] MEDS: Lidocaine 4% 1 each Patch TOP SCH (08:55)
[2020-09-29] MEDS ORDERED: Propranolol 60 MG Cap.ER PO SCH (09:00)
[2020-09-29] MEDS: [UNRECOGNIZED DRUG - OTHER] TOP SCH (09:50)
--- NOTE | 2020-09-29 12:11 | PCM.PN ---
<Lyric Sweeney Bonnie - Last Filed: 09/29/20 12:44> - General Info Date of Service: 09/29/20 Subjective Update: 09/28 No significant overnight or acute issues. She feels better this AM. She is eating adequately and no issues. However she reports having right eye ache but w/o vision changes, dryness or murray-orbital signs of injury or trauma. No stroke like symptoms. She is afebrile and her leukocytosis resolved. Her FT4 is considerably elevated and Vit D level is low. 09/29 Patient had an uneventful night. She states she is feeling better this morning. She did not mention any eye pain this morning. She states she has a good appetite. She is afebrile without leukocytosis. Repeat labs showed PT of 42.9 and INR 4.12. Hgb dropped to 9.2 from 10.1. Functional Status: Reports: Pain Controlled, Tolerating Diet - Review of Systems General: Reports: No Symptoms HEENT: Reports: No Symptoms Pulmonary: Reports: No Symptoms Cardiovascular: Reports: No Symptoms Gastrointestinal: Reports: No Symptoms Genitourinary: Reports: No Symptoms Musculoskeletal: Reports: No Symptoms Skin: Reports: No Symptoms Neurological: Reports: No Symptoms Psychiatric: Reports: No Symptoms - Patient Data Vitals - Most Recent: Last Vital Signs Temp 97.9 F 09/29/20 08:53 Pulse 72 09/29/20 08:53 Resp 20 09/29/20 08:53 BP 146/87 H 09/29/20 08:54 Pulse Ox 96 09/29/20 08:53 Weight - Most Recent: 78.109 kg I&O - Last 24 Hours: Intake & Output 09/28/20 09/29/20 09/29/20 22:59 06:59 14:59 Intake Total 1940 300 Output Total 1475 450 Balance 465 -150 Lab Results Last 24 Hours: Laboratory Results - last 24 hr 09/29/20 09/29/20 09/29/20 Range/Units 04:58 04:58 04:58 WBC 6.68 (3.98-10.04) K/mm3 RBC 3.08 L (3.98-5.22) M/mm3 Hgb 9.2 L (11.2-15.7) gm/dl Hct 31.2 L (34.1-44.9) % MCV 101.3 H (79.4-94.8) fl MCH 29.9 (25.6-32.2) pg MCHC 29.5 L (32.2-35.5) g/dl RDW Std Deviation 57.9 H (36.4-46.3) fL Plt Count 156 L (182-369) K/mm3 MPV 11.1 (9.4-12.3) fl Neut % (Auto) 59.1 (34.0-71.1) % Lymph % (Auto) 27.7 (19.3-51.7) % [place] % (Auto) 9.4 (4.7-12.5) % Eos % (Auto) 3.1 (0.7-5.8) Baso % (Auto) 0.6 (0.1-1.2) % Neut # (Auto) 3.94 (1.56-6.13) K/mm3 Lymph # (Auto) 1.85 (1.18-3.74) K/mm3 [place] # (Auto) 0.63 H (0.24-0.36) K/mm3 Eos # (Auto) 0.21 (0.04-0.36) K/mm3 Baso # (Auto) 0.04 (0.01-0.08) K/mm3 Manual Slide Review Abnormal smear PT 42.9 H (9.7-12.0) SECONDS INR 4.12 D-Dimer, Quantitative (0.19-0.50) mg/L Sodium 149 H (136-145) mEq/L Potassium 3.8 (3.5-5.1) mEq/L Chloride 110 H (98-107) mEq/L Carbon Dioxide 33 H (21-32) mEq/L Anion Gap 9.8 (5-15) BUN 14 (7-18) mg/dL Creatinine 0.8 (0.55-1.02) mg/dL Est Cr Clr Drug Dosing 34.91 mL/min Estimated GFR (MDRD) > 60 (>60) mL/min BUN/Creatinine Ratio 17.5 (14-18) Glucose 89 (83-115) mg/dL Serum Osmolality (280-300) mosm/kg Calcium 8.6 (8.5-10.1) mg/dL Magnesium 2.1 (1.8-2.4) mg/dl Iron (50-170) ug/dL TIBC (100-400) ug/dL % Saturation (20-55) % Transferrin (202-364) mg/dL 09/29/20 09/29/20 09/29/20 Range/Units 04:58 04:58 10:50 WBC (3.98-10.04) K/mm3 RBC (3.98-5.22) M/mm3 Hgb (11.2-15.7) gm/dl Hct (34.1-44.9) % MCV (79.4-94.8) fl MCH (25.6-32.2) pg MCHC (32.2-35.5) g/dl RDW Std Deviation (36.4-46.3) fL Plt Count (182-369) K/mm3 MPV (9.4-12.3) fl Neut % (Auto) (34.0-71.1) % Lymph % (Auto) (19.3-51.7) % [place] % (Auto) (4.7-12.5) % Eos % (Auto) (0.7-5.8) Baso % (Auto) (0.1-1.2) % Neut # (Auto) (1.56-6.13) K/mm3 Lymph # (Auto) (1.18-3.74) K/mm3 [place] # (Auto) (0.24-0.36) K/mm3 Eos # (Auto) (0.04-0.36) K/mm3 Baso # (Auto) (0.01-0.08) K/mm3 Manual Slide Review PT (9.7-12.0) SECONDS INR D-Dimer, Quantitative 0.95 H (0.19-0.50) mg/L Sodium (136-145) mEq/L Potassium (3.5-5.1) mEq/L Chloride (98-107) mEq/L Carbon Dioxide (21-32) mEq/L Anion Gap (5-15) BUN (7-18) mg/dL Creatinine (0.55-1.02) mg/dL Est Cr Clr Drug Dosing mL/min Estimated GFR (MDRD) (>60) mL/min BUN/Creatinine Ratio (14-18) Glucose (83-115) mg/dL Serum Osmolality 309 H (280-300) mosm/kg Calcium (8.5-10.1) mg/dL Magnesium (1.8-2.4) mg/dl Iron 56 (50-170) ug/dL TIBC 156 (100-400) ug/dL % Saturation 36 (20-55) % Transferrin 125 L (202-364) mg/dL Adarsh Results Last 24 Hours: Microbiology 09/25/20 20:50 Aerobic Blood Culture - Preliminary Blood - Venous NO GROWTH AFTER 3 DAYS Anaerobic Blood Culture - Final 09/25/20 19:55 Aerobic Blood Culture - Preliminary Blood - Venous - Lab Draw NO GROWTH AFTER 3 DAYS Anaerobic Blood Culture - Preliminary NO GROWTH AFTER 3 DAYS Med Orders - Current: Current Medications Acetaminophen (Tylenol) 650 mg PO BEDTIME PRN PRN Reason: Pain Last Admin: 09/28/20 23:22 Dose: 650 mg Documented by: Acetaminophen (Tylenol) 650 mg PO TID@0900,1300,1700 [facility] Last Admin: 09/29/20 08:53 Dose: 650 mg Documented by: Hydrocodone Bitart/Acetaminophen ([place] 325-5 Mg) 1 tab PO Q4H PRN PRN Reason: Pain (moderate 4-6) Albuterol (Proventil Hfa) 0 gm INH Q6H PRN PRN Reason: Shortness of Breath Calcium Carbonate/Glycine (Tums) 500 mg PO QID PRN PRN Reason: Heartburn Last Admin: 09/27/20 14:11 Dose: 500 mg Documented by: Cholecalciferol (Vitamin D3) 5,000 unit PO DAILY [facility] Last Admin: 09/29/20 08:51 Dose: 5,000 unit Documented by: Citalopram Hydrobromide (Celexa) 20 mg PO DAILY [facility] Last Admin: 09/29/20 08:52 Dose: 20 mg Documented by: Docusate Sodium (Colace) 100 mg PO DAILY [facility] Last Admin: 09/29/20 08:52 Dose: 100 mg Documented by: Folic Acid (Folic Acid) 1 mg PO DAILY [facility] Last Admin: 09/29/20 08:51 Dose: 1 mg Documented by: Gabapentin (Neurontin) 100 mg PO TID [facility] Last Admin: 09/29/20 08:51 Dose: 100 mg Documented by: Levetiracetam (Keppra) 750 mg PO DAILY [facility] Last Admin: 12/11/20 08:52 Dose: 750 mg Documented by: Levetiracetam (Keppra) 1,000 mg PO BEDTIME [facility] Last Admin: 09/28/20 21:18 Dose: 1,000 mg Documented by: Levothyroxine Sodium (Synthroid) 100 mcg PO ACBREAKFAST [facility] Last Admin: 09/27/20 06:34 Dose: 100 mcg Documented by: Lidocaine (Aspercreme 4%) 1 each TOP DAILY [facility] Last Admin: 09/29/20 08:55 Dose: 1 each Documented by: Lorazepam (Ativan) 1 mg PO TID PRN PRN Reason: Seizures Losartan Potassium (Cozaar) 100 mg PO DAILY [facility] Last Admin: 09/29/20 08:54 Dose: 100 mg Documented by: Methyl Salicylate (Icy Hot Cream) 0 gm TOP Q6H PRN PRN Reason: Pain Last Admin: 09/28/20 08:16 Dose: 1 applic Documented by: Miscellaneous Information (Remove Patch) 0 ea TRDERM BEDTIME [facility] Last Admin: 09/28/20 22:00 Dose: 1 ea Documented by: Mometasone Furoate/Formoterol Fumar (Dulera 100-5 Mcg) 2 puff IH BID [facility] Last Admin: 09/29/20 08:10 Dose: 2 puff Documented by: Ondansetron HCl (Zofran) 4 mg IV Q4H PRN PRN Reason: Nausea/Vomiting Pantoprazole Sodium (Protonix) 40 mg PO DAILY@0700 [facility] Last Admin: 09/29/20 06:02 Dose: 40 mg Documented by: Tens Unit [Tens 502] (1 Dose) 0 each TOP DAILY [facility] Last Admin: 09/29/20 09:50 Dose: Not Given Documented by: Prednisone (Prednisone) 5 mg PO DAILY [facility] Last Admin: 09/29/20 08:52 Dose: 5 mg Documented by: Propranolol HCl (Inderal La) 60 mg PO DAILY [facility] Last Admin: 09/29/20 08:54 Dose: 60 mg Documented by: Simvastatin (Zocor) 20 mg PO PCDINNER [facility] Last Admin: 09/28/20 18:46 Dose: 20 mg Documented by: Sodium Chloride (Saline Flush) 10 ml FLUSH ASDIRECTED PRN PRN Reason: Keep Vein Open Last Admin: 09/25/20 09:55 Dose: 10 ml Documented by: Warfarin Sodium (Pharmacy To Dose - Warfarin) 0 dose .XX ASDIRECTED PRN PRN Reason: RX TO DOSE WARFARIN Warfarin Sodium (Coumadin Sliding Scale) 0 each PO QPM [facility] Stop: 09/29/20 18:01 Discontinued Medications Acetaminophen (Tylenol) 975 mg PO NOW ONE Stop: 09/25/20 12:50 Last Admin: 09/25/20 12:56 Dose: 975 mg Documented by: Acetaminophen (Tylenol) 650 mg PO Q4H PRN PRN Reason: Pain (Mild 1-3)/fever Last Admin: 09/25/20 21:50 Dose: 650 mg Documented by: Clonazepam (Klonopin) 0.5 mg PO BEDTIME [facility] Last Admin: 09/26/20 23:03 Dose: 0.5 mg Documented by: Enoxaparin Sodium (Lovenox) 40 mg SUBCUT DAILY [facility] Last Admin: 09/26/20 08:52 Dose: 40 mg Documented by: Gabapentin (Neurontin) 300 mg PO TID [facility] Last Admin: 09/26/20 15:00 Dose: 300 mg Documented by: Sodium Chloride (Normal Saline) 500 mls @ 50 mls/hr IV ONETIME ONE Stop: 09/27/20 17:29 Last Admin: 09/27/20 08:28 Dose: 50 mls/hr Documented by: Levetiracetam (Keppra) Confirm Administered Dose 1,000 mg .ROUTE .STK-MED ONE Stop: 09/25/20 21:41 Last Admin: 09/25/20 21:50 Dose: 1,000 mg Documented by: Keppra 1000 Mg 0 each PO BEDTIME [facility] Last Admin: 09/25/20 21:53 Dose: Not Given Documented by: Keppra 750 Mg 0 each PO DAILY [facility] Last Admin: 09/26/20 10:18 Dose: Not Given Documented by: Propranolol HCl (Inderal La) 120 mg PO DAILY [facility] Last Admin: 09/28/20 08:12 Dose: 120 mg Documented by: Warfarin Sodium (Coumadin) 4 mg PO QPM [facility] Stop: 09/25/20 21:00 Last Admin: 09/25/20 19:58 Dose: 4 mg Documented by: Warfarin Sodium (Coumadin) 2.5 mg PO 1800 [facility] Stop: 09/26/20 18:01 Last Admin: 09/26/20 17:07 Dose: 2.5 mg Documented by: Warfarin Sodium (Coumadin) 1 mg PO QPM [facility] Stop: 09/27/20 18:01 Last Admin: 09/27/20 17:47 Dose: 1 mg Documented by: Warfarin Sodium (Coumadin Sliding Scale) 0 each PO QPM [facility] Stop: 09/28/20 18:01 Last Admin: 09/28/20 18:35 Dose: Not Given Documented by: - Exam Quality Assessment: Supplemental Oxygen General: Alert, Oriented HEENT: Pupils Equal, Pupils Reactive, EOMI, Mucous Membr. Moist/[place] Neck: Supple Lungs: Normal Respiratory Effort, Decreased Breath Sounds Cardiovascular: Regular Rate, Regular Rhythm GI/Abdominal Exam: Normal Bowel Sounds, Soft, Non-Tender Extremities: Normal Inspection, Normal Range of Motion Skin: Warm, Dry, Intact Neurological: No New Focal Deficit Psy/Mental Status: Alert, Normal Affect, Normal Mood Sepsis Event Note - Evaluation Sepsis Screening Result: No Definite Risk - Focused Exam Vital Signs: Vital Signs Temp Pulse Resp BP Pulse Ox Pulse Ox 09/29/20 08:54 146/87 H 09/29/20 08:53 97.9 F 72 20 146/87 H 96 09/29/20 08:11 99 09/29/20 06:01 97.9 F 69 18 138/67 96 - Problem List & Annotations (1) Hypernatremia SNOMED Code(s): 255976983 Code(s): E87.0 - HYPEROSMOLALITY AND HYPERNATREMIA Status: Acute Priority: Medium Current Visit: Yes Annotation/Comment:: Na today was up to 149 from 145. (2) Elevated d-dimer SNOMED Code(s): 094683803 Code(s): R79.89 - OTHER SPECIFIED ABNORMAL FINDINGS OF BLOOD CHEMISTRY Status: Acute Priority: Medium Current Visit: Yes Annotation/Comment:: D- dimer is mildly elevated at 0.95 (3) Failure to thrive SNOMED Code(s): 05201178 Code(s): SQL6079 - Status: Acute Priority: Medium Current Visit: Yes Qualifiers: Failure to thrive age range: in adult Qualified Code(s): R62.7 - Adult failure to thrive (4) Generalized weakness SNOMED Code(s): 72599094 Code(s): R53.1 - WEAKNESS Status: Acute Priority: Medium Current Visit: Yes Annotation/Comment:: patient states she is feeling better and would like to go home soon (5) Hypoxia SNOMED Code(s): 987791410 Code(s): R09.02 - HYPOXEMIA Status: Acute Priority: Medium Current Visit: Yes Annotation/Comment:: on 2 L O2 by nasal canula. Sats at 96% (6) Macrocytic anemia SNOMED Code(s): 81501726 Code(s): D53.9 - NUTRITIONAL ANEMIA, UNSPECIFIED Status: Acute Priority: Medium Current Visit: Yes Annotation/Comment:: RBCs droped from 3.36 to 3.08. MCV is 101 which is elevated from 99. Hgb dropped from 10.1 to 9.2 - Problem List Review Problem List Initiated/Reviewed/Updated: Yes - Assessment Assessment:: 09/28 Assessment: Acute: Failure to thrive Generalized Weakness, improved Hypoxia on, remains on 2L NC Recent Covid-19 Infection Leukocytosis, POA, resolved Macrocytic Hypochromic Anemia with Hgb of 10.3, POA Mild Thrombocytopenia, POA, improved S/p Subtherapeutic INR on Warfarin Therapeutic INR Metabolic Alkalosis with full respiratory compensation, POA Hypoalbuminemia, POA Polypharmacy, POA Vitamin D Deficiency Thyroid Medicine Toxicity Chronic: Impaired vision HTN HLD Chronic afib, on warfarin PUD Hx/o renal stones OA Osteoporosis Back and left shoulder pain Seizure Hypothyroidism Obesity Hx/o Malignant melanoma 09/29 Patient states she is feeling better today and has more strength. Patient remains on 2 L O2 by nasal canula. Patient denies shortness of breath Recent COVID infection Macrocytic Hypochromic [place] with Hbg of 9.2 which dropped from 10.3 INR increased to 4.12 PT is 42.9 Hypernatremia at 149. This has mildly increased from yesterday as it was 145 Chloride was elevated at 110 CRP has decreased from 30.7 to 19.5 Transferrin is low at 125 Metabolic Alkalosis with full respiratory compensation Vitamin D deficiency Thyroid Medicine Toxicity - Plan Plan:: 09/28 Plan: Continue current treatment Consider discontinuing Klonopin at QHS and keep Ativan po TID Continue PT/OT consult Routine AM Labs instructor ground services and discharge planning VTE prophylaxis with Lovenox 40 mg subcu daily until INR is 2.0 or greater Encourage to use IS as directed INR level in AM Vit D supplement Hold Levothyroxine dose Change gabapentin to 100 mg from 300 mg po TID Resume Warfarin per pharmacy to dose LOS> 96 hrs pending placement to SNF with PT/OT due to generalized weakness CODE STATUS: DNR/DNI 2200: Patient heart rate has been dipping down in the 30s. She is asymptomatic. She takes Inderal 120 mg LA BID. We will order EKG and cut dose to 60 mg po BID. 09/29: Echo ordered for this morning for bradycardia Continue on current treatment. Continue PT/OT as tolerated. Social work has contacted [facility] and they agreed to take her when medically permitted. CODE STATUS: DNR/DNI <Naun Santiago E - Last Filed: 09/29/20 13:37> - Patient Data Vitals - Most Recent: Last Vital Signs Temp 36.6 C 09/29/20 08:53 Pulse 72 09/29/20 08:53 Resp 20 09/29/20 08:53 BP 146/87 H 09/29/20 08:54 Pulse Ox 96 09/29/20 08:53 I&O - Last 24 Hours: Intake & Output 09/28/20 09/29/20 09/29/20 22:59 06:59 14:59 Intake Total 1940 300 Output Total 1475 450 Balance 465 -150 Lab Results Last 24 Hours: Laboratory Results - last 24 hr 09/29/20 09/29/20 09/29/20 Range/Units 04:58 04:58 04:58 WBC 6.68 (3.98-10.04) K/mm3 RBC 3.08 L (3.98-5.22) M/mm3 Hgb 9.2 L (11.2-15.7) gm/dl Hct 31.2 L (34.1-44.9) % MCV 101.3 H (79.4-94.8) fl MCH 29.9 (25.6-32.2) pg MCHC 29.5 L (32.2-35.5) g/dl RDW Std Deviation 57.9 H (36.4-46.3) fL Plt Count 156 L (182-369) K/mm3 MPV 11.1 (9.4-12.3) fl Neut % (Auto) 59.1 (34.0-71.1) % Lymph % (Auto) 27.7 (19.3-51.7) % [place] % (Auto) 9.4 (4.7-12.5) % Eos % (Auto) 3.1 (0.7-5.8) Baso % (Auto) 0.6 (0.1-1.2) % Neut # (Auto) 3.94 (1.56-6.13) K/mm3 Lymph # (Auto) 1.85 (1.18-3.74) K/mm3 [place] # (Auto) 0.63 H (0.24-0.36) K/mm3 Eos # (Auto) 0.21 (0.04-0.36) K/mm3 Baso # (Auto) 0.04 (0.01-0.08) K/mm3 Manual Slide Review Abnormal smear PT 42.9 H (9.7-12.0) SECONDS INR 4.12 D-Dimer, Quantitative (0.19-0.50) mg/L Sodium 149 H (136-145) mEq/L Potassium 3.8 (3.5-5.1) mEq/L Chloride 110 H (98-107) mEq/L Carbon Dioxide 33 H (21-32) mEq/L Anion Gap 9.8 (5-15) BUN 14 (7-18) mg/dL Creatinine 0.8 (0.55-1.02) mg/dL Est Cr Clr Drug Dosing 34.91 mL/min Estimated GFR (MDRD) > 60 (>60) mL/min BUN/Creatinine Ratio 17.5 (14-18) Glucose 89 (83-115) mg/dL Serum Osmolality (280-300) mosm/kg Calcium 8.6 (8.5-10.1) mg/dL Magnesium 2.1 (1.8-2.4) mg/dl Iron (50-170) ug/dL TIBC (100-400) ug/dL % Saturation (20-55) % Transferrin (202-364) mg/dL NT-Pro-B Natriuret Pep (0-450) pg/mL 09/29/20 09/29/20 09/29/20 Range/Units 04:58 04:58 10:50 WBC (3.98-10.04) K/mm3 RBC (3.98-5.22) M/mm3 Hgb (11.2-15.7) gm/dl Hct (34.1-44.9) % MCV (79.4-94.8) fl MCH (25.6-32.2) pg MCHC (32.2-35.5) g/dl RDW Std Deviation (36.4-46.3) fL Plt Count (182-369) K/mm3 MPV (9.4-12.3) fl Neut % (Auto) (34.0-71.1) % Lymph % (Auto) (19.3-51.7) % [place] % (Auto) (4.7-12.5) % Eos % (Auto) (0.7-5.8) Baso % (Auto) (0.1-1.2) % Neut # (Auto) (1.56-6.13) K/mm3 Lymph # (Auto) (1.18-3.74) K/mm3 [place] # (Auto) (0.24-0.36) K/mm3 Eos # (Auto) (0.04-0.36) K/mm3 Baso # (Auto) (0.01-0.08) K/mm3 Manual Slide Review PT (9.7-12.0) SECONDS INR D-Dimer, Quantitative 0.95 H (0.19-0.50) mg/L Sodium (136-145) mEq/L Potassium (3.5-5.1) mEq/L Chloride (98-107) mEq/L Carbon Dioxide (21-32) mEq/L Anion Gap (5-15) BUN (7-18) mg/dL Creatinine (0.55-1.02) mg/dL Est Cr Clr Drug Dosing mL/min Estimated GFR (MDRD) (>60) mL/min BUN/Creatinine Ratio (14-18) Glucose (83-115) mg/dL Serum Osmolality 309 H (280-300) mosm/kg Calcium (8.5-10.1) mg/dL Magnesium (1.8-2.4) mg/dl Iron 56 (50-170) ug/dL TIBC 156 (100-400) ug/dL % Saturation 36 (20-55) % Transferrin 125 L (202-364) mg/dL NT-Pro-B Natriuret Pep (0-450) pg/mL 09/29/20 Range/Units 10:50 WBC (3.98-10.04) K/mm3 RBC (3.98-5.22) M/mm3 Hgb (11.2-15.7) gm/dl Hct (34.1-44.9) % MCV (79.4-94.8) fl MCH (25.6-32.2) pg MCHC (32.2-35.5) g/dl RDW Std Deviation (36.4-46.3) fL Plt Count (182-369) K/mm3 MPV (9.4-12.3) fl Neut % (Auto) (34.0-71.1) % Lymph % (Auto) (19.3-51.7) % [place] % (Auto) (4.7-12.5) % Eos % (Auto) (0.7-5.8) Baso % (Auto) (0.1-1.2) % Neut # (Auto) (1.56-6.13) K/mm3 Lymph # (Auto) (1.18-3.74) K/mm3 [place] # (Auto) (0.24-0.36) K/mm3 Eos # (Auto) (0.04-0.36) K/mm3 Baso # (Auto) (0.01-0.08) K/mm3 Manual Slide Review PT (9.7-12.0) SECONDS INR D-Dimer, Quantitative (0.19-0.50) mg/L Sodium (136-145) mEq/L Potassium (3.5-5.1) mEq/L Chloride (98-107) mEq/L Carbon Dioxide (21-32) mEq/L Anion Gap (5-15) BUN (7-18) mg/dL Creatinine (0.55-1.02) mg/dL Est Cr Clr Drug Dosing mL/min Estimated GFR (MDRD) (>60) mL/min BUN/Creatinine Ratio (14-18) Glucose (83-115) mg/dL Serum Osmolality (280-300) mosm/kg Calcium (8.5-10.1) mg/dL Magnesium (1.8-2.4) mg/dl Iron (50-170) ug/dL TIBC (100-400) ug/dL % Saturation (20-55) % Transferrin (202-364) mg/dL NT-Pro-B Natriuret Pep 5596 H (0-450) pg/mL Adarsh Results Last 24 Hours: Microbiology 09/25/20 20:50 Aerobic Blood Culture - Preliminary Blood - Venous NO GROWTH AFTER 3 DAYS Anaerobic Blood Culture - Final 09/25/20 19:55 Aerobic Blood Culture - Preliminary Blood - Venous - Lab Draw NO GROWTH AFTER 3 DAYS Anaerobic Blood Culture - Preliminary NO GROWTH AFTER 3 DAYS Med Orders - Current: Current Medications Acetaminophen (Tylenol) 650 mg PO BEDTIME PRN PRN Reason: Pain Last Admin: 09/28/20 23:22 Dose: 650 mg Documented by: Acetaminophen (Tylenol) 650 mg PO TID@0900,1300,1700 [facility] Last Admin: 09/29/20 08:53 Dose: 650 mg Documented by: Hydrocodone Bitart/Acetaminophen ([place] 325-5 Mg) 1 tab PO Q4H PRN PRN Reason: Pain (moderate 4-6) Albuterol (Proventil Hfa) 0 gm INH Q6H PRN PRN Reason: Shortness of Breath Calcium Carbonate/Glycine (Tums) 500 mg PO QID PRN PRN Reason: Heartburn Last Admin: 09/27/20 14:11 Dose: 500 mg Documented by: Cholecalciferol (Vitamin D3) 5,000 unit PO DAILY [facility] Last Admin: 09/29/20 08:51 Dose: 5,000 unit Documented by: Citalopram Hydrobromide (Celexa) 20 mg PO DAILY [facility] Last Admin: 09/29/20 08:52 Dose: 20 mg Documented by: Docusate Sodium (Colace) 100 mg PO DAILY [facility] Last Admin: 09/29/20 08:52 Dose: 100 mg Documented by: Folic Acid (Folic Acid) 1 mg PO DAILY [facility] Last Admin: 09/29/20 08:51 Dose: 1 mg Documented by: Gabapentin (Neurontin) 100 mg PO TID [facility] Last Admin: 09/29/20 08:51 Dose: 100 mg Documented by: Levetiracetam (Keppra) 750 mg PO DAILY [facility] Last Admin: 09/29/20 08:52 Dose: 750 mg Documented by: Levetiracetam (Keppra) 1,000 mg PO BEDTIME [facility] Last Admin: 09/28/20 21:18 Dose: 1,000 mg Documented by: Levothyroxine Sodium (Synthroid) 100 mcg PO ACBREAKFAST [facility] Last Admin: 09/27/20 06:34 Dose: 100 mcg Documented by: Lidocaine (Aspercreme 4%) 1 each TOP DAILY [facility] Last Admin: 09/29/20 08:55 Dose: 1 each Documented by: Lorazepam (Ativan) 1 mg PO TID PRN PRN Reason: Seizures Losartan Potassium (Cozaar) 100 mg PO DAILY [facility] Last Admin: 09/29/20 08:54 Dose: 100 mg Documented by: Methyl Salicylate (Icy Hot Cream) 0 gm TOP Q6H PRN PRN Reason: Pain Last Admin: 09/28/20 08:16 Dose: 1 applic Documented by: Miscellaneous Information (Remove Patch) 0 ea TRDERM BEDTIME [facility] Last Admin: 09/28/20 22:00 Dose: 1 ea Documented by: Mometasone Furoate/Formoterol Fumar (Dulera 100-5 Mcg) 2 puff IH BID [facility] Last Admin: 09/29/20 08:10 Dose: 2 puff Documented by: Ondansetron HCl (Zofran) 4 mg IV Q4H PRN PRN Reason: Nausea/Vomiting Pantoprazole Sodium (Protonix) 40 mg PO DAILY@0700 [facility] Last Admin: 09/29/20 06:02 Dose: 40 mg Documented by: Tens Unit [Tens 502] (1 Dose) 0 each TOP DAILY [facility] Last Admin: 09/29/20 09:50 Dose: Not Given Documented by: Prednisone (Prednisone) 5 mg PO DAILY [facility] Last Admin: 09/29/20 08:52 Dose: 5 mg Documented by: Propranolol HCl (Inderal La) 60 mg PO DAILY [facility] Last Admin: 09/29/20 08:54 Dose: 60 mg Documented by: Simvastatin (Zocor) 20 mg PO PCDINNER [facility] Last Admin: 09/28/20 18:46 Dose: 20 mg Documented by: Sodium Chloride (Saline Flush) 10 ml FLUSH ASDIRECTED PRN PRN Reason: Keep Vein Open Last Admin: 09/25/20 09:55 Dose: 10 ml Documented by: Warfarin Sodium (Pharmacy To Dose - Warfarin) 0 dose .XX ASDIRECTED PRN PRN Reason: RX TO DOSE WARFARIN Warfarin Sodium (Coumadin Sliding Scale) 0 each PO QPM [facility] Stop: 09/29/20 18:01 Discontinued Medications Acetaminophen (Tylenol) 975 mg PO NOW ONE Stop: 09/25/20 12:50 Last Admin: 09/25/20 12:56 Dose: 975 mg Documented by: Acetaminophen (Tylenol) 650 mg PO Q4H PRN PRN Reason: Pain (Mild 1-3)/fever Last Admin: 09/25/20 21:50 Dose: 650 mg Documented by: Clonazepam (Klonopin) 0.5 mg PO BEDTIME [facility] Last Admin: 09/26/20 23:03 Dose: 0.5 mg Documented by: Enoxaparin Sodium (Lovenox) 40 mg SUBCUT DAILY [facility] Last Admin: 09/26/20 08:52 Dose: 40 mg Documented by: Gabapentin (Neurontin) 300 mg PO TID [facility] Last Admin: 09/26/20 15:00 Dose: 300 mg Documented by: Sodium Chloride (Normal Saline) 500 mls @ 50 mls/hr IV ONETIME ONE Stop: 09/27/20 17:29 Last Admin: 09/27/20 08:28 Dose: 50 mls/hr Documented by: Levetiracetam (Keppra) Confirm Administered Dose 1,000 mg .ROUTE .STK-MED ONE Stop: 09/25/20 21:41 Last Admin: 09/25/20 21:50 Dose: 1,000 mg Documented by: Keppra 1000 Mg 0 each PO BEDTIME [facility] Last Admin: 09/25/20 21:53 Dose: Not Given Documented by: Keppra 750 Mg 0 each PO DAILY [facility] Last Admin: 09/26/20 10:18 Dose: Not Given Documented by: Propranolol HCl (Inderal [place]) 120 mg PO DAILY [facility] Last Admin: 09/28/20 08:12 Dose: 120 mg Documented by: Warfarin Sodium (Coumadin) 4 mg PO QPM [facility] Stop: 09/25/20 21:00 Last Admin: 09/25/20 19:58 Dose: 4 mg Documented by: Warfarin Sodium (Coumadin) 2.5 mg PO 1800 [facility] Stop: 09/26/20 18:01 Last Admin: 09/26/20 17:07 Dose: 2.5 mg Documented by: Warfarin Sodium (Coumadin) 1 mg PO QPM [facility] Stop: 09/27/20 18:01 Last Admin: 09/27/20 17:47 Dose: 1 mg Documented by: Warfarin Sodium (Coumadin Sliding Scale) 0 each PO QPM [facility] Stop: 09/28/20 18:01 Last Admin: 09/28/20 18:35 Dose: Not Given Documented by: Sepsis Event Note - Focused Exam Vital Signs: Vital Signs Temp Pulse Resp BP Pulse Ox Pulse Ox 09/29/20 08:54 146/87 H 09/29/20 08:53 36.6 C 72 20 146/87 H 96 09/29/20 08:11 99 09/29/20 06:01 36.6 C 69 18 138/67 96 - Problem List & Annotations (1) History of SIADH SNOMED Code(s): 620008176 Code(s): Z86.39 - PERSONAL HISTORY OF ENDO, NUTRITIONAL AND METABOLIC DISEASE Status: Acute Current Visit: Yes (2) Chronic renal insufficiency, stage II (mild) SNOMED Code(s): 737704384 Code(s): N18.2 - CHRONIC KIDNEY DISEASE, STAGE 2 (MILD) Status: Acute Current Visit: Yes (3) Benign essential tremor SNOMED Code(s): 831866498 Code(s): G25.0 - ESSENTIAL TREMOR Status: Acute Priority: Medium Current Visit: Yes Onset Date: ~09/29/20 (4) Supratherapeutic INR SNOMED Code(s): 267614331 Code(s): R79.1 - ABNORMAL COAGULATION PROFILE Status: Acute Priority: Medium Current Visit: No Onset Date: ~09/29/20 Annotation/Comment:: flucuating p.t. (5) Sinus bradycardia SNOMED Code(s): 31547318 Code(s): R00.1 - BRADYCARDIA, UNSPECIFIED Status: Resolved Priority: High Current Visit: No Onset Date: ~09/29/20 Annotation/Comment:: episode to 30 with chronic lbbb. no complaints of chest pain currently but persistant coughing and hypoxia with xray showing rt peural eff. sm. and small infiltrates lower lobes. - Problem List Review Problem List Initiated/Reviewed/Updated: Yes - My Orders Last 24 Hours: My Active Orders 09/29/20 09:58 OSMOLALITY,URINE [URCHEM] Routine 09/29/20 10:50 LEVETIRACETAM, S [REF] Routine PREALBUMIN [REF] Routine
[2020-09-29] MEDS ORDERED: Propranolol 60 MG Cap.ER PO ONE (14:00)
[2020-09-29] MEDS ORDERED: Warfarin Sliding Scale PO SCH (18:00)
[2020-09-29] MEDS: Simvastatin 20 MG Tab PO SCH (19:40)
[2020-09-29] MEDS: Menthol/Methyl Salicylate 85 GM Tube TOP PRN (23:09)
[2020-09-30] MEDS: Levothyroxine 100 MCG Tab PO SCH (06:00)
[2020-09-30] MEDS: Pantoprazole 40 MG Tab.CR PO SCH (06:00)
[2020-09-30] MEDS: Formoterol/Mometasone 100-5 MCG 8.8 GM Inhaler IH SCH ×2 (08:57→20:30)
[2020-09-30] MEDS ORDERED: Propranolol 60 MG Cap.ER PO SCH (09:00)
[2020-09-30] MEDS: predniSONE 5 MG Tab PO SCH (09:27)
[2020-09-30] MEDS: Cholecalciferol (Vitamin D3) 5,000 UNIT Cap PO SCH (09:27)
[2020-09-30] MEDS: Folic Acid 1 MG Tab PO SCH (09:28)
[2020-09-30] MEDS: Citalopram 20 MG Tab PO SCH (09:28)
[2020-09-30] MEDS: Docusate Sodium 100 MG Cap PO SCH (09:28)
[2020-09-30] MEDS: Gabapentin 100 MG Cap PO SCH ×3 (09:28→20:12)
[2020-09-30] MEDS: levETIRAcetam 500 MG Tab PO SCH ×2 (09:29→20:12)
[2020-09-30] MEDS: Propranolol 60 MG Cap.ER PO SCH (09:29)
[2020-09-30] MEDS: Losartan 100 MG Tab PO SCH (09:30)
[2020-09-30] MEDS: Acetaminophen 325 MG Tab PO SCH ×3 (09:31→16:01)
[2020-09-30] MEDS: Lidocaine 4% 1 each Patch TOP SCH (09:32)
[2020-09-30] MEDS ORDERED: Potassium Chloride 20 MEQ Tab.ER PO SCH (10:30)
[2020-09-30] MEDS ORDERED: amLODIPine 2.5 MG Tab PO SCH (10:45)
[2020-09-30] MEDS ORDERED: Furosemide 20 MG Tab PO SCH (10:45)
[2020-09-30] MEDS: [UNRECOGNIZED DRUG - OTHER] TOP SCH (12:33)
[2020-09-30] MEDS: Furosemide 20 MG Tab PO SCH (12:39)
[2020-09-30] MEDS: Potassium Chloride 20 MEQ Tab.ER PO SCH ×2 (12:40→20:12)
--- NOTE | 2020-09-30 13:59 | PCM.PN ---
- General Info Date of Service: 09/30/20 Subjective Update: 09/28 No significant overnight or acute issues. She feels better this AM. She is eating adequately and no issues. However she reports having right eye ache but w/o vision changes, dryness or murray-orbital signs of injury or trauma. No stroke like symptoms. She is afebrile and her leukocytosis resolved. Her FT4 is considerably elevated and Vit D level is low. 09/29 Patient had an uneventful night. She states she is feeling better this morning. She did not mention any eye pain this morning. She states she has a good appetite. She is afebrile without leukocytosis. Repeat labs showed PT of 42.9 and INR 4.12. Hgb dropped to 9.2 from 10.1. Bh ceferino doing better afebrile vss bp high and started amloidapine. panhypopit not on ddavp and no poliuria tremor bothersome . no pre seizure or seizure activity . weight decreased 3 lbs. cor afib 70s. lungs clear and few scatterred crackles . abd benign . ms oa changes. moderate kyphosis and mild scoliosis curvature . ao x 4 memory lapses commen but most memories come back with clues . thyroid based on high free t4 lowered . denies chills fevers sweats or weight loss. lab 1// chf bnp elivated to 3400 2// bronchitis covid 2 plus weeks ago . 3// memory loss not apppearing to be classic covid related. 4// panhypopit on replacemnt other than ddavp. na flucuating as expected . Functional Status: Reports: Pain Controlled - Review of Systems General: Reports: No Symptoms, Weakness, Fatigue HEENT: Reports: No Symptoms Pulmonary: Reports: No Symptoms Cardiovascular: Reports: No Symptoms Gastrointestinal: Reports: No Symptoms Genitourinary: Reports: No Symptoms Musculoskeletal: Reports: No Symptoms Skin: Reports: No Symptoms Neurological: Reports: No Symptoms Psychiatric: Reports: No Symptoms - Patient Data Vitals - Most Recent: Last Vital Signs Temp 36.9 C 09/30/20 11:38 Pulse 83 09/30/20 11:38 Resp 20 09/30/20 11:38 BP 144/97 H 09/30/20 11:38 Pulse Ox 94 L 09/30/20 11:38 Weight - Most Recent: 76.385 kg I&O - Last 24 Hours: Intake & Output 09/29/20 09/30/20 09/30/20 22:59 06:59 14:59 Intake Total 1440 500 240 Output Total 1250 700 Balance 190 -200 240 Lab Results Last 24 Hours: Laboratory Results - last 24 hr 09/29/20 09/29/20 09/30/20 Range/Units 10:50 13:28 04:10 WBC 7.57 (3.98-10.04) K/mm3 RBC 3.30 L (3.98-5.22) M/mm3 Hgb 9.9 L (11.2-15.7) gm/dl Hct 33.8 L (34.1-44.9) % MCV 102.4 H (79.4-94.8) fl MCH 30.0 (25.6-32.2) pg MCHC 29.3 L (32.2-35.5) g/dl RDW Std Deviation 59.3 H (36.4-46.3) fL Plt Count 190 (182-369) K/mm3 MPV 10.8 (9.4-12.3) fl Neut % (Auto) 60.9 (34.0-71.1) % Lymph % (Auto) 24.3 (19.3-51.7) % [place] % (Auto) 10.2 (4.7-12.5) % Eos % (Auto) 3.8 (0.7-5.8) Baso % (Auto) 0.5 (0.1-1.2) % Neut # (Auto) 4.61 (1.56-6.13) K/mm3 Lymph # (Auto) 1.84 (1.18-3.74) K/mm3 [place] # (Auto) 0.77 H (0.24-0.36) K/mm3 Eos # (Auto) 0.29 (0.04-0.36) K/mm3 Baso # (Auto) 0.04 (0.01-0.08) K/mm3 Manual Slide Review Abnormal smear PT (9.7-12.0) SECONDS INR Sodium (136-145) mEq/L Potassium (3.5-5.1) mEq/L Chloride (98-107) mEq/L Carbon Dioxide (21-32) mEq/L Anion Gap (5-15) BUN (7-18) mg/dL Creatinine (0.55-1.02) mg/dL Est Cr Clr Drug Dosing mL/min Estimated GFR (MDRD) (>60) mL/min BUN/Creatinine Ratio (14-18) Glucose (83-115) mg/dL Calcium (8.5-10.1) mg/dL Magnesium (1.8-2.4) mg/dl Prealbumin 13.1 L (17.0-34.0) mg/dL Free T4 (0.76-1.46) ng/dL Urine Osmolality 165 L (400-1100) mosm/kg 09/30/20 09/30/20 09/30/20 Range/Units 04:10 04:10 04:10 WBC (3.98-10.04) K/mm3 RBC (3.98-5.22) M/mm3 Hgb (11.2-15.7) gm/dl Hct (34.1-44.9) % MCV (79.4-94.8) fl MCH (25.6-32.2) pg MCHC (32.2-35.5) g/dl RDW Std Deviation (36.4-46.3) fL Plt Count (182-369) K/mm3 MPV (9.4-12.3) fl Neut % (Auto) (34.0-71.1) % Lymph % (Auto) (19.3-51.7) % [place] % (Auto) (4.7-12.5) % Eos % (Auto) (0.7-5.8) Baso % (Auto) (0.1-1.2) % Neut # (Auto) (1.56-6.13) K/mm3 Lymph # (Auto) (1.18-3.74) K/mm3 [place] # (Auto) (0.24-0.36) K/mm3 Eos # (Auto) (0.04-0.36) K/mm3 Baso # (Auto) (0.01-0.08) K/mm3 Manual Slide Review PT 31.7 H (9.7-12.0) SECONDS INR 3.03 Sodium 148 H (136-145) mEq/L Potassium 3.3 L (3.5-5.1) mEq/L Chloride 109 H (98-107) mEq/L Carbon Dioxide 32 (21-32) mEq/L Anion Gap 10.3 (5-15) BUN 12 (7-18) mg/dL Creatinine 0.8 (0.55-1.02) mg/dL Est Cr Clr Drug Dosing 34.91 mL/min Estimated GFR (MDRD) > 60 (>60) mL/min BUN/Creatinine Ratio 15.0 (14-18) Glucose 93 (83-115) mg/dL Calcium 8.6 (8.5-10.1) mg/dL Magnesium 2.0 (1.8-2.4) mg/dl Prealbumin (17.0-34.0) mg/dL Free T4 1.12 (0.76-1.46) ng/dL Urine Osmolality (400-1100) mosm/kg [facility] Results Last 24 Hours: Microbiology 09/25/20 20:50 Aerobic Blood Culture - Preliminary Blood - Venous NO GROWTH AFTER 4 DAYS Anaerobic Blood Culture - Final 09/25/20 19:55 Aerobic Blood Culture - Preliminary Blood - Venous - Lab Draw NO GROWTH AFTER 4 DAYS Anaerobic Blood Culture - Preliminary NO GROWTH AFTER 4 DAYS Med Orders - Current: Current Medications Acetaminophen (Tylenol) 650 mg PO BEDTIME PRN PRN Reason: Pain Last Admin: 09/28/20 23:22 Dose: 650 mg Documented by: Acetaminophen (Tylenol) 650 mg PO TID@0900,1300,1700 [facility] Last Admin: 09/30/20 12:40 Dose: 650 mg Documented by: Hydrocodone Bitart/Acetaminophen ([place] 325-5 Mg) 1 tab PO Q4H PRN PRN Reason: Pain (moderate 4-6) Albuterol (Proventil Hfa) 0 gm INH Q6H PRN PRN Reason: Shortness of Breath Calcium Carbonate/Glycine (Tums) 500 mg PO QID PRN PRN Reason: Heartburn Last Admin: 09/27/20 14:11 Dose: 500 mg Documented by: Cholecalciferol (Vitamin D3) 5,000 unit PO DAILY [facility] Last Admin: 09/30/20 09:27 Dose: 5,000 unit Documented by: Citalopram Hydrobromide (Celexa) 20 mg PO DAILY [facility] Last Admin: 09/30/20 09:28 Dose: 20 mg Documented by: Docusate Sodium (Colace) 100 mg PO DAILY [facility] Last Admin: 09/30/20 09:28 Dose: 100 mg Documented by: Folic Acid (Folic Acid) 1 mg PO DAILY [facility] Last Admin: 09/30/20 09:28 Dose: 1 mg Documented by: Furosemide (Lasix) 20 mg PO DAILY [facility] Last Admin: 09/30/20 12:39 Dose: 20 mg Documented by: Gabapentin (Neurontin) 100 mg PO TID [facility] Last Admin: 09/30/20 09:28 Dose: 100 mg Documented by: Levetiracetam (Keppra) 750 mg PO DAILY [facility] Last Admin: 09/30/20 09:29 Dose: 750 mg Documented by: Levetiracetam (Keppra) 1,000 mg PO BEDTIME [facility] Last Admin: 09/29/20 20:33 Dose: 1,000 mg Documented by: Levothyroxine Sodium (Synthroid) 100 mcg PO ACBREAKFAST [facility] Last Admin: 09/30/20 06:00 Dose: 100 mcg Documented by: Lidocaine (Aspercreme 4%) 1 each TOP DAILY [facility] Last Admin: 09/30/20 09:32 Dose: 1 each Documented by: Lorazepam (Ativan) 1 mg PO TID PRN PRN Reason: Seizures Losartan Potassium (Cozaar) 100 mg PO DAILY [facility] Last Admin: 09/30/20 09:30 Dose: 100 mg Documented by: Methyl Salicylate (Icy Hot Cream) 0 gm TOP Q6H PRN PRN Reason: Pain Last Admin: 09/29/20 23:09 Dose: 1 applic Documented by: Miscellaneous Information (Remove Patch) 0 ea TRDERM BEDTIME [facility] Last Admin: 09/29/20 20:36 Dose: 1 ea Documented by: Mometasone Furoate/Formoterol Fumar (Dulera 100-5 Mcg) 2 puff IH BID [facility] Last Admin: 09/30/20 08:57 Dose: 2 puff Documented by: Ondansetron HCl (Zofran) 4 mg IV Q4H PRN PRN Reason: Nausea/Vomiting Pantoprazole Sodium (Protonix) 40 mg PO DAILY@0700 [facility] Last Admin: 09/30/20 06:00 Dose: 40 mg Documented by: Tens Unit [Tens 502] (1 Dose) 0 each TOP DAILY [facility] Last Admin: 09/30/20 12:33 Dose: Not Given Documented by: Desmopressin ( Nonrefrigerated) [ Ddavp 0.01% Nasal [place]] 0 each NASBOTH TID [facility] Potassium Chloride (Klor-Con M20) 40 meq PO BID [facility] Stop: 10/01/20 09:01 Last Admin: 09/30/20 12:40 Dose: 40 meq Documented by: Prednisone (Prednisone) 5 mg PO DAILY [facility] Last Admin: 09/30/20 09:27 Dose: 5 mg Documented by: Propranolol HCl (Inderal La) 60 mg PO DAILY [facility] Last Admin: 09/30/20 09:29 Dose: 60 mg Documented by: Simvastatin (Zocor) 20 mg PO PCDINNER [facility] Last Admin: 09/29/20 19:40 Dose: 20 mg Documented by: Sodium Chloride (Saline Flush) 10 ml FLUSH ASDIRECTED PRN PRN Reason: Keep Vein Open Last Admin: 09/25/20 09:55 Dose: 10 ml Documented by: Warfarin Sodium (Pharmacy To Dose - Warfarin) 0 dose .XX ASDIRECTED PRN PRN Reason: RX TO DOSE WARFARIN Warfarin Sodium (Coumadin) 1 mg PO ONETIME ONE Stop: 09/30/20 18:01 Discontinued Medications Acetaminophen (Tylenol) 975 mg PO NOW ONE Stop: 09/25/20 12:50 Last Admin: 09/25/20 12:56 Dose: 975 mg Documented by: Acetaminophen (Tylenol) 650 mg PO Q4H PRN PRN Reason: Pain (Mild 1-3)/fever Last Admin: 09/25/20 21:50 Dose: 650 mg Documented by: Amlodipine Besylate (Norvasc) 2.5 mg PO DAILY [facility] Clonazepam (Klonopin) 0.5 mg PO BEDTIME [facility] Last Admin: 09/26/20 23:03 Dose: 0.5 mg Documented by: Enoxaparin Sodium (Lovenox) 40 mg SUBCUT DAILY [facility] Last Admin: 09/26/20 08:52 Dose: 40 mg Documented by: Furosemide (Lasix) 20 mg PO DAILY [facility] Last Admin: 09/30/20 12:36 Dose: Not Given Documented by: Gabapentin (Neurontin) 300 mg PO TID [facility] Last Admin: 09/26/20 15:00 Dose: 300 mg Documented by: Sodium Chloride (Normal Saline) 500 mls @ 50 mls/hr IV ONETIME ONE Stop: 09/27/20 17:29 Last Admin: 09/27/20 08:28 Dose: 50 mls/hr Documented by: Levetiracetam (Keppra) Confirm Administered Dose 1,000 mg .ROUTE .STK-MED ONE Stop: 09/25/20 21:41 Last Admin: 09/25/20 21:50 Dose: 1,000 mg Documented by: Keppra 1000 Mg 0 each PO BEDTIME [facility] Last Admin: 09/25/20 21:53 Dose: Not Given Documented by: Keppra 750 Mg 0 each PO DAILY [facility] Last Admin: 09/26/20 10:18 Dose: Not Given Documented by: Potassium Chloride (Klor-Con M20) 40 meq PO BID [facility] Stop: 10/01/20 09:01 Last Admin: 09/30/20 12:37 Dose: Not Given Documented by: Propranolol HCl (Inderal La) 120 mg PO DAILY [facility] Last Admin: 09/28/20 08:12 Dose: 120 mg Documented by: Propranolol HCl (Inderal La) 60 mg PO DAILY [facility] Last Admin: 09/29/20 08:54 Dose: 60 mg Documented by: Warfarin Sodium (Coumadin) 4 mg PO QPM [facility] Stop: 09/25/20 21:00 Last Admin: 09/25/20 19:58 Dose: 4 mg Documented by: Warfarin Sodium (Coumadin) 2.5 mg PO 1800 [facility] Stop: 09/26/20 18:01 Last Admin: 09/26/20 17:07 Dose: 2.5 mg Documented by: Warfarin Sodium (Coumadin) 1 mg PO QPM [facility] Stop: 09/27/20 18:01 Last Admin: 09/27/20 17:47 Dose: 1 mg Documented by: Warfarin Sodium (Coumadin Sliding Scale) 0 each PO QPM [facility] Stop: 09/28/20 18:01 Last Admin: 09/28/20 18:35 Dose: Not Given Documented by: Warfarin Sodium (Coumadin Sliding Scale) 0 each PO QPM [facility] Stop: 09/29/20 18:01 Last Admin: 09/29/20 19:41 Dose: Not Given Documented by: - Exam Quality Assessment: Supplemental Oxygen General: Alert, Oriented HEENT: Pupils Equal, Pupils Reactive, EOMI, Mucous Membr. Moist/[place] Neck: Supple Lungs: Clear to Auscultation, Normal Respiratory Effort Cardiovascular: Regular Rate, Regular Rhythm GI/Abdominal Exam: Normal Bowel Sounds, Soft, Non-Tender, No Organomegaly, No Distention, No Abnormal Bruit, No Mass, Pelvis Stable (Female) Exam: Normal External Exam, Normal Speculum Exam, Normal Bimanual Exam Back Exam: Normal Inspection, Full Range of Motion Extremities: Normal Inspection, Normal Range of Motion, Non-Tender, No Pedal Edema, Normal Capillary Refill Skin: Warm, Dry, Intact Wound/Incisions: Healing Well Neurological: No New Focal Deficit Psy/Mental Status: Alert, Normal Affect, Normal Mood Sepsis Event Note - Evaluation Sepsis Screening Result: No Definite Risk - Focused Exam Vital Signs: Vital Signs Temp Pulse Resp BP Pulse Ox Pulse Ox 09/30/20 11:38 36.9 C 83 20 144/97 H 94 L 09/30/20 09:30 164/86 H 09/30/20 09:01 96 09/30/20 07:52 36.8 C 76 18 164/86 H 96 09/30/20 04:10 139/73 09/30/20 03:05 36.4 C 75 18 171/89 H 94 L - Problem List & Annotations (1) History of SIADH SNOMED Code(s): 708155426 Code(s): Z86.39 - PERSONAL HISTORY OF ENDO, NUTRITIONAL AND METABOLIC DISEASE Status: Acute Priority: Medium Current Visit: Yes Onset Date: ~09/30/20 (2) Chronic renal insufficiency, stage II (mild) SNOMED Code(s): 161137291 Code(s): N18.2 - CHRONIC KIDNEY DISEASE, STAGE 2 (MILD) Status: Acute Priority: Medium Current Visit: Yes Onset Date: ~09/30/20 (3) Benign essential tremor SNOMED Code(s): 892958887 Code(s): G25.0 - ESSENTIAL TREMOR Status: Acute Priority: Medium Current Visit: Yes Onset Date: ~09/29/20 (4) Supratherapeutic INR SNOMED Code(s): 721826785 Code(s): R79.1 - ABNORMAL COAGULATION PROFILE Status: Acute Priority: Medium Current Visit: No Onset Date: ~09/29/20 Annotation/Comment:: flucuating p.t. (5) Sinus bradycardia SNOMED Code(s): 51084472 Code(s): R00.1 - BRADYCARDIA, UNSPECIFIED Status: Resolved Priority: High Current Visit: No Onset Date: ~09/29/20 Annotation/Comment:: episode to 30 with chronic lbbb. no complaints of chest pain currently but persistant coughing and hypoxia with xray showing rt peural eff. sm. and small infiltrates lower lobes. - Problem List Review Problem List Initiated/Reviewed/Updated: Yes - My Orders Last 24 Hours: My Active Orders 09/29/20 13:30 CULTURE URINE [RM] Routine 09/30/20 05:11 FOLATE, RBC [REF] Routine 09/30/20 18:00 Warfarin [Coumadin] 1 mg PO ONETIME ONE - Assessment Assessment:: 09/28 Assessment: Acute: Failure to thrive Generalized Weakness, improved Hypoxia on, remains on 2L NC Recent Covid-19 Infection Leukocytosis, POA, resolved Macrocytic Hypochromic Anemia with Hgb of 10.3, POA Mild Thrombocytopenia, POA, improved S/p Subtherapeutic INR on Warfarin Therapeutic INR Metabolic Alkalosis with full respiratory compensation, POA Hypoalbuminemia, POA Polypharmacy, POA Vitamin D Deficiency Thyroid Medicine Toxicity Chronic: Impaired vision HTN HLD Chronic afib, on warfarin PUD Hx/o renal stones OA Osteoporosis Back and left shoulder pain Seizure Hypothyroidism Obesity Hx/o Malignant melanoma 09/29 Patient states she is feeling better today and has more strength. Patient remains on 2 L O2 by nasal canula. Patient denies shortness of breath Recent COVID infection Macrocytic Hypochromic [place] with Hbg of 9.2 which dropped from 10.3 INR increased to 4.12 PT is 42.9 Hypernatremia at 149. This has mildly increased from yesterday as it was 145 Chloride was elevated at 110 CRP has decreased from 30.7 to 19.5 Transferrin is low at 125 Metabolic Alkalosis with full respiratory compensation Vitamin D deficiency Thyroid Medicine Toxicity . ceferino doing better afebrile vss bp high and started amloidapine. panhypopit not on ddavp and no poliuria tremor bothersome . no pre seizure or seizure activity . weight decreased 3 lbs. cor afib 70s. lungs clear and few scatterred crackles . abd benign . ms oa changes. moderate kyphosis and mild scoliosis curvature . ao x 4 memory lapses commen but most memories come back with clues . thyroid based on high free t4 lowered . denies chills fevers sweats or weight loss. lab 1// chf bnp elivated to 3400 2// bronchitis covid 2 plus weeks ago . 3// memory loss not apppearing to be classic covid related. 4// panhypopit on replacemnt other than ddavp. na flucuating as expected . boh - Plan Plan:: 09/28 Plan: Continue current treatment Consider discontinuing Klonopin at QHS and keep Ativan po TID Continue PT/OT consult Routine AM Labs resident services manager and discharge planning VTE prophylaxis with Lovenox 40 mg subcu daily until INR is 2.0 or greater Encourage to use IS as directed INR level in AM Vit D supplement Hold Levothyroxine dose Change gabapentin to 100 mg from 300 mg po TID Resume Warfarin per pharmacy to dose LOS> 96 hrs pending placement to SNF with PT/OT due to generalized weakness CODE STATUS: DNR/DNI 2200: Patient heart rate has been dipping down in the 30s. She is asymptomatic. She takes Inderal 120 mg LA BID. We will order EKG and cut dose to 60 mg po BID. 09/29: Echo ordered for this morning for bradycardia Continue on current treatment. Continue PT/OT as tolerated. Social work has contacted [facility] and they agreed to take her when medically permitted. CODE STATUS: DNR/DNI
[2020-09-30] MEDS ORDERED: DESMOPRESSIN NASBOTH SCH (15:00)
--- NOTE | 2020-09-30 17:00 | PCM.SN.2 ---
- Free Text/Narrative Note: Notified by nursing that patient had gone unresponsive and rapid response was called. ED provider reported to patient's room and put in twelve-lead EKG, CBC, CMP, and troponin orders. Chest x-ray also ordered. Twelve-lead EKG reviewed and shows patient is tachycardic with a left bundle branch block. Prior twelve-lead EKG is reviewed and there are no acute changes. Labs are still pending. Nurse was notified that patient had gone tacky prior and was in room at bedside during this episode. Patient reportedly became stiff but no tonic- clonic movement was noted. Patient does have a history of seizures and a Keppra level has been sent, although this is a send out lab and is still pending. Patient is found in bed and exam reveals a patient who is somewhat lethargic but has equal counter tender strength, reactive pupils which are equal, and she does answer questions appropriately. Lung sounds are clear bilaterally and heart rate is tachycardic but regular. She denies any pain, particularly chest pain or headaches. Patient has been in and out of atrial fibrillation today, but is on warfarin with a therapeutic INR and a known A-fib diagnosis. Chest x-ray is reviewed showing an improvement in the density within the right lung base and chronic cardiomegaly. Formal radiologist read is pending. POC glucose is obtained and is 165. No facial droop, unifocal weakness, or slurred speech are noted. Vital signs reviewed and in the low patient was quite hypertensive before episode this has improved. Remains on 2 L of oxygen. Prior labs from day were grossly unremarkable with exception of sodium which was 148. Suspect episode was caused by seizure, as patient has a known seizure history and is on Keppra. Patient reports it has been quite sometime since she had a seizure. Will review labs when available and continue to monitor.
[2020-09-30] MEDS ORDERED: Lactated Ringers 1,000 ML IV SCH (17:30)
[2020-09-30] MEDS: Simvastatin 20 MG Tab PO SCH (18:00)
[2020-09-30] MEDS ORDERED: levETIRAcetam 500 MG Tab PO ONE (18:16)
[2020-09-30] MEDS ORDERED: DESMOPRESSIN NASBOTH ONE (18:45)
--- NOTE | 2020-09-30 18:49 | PCM.SN.2 ---
- Free Text/Narrative Note: 09/30/20 pm ceferino had a seizure this evening lasting 2-3 minutes and was postictal. now recovering but feels not with it. p.e. shows mild slower responses. tremoring with movements about the same. sy and can remember events of the day/ appears mostly back to baseline. labs show crea 1.4 normal lytes . pulse ox normal / b.p currently elevated . assess seizure. 2) hypernatremia resrting ddavp 3) hypertension . 4) appears dry and i.v. started . plan ddavp restarted 1 spray 3 x daily and will monitor i/os and voiding but increased voiding noted over past 12 hours. restarted and increased keppra pending levels in am. boh
--- NOTE | 2020-09-30 19:37 | CR ---
Chest: Portable view of the chest was obtained. Comparison: Prior chest x-ray of 09/25/20. Mild increased density along the lateral right chest within the mid and lower lung are seen. Left lung is clear. Heart size is slightly enlarged. Tortuous thoracic aorta seen. Bony structures shows no nothing gross. Impression: 1. Increased density within the lateral right chest presumably due to pneumonia. 2. Stable cardiomegaly and other stable findings. Diagnostic code #3
[2020-09-30] MEDS: Acetaminophen 325 MG Tab PO PRN (20:26)
[2020-09-30] MEDS: Albuterol 6.7 GM Inhaler INH PRN (20:30)
[2020-10-01] MEDS: Levothyroxine 100 MCG Tab PO SCH (06:01)
[2020-10-01] MEDS: Pantoprazole 40 MG Tab.CR PO SCH (06:01)
[2020-10-01] MEDS: Lidocaine 4% 1 each Patch TOP SCH (08:57)
[2020-10-01] MEDS: Losartan 100 MG Tab PO SCH (08:59)
[2020-10-01] MEDS: levETIRAcetam 500 MG Tab PO SCH ×2 (08:59→21:16)
[2020-10-01] MEDS: Cholecalciferol (Vitamin D3) 5,000 UNIT Cap PO SCH (08:59)
[2020-10-01] MEDS: Folic Acid 1 MG Tab PO SCH (09:00)
[2020-10-01] MEDS: Gabapentin 100 MG Cap PO SCH ×3 (09:00→21:16)
[2020-10-01] MEDS: predniSONE 5 MG Tab PO SCH (09:01)
[2020-10-01] MEDS: Propranolol 60 MG Cap.ER PO SCH (09:01)
[2020-10-01] MEDS: Citalopram 20 MG Tab PO SCH (09:01)
[2020-10-01] MEDS: Furosemide 20 MG Tab PO SCH (09:01)
[2020-10-01] MEDS: Potassium Chloride 20 MEQ Tab.ER PO SCH (09:01)
[2020-10-01] MEDS: Acetaminophen 325 MG Tab PO SCH ×3 (09:02→18:10)
[2020-10-01] MEDS: Docusate Sodium 100 MG Cap PO SCH (09:03)
[2020-10-01] MEDS: Formoterol/Mometasone 100-5 MCG 8.8 GM Inhaler IH SCH ×2 (09:43→20:15)
--- NOTE | 2020-10-01 12:01 | PCM.PN ---
- General Info Date of Service: 10/01/20 Subjective Update: 10/01/20 am afebrile vss bp better. weight down 10 lbs to 162 . no increased voiding noted by staff voiding wnl p.e. gen shakey and doesn't feel well. oriented and cohesive. lungs clear equal cor irreg irreg 70s / b.p controlled. abd benign . ms stable neuro tremor about the same intention and fast with truncal titubation. no nystagmus . lab 146 and k corrected. slow diuresis sec to gardiner hypopit. restarted ddavp . hypernatremia sec to this and monitoring na and fluid status euvolemic with normal urine output . cerebral vasc. disease chronic and worsened with generalized seizure last night . keppra levels pending but did increase dose x one. weakness generalized and chronic / will have p.t see in am . plan. repeat labs in am cont current treatments . patient will require emotional disabilities teacher care and rehab for return to function and prognosis for full recovery difficult to say currently . boh Functional Status: Reports: Pain Controlled, Tolerating Diet, Urinating, New Symptoms - Review of Systems General: Reports: No Symptoms HEENT: Reports: No Symptoms Pulmonary: Reports: No Symptoms Cardiovascular: Reports: No Symptoms Gastrointestinal: Reports: No Symptoms Genitourinary: Reports: No Symptoms Musculoskeletal: Reports: No Symptoms Skin: Reports: No Symptoms Neurological: Reports: No Symptoms Psychiatric: Reports: No Symptoms - Patient Data Vitals - Most Recent: Last Vital Signs Temp 36.9 C 10/01/20 07:40 Pulse 80 10/01/20 07:40 Resp 20 10/01/20 07:40 BP 122/76 10/01/20 08:59 Pulse Ox 98 10/01/20 09:45 Weight - Most Recent: 73.89 kg I&O - Last 24 Hours: Intake & Output 09/30/20 10/01/20 10/01/20 22:59 06:59 14:59 Intake Total 1650 1319 Output Total 650 150 Balance 1000 1169 Lab Results Last 24 Hours: Laboratory Results - last 24 hr 09/30/20 09/30/20 09/30/20 Range/Units 16:27 16:30 16:30 WBC 14.56 H (3.98-10.04) K/mm3 RBC 3.74 L (3.98-5.22) M/mm3 Hgb 11.5 D (11.2-15.7) gm/dl Hct 38.9 (34.1-44.9) % MCV 104.0 H (79.4-94.8) fl MCH 30.7 (25.6-32.2) pg MCHC 29.6 L (32.2-35.5) g/dl RDW Std Deviation 60.7 H (36.4-46.3) fL Plt Count 289 D (182-369) K/mm3 MPV 9.8 (9.4-12.3) fl Neut % (Auto) 63.3 (34.0-71.1) % Lymph % (Auto) 26.8 (19.3-51.7) % Cherry % (Auto) 8.2 (4.7-12.5) % Eos % (Auto) 1.0 (0.7-5.8) Baso % (Auto) 0.5 (0.1-1.2) % Neut # (Auto) 9.20 H (1.56-6.13) K/mm3 Lymph # (Auto) 3.90 H (1.18-3.74) K/mm3 Cherry # (Auto) 1.20 H (0.24-0.36) K/mm3 Eos # (Auto) 0.15 (0.04-0.36) K/mm3 Baso # (Auto) 0.08 (0.01-0.08) K/mm3 Manual Slide Review Abnormal smear PT (9.7-12.0) SECONDS INR Sodium 147 H (136-145) mEq/L Potassium 4.1 (3.5-5.1) mEq/L Chloride 106 (98-107) mEq/L Carbon Dioxide 25 (21-32) mEq/L Anion Gap 20.1 H (5-15) BUN 14 (7-18) mg/dL Creatinine 1.3 H (0.55-1.02) mg/dL Est Cr Clr Drug Dosing 21.49 mL/min Estimated GFR (MDRD) 39 (>60) mL/min BUN/Creatinine Ratio 10.8 L (14-18) Glucose 151 H (83-115) mg/dL POC Glucose 156 H (83-110) mg/dL Calcium 8.9 (8.5-10.1) mg/dL Magnesium (1.8-2.4) mg/dl Total Bilirubin 0.6 (0.2-1.0) mg/dL AST 43 H (15-37) U/L ALT 53 (14-59) U/L Alkaline Phosphatase 53 (46-116) U/L Troponin I 0.041 (0.00-0.056) ng/mL NT-Pro-B Natriuret Pep (0-450) pg/mL Total Protein 7.1 (6.4-8.2) g/dl Albumin 2.8 L (3.4-5.0) g/dl Globulin 4.3 gm/dL Albumin/Globulin Ratio 0.7 L (1-2) 10/01/20 10/01/20 10/01/20 Range/Units 05:30 05:30 05:30 WBC 7.81 (3.98-10.04) K/mm3 RBC 3.19 L (3.98-5.22) M/mm3 Hgb 9.7 L D (11.2-15.7) gm/dl Hct 32.8 L (34.1-44.9) % MCV 102.8 H (79.4-94.8) fl MCH 30.4 (25.6-32.2) pg MCHC 29.6 L (32.2-35.5) g/dl RDW Std Deviation 59.0 H (36.4-46.3) fL Plt Count 262 (182-369) K/mm3 MPV 9.9 (9.4-12.3) fl Neut % (Auto) 60.7 (34.0-71.1) % Lymph % (Auto) 24.1 (19.3-51.7) % Cherry % (Auto) 10.9 (4.7-12.5) % Eos % (Auto) 3.5 (0.7-5.8) Baso % (Auto) 0.5 (0.1-1.2) % Neut # (Auto) 4.75 (1.56-6.13) K/mm3 Lymph # (Auto) 1.88 (1.18-3.74) K/mm3 Cherry # (Auto) 0.85 H (0.24-0.36) K/mm3 Eos # (Auto) 0.27 (0.04-0.36) K/mm3 Baso # (Auto) 0.04 (0.01-0.08) K/mm3 Manual Slide Review Abnormal smear PT 23.6 H (9.7-12.0) SECONDS INR 2.24 Sodium 147 H (136-145) mEq/L Potassium 3.9 (3.5-5.1) mEq/L Chloride 109 H (98-107) mEq/L Carbon Dioxide 34 H (21-32) mEq/L Anion Gap 7.9 (5-15) BUN 13 (7-18) mg/dL Creatinine 0.8 (0.55-1.02) mg/dL Est Cr Clr Drug Dosing 34.91 mL/min Estimated GFR (MDRD) > 60 (>60) mL/min BUN/Creatinine Ratio 16.3 (14-18) Glucose 86 (83-115) mg/dL POC Glucose (83-110) mg/dL Calcium 8.4 L (8.5-10.1) mg/dL Magnesium 1.9 (1.8-2.4) mg/dl Total Bilirubin (0.2-1.0) mg/dL AST (15-37) U/L ALT (14-59) U/L Alkaline Phosphatase (46-116) U/L Troponin I (0.00-0.056) ng/mL NT-Pro-B Natriuret Pep (0-450) pg/mL Total Protein (6.4-8.2) g/dl Albumin (3.4-5.0) g/dl Globulin gm/dL Albumin/Globulin Ratio (1-2) 10/01/20 Range/Units 09:23 WBC (3.98-10.04) K/mm3 RBC (3.98-5.22) M/mm3 Hgb (11.2-15.7) gm/dl Hct (34.1-44.9) % MCV (79.4-94.8) fl MCH (25.6-32.2) pg MCHC (32.2-35.5) g/dl RDW Std Deviation (36.4-46.3) fL Plt Count (182-369) K/mm3 MPV (9.4-12.3) fl Neut % (Auto) (34.0-71.1) % Lymph % (Auto) (19.3-51.7) % Cherry % (Auto) (4.7-12.5) % Eos % (Auto) (0.7-5.8) Baso % (Auto) (0.1-1.2) % Neut # (Auto) (1.56-6.13) K/mm3 Lymph # (Auto) (1.18-3.74) K/mm3 Cherry # (Auto) (0.24-0.36) K/mm3 Eos # (Auto) (0.04-0.36) K/mm3 Baso # (Auto) (0.01-0.08) K/mm3 Manual Slide Review PT (9.7-12.0) SECONDS INR Sodium (136-145) mEq/L Potassium (3.5-5.1) mEq/L Chloride (98-107) mEq/L Carbon Dioxide (21-32) mEq/L Anion Gap (5-15) BUN (7-18) mg/dL Creatinine (0.55-1.02) mg/dL Est Cr Clr Drug Dosing mL/min Estimated GFR (MDRD) (>60) mL/min BUN/Creatinine Ratio (14-18) Glucose (83-115) mg/dL POC Glucose (83-110) mg/dL Calcium (8.5-10.1) mg/dL Magnesium (1.8-2.4) mg/dl Total Bilirubin (0.2-1.0) mg/dL AST (15-37) U/L ALT (14-59) U/L Alkaline Phosphatase (46-116) U/L Troponin I (0.00-0.056) ng/mL NT-Pro-B Natriuret Pep 5551 H (0-450) pg/mL Total Protein (6.4-8.2) g/dl Albumin (3.4-5.0) g/dl Globulin gm/dL Albumin/Globulin Ratio (1-2) Adarsh Results Last 24 Hours: Microbiology 09/29/20 13:30 Urine Culture - Final Urine, Clean Catch 09/25/20 20:50 Aerobic Blood Culture - Preliminary Blood - Venous NO GROWTH AFTER 5 DAYS Anaerobic Blood Culture - Final 09/25/20 19:55 Aerobic Blood Culture - Preliminary Blood - Venous - Lab Draw NO GROWTH AFTER 5 DAYS Anaerobic Blood Culture - Preliminary NO GROWTH AFTER 5 DAYS Med Orders - Current: Current Medications Acetaminophen (Tylenol) 650 mg PO BEDTIME PRN PRN Reason: Pain Last Admin: 09/30/20 20:26 Dose: 650 mg Documented by: Acetaminophen (Tylenol) 650 mg PO TID@0900,1300,1700 [facility] Last Admin: 10/01/20 09:02 Dose: 650 mg Documented by: Hydrocodone Bitart/Acetaminophen ([place] 325-5 Mg) 1 tab PO Q4H PRN PRN Reason: Pain (moderate 4-6) Albuterol (Proventil Hfa) 0 gm INH Q6H PRN PRN Reason: Shortness of Breath Last Admin: 09/30/20 20:30 Dose: 2 puff Documented by: Calcium Carbonate/Glycine (Tums) 500 mg PO QID PRN PRN Reason: Heartburn Last Admin: 09/27/20 14:11 Dose: 500 mg Documented by: Cholecalciferol (Vitamin D3) 5,000 unit PO DAILY [facility] Last Admin: 10/01/20 08:59 Dose: 5,000 unit Documented by: Citalopram Hydrobromide (Celexa) 20 mg PO DAILY [facility] Last Admin: 10/01/20 09:01 Dose: 20 mg Documented by: Docusate Sodium (Colace) 100 mg PO DAILY [facility] Last Admin: 10/01/20 09:03 Dose: 100 mg Documented by: Folic Acid (Folic Acid) 1 mg PO DAILY [facility] Last Admin: 10/01/20 09:00 Dose: 1 mg Documented by: Furosemide (Lasix) 20 mg PO DAILY [facility] Last Admin: 10/01/20 09:01 Dose: 20 mg Documented by: Gabapentin (Neurontin) 100 mg PO TID [facility] Last Admin: 10/01/20 09:00 Dose: 100 mg Documented by: Levetiracetam (Keppra) 750 mg PO DAILY [facility] Last Admin: 10/01/20 08:59 Dose: 750 mg Documented by: Levetiracetam (Keppra) 1,000 mg PO BEDTIME [facility] Last Admin: 09/30/20 20:12 Dose: 1,000 mg Documented by: Levothyroxine Sodium (Synthroid) 100 mcg PO ACBREAKFAST [facility] Last Admin: 10/01/20 06:01 Dose: 100 mcg Documented by: Lidocaine (Aspercreme 4%) 1 each TOP DAILY [facility] Last Admin: 10/01/20 08:57 Dose: 1 each Documented by: Lorazepam (Ativan) 1 mg PO TID PRN PRN Reason: Seizures Losartan Potassium (Cozaar) 100 mg PO DAILY [facility] Last Admin: 10/01/20 08:59 Dose: 100 mg Documented by: Methyl Salicylate (Icy Hot Cream) 0 gm TOP Q6H PRN PRN Reason: Pain Last Admin: 09/29/20 23:09 Dose: 1 applic Documented by: Miscellaneous Information (Remove Patch) 0 ea TRDERM BEDTIME [facility] Last Admin: 09/30/20 20:14 Dose: 1 ea Documented by: Mometasone Furoate/Formoterol Fumar (Dulera 100-5 Mcg) 2 puff IH BID [facility] Last Admin: 10/01/20 09:43 Dose: 2 puff Documented by: Ondansetron HCl (Zofran) 4 mg IV Q4H PRN PRN Reason: Nausea/Vomiting Pantoprazole Sodium (Protonix) 40 mg PO DAILY@0700 [facility] Last Admin: 10/01/20 06:01 Dose: 40 mg Documented by: Tens Unit [Tens 502] (1 Dose) 0 each TOP DAILY [facility] Last Admin: 09/30/20 12:33 Dose: Not Given Documented by: Desmopressin ( Nonrefrigerated) [ Ddavp 0.01% Nasal Mcgraw] 0 each NASBOTH TID [facility] Prednisone (Prednisone) 5 mg PO DAILY [facility] Last Admin: 10/01/20 09:01 Dose: 5 mg Documented by: Propranolol HCl (Inderal La) 60 mg PO DAILY [facility] Last Admin: 10/01/20 09:01 Dose: 60 mg Documented by: Simvastatin (Zocor) 20 mg PO PCDINNER [facility] Last Admin: 09/30/20 18:00 Dose: 20 mg Documented by: Sodium Chloride (Saline Flush) 10 ml FLUSH ASDIRECTED PRN PRN Reason: Keep Vein Open Last Admin: 09/25/20 09:55 Dose: 10 ml Documented by: Warfarin Sodium (Pharmacy To Dose - Warfarin) 0 dose .XX ASDIRECTED PRN PRN Reason: RX TO DOSE WARFARIN Warfarin Sodium (Coumadin) 1.25 mg PO ONETIME ONE Stop: 10/01/20 18:01 Discontinued Medications Acetaminophen (Tylenol) 975 mg PO NOW ONE Stop: 09/25/20 12:50 Last Admin: 09/25/20 12:56 Dose: 975 mg Documented by: Acetaminophen (Tylenol) 650 mg PO Q4H PRN PRN Reason: Pain (Mild 1-3)/fever Last Admin: 09/25/20 21:50 Dose: 650 mg Documented by: Amlodipine Besylate (Norvasc) 2.5 mg PO DAILY [facility] Clonazepam (Klonopin) 0.5 mg PO BEDTIME [facility] Last Admin: 09/26/20 23:03 Dose: 0.5 mg Documented by: Enoxaparin Sodium (Lovenox) 40 mg SUBCUT DAILY [facility] Last Admin: 09/26/20 08:52 Dose: 40 mg Documented by: Furosemide (Lasix) 20 mg PO DAILY [facility] Last Admin: 09/30/20 12:36 Dose: Not Given Documented by: Gabapentin (Neurontin) 300 mg PO TID [facility] Last Admin: 09/26/20 15:00 Dose: 300 mg Documented by: Sodium Chloride (Normal Saline) 500 mls @ 50 mls/hr IV ONETIME ONE Stop: 09/27/20 17:29 Last Admin: 09/27/20 08:28 Dose: 50 mls/hr Documented by: Lactated Ringer's (Ringers, Lactated) 1,000 mls @ 75 mls/hr IV ASDIRECTED LINDEN Stop: 10/01/20 06:49 Last Admin: 09/30/20 17:49 Dose: 75 mls/hr Documented by: Levetiracetam (Keppra) Confirm Administered Dose 1,000 mg .ROUTE .STK-MED ONE Stop: 09/25/20 21:41 Last Admin: 09/25/20 21:50 Dose: 1,000 mg Documented by: Levetiracetam (Keppra) 500 mg PO ONETIME ONE Stop: 09/30/20 18:17 Last Admin: 09/30/20 18:44 Dose: 500 mg Documented by: Keppra 1000 Mg 0 each PO BEDTIME [facility] Last Admin: 09/25/20 21:53 Dose: Not Given Documented by: Keppra 750 Mg 0 each PO DAILY [facility] Last Admin: 09/26/20 10:18 Dose: Not Given Documented by: Desmopressin ( Nonrefrigerated) [ Ddavp 0.01% Nasal Mcgraw] 0 each NASBOTH TID [facility] Last Admin: 09/30/20 15:59 Dose: Not Given Documented by: Desmopressin ( Nonrefrigerated) [ Ddavp 0.01% Nasal Mcgraw] 0 each NASBOTH ONETIME ONE Stop: 09/30/20 18:46 Last Admin: 09/30/20 18:48 Dose: 1 each Documented by: Potassium Chloride (Klor-Con M20) 40 meq PO BID [facility] Stop: 10/01/20 09:01 Last Admin: 09/30/20 12:37 Dose: Not Given Documented by: Potassium Chloride (Klor-Con M20) 40 meq PO BID [facility] Stop: 10/01/20 09:01 Last Admin: 10/01/20 09:01 Dose: 40 meq Documented by: Propranolol HCl (Inderal La) 120 mg PO DAILY [facility] Last Admin: 09/28/20 08:12 Dose: 120 mg Documented by: Propranolol HCl (Inderal La) 60 mg PO DAILY [facility] Last Admin: 09/29/20 08:54 Dose: 60 mg Documented by: Warfarin Sodium (Coumadin) 4 mg PO QPM [facility] Stop: 09/25/20 21:00 Last Admin: 09/25/20 19:58 Dose: 4 mg Documented by: Warfarin Sodium (Coumadin) 2.5 mg PO 1800 [facility] Stop: 09/26/20 18:01 Last Admin: 09/26/20 17:07 Dose: 2.5 mg Documented by: Warfarin Sodium (Coumadin) 1 mg PO QPM [facility] Stop: 09/27/20 18:01 Last Admin: 09/27/20 17:47 Dose: 1 mg Documented by: Warfarin Sodium (Coumadin Sliding Scale) 0 each PO QPM [facility] Stop: 09/28/20 18:01 Last Admin: 09/28/20 18:35 Dose: Not Given Documented by: Warfarin Sodium (Coumadin Sliding Scale) 0 each PO QPM [facility] Stop: 09/29/20 18:01 Last Admin: 09/29/20 19:41 Dose: Not Given Documented by: Warfarin Sodium (Coumadin) 1 mg PO ONETIME ONE Stop: 09/30/20 18:01 Last Admin: 09/30/20 17:51 Dose: 1 mg Documented by: - Exam Quality Assessment: Supplemental Oxygen General: Mild Distress, Moderate Distress HEENT: Pupils Equal, Pupils Reactive, EOMI, Mucous Membr. Moist/[place] Neck: Supple Lungs: Clear to Auscultation, Normal Respiratory Effort Cardiovascular: Irregular Rhythm (afib ) GI/Abdominal Exam: Normal Bowel Sounds, Soft, Non-Tender, No Organomegaly, No Distention, No Abnormal Bruit, No Mass, Pelvis Stable (Female) Exam: Deferred Back Exam: Normal Inspection, Full Range of Motion Extremities: Normal Inspection, Normal Range of Motion, Non-Tender, No Pedal Edema, Normal Capillary Refill, Limited Range of Motion Skin: Warm, Dry, Intact Neurological: No New Focal Deficit, Strength Equal Bilateral, Reflexes Equal Bilateral, Sensation Intact, Cranial Nerves Intact. No: Normal Gait, Normal Speech, Normal Tone Psy/Mental Status: Anxious Sepsis Event Note - Evaluation Sepsis Screening Result: No Definite Risk - Focused Exam Vital Signs: Vital Signs Temp Pulse Resp BP Pulse Ox Pulse Ox 10/01/20 09:45 98 10/01/20 08:59 122/76 10/01/20 07:40 36.9 C 80 20 122/76 92 L 10/01/20 05:02 36.7 C 71 16 163/91 H 95 10/01/20 00:31 36.9 C 73 18 139/100 H 98 - Problem List & Annotations (1) History of SIADH SNOMED Code(s): 663761841 Code(s): Z86.39 - PERSONAL HISTORY OF ENDO, NUTRITIONAL AND METABOLIC DISEASE Status: Acute Priority: Medium Current Visit: Yes Onset Date: ~09/30/20 Annotation/Comment:: na 146 and recehck in am (2) Chronic renal insufficiency, stage II (mild) SNOMED Code(s): 957597673 Code(s): N18.2 - CHRONIC KIDNEY DISEASE, STAGE 2 (MILD) Status: Acute Priority: Medium Current Visit: Yes Onset Date: ~09/30/20 Annotation/Comment:: creat 1.4 (3) Benign essential tremor SNOMED Code(s): 780086928 Code(s): G25.0 - ESSENTIAL TREMOR Status: Acute Priority: Medium Current Visit: Yes Onset Date: ~09/29/20 Annotation/Comment:: tremor and weakness flucuate and some parkinsons type features but shge is not a good candidate for trial of meds currently . miicrovasc. disease knwon and senior care and hypertension controlled. no features of cva and or altered conc. and na flucuation may be causitive but suspect baseline. (4) Supratherapeutic INR SNOMED Code(s): 903704174 Code(s): R79.1 - ABNORMAL COAGULATION PROFILE Status: Acute Priority: Medium Current Visit: No Onset Date: ~09/29/20 Annotation/Comment:: fl ucuating p.t. (5) Sinus bradycardia SNOMED Code(s): 27706733 Code(s): R00.1 - BRADYCARDIA, UNSPECIFIED Status: Resolved Priority: Low Current Visit: No Onset Date: ~09/29/20 Annotation/Comment:: episode to 30 with chronic lbbb. no complaints of chest pain currently but persistant coughing and hypoxia with xray showing rt peural eff. sm. and small infiltrates lower lobes. // now stable with decreased beta wendy dose / tremor may be increased sec to decreased dose. (6) Seizure SNOMED Code(s): 02401613 Code(s): R56.9 - UNSPECIFIED CONVULSIONS Status: Acute Priority: Medium Current Visit: Yes Onset Date: ~09/30/20 Annotation/Comment:: eval negative for cva andor other neurologic cause. na 148 a nd increased voiding with weight loss suggest panhypopit still requires ddavp a nd restarted. - Problem List Review Problem List Initiated/Reviewed/Updated: Yes - My Orders Last 24 Hours: My Active Orders 10/01/20 18:00 Warfarin [Coumadin] 1.25 mg PO ONETIME ONE - Assessment Assessment:: Assessment: Acute: Failure to thrive Generalized Weakness, improved Hypoxia on, remains on 2L NC Recent Covid-19 Infection Leukocytosis, POA, resolved Macrocytic Hypochromic Anemia with Hgb of 10.3, POA Mild Thrombocytopenia, POA, improved S/p Subtherapeutic INR on Warfarin Therapeutic INR Metabolic Alkalosis with full respiratory compensation, POA Hypoalbuminemia, POA Polypharmacy, POA Vitamin D Deficiency Thyroid Medicine Toxicity Chronic: Impaired vision HTN HLD Chronic afib, on warfarin PUD Hx/o renal stones OA Osteoporosis Back and left shoulder pain Seizure Hypothyroidism Obesity Hx/o Malignant melanoma - Plan Plan:: Plan: Continue current treatment Consider discontinuing Klonopin at QHS and keep Ativan po TID Continue PT/OT consult Routine AM Labs 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 She is asymptomatic. She takes Inderal 120 mg LA BID. We will order EKG and cut dose to 60 mg po BID.
[2020-10-01] MEDS: DESMOPRESSIN NASBOTH SCH ×2 (16:02→22:19)
[2020-10-01] MEDS: [UNRECOGNIZED DRUG - OTHER] TOP SCH (16:02)
[2020-10-01] MEDS ORDERED: Warfarin 2.5 MG Tab PO ONE (18:00)
[2020-10-01] MEDS: Simvastatin 20 MG Tab PO SCH (18:04)
[2020-10-02] MEDS: Pantoprazole 40 MG Tab.CR PO SCH (06:10)
[2020-10-02] MEDS: Levothyroxine 100 MCG Tab PO SCH (06:10)
[2020-10-02] MEDS: levETIRAcetam 500 MG Tab PO SCH ×2 (06:18→09:03)
[2020-10-02] MEDS: Formoterol/Mometasone 100-5 MCG 8.8 GM Inhaler IH SCH (08:10)
[2020-10-02] MEDS: Albuterol 6.7 GM Inhaler INH PRN (08:10)
[2020-10-02] MEDS: Menthol/Methyl Salicylate 85 GM Tube TOP PRN (08:45)
[2020-10-02] MEDS: Losartan 100 MG Tab PO SCH (08:47)
[2020-10-02] MEDS: DESMOPRESSIN NASBOTH SCH (08:47)
[2020-10-02] MEDS: Propranolol 60 MG Cap.ER PO SCH (08:47)
[2020-10-02] MEDS: Gabapentin 100 MG Cap PO SCH (08:47)
[2020-10-02] MEDS: Citalopram 20 MG Tab PO SCH (08:48)
[2020-10-02] MEDS: predniSONE 5 MG Tab PO SCH (08:48)
[2020-10-02] MEDS: Docusate Sodium 100 MG Cap PO SCH (08:48)
[2020-10-02] MEDS: Acetaminophen 325 MG Tab PO SCH ×2 (08:48→14:06)
[2020-10-02] MEDS: Folic Acid 1 MG Tab PO SCH (08:48)
[2020-10-02] MEDS: Furosemide 20 MG Tab PO SCH (08:49)
[2020-10-02] MEDS: Cholecalciferol (Vitamin D3) 5,000 UNIT Cap PO SCH (08:49)
[2020-10-02] MEDS: Lidocaine 4% 1 each Patch TOP SCH (09:00)
[2020-10-02] MEDS: [UNRECOGNIZED DRUG - OTHER] TOP SCH (09:03)
--- NOTE | 2020-10-02 10:34 | PCM.DCSUM1 ---
Discharge Summary - Hospital Course HPI Initial Comments: 89-year-old female from [facility]'s department by ambulance secondary to generalized weakness, difficulty standing, and walking. Patient is a poor historian and when asked questions directly she stated she could not remember most of the time, therefore initial history was mostly obtained through the emergency department notes. Apparently patient was diagnosed with Covid about 13 days prior to admission secondary to mild hypoxia. Patient was transferred to [facility] and it is unknown when she was released. Patient appears to have multiple medical problems including A. fib, hypertension, recurrent bronchitis, on 2 L nasal cannula at home, peptic ulcer disease, chronic back pain, seizure disorder, hypothyroidism, obesity, anxiety, and depression. She has had malignant melanoma in the past and uterine cancer. She is on warfarin presumably for atrial fibrillation. In the emergency department her white count was 12.24, C-reactive protein was elevated at 17.6, ferritin elevated at 359, and LDH elevated at 284. On room air her pH was 7.46, PCO2 45.6, PO2 52, bicarb 32. D-dimer was 0.59 and INR 1.56. Kidney function: Estimated GFR 52, creatinine clearance 33, creatinine 1.0, BUN 16. Albumin was low at 2.3. Chest x-ray showed right lower lobe atelectasis versus infiltrate and a small left chronic pleural effusion. Similar compared to x-ray on 12 September. Assessment/Plan Comment:: Assessment Failure to thrive Weakness, generalized Unable to ambulate COVID-19 Chronic oxygen 2 L/min via nasal cannula * Patient was hospitalized approximately 2 weeks ago for COVID-19. * Unknown treatment or when she was sent back to [facility]. * Patient failed return to [facility], which is an assisted living facility, and will need advancement to skilled care. * Labs are consistent with COVID-19 infection: D-dimer 0.59, CRP 17.6, ferritin 359, LDH 284, albumin 2.3 * Patient is on multiple medications and prior history here shows multiple medical problems. No records are available from [facility] or from her hospital stay in [place]. Leukocytosis * White count is 12.24, PMNs 8.6. * Patient does not have any obvious infections. * No UA performed. * Low-grade fever with initial temperature of 100.5. This could still be secondary to Covid, but it does raise the possibility of a secondary bacterial infection. * Blood cultures were not performed in the emergency department. Hypoalbuminemia * Albumin is 2.3. This is a common occurrence in elderly with Covid. History of atrial fibrillation, but currently in sinus rhythm * She is on warfarin, but INR is subtherapeutic at 1.5 Polypharmacy * Patient is on approximately 30 medications and supplements. * Many of these medications can cause sedation including hydrocodone on, clonazepam, lorazepam, gabapentin, Keppra Chronic medical conditions: Impaired vision, hypertension, hyperlipidemia, recurrent bronchitis and pneumonia, macular degeneration, peptic ulcer disease, chronic pain, back pain, seizures, anxiety and depression, hypothyroidism Plan * Admit to medical floor for failure to thrive * PT/OT consult * Review medication list and try to decrease amount of medications as tolerated over her hospitalization. * Continue appropriate medications. * Get UA with microscopic and C&S if indicated. * Blood cultures x2 * Get procalcitonin * CBC, CMP, CRP, mag, TSH, phosphorus in the morning * If patient develops a fever of 101 or more will consider antibiotics. Also consider antibiotics based on tomorrow's lab work * counseling services manager and discharge planning * VTE prophylaxis with Lovenox 40 mg subcu daily until INR is 2.0 or greater * CODE STATUS: DNR/DNI Diagnosis: Stroke: No - Discharge Data Discharge Date: 10/02/20 Discharge Disposition: DC/Tfer to SNF 03 Condition: Good - Referral to Home Health Primary Care Physician: Savage Ortiz MD - Discharge Diagnosis/Problem(s) (1) Failure to thrive SNOMED Code(s): 85299050 ICD Code: [id number] - Status: Acute Priority: Medium Qualifiers: Failure to thrive age range: in adult Qualified Code(s): R62.7 - Adult failure to thrive (2) Generalized weakness SNOMED Code(s): 93981080 ICD Code: R53.1 - WEAKNESS Status: Acute Priority: Medium Problem Details: patient states she is feeling better and would like to go home soon (3) Hypoxia SNOMED Code(s): 326770017 ICD Code: R09.02 - HYPOXEMIA Status: Acute Priority: Medium Problem Details: on 2 L O2 by nasal canula. Sats at 96% (4) Pneumonia due to COVID-19 virus SNOMED Code(s): 252196602329928933 ICD Code: U07.1 - COVID-19; J12.89 - OTHER VIRAL PNEUMONIA Status: Acute - Patient Summary/Data Consults: Consultations 09/25/20 16:20 Consult to Case Management/Care Transition Manager [CONS] Routine 09/25/20 16:23 OT Evaluation and Treatment [CONS] Routine PT Evaluation and Treatment [CONS] Routine Hospital Course: 89-year-old female post Covid admitted with failure to thrive. Patient is on multiple medications and ultimately gabapentin was decreased to 100 mg 3 times daily. Patient also had a seizure 2 days before discharge thought to be secondary to hyponatremia. They restarted her DDAVP and she was seizure-free. Also, her sodium returned to normal. It was felt patient will be benefited by going to a SNF. Physical therapy was consulted during hospitalization. Patient will follow up with her primary care provider. - Patient Instructions Diet: Usual Diet as Tolerated Activity: As Tolerated Driving: Do Not Drive Showering/Bathing: May Shower Notify Provider of: Fever, Nausea and/or Vomiting Other/Special Instructions: Follow up with PCP in 1 week. - Discharge Plan *PRESCRIPTION DRUG MONITORING PROGRAM REVIEWED*: No *COPY OF PRESCRIPTION DRUG MONITORING REPORT IN PATIENT JEANNIE: No Prescriptions/Med Rec: Propranolol [Inderal LA] 60 mg PO DAILY #30 cap.er Gabapentin [Neurontin] 100 mg PO TID #90 cap Acetaminophen/HYDROcodone [[place] 325-5 MG] 1 tab PO Q4H PRN 30 Days tablet PRN Reason: Pain Acetaminophen [Tylenol] 650 mg PO TID PRN 30 Days capsule PRN Reason: Pain Cholecalciferol (Vitamin D3) [Vitamin D3] 5,000 unit PO DAILY #30 cap Home Medications: Home Meds Desmopressin (NonRefrigerated) [Ddavp 0.01% Nasal [place]] 1 spray NS TID 02/01/15 [History] Dexlansoprazole [Dexilant] 60 mg PO DAILY 02/01/15 [History] Escitalopram [Lexapro] 10 mg PO DAILY 02/01/15 [History] Folic Acid 1 mg PO DAILY 02/01/15 [History] Furosemide [Lasix] 20 mg PO DAILY 02/01/15 [History] LORazepam 1 mg PO TID PRN MDD 3mg in 12 hrs 02/01/15 [History] Losartan Potassium [Cozaar] 100 mg PO QAM 02/01/15 [History] Multivit-Min/FA/Lutein/Zeaxant [Macular Vitamin Tablet] 1 each PO 1200 02/01/15 [History] Multivitamin [Daily Vitamin] 1 each PO QAM 02/01/15 [History] levETIRAcetam [Keppra] 1,000 mg PO BEDTIME 02/01/15 [History] levETIRAcetam [Keppra] 750 mg PO DAILY 02/01/15 [History] predniSONE [Prednisone] 5 mg PO DAILY 02/01/15 [History] Simvastatin 40 mg PO PCDINNER 06/07/18 [History] Docusate Sodium 100 mg PO DAILY 11/11/18 [History] Warfarin [Coumadin] 2.5 mg PO MOWEFR 11/11/18 [History] Fluticasone/Vilanterol [Breo Ellipta 100-25 MCG Inhalation Kit] 1 puff INH DAILY 05/06/19 [History] cycloSPORINE [Restasis Multidose] 1 drop EYEBOTH BID 05/06/19 [History] Albuterol Sulfate [Proair Hfa] 2 puff INH Q6H PRN 05/31/19 [History] Warfarin [Coumadin] 1.25 mg PO ASDIRECTED 06/01/19 [History] Ascorbic Acid [Vitamin C] 250 mg PO BID #60 tab.chew 06/07/19 [Rx] Acetaminophen [Tylenol Arthritis] 650 mg PO BEDTIME PRN 09/12/20 [History] Calcium Carb, Citrate/Vit D3 [Calcium + D3 ER Tablet] 1 tab PO 1200 09/12/20 [History] Calcium Carbonate [Tums] 500 mg PO QID PRN 09/12/20 [History] Levothyroxine [Synthroid] 100 mcg PO DAILY 09/12/20 [History] Lidocaine 4% [Aspercreme 4%] 1 each TOP BID 09/12/20 [History] Menthol [Biofreeze] 1 dose TOP Q6H PRN 09/12/20 [History] Tens Unit [Tens 502] 1 dose TOP DAILY 09/12/20 [History] Acetaminophen [Tylenol] 650 mg PO TID PRN 30 Days capsule 10/02/20 [Rx] Acetaminophen/HYDROcodone [[place] 325-5 MG] 1 tab PO Q4H PRN 30 Days tablet 10/02/20 [Rx] Cholecalciferol (Vitamin D3) [Vitamin D3] 5,000 unit PO DAILY #30 cap 10/02/20 [Rx] Gabapentin [Neurontin] 100 mg PO TID #90 cap 10/02/20 [Rx] Propranolol [Inderal LA] 60 mg PO DAILY #30 cap.er 10/02/20 [Rx] Remove Patch 0 ea TRDERM BEDTIME each 10/02/20 [Rx] Oxygen Therapy Mode: Nasal Cannula Oxygen Flow Rate (L/min): 1 Maintain SPO2% less than: 97 Maintain SpO2% greater than: 88 Patient Handouts: Sepsis, Diagnosis, Adult Referrals: Savage Ortiz MD [Primary Care Provider] - 10/09/20 1:00 pm - Discharge Summary/Plan Comment DC Time >30 min.: No - General Info Date of Service: 10/02/20 Subjective Update: Patient is doing well without complaints. Appetite is improved. She continues to be weak. - Patient Data Vitals - Most Recent: Last Vital Signs Temp 98.2 F 10/02/20 08:41 Pulse 85 10/02/20 08:41 Resp 16 10/02/20 08:41 BP 139/96 H 10/02/20 08:47 Pulse Ox 91 L 10/02/20 08:41 Weight - Most Recent: 161 lb 14.4 oz I&O - Last 24 hours: Intake & Output 10/01/20 10/02/20 10/02/20 22:59 06:59 14:59 Intake Total 855 500 Output Total 200 Balance 655 500 Lab Results - Last 24 hrs: Laboratory Results - last 24 hr 10/02/20 10/02/20 10/02/20 Range/Units 05:37 05:37 05:37 WBC 9.25 (3.98-10.04) K/mm3 RBC 3.24 L (3.98-5.22) M/mm3 Hgb 9.8 L (11.2-15.7) gm/dl Hct 33.1 L (34.1-44.9) % MCV 102.2 H (79.4-94.8) fl MCH 30.2 (25.6-32.2) pg MCHC 29.6 L (32.2-35.5) g/dl RDW Std Deviation 58.1 H (36.4-46.3) fL Plt Count 264 (182-369) K/mm3 MPV 10.2 (9.4-12.3) fl Neut % (Auto) 62.7 (34.0-71.1) % Lymph % (Auto) 23.7 (19.3-51.7) % [place] % (Auto) 9.6 (4.7-12.5) % Eos % (Auto) 3.6 (0.7-5.8) Baso % (Auto) 0.2 (0.1-1.2) % Neut # (Auto) 5.80 (1.56-6.13) K/mm3 Lymph # (Auto) 2.19 (1.18-3.74) K/mm3 [place] # (Auto) 0.89 H (0.24-0.36) K/mm3 Eos # (Auto) 0.33 (0.04-0.36) K/mm3 Baso # (Auto) 0.02 (0.01-0.08) K/mm3 Manual Slide Review Abnormal smear PT 23.8 H (9.7-12.0) SECONDS INR 2.26 Sodium 145 (136-145) mEq/L Potassium 3.7 (3.5-5.1) mEq/L Chloride 105 (98-107) mEq/L Carbon Dioxide 35 H (21-32) mEq/L Anion Gap 8.7 (5-15) BUN 13 (7-18) mg/dL Creatinine 0.9 (0.55-1.02) mg/dL Est Cr Clr Drug Dosing 31.04 mL/min Estimated GFR (MDRD) 59 (>60) mL/min BUN/Creatinine Ratio 14.4 (14-18) Glucose 88 (83-115) mg/dL Calcium 8.4 L (8.5-10.1) mg/dL Magnesium 1.8 (1.8-2.4) mg/dl [place] Results - Last 24 hrs: Microbiology 09/25/20 20:50 Aerobic Blood Culture - Preliminary Blood - Venous NO GROWTH AFTER 6 DAYS Anaerobic Blood Culture - Final 09/25/20 19:55 Aerobic Blood Culture - Preliminary Blood - Venous - Lab Draw NO GROWTH AFTER 6 DAYS Anaerobic Blood Culture - Preliminary NO GROWTH AFTER 6 DAYS 09/29/20 13:30 Urine Culture - Final Urine, Clean Catch Med Orders - Current: Current Medications Acetaminophen (Tylenol) 650 mg PO BEDTIME PRN PRN Reason: Pain Last Admin: 09/30/20 20:26 Dose: 650 mg Documented by: Acetaminophen (Tylenol) 650 mg PO TID@0900,1300,1700 [facility] Last Admin: 10/02/20 08:48 Dose: 650 mg Documented by: Hydrocodone Bitart/Acetaminophen ([place] 325-5 Mg) 1 tab PO Q4H PRN PRN Reason: Pain (moderate 4-6) Albuterol (Proventil Hfa) 0 gm INH Q6H PRN PRN Reason: Shortness of Breath Last Admin: 10/02/20 08:10 Dose: 2 puff Documented by: Calcium Carbonate/Glycine (Tums) 500 mg PO QID PRN PRN Reason: Heartburn Last Admin: 09/27/20 14:11 Dose: 500 mg Documented by: Cholecalciferol (Vitamin D3) 5,000 unit PO DAILY [facility] Last Admin: 10/02/20 08:49 Dose: 5,000 unit Documented by: Citalopram Hydrobromide (Celexa) 20 mg PO DAILY [facility] Last Admin: 10/02/20 08:48 Dose: 20 mg Documented by: Docusate Sodium (Colace) 100 mg PO DAILY [facility] Last Admin: 10/02/20 08:48 Dose: Not Given Documented by: Folic Acid (Folic Acid) 1 mg PO DAILY [facility] Last Admin: 10/02/20 08:48 Dose: 1 mg Documented by: Furosemide (Lasix) 20 mg PO DAILY [facility] Last Admin: 10/02/20 08:49 Dose: 20 mg Documented by: Gabapentin (Neurontin) 100 mg PO TID [facility] Last Admin: 10/02/20 08:47 Dose: 100 mg Documented by: Levetiracetam (Keppra) 750 mg PO DAILY [facility] Last Admin: 10/02/20 09:03 Dose: Not Given Documented by: Levetiracetam (Keppra) 1,000 mg PO BEDTIME [facility] Last Admin: 10/01/20 21:16 Dose: 1,000 mg Documented by: Levothyroxine Sodium (Synthroid) 100 mcg PO ACBREAKFAST [facility] Last Admin: 10/02/20 06:10 Dose: 100 mcg Documented by: Lidocaine (Aspercreme 4%) 1 each TOP DAILY [facility] Last Admin: 10/01/20 08:57 Dose: 1 each Documented by: Lorazepam (Ativan) 1 mg PO TID PRN PRN Reason: Seizures Losartan Potassium (Cozaar) 100 mg PO DAILY [facility] Last Admin: 10/02/20 08:47 Dose: 100 mg Documented by: Methyl Salicylate (Icy Hot Cream) 0 gm TOP Q6H PRN PRN Reason: Pain Last Admin: 10/02/20 08:45 Dose: 1 applic Documented by: Miscellaneous Information (Remove Patch) 0 ea TRDERM BEDTIME [facility] Last Admin: 10/01/20 21:19 Dose: 1 ea Documented by: Mometasone Furoate/Formoterol Fumar (Dulera 100-5 Mcg) 2 puff IH BID [facility] Last Admin: 10/02/20 08:10 Dose: 2 puff Documented by: Ondansetron HCl (Zofran) 4 mg IV Q4H PRN PRN Reason: Nausea/Vomiting Pantoprazole Sodium (Protonix) 40 mg PO DAILY@0700 [facility] Last Admin: 10/02/20 06:10 Dose: 40 mg Documented by: Tens Unit [Tens 502] (1 Dose) 0 each TOP DAILY [facility] Last Admin: 10/02/20 09:03 Dose: Not Given Documented by: Desmopressin ( Nonrefrigerated) [ Ddavp 0.01% Nasal [place]] 0 each NASBOTH TID [facility] Last Admin: 10/02/20 08:47 Dose: 1 each Documented by: Prednisone (Prednisone) 5 mg PO DAILY [facility] Last Admin: 10/02/20 08:48 Dose: 5 mg Documented by: Propranolol HCl (Inderal La) 60 mg PO DAILY [facility] Last Admin: 10/02/20 08:47 Dose: 60 mg Documented by: Simvastatin (Zocor) 20 mg PO PCDINNER [facility] Last Admin: 10/01/20 18:04 Dose: 20 mg Documented by: Sodium Chloride (Saline Flush) 10 ml FLUSH ASDIRECTED PRN PRN Reason: Keep Vein Open Last Admin: 09/25/20 09:55 Dose: 10 ml Documented by: Warfarin Sodium (Pharmacy To Dose - Warfarin) 0 dose .XX ASDIRECTED PRN PRN Reason: RX TO DOSE WARFARIN Discontinued Medications Acetaminophen (Tylenol) 975 mg PO NOW ONE Stop: 09/25/20 12:50 Last Admin: 09/25/20 12:56 Dose: 975 mg Documented by: Acetaminophen (Tylenol) 650 mg PO Q4H PRN PRN Reason: Pain (Mild 1-3)/fever Last Admin: 09/25/20 21:50 Dose: 650 mg Documented by: Amlodipine Besylate (Norvasc) 2.5 mg PO DAILY [facility] Clonazepam (Klonopin) 0.5 mg PO BEDTIME [facility] Last Admin: 09/26/20 23:03 Dose: 0.5 mg Documented by: Enoxaparin Sodium (Lovenox) 40 mg SUBCUT DAILY [facility] Last Admin: 09/26/20 08:52 Dose: 40 mg Documented by: Furosemide (Lasix) 20 mg PO DAILY [facility] Last Admin: 09/30/20 12:36 Dose: Not Given Documented by: Gabapentin (Neurontin) 300 mg PO TID [facility] Last Admin: 09/26/20 15:00 Dose: 300 mg Documented by: Sodium Chloride (Normal Saline) 500 mls @ 50 mls/hr IV ONETIME ONE Stop: 09/27/20 17:29 Last Admin: 09/27/20 08:28 Dose: 50 mls/hr Documented by: Lactated Ringer's (Ringers, Lactated) 1,000 mls @ 75 mls/hr IV ASDIRECTED [place]IND[place] Stop: 10/01/20 06:49 Last Admin: 09/30/20 17:49 Dose: 75 mls/hr Documented by: Levetiracetam (Keppra) Confirm Administered Dose 1,000 mg .ROUTE .STK-MED ONE Stop: 09/25/20 21:41 Last Admin: 09/25/20 21:50 Dose: 1,000 mg Documented by: Levetiracetam (Keppra) 500 mg PO ONETIME ONE Stop: 09/30/20 18:17 Last Admin: 09/30/20 18:44 Dose: 500 mg Documented by: Keppra 1000 Mg 0 each PO BEDTIME [facility] Last Admin: 09/25/20 21:53 Dose: Not Given Documented by: Keppra 750 Mg 0 each PO DAILY [facility] Last Admin: 09/26/20 10:18 Dose: Not Given Documented by: Desmopressin ( Nonrefrigerated) [ Ddavp 0.01% Nasal [place]] 0 each NASBOTH TID [facility] Last Admin: 09/30/20 15:59 Dose: Not Given Documented by: Desmopressin ( Nonrefrigerated) [ Ddavp 0.01% Nasal [place]] 0 each NASBOTH ONETIME ONE Stop: 09/30/20 18:46 Last Admin: 09/30/20 18:48 Dose: 1 each Documented by: Potassium Chloride (Klor-Con M20) 40 meq PO BID [facility] Stop: 10/01/20 09:01 Last Admin: 09/30/20 12:37 Dose: Not Given Documented by: Potassium Chloride (Klor-Con M20) 40 meq PO BID [facility] Stop: 10/01/20 09:01 Last Admin: 10/01/20 09:01 Dose: 40 meq Documented by: Propranolol HCl (Inderal La) 120 mg PO DAILY [facility] Last Admin: 09/28/20 08:12 Dose: 120 mg Documented by: Propranolol HCl (Inderal La) 60 mg PO DAILY [facility] Last Admin: 09/29/20 08:54 Dose: 60 mg Documented by: Warfarin Sodium (Coumadin) 4 mg PO QPM [facility] Stop: 09/25/20 21:00 Last Admin: 09/25/20 19:58 Dose: 4 mg Documented by: Warfarin Sodium (Coumadin) 2.5 mg PO 1800 [facility] Stop: 09/26/20 18:01 Last Admin: 09/26/20 17:07 Dose: 2.5 mg Documented by: Warfarin Sodium (Coumadin) 1 mg PO QPM [facility] Stop: 09/27/20 18:01 Last Admin: 09/27/20 17:47 Dose: 1 mg Documented by: Warfarin Sodium (Coumadin Sliding Scale) 0 each PO QPM [facility] Stop: 09/28/20 18:01 Last Admin: 09/28/20 18:35 Dose: Not Given Documented by: Warfarin Sodium (Coumadin Sliding Scale) 0 each PO QPM [facility] Stop: 09/29/20 18:01 Last Admin: 09/29/20 19:41 Dose: Not Given Documented by: Warfarin Sodium (Coumadin) 1 mg PO ONETIME ONE Stop: 09/30/20 18:01 Last Admin: 09/30/20 17:51 Dose: 1 mg Documented by: Warfarin Sodium (Coumadin) 1.25 mg PO ONETIME ONE Stop: 10/01/20 18:01 Last Admin: 10/01/20 18:04 Dose: 1.25 mg Documented by: - Exam General: Reports: Alert HEENT: Reports: Pupils Equal, Mucous Membr. Moist/[place] Neck: Reports: Supple Lungs: Reports: Clear to Auscultation, Normal Respiratory Effort Cardiovascular: Reports: Regular Rate, Regular Rhythm GI/Abdominal Exam: Normal Bowel Sounds, Soft, Non-Tender, No Distention, No Abnormal Bruit Psy/Mental Status: Reports: Alert, Normal Affect, Normal Mood
[2020-10-02 12:21] VITALS: BP 143/74; PULSE 80
[2020-10-02] MEDS ORDERED: Warfarin 2.5 MG Tab PO SCH (18:00)
== END 2020-10-02 13:00 | DRG 641 ==
LOC: JD.ED 09:07 → SUPCPDRO 09:07 → JD.ICU 13:26 → JD.MS 14:38
PROVIDERS: ADMIT Family Medicine; ATTEND Family Medicine
DX: U07.1 COVID-19 (principal); J12.89 Other viral pneumonia; R09.02 Hypoxemia; R62.7 Adult failure to thrive; E87.1 Hypo-osmolality and hyponatremia; E87.0 Hyperosmolality and hypernatremia; I48.91 Unspecified atrial fibrillation; E87.3 Alkalosis; I10 Essential (primary) hypertension; I48.20 Chronic atrial fibrillation, unspecified; I13.0 Hypertensive heart and chronic kidney disease with heart failure and stage 1 through stage 4 chronic kidney disease, or unspecified chronic kidney disease; R53.1 Weakness; Z66 Do not resuscitate; E88.09 Other disorders of plasma-protein metabolism, not elsewhere classified; D72.829 Elevated white blood cell count, unspecified; R56.9 Unspecified convulsions; G40.909 Epilepsy, unspecified, not intractable, without status epilepticus; H54.7 Unspecified visual loss; E78.00 Pure hypercholesterolemia, unspecified; G89.29 Other chronic pain; Z88.8 Allergy status to other drugs, medicaments and biological substances; M54.9 Dorsalgia, unspecified; Z79.890 Hormone replacement therapy; M19.90 Unspecified osteoarthritis, unspecified site; Z79.52 Long term (current) use of systemic steroids; M81.0 Age-related osteoporosis without current pathological fracture; F41.9 Anxiety disorder, unspecified; F32.9 Major depressive disorder, single episode, unspecified; E03.9 Hypothyroidism, unspecified; E66.9 Obesity, unspecified; N18.2 Chronic kidney disease, stage 2 (mild); G25.0 Essential tremor; R79.1 Abnormal coagulation profile; R00.1 Bradycardia, unspecified; D50.9 Iron deficiency anemia, unspecified; D69.6 Thrombocytopenia, unspecified; E55.9 Vitamin D deficiency, unspecified; E78.5 Hyperlipidemia, unspecified; I50.9 Heart failure, unspecified; R00.0 Tachycardia, unspecified; Z86.19 Personal history of other infectious and parasitic diseases; Z79.899 Other long term (current) drug therapy; Z79.01 Long term (current) use of anticoagulants; Z99.81 Dependence on supplemental oxygen; Z88.5 Allergy status to narcotic agent; Z88.1 Allergy status to other antibiotic agents; Z88.0 Allergy status to penicillin; Z88.2 Allergy status to sulfonamides; Z87.01 Personal history of pneumonia (recurrent); Z87.11 Personal history of peptic ulcer disease; Z85.43 Personal history of malignant neoplasm of ovary; Z85.42 Personal history of malignant neoplasm of other parts of uterus; Z90.89 Acquired absence of other organs; Z98.49 Cataract extraction status, unspecified eye; Z90.49 Acquired absence of other specified parts of digestive tract; Z90.710 Acquired absence of both cervix and uterus; Z86.39 Personal history of other endocrine, nutritional and metabolic disease; Z87.442 Personal history of urinary calculi; Z68.35 Body mass index [BMI] 35.0-35.9, adult
CPT/HCPCS: 36415; 36600; 71045; 80053; 82728; 82803; 83615; 85025; 85379; 86140; 93005; 99285; A9270; 80048; 80177; 81001; 82306; 82747; 82962; 83540; 83735; 83880; 83930; 83935; 84100; 84134; 84145; 84439; 84443; 84466; 84484; 85014; 85610; 87040; 87086; 87641; 93010; 93306; 94640; 94760; 94761; 94762; 97110-GO; 97110-GP; 97162-GP; 97165-GO; 97530-GO; 97535-GO; 99283; J1650; J7040; J7120; J7512

== ENCOUNTER 2020-10-06 16:32 | Emergency (ER) | payer MEDICARE, MEDICAID ==
[2020-10-06 16:43] VITALS: BP 131/72; PULSE 67
[2020-10-06] MEDS ORDERED: Sodium Chloride 0.9% 10 ML Syringe FLUSH PRN (16:48)
--- NOTE | 2020-10-06 16:57 | EDM.PDOC ---
ED HPI GENERAL MEDICAL PROBLEM - General Chief Complaint: Neurological Problem Stated Complaint: [facility] Time Seen by Provider: 10/06/20 16:42 Source of Information: Reports: Patient, RN Notes Reviewed - History of Present Illness INITIAL COMMENTS - FREE TEXT/NARRATIVE: 89 yr old female sent from [facility] after reported to have had a couple of "absence seizures" at the OR today. Hx of seizure disorder on keppra. Reportedly has not had seizures for yrs. Duration of seizures on unresponsiveness not known. She is known to have had covid about 4 to 6 wks ago. Post covid she was too frail to continue on at the [facility] so now at [facility]. Pt states she had no warning today prior to seizures. No chest pain or difficulty breathing. No Martinez, nausea or vomiting. On keppra in addition to her other medications. Treatments CONTRACT ENGINEER: Reports: Other (see below) Other Treatments CONTRACT ENGINEER: iv started by ambulance RAC Headache Pain Score (Numeric/FACES): 8 - Related Data Allergies Allergy/AdvReac Type Severity Reaction Status Date / Time Cephalosporins Allergy Unknown Cannot Verified 10/06/20 17:19 Remember codeine Allergy Unknown Cannot Verified 10/06/20 17:19 Remember diazepam [From Valium] Allergy Unknown Other Verified 10/06/20 17:19 morphine Allergy Unknown Cannot Verified 10/06/20 17:19 Remember Penicillins Allergy Unknown Cannot Verified 10/06/20 17:19 Remember phenobarbital Allergy Unknown Other Verified 10/06/20 17:19 sulfanilamide [Sulfanilamide] Allergy Unknown Cannot Verified 10/06/20 17:19 Remember clindamycin AdvReac Mild Stomach Verified 10/06/20 17:19 Ache Home Meds: Home Meds Desmopressin (NonRefrigerated) [Ddavp 0.01% Nasal [place]] 1 spray NS TID 02/01/15 [History] Dexlansoprazole [Dexilant] 60 mg PO DAILY 02/01/15 [History] Escitalopram [Lexapro] 10 mg PO DAILY 02/01/15 [History] Folic Acid 1 mg PO DAILY 02/01/15 [History] Furosemide [Lasix] 20 mg PO DAILY 02/01/15 [History] LORazepam 1 mg PO TID PRN MDD 3mg in 12 hrs 02/01/15 [History] Losartan Potassium [Cozaar] 100 mg PO QAM 02/01/15 [History] Multivit-Min/FA/Lutein/Zeaxant [Macular Vitamin Tablet] 1 each PO 1200 02/01/15 [History] Multivitamin [Daily Vitamin] 1 each PO QAM 02/01/15 [History] levETIRAcetam [Keppra] 1,000 mg PO BEDTIME 02/01/15 [History] levETIRAcetam [Keppra] 750 mg PO DAILY 02/01/15 [History] predniSONE [Prednisone] 5 mg PO DAILY 02/01/15 [History] Simvastatin 40 mg PO PCDINNER 06/07/18 [History] Docusate Sodium 100 mg PO DAILY 11/11/18 [History] Warfarin [Coumadin] 2.5 mg PO MOWEFR 11/11/18 [History] Fluticasone/Vilanterol [Breo Ellipta 100-25 MCG Inhalation Kit] 1 puff INH DAILY 05/06/19 [History] cycloSPORINE [Restasis Multidose] 1 drop EYEBOTH BID 05/06/19 [History] Albuterol Sulfate [Proair Hfa] 2 puff INH Q6H PRN 05/31/19 [History] Warfarin [Coumadin] 1.25 mg PO ASDIRECTED 06/01/19 [History] Ascorbic Acid [Vitamin C] 250 mg PO BID #60 tab.chew 06/07/19 [Rx] Acetaminophen [Tylenol Arthritis] 650 mg PO BEDTIME PRN 09/12/20 [History] Calcium Carb, Citrate/Vit D3 [Calcium + D3 ER Tablet] 1 tab PO 1200 09/12/20 [History] Calcium Carbonate [Tums] 500 mg PO QID PRN 09/12/20 [History] Levothyroxine [Synthroid] 100 mcg PO DAILY 09/12/20 [History] Lidocaine 4% [Aspercreme 4%] 1 each TOP BID 09/12/20 [History] Menthol [Biofreeze] 1 dose TOP Q6H PRN 09/12/20 [History] Tens Unit [Tens 502] 1 dose TOP DAILY 09/12/20 [History] Acetaminophen [Tylenol] 650 mg PO TID PRN 30 Days capsule 10/02/20 [Rx] Acetaminophen/HYDROcodone [[place] 325-5 MG] 1 tab PO Q4H PRN 30 Days tablet 10/02/20 [Rx] Cholecalciferol (Vitamin D3) [Vitamin D3] 5,000 unit PO DAILY #30 cap 10/02/20 [Rx] Gabapentin [Neurontin] 100 mg PO TID #90 cap 10/02/20 [Rx] Propranolol [Inderal LA] 60 mg PO DAILY #30 cap.er 10/02/20 [Rx] Remove Patch 0 ea TRDERM BEDTIME each 10/02/20 [Rx] Past Medical History HEENT History: Reports: Cataract, Impaired Vision Other HEENT History: Glasses and upper dentures Cardiovascular History: Reports: Afib, High Cholesterol, Hypertension Respiratory History: Reports: Bronchitis, Recurrent, Pneumonia, Recurrent Other Respiratory History: no O2 at home. Gastrointestinal History: Reports: PUD, Other (See Below) Other Gastrointestinal History: stomach ulcers. Genitourinary History: Reports: Renal Calculus Other Genitourinary History: kidney stones CHANGE MANAGEMENT LEAD History: Reports: Other CHANGE MANAGEMENT LEAD History: Had 3 children. 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 - Past Surgical History Head Surgeries/Procedures: Reports: Other (See Below) HEENT Surgical History: Reports: Cataract Surgery, Oral Surgery, Tonsillectomy Other HEENT Surgeries/Procedures: wisdom teeth removed. 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 Musculoskeletal Surgical History: Reports: None Other Musculoskeletal Surgeries/Procedures:: Cortisone injection to left shoulder. Oncologic Surgical History: Reports: None Dermatological Surgical History: Reports: Skin Biopsy Social & Family History - Family History Family Medical History: No Pertinent Family History HEENT: Reports: Hearing Impairment Other HEENT Family History: Brother Ed has hearing aids. Cardiac: Reports: High Cholesterol, Hypertension Respiratory: Reports: Asthma, COPD, Other (See Below) Other Respiratory Family Hisory: Sister has asthma. Brother has COPD. Mother had lung problems. OBGYN: Reports: Ectopic Musculoskeletal: Reports: Fibromyalgia Other Musculoskeletal Family History: Sister has fibromyalgia. Neurological: Reports: CVA Other Neurological Family History: Father had strokes. Endocrine/Metabolic: Reports: Diabetes, type II Other Endocrine/Metabolic Family History: Brother has DM II. Hematologic: Reports: Other (See Below) Other Hematologic Family History: Brother has some type of bleeding complication. Oncologic: Reports: Lung Other Oncologic Family History: Daughter has lung CA from smoking. - Tobacco Use Tobacco Use Status *Q: Never Tobacco User - Caffeine Use Caffeine Use: Reports: None - Recreational Drug Use Recreational Drug Use: No - Living Situation & Occupation Living situation: Reports: , Alone, Assisted Living Occupation: Retired ED ROS GENERAL - Review of Systems Review Of Systems: See Below Constitutional: Denies: Fever, Chills HEENT: Reports: No Symptoms Respiratory: Denies: Shortness of Breath, Cough Cardiovascular: Denies: Chest Pain GI/Abdominal: Denies: Nausea, Vomiting Musculoskeletal: Reports: No Symptoms Skin: Denies: Rash Neurological: Reports: Weakness (generalized, chronis). Denies: Headache, Trouble Speaking ED EXAM, NEURO - Physical Exam Exam: See Below General Appearance: Alert, No Apparent Distress Eye Exam: Bilateral Eye: PERRL Head Exam: Atraumatic Neck: Supple, Other (No JVD) Respiratory/Chest: No Respiratory Distress, Lungs Clear, Normal Breath Sounds. No: Rales, Rhonchi, Wheezing Cardiovascular: Regular Rate, Rhythm GI/Abdominal: Soft, Non-Tender. No: Guarding Neurological: Alert, No Motor/Sensory Deficits, Other (speech is a bit slow to respond to questions but appropriate) Extremities: Normal Inspection. No: Leg Pain, Increased Warmth, Redness Skin Exam: Warm, Dry, Normal Color, No Rash Course - Vital Signs Last Recorded V/S: Last Vital Signs Temp 96.9 F 10/06/20 16:41 Pulse 67 10/06/20 16:41 Resp 24 H 10/06/20 16:41 BP 131/72 10/06/20 16:41 Pulse Ox 89 L 10/06/20 16:41 - Orders/Labs/Meds Labs: Laboratory Tests 10/06/20 10/06/20 10/06/20 Range/Units 17:09 17:09 17:09 WBC 8.05 (3.98-10.04) K/mm3 RBC 3.21 L (3.98-5.22) M/mm3 Hgb 9.8 L (11.2-15.7) gm/dl Hct 31.8 L (34.1-44.9) % MCV 99.1 H (79.4-94.8) fl MCH 30.5 (25.6-32.2) pg MCHC 30.8 L (32.2-35.5) g/dl RDW Std Deviation 51.7 H (36.4-46.3) fL Plt Count 460 H D (182-369) K/mm3 MPV 9.5 (9.4-12.3) fl Neut % (Auto) 51.3 (34.0-71.1) % Lymph % (Auto) 27.6 (19.3-51.7) % [place] % (Auto) 15.3 H (4.7-12.5) % Eos % (Auto) 4.8 (0.7-5.8) Baso % (Auto) 0.5 (0.1-1.2) % Neut # (Auto) 4.13 (1.56-6.13) K/mm3 Lymph # (Auto) 2.22 (1.18-3.74) K/mm3 [place] # (Auto) 1.23 H (0.24-0.36) K/mm3 Eos # (Auto) 0.39 H (0.04-0.36) K/mm3 Baso # (Auto) 0.04 (0.01-0.08) K/mm3 Manual Slide Review Abnormal smear PT 18.4 H (9.7-12.0) SECONDS INR 1.74 Sodium 132 L D (136-145) mEq/L Potassium 3.1 L (3.5-5.1) mEq/L Chloride 95 L (98-107) mEq/L Carbon Dioxide 32 (21-32) mEq/L Anion Gap 8.1 (5-15) BUN 12 (7-18) mg/dL Creatinine 0.6 (0.55-1.02) mg/dL Est Cr Clr Drug Dosing 46.55 mL/min Estimated GFR (MDRD) > 60 (>60) mL/min BUN/Creatinine Ratio 20.0 H (14-18) Glucose 100 (83-115) mg/dL Calcium 8.3 L (8.5-10.1) mg/dL Total Bilirubin 0.4 (0.2-1.0) mg/dL AST 22 (15-37) U/L ALT 31 (14-59) U/L Alkaline Phosphatase 42 L (46-116) U/L Total Protein 5.9 L (6.4-8.2) g/dl Albumin 2.5 L (3.4-5.0) g/dl Globulin 3.4 gm/dL Albumin/Globulin Ratio 0.7 L (1-2) Meds: Medications Discontinued Medications Generic Name Dose Route Start Last Admin Trade Name Freq PRN Reason Stop Dose Admin Levetiracetam 500 mg/ Sodium 105 mls @ 400 mls/hr 10/06/20 17:05 10/06/20 17:33 Chloride IV 10/06/20 17:19 400 mls/hr ONETIME ONE Administration Potassium Chloride 10 meq/ 100 mls @ 50 mls/hr 10/06/20 19:03 10/06/20 19:21 Premix IV 10/06/20 21:02 50 mls/hr ASDIRECTED ONE Administration Sodium Chloride 1,000 mls @ 999 mls/hr 10/06/20 19:15 10/06/20 19:14 Normal Saline IV 999 mls/hr ONETIME LINDEN Administration Potassium Chloride 10 meq 10/06/20 19:21 10/06/20 20:49 Klor-Con M20 PO 10/06/20 19:22 10 meq ONETIME ONE Administration Sodium Chloride 10 ml 10/06/20 16:48 10/06/20 16:50 Saline Flush FLUSH 10 ml ASDIRECTED PRN Administration Keep Vein Open - Re-Assessments/Exams Free Text/Narrative Re-Assessment/Exam: 10/06/20 19:13 WBC nl, hgb 9.8. K 3.1. Na 132. Head CT does not show acute findings. Will give 500 ml NS to bring he sodium up a bit and also 10 meq KCL IV. Discharge instr. as documented. Will discharge back to OR. No seizure activity while here in the ED. Departure - Departure Time of Disposition: 19:18 Disposition: Home, Self-Care 01 Condition: Fair Clinical Impression: Seizures, Hypokalemia, Hyponatremia - Discharge Information Instructions: Hypokalemia, Seizure, Adult, [id number] Referrals: Savage Ortiz MD [Primary Care Provider] - Forms: ED Department Discharge Additional Instructions: Her sodium today is low at 132. Her potassium also low at 3.1. KCL 10 daily. She has been given 10 meq KCL IV while here in the ED and also 10 meq oral. Please call Dr Ortiz as needed for any further treatment orders. Sepsis Event Note (ED) - Evaluation Sepsis Screening Result: No Definite Risk
[2020-10-06] MEDS ORDERED: levETIRAcetam 500 MG in Sodium Chloride 0.9% 100 ML IV ONE (17:05)
--- NOTE | 2020-10-06 18:43 | CT ---
Head CT Technique: Multiple axial sections through the brain were obtained. Comparison: Prior head CT study of 01/03/20. Findings: Ventricles along with basal cisterns and sulci over the convexities appear within normal limits. Slight basal ganglia calcification is seen which is normal. Very minimal decreased density within the periventricular white matter compatible with mild small vessel ischemic demyelination change. No other abnormal parenchymal densities are seen. Vascular calcification is identified within the carotid siphon and within the vertebral vessels. Visualized mastoid sinuses are clear. Visualized paranasal sinuses shows mucosal thickening and fluid within the sphenoid sinus. Slight soft tissue swelling is noted within the right forehead. Impression: 1. Fluid within the sphenoid sinus which appears increased from prior study. Difficult to exclude sinusitis. 2. Mild senescent change as noted above. 3. Slight soft tissue swelling within the right forehead. Diagnostic code #3
[2020-10-06] MEDS ORDERED: Potassium Chloride 10 MEQ in Premix Bag 1 BAG IV ONE (19:03)
[2020-10-06] MEDS ORDERED: Sodium Chloride 0.9% 1,000 ML IV SCH (19:15)
[2020-10-06] MEDS ORDERED: Potassium Chloride 20 MEQ Tab.ER PO ONE (19:21)
== END 2020-10-06 21:55 | disposition home or self-care (01) ==
LOC: JD.ED 16:32 → SUPCPDRO 16:32 → JD.ED 21:55
DX: E87.1 Hypo-osmolality and hyponatremia (principal); E87.6 Hypokalemia; E78.00 Pure hypercholesterolemia, unspecified; I10 Essential (primary) hypertension; I48.91 Unspecified atrial fibrillation; F41.9 Anxiety disorder, unspecified; F32.9 Major depressive disorder, single episode, unspecified; E03.9 Hypothyroidism, unspecified; E66.9 Obesity, unspecified; Z68.33 Body mass index [BMI] 33.0-33.9, adult; Z88.1 Allergy status to other antibiotic agents; Z88.5 Allergy status to narcotic agent; Z88.8 Allergy status to other drugs, medicaments and biological substances; Z88.0 Allergy status to penicillin; Z88.2 Allergy status to sulfonamides; Z79.899 Other long term (current) drug therapy
CPT/HCPCS: 36415; 70450; 80053; 80177; 85025; 85610; 96365; 96367; 99285; A9270; J1953; J3480; J7030

== ENCOUNTER 2020-11-21 10:17 | Inpatient (IN) | payer MEDICARE, MEDICAID ==
[2020-11-21] MEDS ORDERED: Sodium Chloride 0.9% 10 ML Syringe FLUSH PRN (10:41)
[2020-11-21] MEDS ORDERED: Acetaminophen 325 MG Tab PO ONE (10:42)
--- NOTE | 2020-11-21 10:50 | EDM.PDOC ---
ED HPI GENERAL MEDICAL PROBLEM - General Chief Complaint: Respiratory Problem Stated Complaint: [facility] Time Seen by Provider: 11/21/20 10:25 Source of Information: Reports: EMS, Assisted Records, RN History Limitations: Reports: No Limitations, Other (Vital signs reveal a temp of 101.7, pulse 122, respiratory rate 36, blood pressure 141/92, pulse ox 94% on oxygen.) - History of Present Illness INITIAL COMMENTS - FREE TEXT/NARRATIVE: 89-year-old female presents to the emergency department with complaints of fever, shortness of breath, decreased oxygen saturations. [facility] and she was [facility] by [facility]. [facility] reports that patient is normally alert and today she is more lethargic and had a fever. Patient did receive her Covid vaccination yesterday. - Related Data Allergies Allergy/AdvReac Type Severity Reaction Status Date / Time Cephalosporins Allergy Severe Cannot Verified 11/21/20 10:30 Remember codeine Allergy Severe Cannot Verified 11/21/20 10:30 Remember diazepam [From Valium] Allergy Severe Other Verified 11/21/20 10:30 morphine Allergy Severe Cannot Verified 11/21/20 10:30 Remember Penicillins Allergy Severe Cannot Verified 11/21/20 10:30 Remember phenobarbital Allergy Severe Other Verified 11/21/20 10:30 sulfanilamide [Sulfanilamide] Allergy Severe Cannot Verified 11/21/20 10:30 Remember clindamycin AdvReac Severe Stomach Verified 11/21/20 10:30 Ache Home Meds: Home Meds Desmopressin (NonRefrigerated) [Ddavp 0.01% Nasal [place]] 1 spray NS TID 02/01/15 [History] Dexlansoprazole [Dexilant] 60 mg PO DAILY 02/01/15 [History] Escitalopram [Lexapro] 10 mg PO DAILY 02/01/15 [History] Folic Acid 1 mg PO DAILY 02/01/15 [History] Furosemide [Lasix] 20 mg PO DAILY 02/01/15 [History] LORazepam 1 mg PO TID PRN MDD 3mg in 12 hrs 02/01/15 [History] Losartan Potassium [Cozaar] 100 mg PO QAM 02/01/15 [History] Multivit-Min/FA/Lutein/Zeaxant [Macular Vitamin Tablet] 1 each PO 1200 02/01/15 [History] Multivitamin [Daily Vitamin] 1 each PO QAM 02/01/15 [History] levETIRAcetam [Keppra] 1,000 mg PO BEDTIME 02/01/15 [History] levETIRAcetam [Keppra] 750 mg PO DAILY 02/01/15 [History] predniSONE [Prednisone] 5 mg PO DAILY 02/01/15 [History] Simvastatin 40 mg PO PCDINNER 06/07/18 [History] Docusate Sodium 100 mg PO DAILY 11/11/18 [History] Warfarin [Coumadin] 2.5 mg PO MOWEFR 11/11/18 [History] Fluticasone/Vilanterol [Breo Ellipta 100-25 MCG Inhalation Kit] 1 puff INH DAILY 05/06/19 [History] cycloSPORINE [Restasis Multidose] 1 drop EYEBOTH BID 05/06/19 [History] Albuterol Sulfate [Proair Hfa] 2 puff INH Q6H PRN 05/31/19 [History] Warfarin [Coumadin] 1.25 mg PO ASDIRECTED 06/01/19 [History] Ascorbic Acid [Vitamin C] 250 mg PO BID #60 tab.chew 06/07/19 [Rx] Acetaminophen [Tylenol Arthritis] 650 mg PO BEDTIME PRN 09/12/20 [History] Calcium Carb, Citrate/Vit D3 [Calcium + D3 ER Tablet] 1 tab PO 1200 09/12/20 [History] Calcium Carbonate [Tums] 500 mg PO QID PRN 09/12/20 [History] Levothyroxine [Synthroid] 100 mcg PO DAILY 09/12/20 [History] Lidocaine 4% [Aspercreme 4%] 1 each TOP BID 09/12/20 [History] Menthol [Biofreeze] 1 dose TOP Q6H PRN 09/12/20 [History] Tens Unit [Tens 502] 1 dose TOP DAILY 09/12/20 [History] Acetaminophen [Tylenol] 650 mg PO TID PRN 30 Days capsule 10/02/20 [Rx] Acetaminophen/HYDROcodone [[place] 325-5 MG] 1 tab PO Q4H PRN 30 Days tablet 10/02/20 [Rx] Cholecalciferol (Vitamin D3) [Vitamin D3] 5,000 unit PO DAILY #30 cap 10/02/20 [Rx] Gabapentin [Neurontin] 100 mg PO TID #90 cap 10/02/20 [Rx] Propranolol [Inderal LA] 60 mg PO DAILY #30 cap.er 10/02/20 [Rx] Remove Patch 0 ea TRDERM BEDTIME each 10/02/20 [Rx] Past Medical History HEENT History: Reports: Cataract, Impaired Vision Other HEENT History: Glasses and upper dentures Cardiovascular History: Reports: Afib, High Cholesterol, Hypertension Respiratory History: Reports: Bronchitis, Recurrent, Pneumonia, Recurrent Other Respiratory History: no O2 at home. Gastrointestinal History: Reports: PUD, Other (See Below) Other Gastrointestinal History: stomach ulcers. Genitourinary History: Reports: Renal Calculus Other Genitourinary History: kidney stones STATION CHIEF History: Reports: Other STATION CHIEF History: Had 3 children. 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 - Past Surgical History Head Surgeries/Procedures: Reports: Other (See Below) HEENT Surgical History: Reports: Cataract Surgery, Oral Surgery, Tonsillectomy Other HEENT Surgeries/Procedures: wisdom teeth removed. 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 Musculoskeletal Surgical History: Reports: None Other Musculoskeletal Surgeries/Procedures:: Cortisone injection to left shoulder. Oncologic Surgical History: Reports: None Dermatological Surgical History: Reports: Skin Biopsy Social & Family History - Family History Family Medical History: No Pertinent Family History HEENT: Reports: Hearing Impairment Other HEENT Family History: Brother Ed has hearing aids. Cardiac: Reports: High Cholesterol, Hypertension Respiratory: Reports: Asthma, COPD, Other (See Below) Other Respiratory Family Hisory: Sister has asthma. Brother has COPD. Mother had lung problems. OBGYN: Reports: Ectopic Musculoskeletal: Reports: Fibromyalgia Other Musculoskeletal Family History: Sister has fibromyalgia. Neurological: Reports: CVA Other Neurological Family History: Father had strokes. Endocrine/Metabolic: Reports: Diabetes, type II Other Endocrine/Metabolic Family History: Brother has DM II. Hematologic: Reports: Other (See Below) Other Hematologic Family History: Brother has some type of bleeding complication. Oncologic: Reports: Lung Other Oncologic Family History: Daughter has lung CA from smoking. - Caffeine Use Caffeine Use: Reports: None - Living Situation & Occupation Living situation: Reports: , Alone, Assisted Living Occupation: Retired ED ROS GENERAL - Review of Systems Review Of Systems: See Below Constitutional: Reports: Fever, Weakness. Denies: Chills HEENT: Reports: No Symptoms Respiratory: Reports: Shortness of Breath, Cough (Congested) Cardiovascular: Reports: Dyspnea on Exertion, Edema Endocrine: Reports: No Symptoms GI/Abdominal: Reports: No Symptoms : Reports: No Symptoms Musculoskeletal: Reports: No Symptoms Skin: Reports: No Symptoms Neurological: Reports: No Symptoms Psychiatric: Reports: No Symptoms Hematologic/Lymphatic: Reports: No Symptoms Immunologic: Reports: No Symptoms ED EXAM, GENERAL - Physical Exam Exam: See Below Exam Limited By: No Limitations General Appearance: Lethargic, Moderate Distress Eye Exam: Bilateral Eye: PERRL Ears: Hearing Grossly Normal Nose: Normal Inspection Throat/Mouth: Other (Lung is dry) Head: Atraumatic, Normocephalic Neck: Normal Inspection, Supple, Non-Tender, Full Range of Motion Respiratory/Chest: Chest Non-Tender, Respiratory Distress, Crackles, Rhonchi (On the left). No: Lungs Clear, Normal Breath Sounds Cardiovascular: Normal Peripheral Pulses, Regular Rate, Rhythm, No Murmur. No: No Edema (2+ pitting edema to bilateral lower extremities) Peripheral Pulses: 1+: Radial (L), Radial (R) GI/Abdominal: Normal Bowel Sounds, Soft, Non-Tender, No Distention (Female) Exam: Deferred Rectal (Female) Exam: Deferred Back Exam: Normal Inspection Extremities: Pedal Edema (2+ pitting bilaterally, pretibial edema is also noted) Neurological: Other (Patient was not verbal for me so I am unable to assess orientation.) Psychiatric: Normal Affect, Normal Mood Skin Exam: Warm, Dry, Intact, Normal Color, No Rash Lymphatic: No Adenopathy #1 Interpretation EKG Date: 11/21/20 Time: 10:59 Rhythm: A-Fib P-Wave: Absent QRS: LBBB ST-T: Normal QT: Normal EKG Interpretation Comments: Per Dr. Mares interpretation: Atrial fib with a rate of 125, left bundle branch block no acute changes. Course - Vital Signs Text/Narrative:: Upon assessment patient has audible crackles without auscultating the lungs. On auscultation she has got crackles bilaterally with rhonchi on the left side. Patient is visibly dyspneic. O2 saturations are 91% on oxygen. She also is febrile and tachycardic. Patient has 2+ pitting edema to the bilateral lower extremities as well as periorbital edema. I have ordered an EKG, chest x-ray, CBC, CMP, magnesium, C-reactive protein, blood cultures x2, lactic acid, PT/INR as the patient is on Coumadin, and a UA with micro as indicated. Last Recorded V/S: Last Vital Signs Temp 98.2 F 11/21/20 13:29 Pulse 110 H 11/21/20 13:29 Resp 30 H 11/21/20 13:29 BP 63/29 L 11/21/20 13:29 Pulse Ox 94 L 11/21/20 10:23 - Orders/Labs/Meds Orders: Active Orders 24 hr Category Date Time Status EKG Documentation Completion [RC] STAT Care 11/21/20 10:41 Active CULTURE BLOOD [BC] Stat Lab 11/21/20 11:20 Received CULTURE BLOOD [BC] Stat Lab 11/21/20 11:30 Received CULTURE URINE [RM] Stat Lab 11/21/20 10:00 Received Sodium Chloride 0.9% [Saline Flush] Med 11/21/20 10:41 Active 10 ml FLUSH ASDIRECTED PRN Blood Culture x2 Reflex Set [OM.PC] Stat Oth 11/21/20 10:41 Ordered Saline Lock Insert [OM.PC] Routine Oth 11/21/20 10:41 Ordered Medication Orders Norepinephrine Bitartrate 4 mg (/ Dextrose/Water) 250 mls @ 7.5 mls/hr IV TIT RATE LINDEN; Protocol Last Titration: 11/21/20 14:14 Dose: 5 mcg/min, 18.75 mls/hr Documented by: Admin: 11/21/20 14:00 Dose: 2 mcg/min, 7.5 mls/hr Documented by: ANDI Sodium Chloride (Saline Flush) 10 ml FLUSH ASDIRECTED PRN PRN Reason: Keep Vein Open Last Admin: 11/21/20 11:17 Dose: 10 ml Documented by: ANDI Labs: Laboratory Tests 11/21/20 11/21/20 11/21/20 Range/Units 10:00 10:55 10:55 WBC (3.98-10.04) K/mm3 RBC (3.98-5.22) M/mm3 Hgb (11.2-15.7) gm/dl Hct (34.1-44.9) % MCV (79.4-94.8) fl MCH (25.6-32.2) pg MCHC (32.2-35.5) g/dl RDW Std Deviation (36.4-46.3) fL Plt Count (182-369) K/mm3 MPV (9.4-12.3) fl Neutrophils % (Manual) (40-60) % Band Neutrophils % (0-10) % Lymphocytes % (Manual) (20-40) % Atypical Lymphs % % Monocytes % (Manual) (2-10) % Eosinophils % (Manual) (0.7-5.8) % Basophils % (Manual) (0.1-1.2) Platelet Estimate Hypochromasia Anisocytosis RBC Morph Comment PT (9.7-12.0) SECONDS INR Sodium 145 D (136-145) mEq/L Potassium 3.5 (3.5-5.1) mEq/L Chloride 105 (98-107) mEq/L Carbon Dioxide 32 (21-32) mEq/L Anion Gap 11.5 (5-15) BUN 21 H (7-18) mg/dL Creatinine 1.8 H D (0.55-1.02) mg/dL Est Cr Clr Drug Dosing TNP Estimated GFR (MDRD) 27 (>60) mL/min BUN/Creatinine Ratio 11.7 L (14-18) Glucose 101 (83-115) mg/dL Lactic Acid (0.4-2.0) mmol/L Calcium 8.5 (8.5-10.1) mg/dL Magnesium 1.7 L (1.8-2.4) mg/dl Total Bilirubin 0.7 (0.2-1.0) mg/dL AST 55 H (15-37) U/L ALT 46 (14-59) U/L Alkaline Phosphatase 46 (46-116) U/L Troponin I 0.367 H* (0.00-0.056) ng/mL C-Reactive Protein 12.9 H* (<1.0) mg/dL NT-Pro-B Natriuret Pep [id number] H (0-450) pg/mL Total Protein 5.7 L (6.4-8.2) g/dl Albumin 2.6 L (3.4-5.0) g/dl Globulin 3.1 gm/dL Albumin/Globulin Ratio 0.8 L (1-2) Urine Color Yellow (Yellow) Urine Appearance Cloudy H (Clear) Urine pH 5.0 (5.0-8.0) Ur Specific [place] > or = 1.030 (1.005-1.030) Urine Protein 3+ H (Negative) Urine Glucose (UA) Negative (Negative) Urine Ketones Trace H (Negative) Urine Occult Blood 3+ H (Negative) Urine Nitrite Positive H (Negative) Urine Bilirubin 2+ H (Negative) Urine Urobilinogen 0.2 (0.2-1.0) Ur Leukocyte Esterase Negative (Negative) Urine RBC 30-40 H (0-5) /hpf Urine WBC 5-10 H (0-5) /hpf Ur Squamous Epith Cells 0-5 (0-5) /hpf Urine Bacteria Many H (FEW) /hpf Urine Mucus Few (FEW) /hpf SARS-CoV-2 RNA (ART) (NEGATIVE) 11/21/20 11/21/20 11/21/20 Range/Units 10:55 10:55 10:55 WBC 8.05 (3.98-10.04) K/mm3 RBC 3.85 L (3.98-5.22) M/mm3 Hgb 11.4 D (11.2-15.7) gm/dl Hct 38.4 (34.1-44.9) % MCV 99.7 H (79.4-94.8) fl MCH 29.6 (25.6-32.2) pg MCHC 29.7 L (32.2-35.5) g/dl RDW Std Deviation 56.0 H (36.4-46.3) fL Plt Count 263 D (182-369) K/mm3 MPV 10.3 (9.4-12.3) fl Neutrophils % (Manual) 68 H (40-60) % Band Neutrophils % 0 (0-10) % Lymphocytes % (Manual) 26 (20-40) % Atypical Lymphs % 0 % Monocytes % (Manual) 5 (2-10) % Eosinophils % (Manual) 1 (0.7-5.8) % Basophils % (Manual) 0 L (0.1-1.2) Platelet Estimate Adequate Hypochromasia 2+ moderate Anisocytosis 1+ slight RBC Morph Comment Abnormal PT 24.0 H D (9.7-12.0) SECONDS INR 2.28 Sodium (136-145) mEq/L Potassium (3.5-5.1) mEq/L Chloride (98-107) mEq/L Carbon Dioxide (21-32) mEq/L Anion Gap (5-15) BUN (7-18) mg/dL Creatinine (0.55-1.02) mg/dL Est Cr Clr Drug Dosing Estimated GFR (MDRD) (>60) mL/min BUN/Creatinine Ratio (14-18) Glucose (83-115) mg/dL Lactic Acid 2.5 H* (0.4-2.0) mmol/L Calcium (8.5-10.1) mg/dL Magnesium (1.8-2.4) mg/dl Total Bilirubin (0.2-1.0) mg/dL AST (15-37) U/L ALT (14-59) U/L Alkaline Phosphatase (46-116) U/L Troponin I (0.00-0.056) ng/mL C-Reactive Protein (<1.0) mg/dL NT-Pro-B Natriuret Pep (0-450) pg/mL Total Protein (6.4-8.2) g/dl Albumin (3.4-5.0) g/dl Globulin gm/dL Albumin/Globulin Ratio (1-2) Urine Color (Yellow) Urine Appearance (Clear) Urine pH (5.0-8.0) Ur Specific [place] (1.005-1.030) Urine Protein (Negative) Urine Glucose (UA) (Negative) Urine Ketones (Negative) Urine Occult Blood (Negative) Urine Nitrite (Negative) Urine Bilirubin (Negative) Urine Urobilinogen (0.2-1.0) Ur Leukocyte Esterase (Negative) Urine RBC (0-5) /hpf Urine WBC (0-5) /hpf Ur Squamous Epith Cells (0-5) /hpf Urine Bacteria (FEW) /hpf Urine Mucus (FEW) /hpf SARS-CoV-2 RNA (ART) (NEGATIVE) 11/21/20 Range/Units 12:15 WBC (3.98-10.04) K/mm3 RBC (3.98-5.22) M/mm3 Hgb (11.2-15.7) gm/dl Hct (34.1-44.9) % MCV (79.4-94.8) fl MCH (25.6-32.2) pg MCHC (32.2-35.5) g/dl RDW Std Deviation (36.4-46.3) fL Plt Count (182-369) K/mm3 MPV (9.4-12.3) fl Neutrophils % (Manual) (40-60) % Band Neutrophils % (0-10) % Lymphocytes % (Manual) (20-40) % Atypical Lymphs % % Monocytes % (Manual) (2-10) % Eosinophils % (Manual) (0.7-5.8) % Basophils % (Manual) (0.1-1.2) Platelet Estimate Hypochromasia Anisocytosis RBC Morph Comment PT (9.7-12.0) SECONDS INR Sodium (136-145) mEq/L Potassium (3.5-5.1) mEq/L Chloride (98-107) mEq/L Carbon Dioxide (21-32) mEq/L Anion Gap (5-15) BUN (7-18) mg/dL Creatinine (0.55-1.02) mg/dL Est Cr Clr Drug Dosing Estimated GFR (MDRD) (>60) mL/min BUN/Creatinine Ratio (14-18) Glucose (83-115) mg/dL Lactic Acid (0.4-2.0) mmol/L Calcium (8.5-10.1) mg/dL Magnesium (1.8-2.4) mg/dl Total Bilirubin (0.2-1.0) mg/dL AST (15-37) U/L ALT (14-59) U/L Alkaline Phosphatase (46-116) U/L Troponin I (0.00-0.056) ng/mL C-Reactive Protein (<1.0) mg/dL NT-Pro-B Natriuret Pep (0-450) pg/mL Total Protein (6.4-8.2) g/dl Albumin (3.4-5.0) g/dl Globulin gm/dL Albumin/Globulin Ratio (1-2) Urine Color (Yellow) Urine Appearance (Clear) Urine pH (5.0-8.0) Ur Specific [place] (1.005-1.030) Urine Protein (Negative) Urine Glucose (UA) (Negative) Urine Ketones (Negative) Urine Occult Blood (Negative) Urine Nitrite (Negative) Urine Bilirubin (Negative) Urine Urobilinogen (0.2-1.0) Ur Leukocyte Esterase (Negative) Urine RBC (0-5) /hpf Urine WBC (0-5) /hpf Ur Squamous Epith Cells (0-5) /hpf Urine Bacteria (FEW) /hpf Urine Mucus (FEW) /hpf SARS-CoV-2 RNA (ART) Positive H (NEGATIVE) Meds: Medications Generic Name Dose Route Start Last Admin Trade Name Freq PRN Reason Stop Dose Admin Norepinephrine Bitartrate 4 mg 250 mls @ 7.5 mls/hr 11/21/20 13:45 11/21/20 14:14 / Dextrose/Water IV 5 mcg/min TITRATE LINDEN 18.75 mls/hr Titration Protocol 2 MCG/MIN Sodium Chloride 10 ml 11/21/20 10:41 11/21/20 11:17 Saline Flush FLUSH 10 ml ASDIRECTED PRN Administration Keep Vein Open Discontinued Medications Generic Name Dose Route Start Last Admin Trade Name Freq PRN Reason Stop Dose Admin Acetaminophen 650 mg 11/21/20 10:42 11/21/20 11:12 Tylenol PO 11/21/20 10:43 650 mg NOW ONE Administration Sodium Chloride 500 mls @ 999 mls/hr 11/21/20 11:08 11/21/20 11:16 Normal Saline IV 11/21/20 11:38 999 mls/hr .BOLUS ONE Administration Sodium Chloride 1,000 mls @ 999 mls/hr 11/21/20 11:37 11/21/20 12:56 Normal Saline IV 11/21/20 12:37 999 mls/hr ONETIME ONE Administration Levofloxacin/Dextrose 750 mg/ 150 mls @ 100 mls/hr 11/21/20 11:45 11/21/20 12:07 Premix IV 11/21/20 13:14 100 mls/hr ONETIME ONE Administration - Re-Assessments/Exams Free Text/Narrative Re-Assessment/Exam: 11/21/20 11:09 Pt's blood pressure is now 89/57 and hr is in the 130's. Nursing staff cathed the patient and got a very scant amount back. I have ordered a 500ml normal saline bolus. 11/21/20 11:40 I have ordered another 1000ml fluid bolus in addition to the 500 previously ordered. Pt meets sepsis criteria. Pts ideal body weight is 95 pounds. This equivocates to 1300ml bolus. 11/21/20 11:53 CBC reveals a WBC of 8.05, hemoglobin 11.4, hematocrit 38.4, neutrophil percentage manual 68 without bandemia, pro time 24.4, INR 2.28, Urinalysis reveals 3+ urine protein, trace of ketones, 3+ occult blood, urine nitrite positive, urine bilirubin 2+, urine leuk esterase negative, urine WBC 5- 10 I spoke with pharmacy as patient does have numerous allergies and they recommend I start the patient on Levaquin 750 mg IV x1 dose now. 11/21/20 11:55 Portable view of the chest radiology impression: 1. Slight left basilar atelectasis. 2. Heart is mildly enlarged. 3. Other findings are noted to be chronic. 11/21/20 11:57 Chemistry reveals a sodium of 145, potassium 3.5, carbon dioxide 32, anion gap 11.5, BUN 21, creatinine 1.8, lactic acid 2.5, magnesium 1.7, troponin 0 0.367, C-reactive protein 12.9, proBNP 29,475, 11/21/20 12:09 I spoke with the patient's daughter Gisel, regarding the patient's status with elevated troponins and sepsis. She requests that we keep her at the hospital and keep her a DNR and treat the infection. I spoke with Dr. Dumont and the patient will be admitted to the ICU as an inpatient. 11/21/20 13:39 Patient's 30 mg/kg bolus is almost finished infusing. Patient's blood pressures are still in the 60s systolically. I have ordered a Levophed drip. 11/21/20 14:50 The patient's blood pressures on 5 mics Levophed are only 65 systolic. Her sister, her power of state's attorney, are at the bedside. I did speak with her reg arding the gravity of the situation and she is requesting that we make the patient comfort measures and stop the Levophed drip and IV fluids. I did speak with Dr. Dumont and updated him on this as the patient will remain in the ER at this time. Departure - Departure Time of Disposition: 12:10 Disposition: DC/Tfer to [facility] Condition: Poor Clinical Impression: UTI (urinary tract infection) Qualifiers: Urinary tract infection type: acute cystitis Hematuria presence: without hematuria Qualified Code(s): N30.00 - Acute cystitis without hematuria - Discharge Information Sepsis Event Note (ED) - Evaluation Sepsis Screening Result: Possible Sepsis Risk - Focused Exam Vital Signs: Vital Signs Temp Temp Pulse Resp BP Pulse Ox 11/21/20 12:30 118 H 69/41 L 11/21/20 12:15 109 H 83/60 L 11/21/20 12:00 98.6 F 120 H 97/71 11/21/20 11:12 98.6 F 11/21/20 10:23 101.7 F H 122 H 36 H 141/92 H 94 L - My Orders Last 24 Hours: My Active Orders 11/21/20 10:00 CULTURE URINE [RM] Stat 11/21/20 10:41 EKG Documentation Completion [RC] STAT Sodium Chloride 0.9% [Saline Flush] 10 ml FLUSH ASDIRECTED PRN Blood Culture x2 Reflex Set [OM.PC] Stat Saline Lock Insert [OM.PC] Routine 11/21/20 11:20 CULTURE BLOOD [BC] Stat 11/21/20 11:30 CULTURE BLOOD [BC] Stat - Assessment/Plan Last 24 Hours: My Active Orders 11/21/20 10:00 CULTURE URINE [RM] Stat 11/21/20 10:41 EKG Documentation Completion [RC] STAT Sodium Chloride 0.9% [Saline Flush] 10 ml FLUSH ASDIRECTED PRN Blood Culture x2 Reflex Set [OM.PC] Stat Saline Lock Insert [OM.PC] Routine 11/21/20 11:20 CULTURE BLOOD [BC] Stat 11/21/20 11:30 CULTURE BLOOD [BC] Stat
[2020-11-21] MEDS ORDERED: Sodium Chloride 0.9% 500 ML IV ONE (11:08)
[2020-11-21] MEDS ORDERED: Sodium Chloride 0.9% 1,000 ML IV ONE (11:37)
--- NOTE | 2020-11-21 11:41 | CR ---
Chest portable view of the chest was obtained. Comparison: Previous chest x-ray of 09/30/20. Heart is slightly enlarged. Mild increased density within the left lung base which most likely represents slight atelectasis. Lungs otherwise are clear. Multiple healing right-sided rib fractures are seen. Scoliosis is noted within the spine with mild scattered degenerative change within the spine Impression: 1. Slight left basilar atelectasis. 2. Heart is mildly enlarged. 3. Other findings as noted above which are chronic. Diagnostic code #2
[2020-11-21] MEDS ORDERED: Levofloxacin/Dextrose 5%-Water 750 MG in Premix Bag 1 BAG IV ONE (11:45)
--- NOTE | 2020-11-21 12:27 | PCM.HP.2 ---
H&P History of Present Illness - General Date of Service: 11/21/20 Source of Information: Patient, Old Records, Provider, RN, RN Notes Reviewed History Limitations: Reports: No Limitations - Related Data Allergies/Adverse Reactions: Allergies Allergy/AdvReac Type Severity Reaction Status Date / Time Cephalosporins Allergy Severe Cannot Verified 11/21/20 10:30 Remember codeine Allergy Severe Cannot Verified 11/21/20 10:30 Remember diazepam [From Valium] Allergy Severe Other Verified 11/21/20 10:30 morphine Allergy Severe Cannot Verified 11/21/20 10:30 Remember Penicillins Allergy Severe Cannot Verified 11/21/20 10:30 Remember phenobarbital Allergy Severe Other Verified 11/21/20 10:30 sulfanilamide [Sulfanilamide] Allergy Severe Cannot Verified 11/21/20 10:30 Remember clindamycin AdvReac Severe Stomach Verified 11/21/20 10:30 Ache Home Medications: Home Meds Desmopressin (NonRefrigerated) [Ddavp 0.01% Nasal [place]] 1 spray NS TID 02/01/15 [History] Dexlansoprazole [Dexilant] 60 mg PO DAILY 02/01/15 [History] Escitalopram [Lexapro] 10 mg PO DAILY 02/01/15 [History] Folic Acid 1 mg PO DAILY 02/01/15 [History] Furosemide [Lasix] 20 mg PO DAILY 02/01/15 [History] LORazepam 1 mg PO TID PRN MDD 3mg in 12 hrs 02/01/15 [History] Losartan Potassium [Cozaar] 100 mg PO QAM 02/01/15 [History] Multivit-Min/FA/Lutein/Zeaxant [Macular Vitamin Tablet] 1 each PO 1200 02/01/15 [History] Multivitamin [Daily Vitamin] 1 each PO QAM 02/01/15 [History] levETIRAcetam [Keppra] 1,000 mg PO BEDTIME 02/01/15 [History] levETIRAcetam [Keppra] 750 mg PO DAILY 02/01/15 [History] predniSONE [Prednisone] 5 mg PO DAILY 02/01/15 [History] Simvastatin 40 mg PO PCDINNER 06/07/18 [History] Docusate Sodium 100 mg PO DAILY 11/11/18 [History] Warfarin [Coumadin] 2.5 mg PO MOWEFR 11/11/18 [History] Fluticasone/Vilanterol [Breo Ellipta 100-25 MCG Inhalation Kit] 1 puff INH DAILY 05/06/19 [History] cycloSPORINE [Restasis Multidose] 1 drop EYEBOTH BID 05/06/19 [History] Albuterol Sulfate [Proair Hfa] 2 puff INH Q6H PRN 05/31/19 [History] Warfarin [Coumadin] 1.25 mg PO ASDIRECTED 06/01/19 [History] Ascorbic Acid [Vitamin C] 250 mg PO BID #60 tab.chew 06/07/19 [Rx] Acetaminophen [Tylenol Arthritis] 650 mg PO BEDTIME PRN 09/12/20 [History] Calcium Carb, Citrate/Vit D3 [Calcium + D3 ER Tablet] 1 tab PO 1200 09/12/20 [History] Calcium Carbonate [Tums] 500 mg PO QID PRN 09/12/20 [History] Levothyroxine [Synthroid] 100 mcg PO DAILY 09/12/20 [History] Lidocaine 4% [Aspercreme 4%] 1 each TOP BID 09/12/20 [History] Menthol [Biofreeze] 1 dose TOP Q6H PRN 09/12/20 [History] Tens Unit [Tens 502] 1 dose TOP DAILY 09/12/20 [History] Acetaminophen [Tylenol] 650 mg PO TID PRN 30 Days capsule 10/02/20 [Rx] Acetaminophen/HYDROcodone [[place] 325-5 MG] 1 tab PO Q4H PRN 30 Days tablet 10/02/20 [Rx] Cholecalciferol (Vitamin D3) [Vitamin D3] 5,000 unit PO DAILY #30 cap 10/02/20 [Rx] Gabapentin [Neurontin] 100 mg PO TID #90 cap 10/02/20 [Rx] Propranolol [Inderal LA] 60 mg PO DAILY #30 cap.er 10/02/20 [Rx] Remove Patch 0 ea TRDERM BEDTIME each 10/02/20 [Rx] Past Medical History HEENT History: Reports: Cataract, Impaired Vision Other HEENT History: Glasses and upper dentures Cardiovascular History: Reports: Afib, High Cholesterol, Hypertension Respiratory History: Reports: Bronchitis, Recurrent, Pneumonia, Recurrent Other Respiratory History: no O2 at home. Gastrointestinal History: Reports: PUD Other Gastrointestinal History: stomach ulcers. Genitourinary History: Reports: Renal Calculus Other Genitourinary History: kidney stones RIVER RAT History: Reports: Other OB/BYN History: Had 3 children. 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 - Past Surgical History Head Surgeries/Procedures: Reports: Other (See Below) HEENT Surgical History: Reports: Cataract Surgery, Oral Surgery, Tonsillectomy Other HEENT Surgeries/Procedures: wisdom teeth removed. 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 Musculoskeletal Surgical History: Reports: None Other Musculoskeletal Surgeries/Procedures:: Cortisone injection to left shoulder. Oncologic Surgical History: Reports: None Dermatological Surgical History: Reports: Skin Biopsy Social & Family History - Family History Family Medical History: No Pertinent Family History HEENT: Reports: Hearing Impairment Other HEENT Family History: Brother Ed has hearing aids. Cardiac: Reports: High Cholesterol, Hypertension Respiratory: Reports: Asthma, COPD, Other (See Below) Other Respiratory Family Hisory: Sister has asthma. Brother has COPD. Mother had lung problems. OBGYN: Reports: Ectopic Musculoskeletal: Reports: Fibromyalgia Other Musculoskeletal Family History: Sister has fibromyalgia. Neurological: Reports: CVA Other Neurological Family History: Father had strokes. Endocrine/Metabolic: Reports: Diabetes, type II Other Endocrine/Metabolic Family History: Brother has DM II. Hematologic: Reports: Other (See Below) Other Hematologic Family History: Brother has some type of bleeding complication. Oncologic: Reports: Lung Other Oncologic Family History: Daughter has lung CA from smoking. - Tobacco Use Tobacco Use Status *Q: Never Tobacco User - Caffeine Use Caffeine Use: Reports: None - Recreational Drug Use Recreational Drug Use: No - Living Situation & Occupation Living situation: Reports: , Alone, Assisted Living Occupation: Retired Exam - Vital Signs Vital Signs: Last Vital Signs Temp 98.6 F 11/21/20 11:12 Pulse 122 H 11/21/20 10:23 Resp 36 H 11/21/20 10:23 BP 141/92 H 11/21/20 10:23 Pulse Ox 94 L 11/21/20 10:23 - Patient Data Lab Results Last 24 hrs: Laboratory Results - last 24 hr 11/21/20 11/21/20 11/21/20 Range/Units 10:00 10:55 10:55 WBC (3.98-10.04) K/mm3 RBC (3.98-5.22) M/mm3 Hgb (11.2-15.7) gm/dl Hct (34.1-44.9) % MCV (79.4-94.8) fl MCH (25.6-32.2) pg MCHC (32.2-35.5) g/dl RDW Std Deviation (36.4-46.3) fL Plt Count (182-369) K/mm3 MPV (9.4-12.3) fl Neutrophils % (Manual) (40-60) % Band Neutrophils % (0-10) % Lymphocytes % (Manual) (20-40) % Atypical Lymphs % % Monocytes % (Manual) (2-10) % Eosinophils % (Manual) (0.7-5.8) % Basophils % (Manual) (0.1-1.2) Platelet Estimate Hypochromasia Anisocytosis RBC Morph Comment PT (9.7-12.0) SECONDS INR Sodium 145 D (136-145) mEq/L Potassium 3.5 (3.5-5.1) mEq/L Chloride 105 (98-107) mEq/L Carbon Dioxide 32 (21-32) mEq/L Anion Gap 11.5 (5-15) BUN 21 H (7-18) mg/dL Creatinine 1.8 H D (0.55-1.02) mg/dL Est Cr Clr Drug Dosing TNP Estimated GFR (MDRD) 27 (>60) mL/min BUN/Creatinine Ratio 11.7 L (14-18) Glucose 101 (83-115) mg/dL Lactic Acid (0.4-2.0) mmol/L Calcium 8.5 (8.5-10.1) mg/dL Magnesium 1.7 L (1.8-2.4) mg/dl Total Bilirubin 0.7 (0.2-1.0) mg/dL AST 55 H (15-37) U/L ALT 46 (14-59) U/L Alkaline Phosphatase 46 (46-116) U/L Troponin I 0.367 H* (0.00-0.056) ng/mL C-Reactive Protein 12.9 H* (<1.0) mg/dL NT-Pro-B Natriuret Pep 51862 H (0-450) pg/mL Total Protein 5.7 L (6.4-8.2) g/dl Albumin 2.6 L (3.4-5.0) g/dl Globulin 3.1 gm/dL Albumin/Globulin Ratio 0.8 L (1-2) Urine Color Yellow (Yellow) Urine Appearance Cloudy H (Clear) Urine pH 5.0 (5.0-8.0) Ur Specific Jean > or = 1.030 (1.005-1.030) Urine Protein 3+ H (Negative) Urine Glucose (UA) Negative (Negative) Urine Ketones Trace H (Negative) Urine Occult Blood 3+ H (Negative) Urine Nitrite Positive H (Negative) Urine Bilirubin 2+ H (Negative) Urine Urobilinogen 0.2 (0.2-1.0) Ur Leukocyte Esterase Negative (Negative) Urine RBC 30-40 H (0-5) /hpf Urine WBC 5-10 H (0-5) /hpf Ur Squamous Epith Cells 0-5 (0-5) /hpf Urine Bacteria Many H (FEW) /hpf Urine Mucus Few (FEW) /hpf 11/21/20 11/21/20 11/21/20 Range/Units 10:55 10:55 10:55 WBC 8.05 (3.98-10.04) K/mm3 RBC 3.85 L (3.98-5.22) M/mm3 Hgb 11.4 D (11.2-15.7) gm/dl Hct 38.4 (34.1-44.9) % MCV 99.7 H (79.4-94.8) fl MCH 29.6 (25.6-32.2) pg MCHC 29.7 L (32.2-35.5) g/dl RDW Std Deviation 56.0 H (36.4-46.3) fL Plt Count 263 D (182-369) K/mm3 MPV 10.3 (9.4-12.3) fl Neutrophils % (Manual) 68 H (40-60) % Band Neutrophils % 0 (0-10) % Lymphocytes % (Manual) 26 (20-40) % Atypical Lymphs % 0 % Monocytes % (Manual) 5 (2-10) % Eosinophils % (Manual) 1 (0.7-5.8) % Basophils % (Manual) 0 L (0.1-1.2) Platelet Estimate Adequate Hypochromasia 2+ moderate Anisocytosis 1+ slight RBC Morph Comment Abnormal PT 24.0 H D (9.7-12.0) SECONDS INR 2.28 Sodium (136-145) mEq/L Potassium (3.5-5.1) mEq/L Chloride (98-107) mEq/L Carbon Dioxide (21-32) mEq/L Anion Gap (5-15) BUN (7-18) mg/dL Creatinine (0.55-1.02) mg/dL Est Cr Clr Drug Dosing Estimated GFR (MDRD) (>60) mL/min BUN/Creatinine Ratio (14-18) Glucose (83-115) mg/dL Lactic Acid 2.5 H* (0.4-2.0) mmol/L Calcium (8.5-10.1) mg/dL Magnesium (1.8-2.4) mg/dl Total Bilirubin (0.2-1.0) mg/dL AST (15-37) U/L ALT (14-59) U/L Alkaline Phosphatase (46-116) U/L Troponin I (0.00-0.056) ng/mL C-Reactive Protein (<1.0) mg/dL NT-Pro-B Natriuret Pep (0-450) pg/mL Total Protein (6.4-8.2) g/dl Albumin (3.4-5.0) g/dl Globulin gm/dL Albumin/Globulin Ratio (1-2) Urine Color (Yellow) Urine Appearance (Clear) Urine pH (5.0-8.0) Ur Specific Jean (1.005-1.030) Urine Protein (Negative) Urine Glucose (UA) (Negative) Urine Ketones (Negative) Urine Occult Blood (Negative) Urine Nitrite (Negative) Urine Bilirubin (Negative) Urine Urobilinogen (0.2-1.0) Ur Leukocyte Esterase (Negative) Urine RBC (0-5) /hpf Urine WBC (0-5) /hpf Ur Squamous Epith Cells (0-5) /hpf Urine Bacteria (FEW) /hpf Urine Mucus (FEW) /hpf Result Diagrams: 11/21/20 10:55 11/21/20 10:55 Sepsis Event Note - Evaluation Sepsis Screening Result: Severe Sepsis Risk - Focused Exam Vital Signs: Vital Signs Temp Temp Pulse Resp BP Pulse Ox 11/21/20 11:12 98.6 F 11/21/20 10:23 101.7 F H 122 H 36 H 141/92 H 94 L Orders Last 24hrs: Active Orders 24 hr Category Date Time Status EKG Documentation Completion [RC] STAT Care 11/21/20 10:41 Active CORONAVIRUS COVID-19 ART [MOLEC] Stat Lab 11/21/20 12:15 Received CULTURE BLOOD [BC] Stat Lab 11/21/20 11:20 Received CULTURE BLOOD [BC] Stat Lab 11/21/20 11:30 Received CULTURE URINE [RM] Stat Lab 11/21/20 10:00 Received REFLEX LACTIC ACID YES OR NO [CHEM] Routine Lab 11/21/20 11:54 Received Levofloxacin/Dextrose 5%-Water [Levaquin in D5W 750 MG/ Med 11/21/20 11:45 Active 150 ML] 750 mg Premix Bag 1 bag IV ONETIME Sodium Chloride 0.9% [Normal Saline] 1,000 ml Med 11/21/20 11:37 Active IV ONETIME Sodium Chloride 0.9% [Saline Flush] Med 11/21/20 10:41 Active 10 ml FLUSH ASDIRECTED PRN Blood Culture x2 Reflex Set [OM.PC] Stat Oth 11/21/20 10:41 Ordered Saline Lock Insert [OM.PC] Routine Oth 11/21/20 10:41 Ordered Medication Orders Sodium Chloride (Normal Saline) 1,000 mls @ 999 mls/hr IV ONETIME ONE Stop: 11/21/20 12:37 Levofloxacin/Dextrose 750 mg/ (Premix) 150 mls @ 100 mls/hr IV ONETIME ONE Stop: 11/21/20 13:14 Last Admin: 11/21/20 12:07 Dose: 100 mls/hr Documented by: KAREN Sodium Chloride (Saline Flush) 10 ml FLUSH ASDIRECTED PRN PRN Reason: Keep Vein Open Last Admin: 11/21/20 11:17 Dose: 10 ml Documented by: ANDI
[2020-11-21] MEDS ORDERED: Norepinephrine 4 MG in Dextrose 5% in Water 246 ML IV SCH ×2 (13:45)
[2020-11-21] MEDS ORDERED: Morphine 2 MG/ML SYRINGE IVPUSH PRN (18:02)
[2020-11-21] MEDS ORDERED: Ondansetron 4 MG/2 ML SDV IV PRN (18:02)
[2020-11-21] MEDS ORDERED: LORazepam 2 MG/ML SDV IVPUSH PRN (18:05)
[2020-11-21] MEDS ORDERED: Morphine 10 MG/0.5 ML Oral Syringe PO PRN (18:06)
--- NOTE | 2020-11-21 18:09 | PCM.HP.2 ---
H&P History of Present Illness - General Date of Service: 11/21/20 Admit Problem/Dx: Admission Diagnosis/Problem Admission Diagnosis/Problem UTI, Urinary tract infectious disease - History of Present Illness Initial Comments - Free Text/Narative: 89-year-old female who presented to the emergency department with fever, shortness of breath, and respiratory failure. Patient was obtunded when I saw her so history obtained from family and emergency room providers notes. Patient was sent in from her residential by ambulance secondary to increasing lethargy and fever. Patient is normally alert and today she became lethargic. 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 Yesterday she did receive the Covid vaccination. It appears patient was being treated for a UTI, but I do not have clear confirmation. But patient was on Keflex and in the emergency department she did have UA significant for WBCs of 5-10, RBCs 30- 40, positive nitrites. Her SARS-CoV-2 RNA was positive. White count was normal at 8 with no bandemia and 68% neutrophils. INR was 2.28, but lactic acid was 2.5 initially and repeat was 1.7. Estimated GFR was 27 which is significantly low compared to discharge at greater than 60. proBNP was 29,475. Initially blood cultures were obtained, levofloxacin given for her UTI, and then unfortunately her blood pressure did drop prior to transfer to the ICU as she was placed on Levophed. Patient blood pressure continued to drop and it was felt by family that she would not want to continue on this course of action and asked to have all treatment held. Levophed was stopped and she was transferred to the ICU for comfort measures. - Related Data Allergies/Adverse Reactions: Allergies Allergy/AdvReac Type Severity Reaction Status Date / Time Cephalosporins Allergy Severe Cannot Verified 11/21/20 21:54 Remember codeine Allergy Severe Cannot Verified 11/21/20 21:54 Remember diazepam [From Valium] Allergy Severe Other Verified 11/21/20 21:54 morphine Allergy Severe Cannot Verified 11/21/20 21:54 Remember Penicillins Allergy Severe Cannot Verified 11/21/20 21:54 Remember phenobarbital Allergy Severe Other Verified 11/21/20 21:54 sulfanilamide [Sulfanilamide] Allergy Severe Cannot Verified 11/21/20 21:54 Remember clindamycin AdvReac Severe Stomach Verified 11/21/20 21:54 Ache Home Medications: Home Meds Desmopressin (NonRefrigerated) [Ddavp 0.01% Nasal [place]] 1 spray NS BID 02/01/15 [History] Dexlansoprazole [Dexilant] 60 mg PO DAILY 02/01/15 [History] Escitalopram [Lexapro] 10 mg PO DAILY 02/01/15 [History] Folic Acid 1 mg PO DAILY 02/01/15 [History] Furosemide [Lasix] 20 mg PO DAILY 02/01/15 [History] LORazepam 1 mg PO TID PRN MDD 3mg in 12 hrs 02/01/15 [History] Losartan Potassium [Cozaar] 100 mg PO DAILY 02/01/15 [History] Multivit-Min/FA/Lutein/Zeaxant [Macular Vitamin Tablet] 1 each PO DAILY 02/01/15 [History] Multivitamin [Daily Vitamin] 1 each PO QAM 02/01/15 [History] levETIRAcetam [Keppra] 1,000 mg PO DAILY 02/01/15 [History] levETIRAcetam [Keppra] 750 mg PO DAILY 02/01/15 [History] predniSONE [Prednisone] 5 mg PO DAILY 02/01/15 [History] Simvastatin 40 mg PO PCDINNER 06/07/18 [History] Docusate Sodium 100 mg PO DAILY 11/11/18 [History] Warfarin [Coumadin] 2.5 mg PO MOTUWEFR 11/11/18 [History] Fluticasone/Vilanterol [Breo Ellipta 100-25 MCG Inhalation Kit] 1 puff INH DAILY 05/06/19 [History] cycloSPORINE [Restasis Multidose] 1 drop EYEBOTH BID 05/06/19 [History] Albuterol Sulfate [Proair Hfa] 2 puff INH Q6H PRN 05/31/19 [History] Ascorbic Acid [Vitamin C] 250 mg PO BID #60 tab.chew 06/07/19 [Rx] Calcium Carb, Citrate/Vit D3 [Calcium + D3 ER Tablet] 1 tab PO DAILY 09/12/20 [History] Calcium Carbonate [Tums] 500 mg PO QID PRN 09/12/20 [History] Levothyroxine [Synthroid] 100 mcg PO DAILY 09/12/20 [History] Lidocaine 4% [Aspercreme 4%] 1 each TOP BID 09/12/20 [History] Menthol [Biofreeze] 1 dose TOP Q6H PRN 09/12/20 [History] Tens Unit [Tens 502] 1 dose TOP DAILY 09/12/20 [History] Acetaminophen [Tylenol] 650 mg PO TID PRN 30 Days capsule 10/02/20 [Rx] Acetaminophen/HYDROcodone [[place] 325-5 MG] 1 tab PO Q4H PRN 30 Days tablet 10/02/20 [Rx] Cholecalciferol (Vitamin D3) [Vitamin D3] 5,000 unit PO DAILY #30 cap 10/02/20 [Rx] Gabapentin [Neurontin] 100 mg PO TID #90 cap 10/02/20 [Rx] Propranolol [Inderal LA] 60 mg PO DAILY #30 cap.er 10/02/20 [Rx] Potassium Chloride [Klor-Con 10] 10 meq PO DAILY 11/22/20 [History] Remove Patch 0 ea TRDERM BID 11/22/20 [History] Past Medical History HEENT History: Reports: Cataract, Impaired Vision Other HEENT History: Glasses and upper dentures Cardiovascular History: Reports: Afib, High Cholesterol, Hypertension Respiratory History: Reports: Bronchitis, Recurrent, Pneumonia, Recurrent Other Respiratory History: no O2 at home. Gastrointestinal History: Reports: PUD Other Gastrointestinal History: stomach ulcers. Genitourinary History: Reports: Renal Calculus Other Genitourinary History: kidney stones [employer] History: Reports: Other OB/BYN History: Had 3 children. 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 - Past Surgical History Head Surgeries/Procedures: Reports: Other (See Below) HEENT Surgical History: Reports: Cataract Surgery, Oral Surgery, Tonsillectomy Other HEENT Surgeries/Procedures: wisdom teeth removed. 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 Musculoskeletal Surgical History: Reports: None Other Musculoskeletal Surgeries/Procedures:: Cortisone injection to left shoulder. Oncologic Surgical History: Reports: None Dermatological Surgical History: Reports: Skin Biopsy Social & Family History - Family History Family Medical History: No Pertinent Family History HEENT: Reports: Hearing Impairment Other HEENT Family History: Brother Ed has hearing aids. Cardiac: Reports: High Cholesterol, Hypertension Respiratory: Reports: Asthma, COPD, Other (See Below) Other Respiratory Family Hisory: Sister has asthma. Brother has COPD. Mother had lung problems. OBGYN: Reports: Ectopic Musculoskeletal: Reports: Fibromyalgia Other Musculoskeletal Family History: Sister has fibromyalgia. Neurological: Reports: CVA Other Neurological Family History: Father had strokes. Endocrine/Metabolic: Reports: Diabetes, type II Other Endocrine/Metabolic Family History: Brother has DM II. Hematologic: Reports: Other (See Below) Other Hematologic Family History: Brother has some type of bleeding complication. Oncologic: Reports: Lung Other Oncologic Family History: Daughter has lung CA from smoking. - Tobacco Use Tobacco Use Status *Q: Never Tobacco User - Caffeine Use Caffeine Use: Reports: None - Recreational Drug Use Recreational Drug Use: No - Living Situation & Occupation Living situation: Reports: , Alone, Assisted Living Occupation: Retired H&P Review of Systems - Review of Systems: Review Of Systems: Unable To Obtain Reason Not Obtained: Obtunded Exam - Exam Exam: See Below - Vital Signs Vital Signs: Last Vital Signs Temp 98.2 F 11/21/20 13:29 Pulse 110 H 11/21/20 13:29 Resp 30 H 11/21/20 13:29 BP 63/29 L 11/21/20 13:29 Pulse Ox 94 L 11/21/20 10:23 Weight: 174 lb 8 oz - Exam Quality Assessment: Supplemental Oxygen General: Obtunded HEENT: No: Mucosa Moist & [place] Neck: Supple, Trachea Midline, 2 Lungs: Crackles (Throughout). No: Normal Respiratory Effort (Increased respiratory rate and effort) Cardiovascular: Regular Rate, Regular Rhythm GI/Abdominal Exam: Soft, Non-Tender, No Abnormal Bruit, Abnormal Bowel Sounds (Decreased) Extremities: Normal Inspection, Normal Range of Motion, Non-Tender, Normal Capillary Refill, Pedal Edema (1+) - Patient Data Lab Results Last 24 hrs: Laboratory Results - last 24 hr 11/21/20 11/21/20 11/21/20 Range/Units 10:00 10:55 10:55 WBC (3.98-10.04) K/mm3 RBC (3.98-5.22) M/mm3 Hgb (11.2-15.7) gm/dl Hct (34.1-44.9) % MCV (79.4-94.8) fl MCH (25.6-32.2) pg MCHC (32.2-35.5) g/dl RDW Std Deviation (36.4-46.3) fL Plt Count (182-369) K/mm3 MPV (9.4-12.3) fl Neutrophils % (Manual) (40-60) % Band Neutrophils % (0-10) % Lymphocytes % (Manual) (20-40) % Atypical Lymphs % % Monocytes % (Manual) (2-10) % Eosinophils % (Manual) (0.7-5.8) % Basophils % (Manual) (0.1-1.2) Platelet Estimate Hypochromasia Anisocytosis RBC Morph Comment PT (9.7-12.0) SECONDS INR Sodium 145 D (136-145) mEq/L Potassium 3.5 (3.5-5.1) mEq/L Chloride 105 (98-107) mEq/L Carbon Dioxide 32 (21-32) mEq/L Anion Gap 11.5 (5-15) BUN 21 H (7-18) mg/dL Creatinine 1.8 H D (0.55-1.02) mg/dL Est Cr Clr Drug Dosing TNP Estimated GFR (MDRD) 27 (>60) mL/min BUN/Creatinine Ratio 11.7 L (14-18) Glucose 101 (83-115) mg/dL Lactic Acid (0.4-2.0) mmol/L Calcium 8.5 (8.5-10.1) mg/dL Magnesium 1.7 L (1.8-2.4) mg/dl Total Bilirubin 0.7 (0.2-1.0) mg/dL AST 55 H (15-37) U/L ALT 46 (14-59) U/L Alkaline Phosphatase 46 (46-116) U/L Troponin I 0.367 H* (0.00-0.056) ng/mL C-Reactive Protein 12.9 H* (<1.0) mg/dL NT-Pro-B Natriuret Pep 49282 H (0-450) pg/mL Total Protein 5.7 L (6.4-8.2) g/dl Albumin 2.6 L (3.4-5.0) g/dl Globulin 3.1 gm/dL Albumin/Globulin Ratio 0.8 L (1-2) Urine Color Yellow (Yellow) Urine Appearance Cloudy H (Clear) Urine pH 5.0 (5.0-8.0) Ur Specific [place] > or = 1.030 (1.005-1.030) Urine Protein 3+ H (Negative) Urine Glucose (UA) Negative (Negative) Urine Ketones Trace H (Negative) Urine Occult Blood 3+ H (Negative) Urine Nitrite Positive H (Negative) Urine Bilirubin 2+ H (Negative) Urine Urobilinogen 0.2 (0.2-1.0) Ur Leukocyte Esterase Negative (Negative) Urine RBC 30-40 H (0-5) /hpf Urine WBC 5-10 H (0-5) /hpf Ur Squamous Epith Cells 0-5 (0-5) /hpf Urine Bacteria Many H (FEW) /hpf Urine Mucus Few (FEW) /hpf SARS-CoV-2 RNA (ART) (NEGATIVE) 11/21/20 11/21/20 11/21/20 Range/Units 10:55 10:55 10:55 WBC 8.05 (3.98-10.04) K/mm3 RBC 3.85 L (3.98-5.22) M/mm3 Hgb 11.4 D (11.2-15.7) gm/dl Hct 38.4 (34.1-44.9) % MCV 99.7 H (79.4-94.8) fl MCH 29.6 (25.6-32.2) pg MCHC 29.7 L (32.2-35.5) g/dl RDW Std Deviation 56.0 H (36.4-46.3) fL Plt Count 263 D (182-369) K/mm3 MPV 10.3 (9.4-12.3) fl Neutrophils % (Manual) 68 H (40-60) % Band Neutrophils % 0 (0-10) % Lymphocytes % (Manual) 26 (20-40) % Atypical Lymphs % 0 % Monocytes % (Manual) 5 (2-10) % Eosinophils % (Manual) 1 (0.7-5.8) % Basophils % (Manual) 0 L (0.1-1.2) Platelet Estimate Adequate Hypochromasia 2+ moderate Anisocytosis 1+ slight RBC Morph Comment Abnormal PT 24.0 H D (9.7-12.0) SECONDS INR 2.28 Sodium (136-145) mEq/L Potassium (3.5-5.1) mEq/L Chloride (98-107) mEq/L Carbon Dioxide (21-32) mEq/L Anion Gap (5-15) BUN (7-18) mg/dL Creatinine (0.55-1.02) mg/dL Est Cr Clr Drug Dosing Estimated GFR (MDRD) (>60) mL/min BUN/Creatinine Ratio (14-18) Glucose (83-115) mg/dL Lactic Acid 2.5 H* (0.4-2.0) mmol/L Calcium (8.5-10.1) mg/dL Magnesium (1.8-2.4) mg/dl Total Bilirubin (0.2-1.0) mg/dL AST (15-37) U/L ALT (14-59) U/L Alkaline Phosphatase (46-116) U/L Troponin I (0.00-0.056) ng/mL C-Reactive Protein (<1.0) mg/dL NT-Pro-B Natriuret Pep (0-450) pg/mL Total Protein (6.4-8.2) g/dl Albumin (3.4-5.0) g/dl Globulin gm/dL Albumin/Globulin Ratio (1-2) Urine Color (Yellow) Urine Appearance (Clear) Urine pH (5.0-8.0) Ur Specific [place] (1.005-1.030) Urine Protein (Negative) Urine Glucose (UA) (Negative) Urine Ketones (Negative) Urine Occult Blood (Negative) Urine Nitrite (Negative) Urine Bilirubin (Negative) Urine Urobilinogen (0.2-1.0) Ur Leukocyte Esterase (Negative) Urine RBC (0-5) /hpf Urine WBC (0-5) /hpf Ur Squamous Epith Cells (0-5) /hpf Urine Bacteria (FEW) /hpf Urine Mucus (FEW) /hpf SARS-CoV-2 RNA (ART) (NEGATIVE) 11/21/20 11/21/20 Range/Units 12:15 14:07 WBC (3.98-10.04) K/mm3 RBC (3.98-5.22) M/mm3 Hgb (11.2-15.7) gm/dl Hct (34.1-44.9) % MCV (79.4-94.8) fl MCH (25.6-32.2) pg MCHC (32.2-35.5) g/dl RDW Std Deviation (36.4-46.3) fL Plt Count (182-369) K/mm3 MPV (9.4-12.3) fl Neutrophils % (Manual) (40-60) % Band Neutrophils % (0-10) % Lymphocytes % (Manual) (20-40) % Atypical Lymphs % % Monocytes % (Manual) (2-10) % Eosinophils % (Manual) (0.7-5.8) % Basophils % (Manual) (0.1-1.2) Platelet Estimate Hypochromasia Anisocytosis RBC Morph Comment PT (9.7-12.0) SECONDS INR Sodium (136-145) mEq/L Potassium (3.5-5.1) mEq/L Chloride (98-107) mEq/L Carbon Dioxide (21-32) mEq/L Anion Gap (5-15) BUN (7-18) mg/dL Creatinine (0.55-1.02) mg/dL Est Cr Clr Drug Dosing Estimated GFR (MDRD) (>60) mL/min BUN/Creatinine Ratio (14-18) Glucose (83-115) mg/dL Lactic Acid 1.7 (0.4-2.0) mmol/L Calcium (8.5-10.1) mg/dL Magnesium (1.8-2.4) mg/dl Total Bilirubin (0.2-1.0) mg/dL AST (15-37) U/L ALT (14-59) U/L Alkaline Phosphatase (46-116) U/L Troponin I (0.00-0.056) ng/mL C-Reactive Protein (<1.0) mg/dL NT-Pro-B Natriuret Pep (0-450) pg/mL Total Protein (6.4-8.2) g/dl Albumin (3.4-5.0) g/dl Globulin gm/dL Albumin/Globulin Ratio (1-2) Urine Color (Yellow) Urine Appearance (Clear) Urine pH (5.0-8.0) Ur Specific [place] (1.005-1.030) Urine Protein (Negative) Urine Glucose (UA) (Negative) Urine Ketones (Negative) Urine Occult Blood (Negative) Urine Nitrite (Negative) Urine Bilirubin (Negative) Urine Urobilinogen (0.2-1.0) Ur Leukocyte Esterase (Negative) Urine RBC (0-5) /hpf Urine WBC (0-5) /hpf Ur Squamous Epith Cells (0-5) /hpf Urine Bacteria (FEW) /hpf Urine Mucus (FEW) /hpf SARS-CoV-2 RNA (ART) Positive H (NEGATIVE) Result Diagrams: 11/21/20 10:55 11/21/20 10:55 Imaging Impressions Last 24 hrs: Chest x-ray showed minimal atelectasis otherwise normal. Sepsis Event Note - Evaluation Sepsis Screening Result: Severe Sepsis Risk - Focused Exam Vital Signs: Vital Signs Temp Temp Pulse Resp BP Pulse Ox 11/21/20 13:29 98.2 F 110 H 30 H 63/29 L 11/21/20 13:28 118 H 65/37 L 11/21/20 13:00 109 H 83/35 L 11/21/20 12:45 120 H 77/31 L 11/21/20 12:30 118 H 69/41 L 11/21/20 12:15 109 H 83/60 L 11/21/20 12:00 98.6 F 120 H 97/71 11/21/20 11:12 98.6 F 11/21/20 10:23 101.7 F H 122 H 36 H 141/92 H 94 L - Problem List (1) Septic shock SNOMED Code(s): 42996715 ICD Code: A41.9 - SEPSIS, UNSPECIFIED ORGANISM; R65.21 - SEVERE SEPSIS WITH SEPTIC SHOCK Status: Acute (2) UTI (urinary tract infection) SNOMED Code(s): 68399506 ICD Code: N39.0 - URINARY TRACT INFECTION, SITE NOT SPECIFIED Status: Acute Priority: High Onset Date: 02/14/16 Problem Details: - Asymptomatic - Received Quinolone for Abx treatment Qualifiers: Urinary tract infection type: acute cystitis Hematuria presence: without hematuria Qualified Code(s): N30.00 - Acute cystitis without hematuria Problem List Initiated/Reviewed/Updated: Yes Orders Last 24hrs: Active Orders 24 hr Category Date Time Status Patient Status [ADT] Routine ADT 11/21/20 17:31 Active EKG Documentation Completion [RC] STAT Care 11/21/20 10:41 Active Insert [place] Catheter [Insert Urinary Catheter] [OM.PC] Care 11/21/20 13:00 Ordered Q24H Urinary Catheter Assessment [RC] ASDIRECTED Care 11/21/20 12:47 Active VTE/DVT Education [RC] PER UNIT ROUTINE Care 11/21/20 18:02 Ordered Vital Signs [RC] ASDIRECTED Care 11/21/20 18:02 Ordered CULTURE BLOOD [BC] Stat Lab 11/21/20 11:20 Received CULTURE BLOOD [BC] Stat Lab 11/21/20 11:30 Received CULTURE URINE [RM] Stat Lab 11/21/20 10:00 Received LORazepam [Ativan] Med 11/21/20 18:05 Ordered 1 mg IVPUSH Q1H PRN Morphine Med 11/21/20 18:02 Ordered 2 mg IVPUSH Q1H PRN Morphine [Morphine 10 MG/0.5 ML Oral Syringe] Med 11/21/20 18:06 Ordered 10 mg PO Q2H PRN Norepinephrine [Levophed] 4 mg Med 11/21/20 13:45 Active Dextrose 5% in Water 246 ml IV TITRATE Ondansetron [Zofran] Med 11/21/20 18:02 Ordered 4 mg IV Q4H PRN Sodium Chloride 0.9% [Saline Flush] Med 11/21/20 10:41 Active 10 ml FLUSH ASDIRECTED PRN Blood Culture x2 Reflex Set [OM.PC] Stat Oth 11/21/20 10:41 Ordered Saline Lock Insert [OM.PC] Routine Oth 11/21/20 10:41 Ordered Code Status [Resuscitation Status] Routine Resus Stat 11/21/20 14:58 Ordered Medication Orders Norepinephrine Bitartrate 4 mg (/ Dextrose/Water) 250 mls @ 7.5 mls/hr IV TITRATE LINDEN; Protocol Last Titration: 11/21/20 14:14 Dose: 5 mcg/min, 18.75 mls/hr Documented by: Admin: 11/21/20 14:00 Dose: 2 mcg/min, 7.5 mls/hr Documented by: ANDI Lorazepam (Ativan) 1 mg IVPUSH Q1H PRN PRN Reason: Anxiety Morphine Sulfate (Morphine) 2 mg IVPUSH Q1H PRN PRN Reason: Pain (severe 7-10) Stop: 11/22/20 18:03 Morphine Sulfate (Morphine 10 Mg/0.5 Ml Oral Syringe) 10 mg PO Q2H PRN PRN Reason: Dyspnea Ondansetron HCl (Zofran) 4 mg IV Q4H PRN PRN Reason: Nausea/Vomiting Sodium Chloride (Saline Flush) 10 ml FLUSH ASDIRECTED PRN PRN Reason: Keep Vein Open Last Admin: 11/21/20 11:17 Dose: 10 ml Documented by: ANDI Assessment/Plan Comment:: Assessment 89-year-old female with multiple medical problems brought to the emergency department because of fever, shortness of breath, hypoxemia. Patient was found to be in severe sepsis from a UTI and then she developed septic shock. In the emergency department her sister, who is her power of ip technology transactions attorney, asked that her work measures be withdrawn and she made comfort measures. This was obliged by the emergency department providers and patient was brought to the ICU for comfort measures. Plan Patient will be kept comfortable using morphine and Ativan. Oxygen and other medications will be utilized for comfort only. Family will be allowed at bedside. [place] for comfort. Other medications will be discontinued. - Mortality Measure Prognosis:: Poor
[2020-11-21] MEDS: HYDROmorphone 1 MG/ML Syringe IVPUSH PRN ×2 (19:01→22:47)
[2020-11-21 20:44] VITALS: BP 81/60; PULSE 135
--- NOTE | 2020-11-22 09:54 | PCM.DCSUM1 ---
Discharge Summary - Hospital Course HPI Initial Comments: 89-year-old female who presented to the emergency department with fever, shortness of breath, and respiratory failure. Patient was obtunded when I saw her so history obtained from family and emergency room providers notes. Patient was sent in from her intermediate by ambulance secondary to increasing lethargy and fever. Patient is normally alert and today she became lethargic. 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 Yesterday she did receive the Covid vaccination. It appears patient was being treated for a UTI, but I do not have clear confirmation. But patient was on Keflex and in the emergency department she did have UA significant for WBCs of 5-10, RBCs 30- 40, positive nitrites. Her SARS-CoV-2 RNA was positive. White count was normal at 8 with no bandemia and 68% neutrophils. INR was 2.28, but lactic acid was 2.5 initially and repeat was 1.7. Estimated GFR was 27 which is significantly low compared to discharge at greater than 60. proBNP was 29,475. Initially blood cultures were obtained, levofloxacin given for her UTI, and then unfortunately her blood pressure did drop prior to transfer to the ICU as she was placed on Levophed. Patient blood pressure continued to drop and it was felt by family that she would not want to continue on this course of action and asked to have all treatment held. Levophed was stopped and she was transferred to the ICU for comfort measures. Assessment 89-year-old female with multiple medical problems brought to the emergency department because of fever, shortness of breath, hypoxemia. Patient was found to be in severe sepsis from a UTI and then she developed septic shock. In the emergency department her sister, who is her power of prosecuting attorney, asked that her work measures be withdrawn and she made comfort measures. This was obliged by the emergency department providers and patient was brought to the ICU for comfort measures. Plan Patient will be kept comfortable using morphine and Ativan. Oxygen and other medications will be utilized for comfort only. Family will be allowed at bedside. [place] for comfort. Other medications will be discontinued. - Discharge Data Discharge Date: 11/22/20 Discharge Disposition: 20 Condition: Good - Referral to Home Health Primary Care Physician: Savage Ortiz MD - Discharge Diagnosis/Problem(s) (1) Septic shock SNOMED Code(s): 00045430 ICD Code: A41.9 - SEPSIS, UNSPECIFIED ORGANISM; R65.21 - SEVERE SEPSIS WITH SEPTIC SHOCK Status: Acute (2) UTI (urinary tract infection) SNOMED Code(s): 48794895 ICD Code: N39.0 - URINARY TRACT INFECTION, SITE NOT SPECIFIED Status: Acute Priority: High Onset Date: 02/14/16 Problem Details: - Asymptomatic - Received Quinolone for Abx treatment Qualifiers: Urinary tract infection type: acute cystitis Hematuria presence: without hematuria Qualified Code(s): N30.00 - Acute cystitis without hematuria (3) Cardiovascular collapse SNOMED Code(s): 81971609 ICD Code: R57.0 - CARDIOGENIC SHOCK Status: Acute - Patient Summary/Data Hospital Course: Patient became unresponsive and was pronounced after thorough examination at 0640 hrs. on November 22, 2020. Cause of cardiovascular arrest. - Discharge Plan *PRESCRIPTION DRUG MONITORING PROGRAM REVIEWED*: Not Applicable *COPY OF PRESCRIPTION DRUG MONITORING REPORT IN PATIENT JEANNIE: Not Applicable Home Medications: Home Meds Desmopressin (NonRefrigerated) [Ddavp 0.01% Nasal [place]] 1 spray NS BID 02/01/15 [History] Dexlansoprazole [Dexilant] 60 mg PO DAILY 02/01/15 [History] Escitalopram [Lexapro] 10 mg PO DAILY 02/01/15 [History] Folic Acid 1 mg PO DAILY 02/01/15 [History] Furosemide [Lasix] 20 mg PO DAILY 02/01/15 [History] LORazepam 1 mg PO TID PRN MDD 3mg in 12 hrs 02/01/15 [History] Losartan Potassium [Cozaar] 100 mg PO DAILY 02/01/15 [History] Multivit-Min/FA/Lutein/Zeaxant [Macular Vitamin Tablet] 1 each PO DAILY 02/01/15 [History] Multivitamin [Daily Vitamin] 1 each PO QAM 02/01/15 [History] levETIRAcetam [Keppra] 1,000 mg PO DAILY 02/01/15 [History] levETIRAcetam [Keppra] 750 mg PO DAILY 02/01/15 [History] predniSONE [Prednisone] 5 mg PO DAILY 02/01/15 [History] Simvastatin 40 mg PO PCDINNER 06/07/18 [History] Docusate Sodium 100 mg PO DAILY 11/11/18 [History] Warfarin [Coumadin] 2.5 mg PO MOTUWEFR 11/11/18 [History] Fluticasone/Vilanterol [Breo Ellipta 100-25 MCG Inhalation Kit] 1 puff INH DAILY 05/06/19 [History] cycloSPORINE [Restasis Multidose] 1 drop EYEBOTH BID 05/06/19 [History] Albuterol Sulfate [Proair Hfa] 2 puff INH Q6H PRN 05/31/19 [History] Ascorbic Acid [Vitamin C] 250 mg PO BID #60 tab.chew 06/07/19 [Rx] Calcium Carb, Citrate/Vit D3 [Calcium + D3 ER Tablet] 1 tab PO DAILY 09/12/20 [History] Calcium Carbonate [Tums] 500 mg PO QID PRN 09/12/20 [History] Levothyroxine [Synthroid] 100 mcg PO DAILY 09/12/20 [History] Lidocaine 4% [Aspercreme 4%] 1 each TOP BID 09/12/20 [History] Menthol [Biofreeze] 1 dose TOP Q6H PRN 09/12/20 [History] Tens Unit [Tens 502] 1 dose TOP DAILY 09/12/20 [History] Acetaminophen [Tylenol] 650 mg PO TID PRN 30 Days capsule 10/02/20 [Rx] Acetaminophen/HYDROcodone [[place] 325-5 MG] 1 tab PO Q4H PRN 30 Days tablet 10/02/20 [Rx] Cholecalciferol (Vitamin D3) [Vitamin D3] 5,000 unit PO DAILY #30 cap 10/02/20 [Rx] Gabapentin [Neurontin] 100 mg PO TID #90 cap 10/02/20 [Rx] Propranolol [Inderal LA] 60 mg PO DAILY #30 cap.er 10/02/20 [Rx] Potassium Chloride [Klor-Con 10] 10 meq PO DAILY 11/22/20 [History] Remove Patch 0 ea TRDERM BID 11/22/20 [History] Patient Handouts: Sepsis, Diagnosis, Adult Forms: ED Department Discharge Referrals: Savage Ortiz MD [Primary Care Provider] - - Discharge Summary/Plan Comment DC Time >30 min.: No - General Info Date of Service: 11/22/20 Admission Dx/Problem (Free Text: Admission Diagnosis/Problem Admission Diagnosis/Problem UTI, Urinary tract infectious disease - Patient Data Vitals - Most Recent: Last Vital Signs Temp 97.6 F 11/21/20 20:00 Pulse 135 H 11/21/20 20:00 Resp 21 H 11/21/20 20:01 BP 91/36 L 11/21/20 20:01 Pulse Ox 90 L 11/21/20 20:00 Weight - Most Recent: 185 lb 8 oz I&O - Last 24 hours: Intake & Output 11/21/20 11/22/20 11/22/20 22:59 06:59 14:59 Output Total 0 0 Balance 0 0 Lab Results - Last 24 hrs: Laboratory Results - last 24 hr 11/21/20 11/21/20 11/21/20 Range/Units 10:00 10:55 10:55 WBC (3.98-10.04) K/mm3 RBC (3.98-5.22) M/mm3 Hgb (11.2-15.7) gm/dl Hct (34.1-44.9) % MCV (79.4-94.8) fl MCH (25.6-32.2) pg MCHC (32.2-35.5) g/dl RDW Std Deviation (36.4-46.3) fL Plt Count (182-369) K/mm3 MPV (9.4-12.3) fl Neutrophils % (Manual) (40-60) % Band Neutrophils % (0-10) % Lymphocytes % (Manual) (20-40) % Atypical Lymphs % % Monocytes % (Manual) (2-10) % Eosinophils % (Manual) (0.7-5.8) % Basophils % (Manual) (0.1-1.2) Platelet Estimate Hypochromasia Anisocytosis RBC Morph Comment PT (9.7-12.0) SECONDS INR Sodium 145 D (136-145) mEq/L Potassium 3.5 (3.5-5.1) mEq/L Chloride 105 (98-107) mEq/L Carbon Dioxide 32 (21-32) mEq/L Anion Gap 11.5 (5-15) BUN 21 H (7-18) mg/dL Creatinine 1.8 H D (0.55-1.02) mg/dL Est Cr Clr Drug Dosing TNP Estimated GFR (MDRD) 27 (>60) mL/min BUN/Creatinine Ratio 11.7 L (14-18) Glucose 101 (83-115) mg/dL Lactic Acid (0.4-2.0) mmol/L Calcium 8.5 (8.5-10.1) mg/dL Magnesium 1.7 L (1.8-2.4) mg/dl Total Bilirubin 0.7 (0.2-1.0) mg/dL AST 55 H (15-37) U/L ALT 46 (14-59) U/L Alkaline Phosphatase 46 (46-116) U/L Troponin I 0.367 H* (0.00-0.056) ng/mL C-Reactive Protein 12.9 H* (<1.0) mg/dL NT-Pro-B Natriuret Pep 57693 H (0-450) pg/mL Total Protein 5.7 L (6.4-8.2) g/dl Albumin 2.6 L (3.4-5.0) g/dl Globulin 3.1 gm/dL Albumin/Globulin Ratio 0.8 L (1-2) Urine Color Yellow (Yellow) Urine Appearance Cloudy H (Clear) Urine pH 5.0 (5.0-8.0) Ur Specific [place] > or = 1.030 (1.005-1.030) Urine Protein 3+ H (Negative) Urine Glucose (UA) Negative (Negative) Urine Ketones Trace H (Negative) Urine Occult Blood 3+ H (Negative) Urine Nitrite Positive H (Negative) Urine Bilirubin 2+ H (Negative) Urine Urobilinogen 0.2 (0.2-1.0) Ur Leukocyte Esterase Negative (Negative) Urine RBC 30-40 H (0-5) /hpf Urine WBC 5-10 H (0-5) /hpf Ur Squamous Epith Cells 0-5 (0-5) /hpf Urine Bacteria Many H (FEW) /hpf Urine Mucus Few (FEW) /hpf SARS-CoV-2 RNA (ART) (NEGATIVE) 11/21/20 11/21/20 11/21/20 Range/Units 10:55 10:55 10:55 WBC 8.05 (3.98-10.04) K/mm3 RBC 3.85 L (3.98-5.22) M/mm3 Hgb 11.4 D (11.2-15.7) gm/dl Hct 38.4 (34.1-44.9) % MCV 99.7 H (79.4-94.8) fl MCH 29.6 (25.6-32.2) pg MCHC 29.7 L (32.2-35.5) g/dl RDW Std Deviation 56.0 H (36.4-46.3) fL Plt Count 263 D (182-369) K/mm3 MPV 10.3 (9.4-12.3) fl Neutrophils % (Manual) 68 H (40-60) % Band Neutrophils % 0 (0-10) % Lymphocytes % (Manual) 26 (20-40) % Atypical Lymphs % 0 % Monocytes % (Manual) 5 (2-10) % Eosinophils % (Manual) 1 (0.7-5.8) % Basophils % (Manual) 0 L (0.1-1.2) Platelet Estimate Adequate Hypochromasia 2+ moderate Anisocytosis 1+ slight RBC Morph Comment Abnormal PT 24.0 H D (9.7-12.0) SECONDS INR 2.28 Sodium (136-145) mEq/L Potassium (3.5-5.1) mEq/L Chloride (98-107) mEq/L Carbon Dioxide (21-32) mEq/L Anion Gap (5-15) BUN (7-18) mg/dL Creatinine (0.55-1.02) mg/dL Est Cr Clr Drug Dosing Estimated GFR (MDRD) (>60) mL/min BUN/Creatinine Ratio (14-18) Glucose (83-115) mg/dL Lactic Acid 2.5 H* (0.4-2.0) mmol/L Calcium (8.5-10.1) mg/dL Magnesium (1.8-2.4) mg/dl Total Bilirubin (0.2-1.0) mg/dL AST (15-37) U/L ALT (14-59) U/L Alkaline Phosphatase (46-116) U/L Troponin I (0.00-0.056) ng/mL C-Reactive Protein (<1.0) mg/dL NT-Pro-B Natriuret Pep (0-450) pg/mL Total Protein (6.4-8.2) g/dl Albumin (3.4-5.0) g/dl Globulin gm/dL Albumin/Globulin Ratio (1-2) Urine Color (Yellow) Urine Appearance (Clear) Urine pH (5.0-8.0) Ur Specific [place] (1.005-1.030) Urine Protein (Negative) Urine Glucose (UA) (Negative) Urine Ketones (Negative) Urine Occult Blood (Negative) Urine Nitrite (Negative) Urine Bilirubin (Negative) Urine Urobilinogen (0.2-1.0) Ur Leukocyte Esterase (Negative) Urine RBC (0-5) /hpf Urine WBC (0-5) /hpf Ur Squamous Epith Cells (0-5) /hpf Urine Bacteria (FEW) /hpf Urine Mucus (FEW) /hpf SARS-CoV-2 RNA (ART) (NEGATIVE) 11/21/20 11/21/20 Range/Units 12:15 14:07 WBC (3.98-10.04) K/mm3 RBC (3.98-5.22) M/mm3 Hgb (11.2-15.7) gm/dl Hct (34.1-44.9) % MCV (79.4-94.8) fl MCH (25.6-32.2) pg MCHC (32.2-35.5) g/dl RDW Std Deviation (36.4-46.3) fL Plt Count (182-369) K/mm3 MPV (9.4-12.3) fl Neutrophils % (Manual) (40-60) % Band Neutrophils % (0-10) % Lymphocytes % (Manual) (20-40) % Atypical Lymphs % % Monocytes % (Manual) (2-10) % Eosinophils % (Manual) (0.7-5.8) % Basophils % (Manual) (0.1-1.2) Platelet Estimate Hypochromasia Anisocytosis RBC Morph Comment PT (9.7-12.0) SECONDS INR Sodium (136-145) mEq/L Potassium (3.5-5.1) mEq/L Chloride (98-107) mEq/L Carbon Dioxide (21-32) mEq/L Anion Gap (5-15) BUN (7-18) mg/dL Creatinine (0.55-1.02) mg/dL Est Cr Clr Drug Dosing Estimated GFR (MDRD) (>60) mL/min BUN/Creatinine Ratio (14-18) Glucose (83-115) mg/dL Lactic Acid 1.7 (0.4-2.0) mmol/L Calcium (8.5-10.1) mg/dL Magnesium (1.8-2.4) mg/dl Total Bilirubin (0.2-1.0) mg/dL AST (15-37) U/L ALT (14-59) U/L Alkaline Phosphatase (46-116) U/L Troponin I (0.00-0.056) ng/mL C-Reactive Protein (<1.0) mg/dL NT-Pro-B Natriuret Pep (0-450) pg/mL Total Protein (6.4-8.2) g/dl Albumin (3.4-5.0) g/dl Globulin gm/dL Albumin/Globulin Ratio (1-2) Urine Color (Yellow) Urine Appearance (Clear) Urine pH (5.0-8.0) Ur Specific [place] (1.005-1.030) Urine Protein (Negative) Urine Glucose (UA) (Negative) Urine Ketones (Negative) Urine Occult Blood (Negative) Urine Nitrite (Negative) Urine Bilirubin (Negative) Urine Urobilinogen (0.2-1.0) Ur Leukocyte Esterase (Negative) Urine RBC (0-5) /hpf Urine WBC (0-5) /hpf Ur Squamous Epith Cells (0-5) /hpf Urine Bacteria (FEW) /hpf Urine Mucus (FEW) /hpf SARS-CoV-2 RNA (ART) Positive H (NEGATIVE) Med Orders - Current: Current Medications Discontinued Medications Acetaminophen (Tylenol) 650 mg PO NOW ONE Stop: 11/21/20 10:43 Last Admin: 11/21/20 11:12 Dose: 650 mg Documented by: Hydromorphone HCl (Dilaudid) 1 mg IVPUSH Q1H PRN PRN Reason: Pain Last Admin: 11/21/20 22:47 Dose: 1 mg Documented by: Sodium Chloride (Normal Saline) 500 mls @ 999 mls/hr IV .BOLUS ONE Stop: 11/21/20 11:38 Last Admin: 11/21/20 11:16 Dose: 999 mls/hr Documented by: Sodium Chloride (Normal Saline) 1,000 mls @ 999 mls/hr IV ONETIME ONE Stop: 11/21/20 12:37 Last Admin: 11/21/20 12:56 Dose: 999 mls/hr Documented by: Levofloxacin/Dextrose 750 mg/ (Premix) 150 mls @ 100 mls/hr IV ONETIME ONE Stop: 11/21/20 13:14 Last Admin: 11/21/20 12:07 Dose: 100 mls/hr Documented by: Norepinephrine Bitartrate 4 mg (/ Dextrose/Water) 250 mls @ 7.5 mls/hr IV TITRATE LINDEN; Protocol Last Titration: 11/21/20 14:14 Dose: 5 mcg/min, 18.75 mls/hr Documented by: Lorazepam (Ativan) 1 mg IVPUSH Q1H PRN PRN Reason: Anxiety Morphine Sulfate (Morphine) 2 mg IVPUSH Q1H PRN PRN Reason: Pain (severe 7-10) Stop: 11/22/20 18:03 Morphine Sulfate (Morphine 10 Mg/0.5 Ml Oral Syringe) 10 mg PO Q2H PRN PRN Reason: Dyspnea Ondansetron HCl (Zofran) 4 mg IV Q4H PRN PRN Reason: Nausea/Vomiting Sodium Chloride (Saline Flush) 10 ml FLUSH ASDIRECTED PRN PRN Reason: Keep Vein Open Last Admin: 11/21/20 11:17 Dose: 10 ml Documented by: - Exam HEENT: Denies: Pupils Equal, Pupils Reactive, EOMI Lungs: Denies: Clear to Auscultation, Normal Respiratory Effort Cardiovascular: Denies: Regular Rate, Regular Rhythm
== END 2020-11-22 08:30 | disposition expired | DRG 951 ==
LOC: JD.ED 10:17 → JD.ICU 12:35
PROVIDERS: ADMIT Family Medicine; ATTEND Family Medicine
PROC: 3E033XZ Introduction of Vasopressor into Peripheral Vein, Percutaneous Approach (ICD-10-PCS; principal; 2020-11-21)
PROC: 0T9B70Z Drainage of Bladder with Drainage Device, Via Natural or Artificial Opening (ICD-10-PCS; 2020-11-21)
DX: Z51.5 Encounter for palliative care (principal); A41.9 Sepsis, unspecified organism; R65.21 Severe sepsis with septic shock; U07.1 COVID-19; N30.00 Acute cystitis without hematuria; Z68.41 Body mass index [BMI] 40.0-44.9, adult; R57.0 Cardiogenic shock; I46.9 Cardiac arrest, cause unspecified; H54.7 Unspecified visual loss; Z66 Do not resuscitate; I48.91 Unspecified atrial fibrillation; E78.00 Pure hypercholesterolemia, unspecified; I10 Essential (primary) hypertension; M54.9 Dorsalgia, unspecified; G89.29 Other chronic pain; R09.02 Hypoxemia; M19.90 Unspecified osteoarthritis, unspecified site; M81.0 Age-related osteoporosis without current pathological fracture; F41.9 Anxiety disorder, unspecified; F32.9 Major depressive disorder, single episode, unspecified; E03.9 Hypothyroidism, unspecified; E66.9 Obesity, unspecified; G40.909 Epilepsy, unspecified, not intractable, without status epilepticus; Z85.820 Personal history of malignant melanoma of skin; Z86.16 Personal history of COVID-19; Z98.49 Cataract extraction status, unspecified eye; Z87.01 Personal history of pneumonia (recurrent); Z87.11 Personal history of peptic ulcer disease; Z87.442 Personal history of urinary calculi; Z98.890 Other specified postprocedural states; Z90.49 Acquired absence of other specified parts of digestive tract; Z90.710 Acquired absence of both cervix and uterus; Z85.42 Personal history of malignant neoplasm of other parts of uterus; Z82.3 Family history of stroke; Z83.3 Family history of diabetes mellitus; Z82.5 Family history of asthma and other chronic lower respiratory diseases; Z80.1 Family history of malignant neoplasm of trachea, bronchus and lung; Z82.49 Family history of ischemic heart disease and other diseases of the circulatory system; Z88.1 Allergy status to other antibiotic agents; Z88.5 Allergy status to narcotic agent; Z88.0 Allergy status to penicillin; Z88.8 Allergy status to other drugs, medicaments and biological substances; Z88.2 Allergy status to sulfonamides; Z79.52 Long term (current) use of systemic steroids; Z79.01 Long term (current) use of anticoagulants; Z79.890 Hormone replacement therapy; Z79.899 Other long term (current) drug therapy; Z90.89 Acquired absence of other organs; Z90.79 Acquired absence of other genital organ(s); Z99.81 Dependence on supplemental oxygen
CPT/HCPCS: 36415; 71045; 80053; 81001; 83605; 83735; 83880; 84484; 85007; 85027; 85610; 86140; 87040 ×2; 87086; 93005; A9270; J1956; J7030; U0002; 51702; 93010; 96365; 96366; 96367; 99221; 99238; 99283; 99285-25; J1170; J7060